=== PATIENT | male | born 1950 | race Caucasian/White ===

== ENCOUNTER 2020-04-24 16:18 | Inpatient (IN) ==
[~2020-04-24 16:18] MED LIST: PIPERACILLIN/TAZOBACTAM 3.375 GM in DEXTROSE 5% 100 ML IV ONE
--- OUTSIDE RECORDS SUMMARY | 2020-04-24 16:21 | External Medical Summary | Continuity of Care Document ---
:1950 Author Name Haroldo Lares, Provider Address Unavailable Unavailable , Care Team Providers Name Role Phone Unavailable Unavailable Unavailable Fei Cobian M.D. Unavailable [email or web address], NO Unavailable Unavailable Unavailable Unavailable Unavailable Problems Deep vein thrombosis of lower extremity (453.40) (I82.409) Coronary artery disease (414.00) (I25.10) Tobacco Use ST elevation (STEMI) myocardial infarction (410.90) (I21.3) Hyperlipidemia (272.4) (E78.5) Allergies and Adverse Reactions No Known Drug Allergies (Allergy) Medications Aspirin 81 MG TABS; TAKE 1 TABLET DAILY. Luda Refills: 0 Metoprolol Tartrate 25 MG Oral Tablet; TAKE 1 TABLET T WICE DAILY. Luda Cobian Quantity: 60 Refills: 0 Simvastatin 40 MG Oral Tablet; TAKE 1 TABLET DAILY AT BEDTIME. Luda Cobian Start: 10-Jun-2011 Quantity: 30 Refills: 11 Procedures History of Cath Stent Placement Status: Completed Immunizations Immunizations not documented Family History Father Family history of Father At Age ___ Status: Active Mother Family history of Mother At Age ___ Status: Active Brother Family history of Asthma (V17.5) Status: Active Family history of Nephrolithiasis Status: Active natural son Family history of Nephrolithiasis Status: Active Social History - Smoking Status Smoker Plan of Treatment Planned Observations Planned Goals not documented Results No Known Results Results not documented
[2020-04-24] MEDS ORDERED: CEFEPIME 2,000 MG/20 ML VIAL IV STA (16:28)
[2020-04-24] MEDS ORDERED: SODIUM CHLORIDE 0.9% 1000ML 1,000 ML IV SCH (16:30)
--- NOTE | 2020-04-24 16:34 | Emergency Department Note ---
History of Present Illness General Chief complaint: Illness Time Seen by Provider: 04/24/20 16:19 Source: patient Mode of arrival: ambulatory Limitations: no limitations History of Present Illness Provider complaint: Fever, weakness, shortness of breath Who presents to the ED with a chief complaint of fever, shortness of breath and some nausea. He was in the same place that his left him when she went for work as when she came back. He is weak. He does have some confusion. It is unclear if this is baseline for the patient. He does have history of CVA. He was brought here by EMS. is currently not here when I arrived to see the patient. He did acknowledge a little shortness of breath as well as the nausea and generally not feeling well and feeling weak. He was noted to have a temperature of 100.9 by nursing staff here. EMS provided 4 mg of IV Zofran. Home Medications Home Medications Medication Instructions Recorded Confirmed Type albuterol sulfate 2.5 mg INHALATION Q4 PRN 06/03/18 06/03/18 History albuterol sulfate [Ventolin HFA] 2 puff INHALATION Q4 PRN 06/03/18 06/03/18 History allopurinol 300 mg PO DAILY PRN 06/03/18 06/03/18 History aspirin [Aspir-81] 81 mg PO DAILY 06/03/18 06/03/18 History atorvastatin 20 mg PO DAILY 06/03/18 06/03/18 History carvedilol [Coreg] 6.25 mg PO BID 06/03/18 06/03/18 History furosemide [Lasix] 20 mg PO 3XWK 06/03/18 06/03/18 History gabapentin 300 mg PO TID 06/03/18 06/03/18 History lisinopril 2.5 mg PO DAILY 06/03/18 06/03/18 History multivitamin 1 tab PO DAILY 06/03/18 06/03/18 History tamsulosin 0.4 mg PO DAILY 06/03/18 06/03/18 History Allergies Allergy/AdvReac Type Severity Reaction Status Date / Time No Known Allergies Allergy Unverified 04/30/10 10:05 Past Med/Surg History Medical History Heart disease Kidney stones Surgical History History of neck surgery Social History Smoking Status: Former smoker Feels Safe at Home: Yes Review of Systems A total of 10 systems reviewed and were otherwise negative Physical Exam Vital Signs Vital Signs - 24 hr 04/24/20 15:49 04/24/20 16:50 04/24/20 17:05 Temperature 38.3 C H Temperature Source Oral Pulse Rate 81 84 79 Pulse Rate from SpO2 Sensor 85 Respiratory Rate 22 22 33 H Respiratory Effort / Characteristics Non-Labored Blood Pressure 143/86 H 143/86 H 103/75 Blood Pressure Mean 96 105 88 Pulse Oximetry 92 92 Oxygen Delivery Method Room Air Oxygen Flow Rate Sepsis Recent Fever Within 48 Hours Yes Sepsis New/Unexplained Change in Mental Status No Sepsis Action Taken by Nursing Physician Notified 04/24/20 17:42 04/24/20 17:46 04/24/20 17:47 Temperature Temperature Source Pulse Rate 81 Pulse Rate from SpO2 Sensor 84 Respiratory Rate 31 H Respiratory Effort / Characteristics Blood Pressure 105/58 L Blood Pressure Mean 83 Pulse Oximetry 90 89 L 95 Oxygen Delivery Method Room Air Nasal Cannula Room Air Oxygen Flow Rate 2 3 Sepsis Recent Fever Within 48 Hours Sepsis New/Unexplained Change in Mental Status Sepsis Action Taken by Nursing 04/24/20 18:24 Temperature Temperature Source Pulse Rate 82 Pulse Rate from SpO2 Sensor 84 Respiratory Rate 31 H Respiratory Effort / Characteristics Blood Pressure 113/79 Blood Pressure Mean 90 Pulse Oximetry 98 Oxygen Delivery Method Oxygen Flow Rate Sepsis Recent Fever Within 48 Hours Sepsis New/Unexplained Change in Mental Status Sepsis Action Taken by Nursing CONSTITUTIONAL/VITAL SIGNS: Reviewed / noted above. GENERAL: Non-toxic in appearance. INTEGUMENTARY: Warm, dry, and [place]. HEAD: Normocephalic. EYES: without scleral icterus or trauma. ENT/OROPHARYNX: clear and moist. LYMPHADENOPATHY/NECK: Is supple without lymphadenopathy or meningismus. RESPIRATORY: Lungs rhonchi left greater than righ. CARDIOVASCULAR: Regular rate and rhythm. GI/ABDOMEN: Soft and nontender. No organomegaly or pulsatile mass. No rebound or guarding. Normal bowel sounds. EXTREMITIES: Warm and well perfused. BACK: No CVA tenderness. NEUROLOGICAL: Intact without focal deficits. PSYCHIATRIC: normal affect. MUSCULOSKELETAL: Normally developed with good muscle tone. TRIAGE NURSING DOCUMENTATION REVIEWED. Course Administered Medications Discontinued Medications Sodium Chloride (Nss 1000ml) 1,000 mls @ 999 mls/hr IV .Q1H1M KAMINI Stop: 04/24/20 17:30 Last Infusion: 04/24/20 18:02 Dose: 0 mls/hr Documented by: [id number] Admin: 04/24/20 17:01 Dose: 999 mls/hr Documented by: [id number] Cefepime HCl (Maxipime) 2,000 mg in 20 mls @ 5 mls/min IV NOW STA; Protocol Stop: 04/24/20 16:31 Last Admin: 04/24/20 17:01 Dose: 5 mls/min Documented by: [id number] Medical Decision Making Differential Diagnosis Differential includes viral illness, influenza, streptococcal pharyngitis, meningitis, pneumonia, sinusitis, UTI, pyelonephritis, otitis media. Medical Records Attestation: I reviewed the patient's medical records. Home Medications Current Medication List: was personally reviewed by me Laboratory Data Attestation: I reviewed the patient's lab results. Result diagrams: 04/24/20 16:43 04/24/20 16:43 Lab Results 04/24/20 04/24/20 04/24/20 Range/Units 16:43 16:43 16:43 WBC 16.39 H (4.8-10.8) K/uL RBC 5.32 (4.7-6.1) M/uL Hgb 16.7 (14.0-18.0) g/dL Hct 47.4 (42-52) % MCV 89.1 (80-100) fL MCH 31.4 (25-34) pg MCHC 35.2 (32-36) g/dL RDW Std Deviation 43.6 (36.4-46.3) fL RDW Coeff of Lenora 13.4 (11.5-14.5) % Plt Count 184 (130-400) K/uL MPV 11.1 H (7.4-10.4) fL Immature Gran % (Auto) 0.3 % Neut % (Auto) 85.6 % Lymph % (Auto) 6.6 % [place] % (Auto) 7.1 % Eos % (Auto) 0.3 % Baso % (Auto) 0.1 % Neut # (Auto) 14.03 H (1.4-6.5) K/uL Lymph # (Auto) 1.08 L (1.2-3.4) K/uL [place] # (Auto) 1.16 H (0.11-0.59) K/uL Eos # (Auto) 0.05 (0-0.5) K/uL Baso # (Auto) 0.02 (0-0.2) K/uL Immature Gran # (Auto) 0.05 H (0.00-0.02) K/uL PT 12.3 H (9.0-12.0) Seconds INR 1.2 H (0.9-1.1) APTT 24.2 (21.0-31.0) Seconds PTT Ratio 0.9 Sodium 135 L (136-145) mmol/L Potassium 4.1 (3.5-5.1) mmol/L Chloride 103 (98-107) mmol/L Carbon Dioxide 24 (21-32) mmol/L Anion Gap 8.0 (3-11) BUN 14 (7-18) mg/dl Creatinine 1.51 H (0.6-1.4) mg/dl Est Cr Clr Drug Dosing 54.8 ml/min Est GFR ( Amer) 53.8 Est GFR (Non-Af Amer) 46.5 BUN/Creatinine Ratio 9.0 L (10-20) Glucose 123 H (70-99) mg/dl Lactate (0.4-2.0) mmol/L Calcium 9.9 (8.5-10.1) mg/dl Magnesium 1.5 L (1.8-2.4) mg/dl Total Bilirubin 2.1 H (0.2-1) mg/dl AST 18 (15-37) U/L ALT 39 (12-78) U/L Alkaline Phosphatase 204 H (45-117) U/L Troponin I < 0.015 (0-0.045) ng/ml Total Protein 7.4 (6.4-8.2) gm/dl Albumin 3.5 (3.4-5.0) gm/dl Globulin 3.9 (2.5-4.0) gm/dl Albumin/Globulin Ratio 0.9 (0.9-2) Adenovirus (PCR) (NotDetected) B. pertussis DNA (PCR) (NotDetected) B.parapertussis DNA PCR (NotDetected) C. pneumoniae DNA (PCR) (NotDetected) Coronavirus OC43 (PCR) (NotDetected) Coronavirus HKU1 (PCR) (NotDetected) Coronavirus 229E (PCR) (NotDetected) COVID-19 PCR (NotDetected) Coronavirus NL63 (PCR) (NotDetected) Human Metapneumovir PCR (NotDetected) Influenza Type A (PCR) (NotDetected) Influenza Type B (PCR) (NotDetected) M. pneumoniae (PCR) (NotDetected) Parainfluenza 1 (PCR) (NotDetected) Parainfluenza 2 (PCR) (NotDetected) Parainfluenza 3 (PCR) (NotDetected) Parainfluenza 4 (PCR) (NotDetected) RSV (PCR) (NotDetected) Entero/Rhino (PCR) (NotDetected) 04/24/20 04/24/20 Range/Units 16:43 16:45 WBC (4.8-10.8) K/uL RBC (4.7-6.1) M/uL Hgb (14.0-18.0) g/dL Hct (42-52) % MCV (80-100) fL MCH (25-34) pg MCHC (32-36) g/dL RDW Std Deviation (36.4-46.3) fL RDW Coeff of Lenora (11.5-14.5) % Plt Count (130-400) K/uL MPV (7.4-10.4) fL Immature Gran % (Auto) % Neut % (Auto) % Lymph % (Auto) % [place] % (Auto) % Eos % (Auto) % Baso % (Auto) % Neut # (Auto) (1.4-6.5) K/uL Lymph # (Auto) (1.2-3.4) K/uL [place] # (Auto) (0.11-0.59) K/uL Eos # (Auto) (0-0.5) K/uL Baso # (Auto) (0-0.2) K/uL Immature Gran # (Auto) (0.00-0.02) K/uL PT (9.0-12.0) Seconds INR (0.9-1.1) APTT (21.0-31.0) Seconds PTT Ratio Sodium (136-145) mmol/L Potassium (3.5-5.1) mmol/L Chloride (98-107) mmol/L Carbon Dioxide (21-32) mmol/L Anion Gap (3-11) BUN (7-18) mg/dl Creatinine (0.6-1.4) mg/dl Est Cr Clr Drug Dosing ml/min Est GFR ( Amer) Est GFR (Non-Af Amer) BUN/Creatinine Ratio (10-20) Glucose (70-99) mg/dl Lactate 1.8 (0.4-2.0) mmol/L Calcium (8.5-10.1) mg/dl Magnesium (1.8-2.4) mg/dl Total Bilirubin (0.2-1) mg/dl AST (15-37) U/L ALT (12-78) U/L Alkaline Phosphatase (45-117) U/L Troponin I (0-0.045) ng/ml Total Protein (6.4-8.2) gm/dl Albumin (3.4-5.0) gm/dl Globulin (2.5-4.0) gm/dl Albumin/Globulin Ratio (0.9-2) Adenovirus (PCR) Not Detected (NotDetected) B. pertussis DNA (PCR) Not Detected (NotDetected) B.parapertussis DNA PCR Not Detected (NotDetected) C. pneumoniae DNA (PCR) Not Detected (NotDetected) Coronavirus OC43 (PCR) Not Detected (NotDetected) Coronavirus HKU1 (PCR) Not Detected (NotDetected) Coronavirus 229E (PCR) Not Detected (NotDetected) COVID-19 PCR Not Detected (NotDetected) Coronavirus NL63 (PCR) Not Detected (NotDetected) Human Metapneumovir PCR Not Detected (NotDetected) Influenza Type A (PCR) Not Detected (NotDetected) Influenza Type B (PCR) Not Detected (NotDetected) M. pneumoniae (PCR) Not Detected (NotDetected) Parainfluenza 1 (PCR) Not Detected (NotDetected) Parainfluenza 2 (PCR) Not Detected (NotDetected) Parainfluenza 3 (PCR) Not Detected (NotDetected) Parainfluenza 4 (PCR) Not Detected (NotDetected) RSV (PCR) Not Detected (NotDetected) Entero/Rhino (PCR) Not Detected (NotDetected) Imaging Data Radiologist's Impression: XR chest 1V portable CLINICAL HISTORY: Sepsis. COMPARISON STUDY: Chest radiograph May 02, 2010. FINDINGS: Postoperative findings within the cervical spine are incidentally noted. There is no pneumothorax or pleural effusion. There is moderate left midlung airspace opacity. Mild cardiomegaly is noted. There is prominence of the left mediastinal contour. IMPRESSION: 1. Moderate left midlung consolidation. This favors pneumonia. Radiographic follow up to ensure resolution is recommended. 2. Left mediastinal prominence. This is probably artifactual however lymphadenopathy cannot be excluded. This should be assessed on subsequent chest radiographs. ECG Data Attestation: I personally reviewed and interpreted this ECG as follows: Indication: + weakness Rate (beats per minute): 83 Rhythm: + normal sinus ECG ST segments: no ST elevation ECG Findings: no PVCs MDM Narrative This is a 69-year-old male who presents to the ED with a chief complaint of weakness, shortness of breath and nausea as well as some dry heaves. EMS p rovided 4 mg of Zofran IV. The patient is noted to have a fever here of 100.9. Vital signs are otherwise stable. The patient's chest x-ray shows a left mid lung consolidation. Twelve-lead EKG shows a sinus rhythm at a rate of 83. White blood cell count of 16,000. Creatinine is 1.51. Troponin was negative. Bio fire test was negative. The patient was treated with IV cefepime and IV fluids. Vital signs remained stable. He did have hypoxia with a pulse ox of 87% without oxygen. He was somewhat tachypneic. Pulse ox was 98% on 3 L. The patient will be seen by the hospitalist for further inpatient evaluation and care. Impression & Plan Pneumonia Discharge Plan Visit Data Chief Complaint: Illness ED Provider: Bradly Samayoa Discharge Problem: Pneumonia Patient Disposition: Being Evaluated by Hospitalist Forms Stand Alone Forms: [facility] [employer] Prescriptions Prescriptions: No Action multivitamin Tablet 1 tab PO DAILY RF: 0 atorvastatin 40 mg Tablet 20 mg PO DAILY RF: 0 carvedilol [Coreg] 6.25 mg Tablet 6.25 mg PO BID RF: 0 albuterol sulfate 2.5 mg /3 mL (0.083 %) Solution For Nebulization 2.5 mg INHALATION Q4 PRN (Reason: Wheezing) RF: 0 aspirin [Aspir-81] 81 mg Tablet,Delayed Release (Dr/Ec) 81 mg PO DAILY RF: 0 tamsulosin 0.4 mg Capsule 0.4 mg PO DAILY RF: 0 gabapentin 300 mg Capsule 300 mg PO TID RF: 0 allopurinol 300 mg Tablet 300 mg PO DAILY PRN (Reason: GOUT FLARE [employer]) RF: 0 furosemide [Lasix] 20 mg Tablet 20 mg PO 3XWK RF: 0 albuterol sulfate [Ventolin HFA] 90 mcg/actuation Hfa Aerosol Inhaler 2 puff INHALATION Q4 PRN (Reason: Wheezing) RF: 0 lisinopril 2.5 mg Tablet 2.5 mg PO DAILY RF: 0 Referrals Referrals: Jorge Luis Santos MD [Primary Care Provider] -
[2020-04-24 16:59] LABS: Basophils # (auto) 0.02 K/uL (0-0.2); Basophils % (auto) 0.1 %; Eosinophils # (auto) 0.05 K/uL (0-0.5); Eosinophils % (auto) 0.3 %; Hematocrit (blood only) 47.4 % (42-52); Hemoglobin 16.7 g/dL (14.0-18.0); Immature Granulocytes # (auto) 0.05 K/uL (0.00-0.02); Immature Granulocytes % (auto) 0.3 %; Lymphocytes # (auto) 1.08 K/uL (1.2-3.4); Lymphocytes % (auto) 6.6 %; Mean Corpuscular Hemoglobin 31.4 pg (25-34); Mean Corpuscular Hgb Conc 35.2 g/dL (32-36); Mean Corpuscular Volume 89.1 fL (80-100); Mean Platelet Volume 11.1 fL (7.4-10.4); Monocytes # (auto) 1.16 K/uL (0.11-0.59); Monocytes % (auto) 7.1 %; Neutrophils # (auto) 14.03 K/uL (1.4-6.5); Neutrophils % (auto) 85.6 %; Platelet Count 184 K/uL (130-400); RDW Coefficient of Variation 13.4 % (11.5-14.5); RDW Standard Deviation 43.6 fL (36.4-46.3); Red Blood Count 5.32 M/uL (4.7-6.1); White Blood Count 16.39 K/uL (4.8-10.8)
[2020-04-24 17:12] LABS: INR 1.2 (0.9-1.1); Partial Thromboplastin Ratio 0.9; Partial Thromboplastin Time 24.2 Seconds (21.0-31.0); Prothrombin Time 12.3 Seconds (9.0-12.0)
[2020-04-24 17:20] LABS: Alanine Aminotransferase 39 U/L (12-78); Albumin Level 3.5 gm/dl (3.4-5.0); Aspartate Aminotransferase 18 U/L (15-37); Blood Urea Nitrogen 14 mg/dl (7-18); Calcium 9.9 mg/dl (8.5-10.1); Carbon Dioxide 24 mmol/L (21-32); Chloride 103 mmol/L (98-107); Creatinine Clr Calc Pharmacy 54.8 ml/min; Est GFR (African American) 53.8; Est GFR (Non-African American) 46.5; Glucose 123 mg/dl (70-99); Magnesium 1.5 mg/dl (1.8-2.4); Potassium 4.1 mmol/L (3.5-5.1); Sodium 135 mmol/L (136-145)
[2020-04-24 17:25] LABS: Albumin Globulin Ratio 0.9 (0.9-2); Alkaline Phosphatase 204 U/L (45-117); Bilirubin,Total 2.1 mg/dl (0.2-1); Globulin 3.9 gm/dl (2.5-4.0); Total Protein 7.4 gm/dl (6.4-8.2); Troponin I < 0.015 ng/ml (0-0.045)
--- NOTE | 2020-04-24 17:25 | XRay Report ---
XR chest 1V portable CLINICAL HISTORY: Sepsis. COMPARISON STUDY: Chest radiograph May 02, 2010. FINDINGS: Postoperative findings within the cervical spine are incidentally noted. There is no pneumo thorax or pleural effusion. There is moderate left midlung airspace opacity. Mild cardiomegaly is not ed. There is prominence of the left mediastinal contour. IMPRESSION: 1. Moderate left midlung consolidation. This favors pneumonia. Radiographic follow up to ensure resol ution is recommended. 2. Left mediastinal prominence. This is probably artifactual however lymphadenopathy cannot be exclud ed. This should be assessed on subsequent chest radiographs. ACT 112: Negative or not required by law. Electronically signed by: Avila Khoury M.D. 04/24/2020 5:24 PM
[2020-04-24 17:54] LABS: Adenovirus PCR Not Detected (NotDetected); Bordetella parapertussis PCR Not Detected (NotDetected); Bordetella pertussis PCR Not Detected (NotDetected); Chlamydia pneumoniae PCR Not Detected (NotDetected); Coronavirus 229E PCR Not Detected (NotDetected); Coronavirus CoV-2 (COVID19)PCR Not Detected (NotDetected); Coronavirus HKU1 PCR Not Detected (NotDetected); Coronavirus NL63 PCR Not Detected (NotDetected); Coronavirus OC43PCR Not Detected (NotDetected); Human Metapneumovirus PCR Not Detected (NotDetected); Influenza A PCR Not Detected (NotDetected); Influenza B PCR Not Detected (NotDetected); Mycoplasma pneumoniae PCR Not Detected (NotDetected); Parainfluenza Virus 1 PCR Not Detected (NotDetected); Parainfluenza Virus 2 PCR Not Detected (NotDetected); Parainfluenza Virus 3 PCR Not Detected (NotDetected); Parainfluenza Virus 4 PCR Not Detected (NotDetected); Respiratory Syncytial VirusPCR Not Detected (NotDetected); Rhinovirus/Enterovirus PCR Not Detected (NotDetected)
[2020-04-24] MEDS ORDERED: MAGNESIUM SULFATE / D5W 1 GM/100 ML BAG IV STA (19:26)
[2020-04-24] MEDS ORDERED: LORazepam 0.5 MG/1 ML VIAL IV STA (19:28)
[2020-04-24] MEDS ORDERED: LORazepam 0.25 MG/0.5 ML VIAL IV PRN (19:29)
[2020-04-24] MEDS ORDERED: ACETAMINOPHEN 325 MG TAB PO PRN (19:32)
[2020-04-24] MEDS ORDERED: ALBUT/IPRATROP 3MG/0.5MG NEB 3 ML VIAL NEB PRN (19:32)
[2020-04-24] MEDS ORDERED: MAGNESIUM SULFATE 1GM / D5W BAG IV ONE (19:37)
--- NOTE | 2020-04-24 19:37 | History & Physical Report ---
Date of Service April 24, 2020 Assessment & Plan (1) Pneumonia: -Patient presents to ED with a chief complaint of fever, shortness of breath and some nausea; admission Chest X ray with Moderate left midlung consolidation that favors pneumonia, and left mediastinal prominence (but lymphadenopathy cannot be excluded), WBC of 13 K, and fever of 38.3 celsius; also hypoxic on room air as 87%, patient does not use oxygen at home. was given supplementary oxygen and given cefepime in the ED. COVID 19 screening is negative -When hospitalist arrived to admit the patient, patient appears to have reluctance or anxiety about being admitted to the hospital. Patient's Yola [phone] denies that patient has any diagnosis of dementia and convincing patient to stay for hospital treatment. patient allowed for physical exam but not reporting current nausea - his affirms subjective fever at home. other review of systems appears to be negative. -hospitalist will admit patient and transition IV antibiotics to broaden the coverage with IV Zosyn and IV Doxycycline. send for MRSA swab of the nares. (2) Hypoxia: -supplementary oxygen as needed -wean off oxygen when able -nebuilzers prn (3) PAF (paroxysmal atrial fibrillation): Chronic systolic heart failure as per his outpatient notes -patient home dose medications does not include any diuretics -on metoprolol 50 mg daily and eliquis and atorvastatin, continue (4) alf (current) use of anticoagulants: -continue home dose Eliquis 5 mg BID (5) Depression: -continue home dose fluoxetine 20 mg daily -on gabapentin 300 mg TID -prn ativan for anxiety of being in hospital (6) CKD (chronic kidney disease), stage III: -monitor the renal function (7) BPH (benign prostatic hyperplasia): -monitor the urination and continue home dose finasteride and tamsulosin History of gout in the past -hold the allopurinol for now Yola [phone] son Sonido [phone] History of Present Illness -Patient presents to ED with a chief complaint of fever, shortness of breath and some nausea; admission Chest X ray with Moderate left midlung consolidation that favors pneumonia, and left mediastinal prominence (but lymphadenopathy cannot be excluded), WBC of 13 K, and fever of 38.3 celsius; also hypoxic on room air as 87%, patient does not use oxygen at home. was given supplementary oxygen and given cefepime in the ED. COVID 19 screening is negative -When hospitalist arrived to admit the patient, patient appears to have reluctance or anxiety about being admitted to the hospital. Patient's Yola [phone] denies that patient has any diagnosis of dementia and convincing patient to stay for hospital treatment. patient allowed for physical exam but not reporting current nausea - his affirms subjective fever at home. other review of systems appears to be negative. denies any drug allergies to medications or foods Family Health history: brother has asthma Primary Care Provider: Jorge Luis Santos MD Allergies Allergy/AdvReac Type Severity Reaction Status Date / Time No Known Allergies Allergy Unverified 04/24/20 19:29 Home Medications Home Medications Medication Instructions Recorded Confirmed Type albuterol sulfate 2.5 mg INHALATION Q4 PRN 06/03/18 04/24/20 History albuterol sulfate [Ventolin HFA] 2 puff INHALATION Q4 PRN 06/03/18 04/24/20 History allopurinol 300 mg PO DAILY PRN 06/03/18 04/24/20 History atorvastatin 20 mg PO DAILY 06/03/18 04/24/20 History gabapentin 300 mg PO TID 06/03/18 04/24/20 History multivitamin 1 tab PO DAILY 06/03/18 04/24/20 History tamsulosin 0.4 mg PO DAILY 06/03/18 04/24/20 History apixaban [Eliquis] 5 mg PO BID 04/24/20 04/24/20 History finasteride 5 mg PO DAILY 04/24/20 04/24/20 History fluoxetine 20 mg PO DAILY 04/24/20 04/24/20 History metoprolol succinate 50 mg PO DAILY 04/24/20 04/24/20 History Past Med/Surg History Medical History Heart disease Kidney stones Surgical History History of neck surgery Social History Smoking Status: Former smoker Feels Safe at Home: Yes Review of Systems Review of Systems: All systems reviewed & are unremarkable except as noted in Subjective Physical Exam Constitutional: comfortable Eyes: PERRL, conjunctivae normal, anicteric sclerae EOM intact bilaterally ENMT: external ear and nose normal, oropharynx normal Neck: normal visual inspection Respiratory: Auscultation: + crackles Cardiovascular: Rate/Rhythm: regular rate Gastrointestinal (Abdomen): normal bowel sounds, soft, nontender, no hepatosplenomegaly Musculoskeletal: Head/Neck/Chest: normocephalic and head atraumatic Neurologic: PERRL, EOMI, accommodation nl, no face palsy, no dysarthria moves all extremities Psychiatric: Orientation: alert patient has anxiety about staying in the hospital Results & Data Results & Data ([facility]) Vital Signs (Past 12 Hours) Vital Signs Temp Pulse Resp BP Pulse Ox 04/24/20 18:24 82 31 H 113/79 98 04/24/20 17:47 95 04/24/20 17:46 89 L 04/24/20 17:42 81 31 H 105/58 L 90 04/24/20 17:05 79 33 H 103/75 92 04/24/20 16:50 38.3 C H 84 22 143/86 H 92 04/24/20 15:49 81 22 143/86 H Code Status & VTE Plan VTE Prophylaxis Plan VTE Prophylaxis will be ordered: Yes (1) Pneumonia Laterality: left Lung location: lower lobe of lung Pneumonia type: due to unspecified organism Qualified Code(s): J18.9 - Pneumonia, unspecified organism
[2020-04-24] MEDS ORDERED: LORazepam 2 MG/4 ML VIAL ONE (19:45)
[2020-04-25] MEDS: DOXYCYCLINE HYCLATE 100 MG in DEXTROSE 5% 100 ML IV SCH ×3 (00:03→22:00)
[2020-04-25] MEDS: APIXABAN 5 MG TABLET PO SCH ×3 (00:04→20:43)
[2020-04-25] MEDS: MAGNESIUM OXIDE 400 MG TAB PO SCH ×2 (00:04→07:59)
[2020-04-25] MEDS: GABAPENTIN 300 MG CAP PO SCH ×4 (00:04→20:43)
[2020-04-25 00:55] LABS: Eosinophils # (auto) 0.01 K/uL (0-0.5); Eosinophils % (auto) 0.1 %; Hematocrit (blood only) 39.3 % (42-52); Hemoglobin 14.2 g/dL (14.0-18.0); Immature Granulocytes # (auto) 0.08 K/uL (0.00-0.02); Immature Granulocytes % (auto) 0.4 %; Lymphocytes # (auto) 0.92 K/uL (1.2-3.4); Mean Corpuscular Hemoglobin 32.1 pg (25-34); Mean Corpuscular Hgb Conc 36.1 g/dL (32-36); Mean Corpuscular Volume 88.7 fL (80-100); Monocytes # (auto) 1.62 K/uL (0.11-0.59); Monocytes % (auto) 8.9 %; Neutrophils # (auto) 15.64 K/uL (1.4-6.5); Neutrophils % (auto) 85.6 %; Platelet Count 148 K/uL (130-400); RDW Coefficient of Variation 13.3 % (11.5-14.5); RDW Standard Deviation 43.3 fL (36.4-46.3); Red Blood Count 4.43 M/uL (4.7-6.1); White Blood Count 18.27 K/uL (4.8-10.8)
[2020-04-25 01:12] LABS: Albumin Level 2.7 gm/dl (3.4-5.0); BUN Creatinine Ratio 13.2 (10-20); Calcium 8.5 mg/dl (8.5-10.1); Creatinine Clr Calc Pharmacy 58.3 ml/min; Magnesium 1.8 mg/dl (1.8-2.4); Potassium 4.2 mmol/L (3.5-5.1)
[2020-04-25 01:16] LABS: Albumin Globulin Ratio 0.8 (0.9-2); Bilirubin,Total 1.9 mg/dl (0.2-1); Globulin 3.3 gm/dl (2.5-4.0)
[2020-04-25] MEDS ORDERED: PIPERACILLIN/TAZOBACTAM 3.375 GM in DEXTROSE 5% 100 ML IV ONE (05:00)
[2020-04-25 05:13] LABS: Appearance Urine Cloudy (Clear); Bacteria Urine Automated Negative (Negative); Bilirubin Urine Negative (Negative); Blood Urine 1+ (Negative); Color Urine Orange; Epithelial Cell Urine Auto 0-5 /lpf (0-5); Glucose Urine UA Negative (Negative); Ketones Urine Trace (Negative); Leukocyte Esterase Urine 2+ (Negative); Nitrite Urine Negative (Negative); Protein Urine Trace (Negative); RBC Urine Automated 0-4 /hpf (0-4); Specific Gravity Urine 1.025 (1.000-1.030); Urobilinogen Urine Negative (Negative); WBC Urine Automated >30 /hpf (0-5)
[2020-04-25 05:35] LABS: Cast Urine Automated 0 /lpf (0-5); Mucus Urine Present (None Prsent); Sperm Urine Present (None Prsent)
[2020-04-25 06:26] LABS: Basophils # (auto) 0.02 K/uL (0-0.2); Basophils % (auto) 0.1 %; Eosinophils # (auto) 0.02 K/uL (0-0.5); Eosinophils % (auto) 0.1 %; Hematocrit (blood only) 41.7 % (42-52); Hemoglobin 14.2 g/dL (14.0-18.0); Immature Granulocytes # (auto) 0.05 K/uL (0.00-0.02); Immature Granulocytes % (auto) 0.3 %; Lymphocytes # (auto) 1.38 K/uL (1.2-3.4); Lymphocytes % (auto) 7.4 %; Mean Corpuscular Hemoglobin 30.5 pg (25-34); Mean Corpuscular Hgb Conc 34.1 g/dL (32-36); Mean Corpuscular Volume 89.5 fL (80-100); Mean Platelet Volume 10.3 fL (7.4-10.4); Monocytes # (auto) 1.34 K/uL (0.11-0.59); Monocytes % (auto) 7.2 %; Neutrophils # (auto) 15.89 K/uL (1.4-6.5); Neutrophils % (auto) 84.9 %; Platelet Count 157 K/uL (130-400); RDW Coefficient of Variation 13.5 % (11.5-14.5); RDW Standard Deviation 44.2 fL (36.4-46.3); Red Blood Count 4.66 M/uL (4.7-6.1)
[2020-04-25 06:53] LABS: Albumin Level 2.7 gm/dl (3.4-5.0); Calcium 8.8 mg/dl (8.5-10.1); Creatinine Clr Calc Pharmacy 51.4 ml/min; Est GFR (African American) 54.7; Est GFR (Non-African American) 47.2; Potassium 4.2 mmol/L (3.5-5.1)
[2020-04-25 06:56] LABS: Albumin Globulin Ratio 0.8 (0.9-2); Bilirubin,Total 2.1 mg/dl (0.2-1); Globulin 3.3 gm/dl (2.5-4.0)
[2020-04-25] MEDS: TAMSULOSIN HCL 0.4 MG CAP PO SCH (07:58)
[2020-04-25] MEDS: ATORVASTATIN 20 MG TAB PO SCH (07:58)
[2020-04-25] MEDS: MULTIVITAMIN TAB PO SCH (07:59)
[2020-04-25] MEDS: FLUOXETINE HCL 20 MG CAP PO SCH (07:59)
[2020-04-25] MEDS: FINASTERIDE 5 MG TAB PO SCH (08:00)
[2020-04-25] MEDS: METOPROLOL SUCC 50MG EXT REL TAB PO SCH (08:00)
[2020-04-25] MEDS ORDERED: PIPERACILL/TAZOBAC CONSULT ACTIVE PRN (10:00)
[2020-04-25] MEDS: PIPERACILLIN/TAZOBACTAM 3.375 GM in DEXTROSE 5% 100 ML IV SCH ×2 (10:26→17:04)
--- NOTE | 2020-04-25 14:36 | Hospitalist Progress Note ---
Date of Service April 25, 2020 Assessment & Plan (1) Pneumonia: Sepsis POA secondary to pneumonia Patient presents to ED with a chief complaint of fever, shortness of breath and some nausea; admission Chest X ray with Moderate left midlung consolidation that favors pneumonia, and left mediastinal prominence (but lymphadenopathy cannot be excluded), WBC of 13 K, and fever of 38.3 celsius; also hypoxic on room air as 87%, patient does not use oxygen at home. was given supplementary oxygen and given cefepime in the ED. 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: -continue home dose Eliquis 5 mg BID (5) Depression: -continue home dose fluoxetine 20 mg daily -on gabapentin 300 mg TID -prn ativan for anxiety of being in hospital (6) CKD (chronic kidney disease), stage III: Acute kidney failure on chronic kidney disease Contributed by dehydration We will give cautious amount of intravenous fluid Letter PRP (7) BPH (benign prostatic hyperplasia): -monitor the urination and continue home dose finasteride and tamsulosin History of gout in the past -hold the allopurinol for now Yola [phone] son Sonido [phone] Discussed the in detail Admission and Anticipated Discharge Date Admission Date: April 24, 2020 Subjective 04/25/2020 The patient was seen and examined in medical telemetry unit in presence of the Admitted yesterday with sudden onset of fever and shortness of breath with nausea noted to have left mid lung pneumonia Feeling a lot better this morning Still has cough and moderate shortness of breath at rest Review of Systems Review of Systems: All systems reviewed and are unremarkable except as noted below Respiratory: + cough and + dyspnea Physical Exam Physical Exam: Lying in bed with moderate shortness of breath and wheezing Constitutional: well developed, well nourished, + acute distress, + ill appearing and + obese Eyes: PERRL, conjunctivae normal, anicteric sclerae ENMT: external ear and nose normal, oropharynx normal Neck: trachea midline, no thyromegaly Respiratory: + respiratory distress (Moderate at rest) Auscultation: + diminished lung sounds, + crackles (Bilateral mostly on the left) and + wheezes Cardiovascular: Rate/Rhythm: regular rate and regular rhythm Heart Sounds: no murmur Gastrointestinal (Abdomen): Inspection/Auscultation: abdomen normal to inspection and normal bowel sounds; abdomen not distended Percussion/Palpation: abdomen soft Musculoskeletal: No acute arthritis in any joints Neurologic: moves all extremities; no focal motor deficits Psychiatric: A+Ox3, euthymic affect Lymphatic: no cervical or axillary lymphadenopathy Results & Data Results & Data ([facility]) Vital Signs (Past 12 Hours) Vital Signs Temp Pulse Pulse Resp BP BP Pulse Ox 04/25/20 12:10 36.4 C L 63 20 97/60 L 92 04/25/20 08:02 36.8 C 70 20 83/59 L 95/65 L 70 L 04/25/20 08:00 65 04/25/20 03:31 37.1 C 66 18 96/56 L 93 Laboratory Results Short CBC 04/24/20 04/25/20 04/25/20 Range/Units 16:43 00:41 05:57 WBC 16.39 H 18.27 H 18.70 H (4.8-10.8) K/uL Hgb 16.7 14.2 14.2 (14.0-18.0) g/dL Hct 47.4 39.3 L 41.7 L (42-52) % Plt Count 184 148 157 (130-400) K/uL BMP 04/24/20 04/25/20 04/25/20 16:43 00:41 05:57 Sodium 135 L 135 L 136 Potassium 4.1 4.2 4.2 Chloride 103 106 106 Carbon Dioxide 24 23 25 BUN 14 19 H 21 H Creatinine 1.51 H 1.42 H 1.49 H Glucose 123 H 107 H 110 H Calcium 9.9 8.5 8.8 Cardiac Enzymes 04/24/20 Range/Units 16:43 Troponin I < 0.015 (0-0.045) ng/ml Liver Function 04/24/20 04/25/20 04/25/20 Range/Units 16:43 00:41 05:57 Total Bilirubin 2.1 H 1.9 H 2.1 H (0.2-1) mg/dl AST 18 13 L 12 L (15-37) U/L ALT 39 27 26 (12-78) U/L Alkaline Phosphatase 204 H 155 H 151 H (45-117) U/L Albumin 3.5 2.7 L 2.7 L (3.4-5.0) gm/dl Urine 04/25/20 Range/Units 05:00 Urine Color [place] Urine Appearance Cloudy A (Clear) Urine pH 5.0 (4.5-7.5) Ur Specific [place] 1.025 (1.000-1.030) Urine Protein Trace H (Negative) Urine Glucose (UA) Negative (Negative) Medications Administered Current Inpatient Medications Acetaminophen (Acetaminophen 325 Mg Tab) 325 mg PO Q6H PRN PRN Reason: Pain or Fever Stop: 05/24/20 19:44 Albuterol (Albut/Ipratrop 3mg/0.5mg Neb 3 Ml Vial) 3 ml NEB Q6R PRN PRN Reason: Shortness Of Breath Or Wheezing Stop: 05/24/20 19:31 Apixaban (Apixaban 5 Mg Tablet) 5 mg PO BID [facility] Stop: 05/24/20 20:59 Last Admin: 04/25/20 09:50 Dose: 5 mg Documented by: Atorvastatin Calcium (Atorvastatin 20 Mg Tab) 20 mg PO DAILY [facility] Stop: 05/25/20 08:59 Last Admin: 04/25/20 07:58 Dose: 20 mg Documented by: Finasteride (Finasteride 5 Mg Tab) 5 mg PO DAILY [facility] Stop: 05/25/20 08:59 Last Admin: 04/25/20 08:00 Dose: 5 mg Documented by: Fluoxetine HCl (Fluoxetine Hcl 20 Mg Cap) 20 mg PO DAILY [facility] Stop: 05/25/20 08:59 Last Admin: 04/25/20 07:59 Dose: 20 mg Documented by: Gabapentin (Gabapentin 300 Mg Cap) 300 mg PO TID [facility] Stop: 05/24/20 20:59 Last Admin: 04/25/20 14:32 Dose: 300 mg Documented by: Lorazepam (Ativan) 0.25 mg in 0.5 mls @ 0.5 mls/min IV Q12H PRN PRN Reason: Anxiety Stop: 05/24/20 19:28 Doxycycline Hyclate 100 mg/ (Dextrose) 110 mls @ 50 mls/hr IV Q12 [facility] Stop: 05/01/20 22:29 Last Infusion: 04/25/20 10:26 Dose: Infused Documented by: Piperacillin Sod/Tazobactam (Sod 3.375 gm/ Dextrose) 115 mls @ 28 mls/hr IV Q8H [facility]; Protocol Stop: 05/02/20 09:59 Last Infusion: 04/25/20 14:30 Dose: Infused Documented by: Magnesium Oxide (Magnesium Oxide 400 Mg Tab) 400 mg PO QAM [facility] Stop: 05/24/20 19:29 Last Admin: 04/25/20 07:59 Dose: 400 mg Documented by: Metoprolol Succinate (Metoprolol Succ 50mg Ext Rel Tab) 50 mg PO DAILY [facility] Stop: 05/25/20 08:59 Last Admin: 04/25/20 08:00 Dose: Not Given Documented by: Miscellaneous Information (Piperacill/Tazobac Consult Active) 1 ea N/A UD PRN PRN Reason: Consult Stop: 05/25/20 09:59 Multivitamins (Multivitamin Tab) 1 tab PO DAILY [facility] Stop: 05/25/20 08:59 Last Admin: 04/25/20 07:59 Dose: 1 tab Documented by: Tamsulosin HCl (Tamsulosin Hcl 0.4 Mg Cap) 0.4 mg PO DAILY [facility] Stop: 05/25/20 08:59 Last Admin: 04/25/20 07:58 Dose: 0.4 mg Documented by: (1) Pneumonia Laterality: left Lung location: lower lobe of lung Pneumonia type: due to unspecified organism Qualified Code(s): J18.9 - Pneumonia, unspecified organism
[2020-04-25] MEDS ORDERED: SODIUM CHLORIDE 0.9% 1000ML 1,000 ML IV SCH (15:45)
--- NOTE | 2020-04-25 22:20 | Electrocardiogram Report ---
Test Reason : Blood Pressure : / mmHG Vent. Rate : 083 BPM Atrial Rate : 083 BPM P-R Int : 138 ms QRS Dur : 078 ms QT Int : 370 ms P-R-T Axes : 072 011 074 degrees QTc Int : 434 ms Sinus rhythm with Premature atrial complexes Otherwise normal ECG When compared with ECG of 03-JUN-2018 16:03, Sinus rhythm has replaced Atrial fibrillation Confirmed by Peng Levy ([id number]) on 04/25/2020 10:20:19 PM Referred By: REFERRED SELF Confirmed By:Peng Levy
[2020-04-26] MEDS: PIPERACILLIN/TAZOBACTAM 3.375 GM in DEXTROSE 5% 100 ML IV SCH (01:31)
[2020-04-26 05:46] LABS: Basophils # (auto) 0.02 K/uL (0-0.2); Basophils % (auto) 0.2 %; Eosinophils # (auto) 0.34 K/uL (0-0.5); Eosinophils % (auto) 2.7 %; Hematocrit (blood only) 41.8 % (42-52); Hemoglobin 14.2 g/dL (14.0-18.0); Immature Granulocytes # (auto) 0.02 K/uL (0.00-0.02); Immature Granulocytes % (auto) 0.2 %; Lymphocytes # (auto) 1.75 K/uL (1.2-3.4); Lymphocytes % (auto) 13.7 %; Mean Corpuscular Hemoglobin 30.3 pg (25-34); Mean Corpuscular Volume 89.1 fL (80-100); Mean Platelet Volume 10.6 fL (7.4-10.4); Monocytes # (auto) 1.03 K/uL (0.11-0.59); Monocytes % (auto) 8.1 %; Neutrophils # (auto) 9.57 K/uL (1.4-6.5); Neutrophils % (auto) 75.1 %; Platelet Count 163 K/uL (130-400); RDW Coefficient of Variation 13.3 % (11.5-14.5); RDW Standard Deviation 43.4 fL (36.4-46.3); Red Blood Count 4.69 M/uL (4.7-6.1); White Blood Count 12.73 K/uL (4.8-10.8)
[2020-04-26 06:23] LABS: Calcium 8.9 mg/dl (8.5-10.1); Creatinine Clr Calc Pharmacy 56.3 ml/min; Est GFR (African American) 61.1; Est GFR (Non-African American) 52.7; Magnesium 1.9 mg/dl (1.8-2.4); Phosphorus 1.9 mg/dl (2.5-4.9)
[2020-04-26] MEDS: DOXYCYCLINE HYCLATE 100 MG in DEXTROSE 5% 100 ML IV SCH (07:44)
[2020-04-26] MEDS: GABAPENTIN 300 MG CAP PO SCH (07:45)
[2020-04-26] MEDS: TAMSULOSIN HCL 0.4 MG CAP PO SCH (07:45)
[2020-04-26] MEDS: METOPROLOL SUCC 50MG EXT REL TAB PO SCH (07:45)
[2020-04-26] MEDS: ATORVASTATIN 20 MG TAB PO SCH (07:45)
[2020-04-26] MEDS: MULTIVITAMIN TAB PO SCH (07:45)
[2020-04-26] MEDS: FINASTERIDE 5 MG TAB PO SCH (07:46)
[2020-04-26] MEDS: MAGNESIUM OXIDE 400 MG TAB PO SCH (07:46)
[2020-04-26] MEDS: APIXABAN 5 MG TABLET PO SCH (07:46)
[2020-04-26] MEDS: FLUOXETINE HCL 20 MG CAP PO SCH (07:46)
--- NOTE | 2020-04-26 10:01 | Hospitalist Progress Note ---
Date of Service April 26, 2020 Assessment & Plan (1) Pneumonia: Sepsis POA secondary to pneumonia Patient presents to ED with a chief complaint of fever, shortness of breath and some nausea; admission Chest X ray with Moderate left midlung consolidation that favors pneumonia, and left mediastinal prominence (but lymphadenopathy cannot be excluded), WBC of 13 K, and fever of 38.3 celsius; also hypoxic on room air as 87%, patient does not use oxygen at home. was given supplementary oxygen and given cefepime in the ED. COVID 19 screening is negative Has been getting intravenous Zosyn and doxycycline Clinically a little bit better today We will continue current management Much better this morning and the blood cultures have been negative He does not require any oxygen at rest He will have up to a step O2 saturation test and an x-ray of the chest before discharging this morning We will change antibiotic to oral Augmentin and doxycycline for better coverage (2) Hypoxia: -supplementary oxygen as needed -wean off oxygen when able -nebuilzers prn - (3) PAF (paroxysmal atrial fibrillation): DischargeChronic systolic heart failure as per his outpatient notes -patient home dose medications does not include any diuretics -on metoprolol 50 mg daily and eliquis and atorvastatin, continue -Has had junctional rhythm this morning history of PAF before (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: -continue home dose Eliquis 5 mg BID (5) Depression: -continue home dose fluoxetine 20 mg daily -on gabapentin 300 mg TID -prn ativan for anxiety of being in hospital (6) CKD (chronic kidney disease), stage III: Acute kidney failure on chronic kidney disease Contributed by dehydration We will give cautious amount of intravenous fluid Letter PRP (7) BPH (benign prostatic hyperplasia): -monitor the urination and continue home dose finasteride and tamsulosin History of gout in the past -hold the allopurinol for now Yola [phone] son Sonido [phone] Discussed the in detail Wants to go home desperately and will be leaving this afternoon Admission and Anticipated Discharge Date Admission Date: April 24, 2020 Subjective 04/25/2020 The patient was seen and examined in medical telemetry unit in presence of the Admitted yesterday with sudden onset of fever and shortness of breath with nausea noted to have left mid lung pneumonia Feeling a lot better this morning Still has cough and moderate shortness of breath at rest 04/26/2020 The patient was seen and examined in medical telemetry unit He has been insisting since this morning that he wants to go home His shortness of breath is much improved and he does not require any oxygen to maintain saturation at room air He will have chest x-ray this morning and if it shows improvement most likely will be discharging home this afternoon Review of Systems Review of Systems: All systems reviewed and are unremarkable except as noted below Respiratory: + cough and + dyspnea Physical Exam Physical Exam: Lying in bed with minimal shortness of breath and wheezing Constitutional: well developed, well nourished and + obese; no acute distress and not ill appearing Eyes: PERRL, conjunctivae normal, anicteric sclerae ENMT: external ear and nose normal, oropharynx normal Neck: trachea midline, no thyromegaly Respiratory: + respiratory distress (Minimal shortness of breath at rest) Auscultation: + diminished lung sounds and + crackles (Very few left basilar crackles); no wheezes Cardiovascular: Rate/Rhythm: regular rate and regular rhythm Heart Sounds: no murmur Gastrointestinal (Abdomen): Inspection/Auscultation: abdomen normal to inspection and normal bowel sounds; abdomen not distended Percussion/Palpation: abdomen soft Neurologic: moves all extremities; no focal motor deficits Psychiatric: A+Ox3, euthymic affect Lymphatic: no cervical or axillary lymphadenopathy Results & Data Results & Data ([facility]) Vital Signs (Past 12 Hours) Vital Signs Temp Pulse Pulse Resp BP Pulse Ox 04/26/20 09:18 90 04/26/20 07:57 36.7 C 89 16 93/66 L 95 04/26/20 07:35 67 04/26/20 04:00 18 04/26/20 03:20 36.5 C 66 18 100/62 92 04/26/20 00:00 16 04/25/20 22:36 36.5 C 74 20 99/66 L 91 Laboratory Results Short CBC 04/26/20 Range/Units 05:07 WBC 12.73 H (4.8-10.8) K/uL Hgb 14.2 (14.0-18.0) g/dL Hct 41.8 L (42-52) % Plt Count 163 (130-400) K/uL [facility] 04/26/20 05:07 Sodium 136 Potassium 4.0 Chloride 105 Carbon Dioxide 25 BUN 23 H Creatinine 1.36 Glucose 103 H Calcium 8.9 Medications Administered Current Inpatient Medications Acetaminophen (Acetaminophen 325 Mg Tab) 325 mg PO Q6H PRN PRN Reason: Pain or Fever Stop: 05/24/20 19:44 Albuterol (Albut/Ipratrop 3mg/0.5mg Neb 3 Ml Vial) 3 ml NEB Q6R PRN PRN Reason: Shortness Of Breath Or Wheezing Stop: 05/24/20 19:31 Amoxicillin/Clavulanate Potassium (Amoxicillin/Clavulanate 875 Mg Tab) 1 tab PO BIDM [facility] Stop: 05/03/20 16:59 Apixaban (Apixaban 5 Mg Tablet) 5 mg PO BID [facility] Stop: 05/24/20 20:59 Last Admin: 04/26/20 07:46 Dose: 5 mg Documented by: Doxycycline Hyclate (Doxycycline Hyclate 100 Mg Cap) 100 mg PO BID [facility]; Protocol Stop: 05/01/20 23:59 Finasteride (Finasteride 5 Mg Tab) 5 mg PO DAILY [facility] Stop: 05/25/20 08:59 Last Admin: 04/26/20 07:46 Dose: 5 mg Documented by: Fluoxetine HCl (Fluoxetine Hcl 20 Mg Cap) 20 mg PO DAILY [facility] Stop: 05/25/20 08:59 Last Admin: 04/26/20 07:46 Dose: 20 mg Documented by: Gabapentin (Gabapentin 300 Mg Cap) 300 mg PO TID [facility] Stop: 05/24/20 20:59 Last Admin: 04/26/20 07:45 Dose: 300 mg Documented by: Lorazepam (Ativan) 0.25 mg in 0.5 mls @ 0.5 mls/min IV Q12H PRN PRN Reason: Anxiety Stop: 05/24/20 19:28 Magnesium Oxide (Magnesium Oxide 400 Mg Tab) 400 mg PO QAM [facility] Stop: 05/24/20 19:29 Last Admin: 04/26/20 07:46 Dose: 400 mg Documented by: Metoprolol Succinate (Metoprolol Succ 50mg Ext Rel Tab) 50 mg PO DAILY [facility] Stop: 05/25/20 08:59 Last Admin: 04/26/20 07:45 Dose: 50 mg Documented by: Multivitamins (Multivitamin Tab) 1 tab PO DAILY [facility] Stop: 05/25/20 08:59 Last Admin: 04/26/20 07:45 Dose: 1 tab Documented by: Tamsulosin HCl (Tamsulosin Hcl 0.4 Mg Cap) 0.4 mg PO DAILY [facility] Stop: 05/25/20 08:59 Last Admin: 04/26/20 07:45 Dose: 0.4 mg Documented by: (1) Pneumonia Laterality: left Lung location: lower lobe of lung Pneumonia type: due to unspecified organism Qualified Code(s): J18.9 - Pneumonia, unspecified organism
--- NOTE | 2020-04-26 10:18 | XRay Report ---
XR chest 2V PA/lateral CLINICAL HISTORY: pneumonia COMPARISON STUDY: Chest radiograph April 24, 2020. FINDINGS: A trace left pleural effusion is noted. There is no pneumothorax. Left midlung consolidatio n has increased since prior exam. Left suprahilar fullness is noted. There is no consolidation within the right lung. Mild cardiomegaly is noted. IMPRESSION: 1. Increase in moderate left lung consolidation which favors pneumonia. Post treatment radiographs to ensure resolution are recommended. 2. Fullness of the superior left hilum. This could be due to vessels or lymphadenopathy and should be assessed on subsequent chest radiographs. ACT 112: Negative or not required by law. Electronically signed by: Avila Khoury M.D. 04/26/2020 10:17 AM
[2020-04-26] MEDS ORDERED: AMOXICILLIN/CLAVULANATE 875 MG TAB PO SCH (17:00)
[2020-04-26] MEDS ORDERED: DOXYCYCLINE HYCLATE 100 MG CAP PO SCH (21:00)
--- NOTE | 2020-04-26 22:44 | Electrocardiogram Report ---
Test Reason : Blood Pressure : / mmHG Vent. Rate : 090 BPM Atrial Rate : 000 BPM P-R Int : 000 ms QRS Dur : 074 ms QT Int : 356 ms P-R-T Axes : 000 016 087 degrees QTc Int : 435 ms Atrial fibrillation Abnormal ECG When compared with ECG of 24-APR-2020 16:24, Atrial fibrillation has replaced Sinus rhythm Confirmed by Peng Levy ([id number]) on 04/26/2020 10:43:57 PM Referred By: REFERRED SELF Confirmed By:Peng Levy
--- NOTE | 2020-04-28 15:38 | Discharge Summary ---
Date of Service April 28, 2020 Admission HPI Per Admitting Provider -Patient presents to ED with a chief complaint of fever, shortness of breath and some nausea; admission Chest X ray with Moderate left midlung consolidation that favors pneumonia, and left mediastinal prominence (but lymphadenopathy cannot be excluded), WBC of 13 K, and fever of 38.3 celsius; also hypoxic on room air as 87%, patient does not use oxygen at home. was given supplementary oxygen and given cefepime in the ED. COVID 19 screening is negative -When hospitalist arrived to admit the patient, patient appears to have reluctance or anxiety about being admitted to the hospital. Patient's Yola [phone] denies that patient has any diagnosis of dementia and convincing patient to stay for hospital treatment. patient allowed for physical exam but not reporting current nausea - his affirms subjective fever at home. other review of systems appears to be negative. denies any drug allergies to medications or foods Family Health history: brother has asthma Primary Care Provider: Jorge Luis Santos MD Admission Exam Per Admitting Provider Constitutional: comfortable Eyes: PERRL, conjunctivae normal, anicteric sclerae EOM intact bilaterally ENMT: external ear and nose normal, oropharynx normal Neck: normal visual inspection Respiratory: Auscultation: + crackles Cardiovascular: Rate/Rhythm: regular rate Gastrointestinal (Abdomen): normal bowel sounds, soft, nontender, no hepatosplenomegaly Musculoskeletal: Head/Neck/Chest: normocephalic and head atraumatic Neurologic: PERRL, EOMI, accommodation nl, no face palsy, no dysarthria moves all extremities Psychiatric: Orientation: alert patient has anxiety about staying in the hospital Principal Diagnosis Left midlung pneumonia, PAF Discharge Exam Constitutional well developed, well nourished and + obese; no acute distress and not ill appearing Eyes PERRL, conjunctivae normal, anicteric sclerae ENMT external ear and nose normal, oropharynx normal Neck trachea midline, no thyromegaly Respiratory + respiratory distress (Minimal shortness of breath at rest) Auscultation: + diminished lung sounds and + crackles (Very few left basilar crackles); no wheezes Cardiovascular Rate/Rhythm: regular rate and regular rhythm Heart Sounds: no murmur Gastrointestinal (Abdomen) Inspection/Auscultation: abdomen normal to inspection and normal bowel sounds; abdomen not distended Percussion/Palpation: abdomen soft Neurologic moves all extremities; no focal motor deficits Psychiatric A+Ox3, euthymic affect Lymphatic no cervical or axillary lymphadenopathy Discharge Data Allergies Allergy/AdvReac Type Severity Reaction Status Date / Time No Known Allergies Allergy Unverified 04/24/20 19:29 Consultations 04/24/20 18:54 ED Decision to Admit Stat 04/24/20 19:27 Consult Case Management - Discharge Planning Routine Hospital Course (1) Pneumonia: Sepsis POA secondary to pneumonia Patient presents to ED with a chief complaint of fever, shortness of breath and some nausea; admission Chest X ray with Moderate left midlung consolidation that favors pneumonia, and left mediastinal prominence (but lymphadenopathy cannot be excluded), WBC of 13 K, and fever of 38.3 celsius; also hypoxic on room air as 87%, patient does not use oxygen at home. was given supplementary oxygen and given cefepime in the ED. COVID 19 screening is negative Has been getting intravenous Zosyn and doxycycline Clinically a little bit better today We will continue current management Much better this morning and the blood cultures have been negative He does not require any oxygen at rest He will have up to a step O2 saturation test and an x-ray of the chest before discharging this morning We will change antibiotic to oral Augmentin and doxycycline for better coverage (2) Hypoxia: -supplementary oxygen as needed -wean off oxygen when able -nebuilzers prn - (3) PAF (paroxysmal atrial fibrillation): DischargeChronic systolic heart failure as per his outpatient notes -patient home dose medications does not include any diuretics -on metoprolol 50 mg daily and eliquis and atorvastatin, continue -Has had junctional rhythm this morning history of PAF before (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: -continue home dose Eliquis 5 mg BID (5) Depression: -continue home dose fluoxetine 20 mg daily -on gabapentin 300 mg TID -prn ativan for anxiety of being in hospital (6) CKD (chronic kidney disease), stage III: Acute kidney failure on chronic kidney disease Contributed by dehydration We will give cautious amount of intravenous fluid Letter PRP (7) BPH (benign prostatic hyperplasia): -monitor the urination and continue home dose finasteride and tamsulosin History of gout in the past -hold the allopurinol for now Yola [phone] son Sonido [phone] Discussed the in detail Wants to go home desperately and will be leaving this afternoon Total Time Total Time Spent Total Time Spent (In Minutes): 35 minutes Total Time Includes: Examination of the Patient, Discharge Planning, Medication Reconciliation and Communication With Other Providers Discharge Plan Discharge Items Patient Disposition: Home - Self-Care Reason For Visit: PNEUMONIA Discharge Diagnosis: Left midlung pneumonia, PAF Condition on Discharge: Good Activity: Resume your previous activity Non-emergency contact: Primary Care Provider Call non-emergency contact if: you have any medication questions and your symptoms worsen Follow-up/Referrals: Jorge Luis Santos MD [Primary Care Provider] - 04/30/20 12:00 pm (Date & Time 04/30/2020 12:00 PM Provider Jorge Luis Santos MD Department Internal Medicine [facility] ) Diet: Heart Healthy and Low Sodium (2gm) Addtl Attending Provider Instructions: Please take precaution to avoid fall Finish the course of antibiotic Pending Studies at Discharge: No Stand-Alone Forms: My [facility] [email or web address], Smoking Cessation Medications and DC Order Prescriptions: New doxycycline hyclate 100 mg Capsule 100 mg PO BID 7 Days Qty: 14 RF: 0 amoxicillin-pot clavulanate [Augmentin] 875-125 mg Tablet 1 tab PO BIDM 7 Days Qty: 14 RF: 0 Lactinex 1 million cell tablet,chewable 1 tab PO TID Qty: 30 RF: 0 Continued multivitamin Tablet 1 tab PO DAILY RF: 0 atorvastatin 40 mg Tablet 20 mg PO DAILY RF: 0 albuterol sulfate 2.5 mg /3 mL (0.083 %) Solution For Nebulization 2.5 mg INHALATION Q4 PRN (Reason: Wheezing) RF: 0 tamsulosin 0.4 mg Capsule 0.4 mg PO DAILY RF: 0 gabapentin 300 mg Capsule 300 mg PO TID RF: 0 allopurinol 300 mg Tablet 300 mg PO DAILY PRN (Reason: GOUT FLARE UPS) RF: 0 albuterol sulfate [Ventolin HFA] 90 mcg/actuation Hfa Aerosol Inhaler 2 puff INHALATION Q4 PRN (Reason: Wheezing) RF: 0 metoprolol succinate 50 mg tablet extended release 24 hr 50 mg PO DAILY RF: 0 Eliquis 5 mg tablet 5 mg PO BID RF: 0 fluoxetine 20 mg capsule 20 mg PO DAILY RF: 0 finasteride 5 mg tablet 5 mg PO DAILY RF: 0 Discharge Orders: Discharge Order (Routine); Ordered 04/26/20 Ordered By: Len Duran Admission Data Admit Date/Time: 04/24/20 19:33 Attending Provider: Len Duran Admit Provider: Ten Zhou Primary Care Provider: Jorge Luis Santos Other Providers: Ten Zhou Other Interventions: Discharge Summary Assessment (RN) Last Done: 04/26/20 10:42
== END 2020-04-26 11:19 | disposition home or self-care (01) | DRG 871 ==
LOC: ED 16:18 → 2N 19:33 → SUATTDRO 19:33 → 2N 21:32

== ENCOUNTER 2022-07-30 12:00 | Inpatient (IN) ==
--- NOTE | 2022-07-30 13:09 | XRay Report ---
TWO VIEW CHEST CLINICAL HISTORY: Dyspnea. FINDINGS: PA and lateral chest radiographs are compared to study dated 04/26/2020. The heart is enlarg ed noting atherosclerotic calcification of the thoracic aorta. The pulmonary vasculature is not conge sted. Emphysematous change is suspected. Chronic reticular thickening similar to previous. Mild airs pace consolidation is seen at the left lung base. There is scarring/atelectasis at the right lung bas e. No pleural effusion or pneumothorax is seen. The skeletal structures are osteopenic. The bony thor ax appears intact. Fusion hardware is seen in the lower cervical spine. IMPRESSION: 1. Cardiomegaly and emphysema without radiographic evidence of congestive failure. 2. Mild airspace consolidation is noted at the left lung base. Correlate clinically for evidence of a mild infectious/inflammatory pneumonitis.. ACT 112: Negative or not required by law. Electronically signed by: Cayetano Buchanan M.D. 07/30/2022 1:08 PM
[2022-07-30] MEDS ORDERED: ALBUT/IPRATROP 3MG/0.5MG NEB 3 ML VIAL INH STA (14:04)
[2022-07-30] MEDS ORDERED: ALBUT/IPRATROP 3MG/0.5MG NEB 3 ML VIAL ONE (14:04)
[2022-07-30] MEDS ORDERED: guaiFENesin 600 MG TABCR PO STA (14:27)
[2022-07-30] MEDS ORDERED: methylPREDNISolone 125 MG/2 ML VIAL IV STA (14:27)
[2022-07-30] MEDS ORDERED: ALBUT/IPRATROP 3MG/0.5MG NEB 3 ML VIAL NEB ONE (14:27)
[2022-07-30] MEDS ORDERED: SODIUM CHLORIDE 0.9% 500 ML IV ONE (14:29)
[2022-07-30 14:33] LABS: Basophils # (auto) 0.06 K/uL (0-0.2); Basophils % (auto) 0.3 %; Eosinophils # (auto) 0.14 K/uL (0-0.50); Eosinophils % (auto) 0.7 %; Hemoglobin 15.6 g/dl (14.0-18.0); Immature Granulocytes # (auto) 0.28 K/uL (0.00-0.02); Immature Granulocytes % (auto) 1.5 %; Lymphocytes # (auto) 2.52 K/uL (1.2-3.4); Lymphocytes % (auto) 13.4 %; Mean Corpuscular Hemoglobin 30.8 pg (25.0-34.0); Mean Corpuscular Hgb Conc 34.7 g/dL (32.0-36.0); Mean Corpuscular Volume 88.9 fL (80.0-100.0); Mean Platelet Volume 9.1 fL (9.4-12.4); Monocytes # (auto) 1.21 K/uL (0.24-0.82); Monocytes % (auto) 6.4 %; Neutrophils # (auto) 14.58 K/uL (1.4-6.5); Neutrophils % (auto) 77.7 %; Platelet Count 381 K/uL (130-400); RDW Coefficient of Variation 13.3 % (11.5-14.5); RDW Standard Deviation 43.1 fL (36.4-46.3); Red Blood Count 5.06 M/uL (4.63-6.08); White Blood Count 18.79 K/ul (4.8-10.8)
[2022-07-30 14:34] LABS: Influenza A virus by PCR Negative (Neg); Influenza B virus by PCR Negative (Neg); RSV by PCR Negative (Neg)
[2022-07-30 14:41] LABS: SARS CoV2 RNA(COVID-19) Ceph POSITIVE (Negative)
--- NOTE | 2022-07-30 14:52 | Emergency Department Note ---
Impression & Plan Pneumonia due to COVID-19 virus, PAF (paroxysmal atrial fibrillation), Acute respiratory failure with hypoxia, Leukocytosis ED Provider Note NAME: DEMETRIS FLOR AGE: 72 SEX: M ARRIVES VIA: Walk-In INFORMANT: Patient ED PROVIDER(S): Ambrosio Mathews MD CHIEF COMPLAINT: SOB PLAN: Disposition: Admit MEDICAL DECISION MAKING: The patient is a pleasant 72-year-old gentleman with a past medical history of remote smoking history, CKD, paroxysmal atrial fibrillation's, history of pneumonia who presents to the emergency department accompanied by his for evaluation of worsening shortness of breath, cough congestion wheezing over the past week with thick productive green sputum in the setting of having symptoms of diarrhea for the past couple of weeks. He denies any chest pain or abdominal pain. The patient has been on a prednisone 10 mg nightly since May due to chronic wheezing per the patient's . On arrival patient is mildly dyspneic but no acute distress, afebrile with stable vital signs. O2 saturation is 93% on room air though dyspneic. He appears clinically dry. He has diffuse wheezes bilateral lung plaza with mild increased work of breathing but no distress. EKG without overt acute ischemia. Chest x-ray demonstrates chronic reticular thickening and mild airspace consolidation of the left lung base. WBC 18.7 with neutrophil predominance and left shift. H/H and platelets within normal limits. Chemistry without metabolic acidosis. Electrolytes without significant abnormality. Total bilirubin 1.5, nonspecific with normal alk phos and normal LFTs otherwise. High-sensitivity troponin 10.9, within normal limits. BNP 117, nonspecific in the setting of the patient's atrial fibrillation. COVID-19 PCR was positive. Influenza and RSV PCR's were negative. Gentle IV fluid hydration given history of CKD and above normal BNP. Patient treated with Solu-Medrol and hour-long DuoNeb for bronchospasm on exam. Reevaluation patient did report feeling improvement in his breathing though still short of breath and so given the patient's COVID-19 pneumonia we agreed to proceed with admission for further management. Given the patient's leukocytosis with left shift blood cultures, procalcitonin and lactic acid were ordered and are pending. Case was discussed with Dr. Crabtree, [facility] hospitalist, who will evaluate t he patient for admission. Procalcitonin was subsequently not elevated. Lactic acid was elevated at 2.6. Further management per admitting team. Triage Nursing notes reviewed and agree them. Prior medical records reviewed Vital Signs: reviewed Differential diagnosis: Reactive airway disease, pneumonia, pneumothorax, COPD, CHF, infections, cardiac ischemia, pulmonary embolism, musculoskeletal, gastrointestinal, as well as other pathologies. ER treatment provided: See below. Diagnostics interpreted by me: ECG: Atrial fibrillation, 90 bpm, no ectopy, nonspecific ST and T wave normality, no overt ST elevation, QTC 455, QRS 68 Cardiac Monitoring: An order for continuous cardiac monitoring was placed and demonstrated Atrial fibrillation, 90 bpm, no ectopy. Laboratory studies: See below Imaging studies: See below Consultation(s): Dr. Crabtree, [facility] hospitalist HPI: The patient is a pleasant 72-year-old gentleman with a past medical history of remote smoking history, CKD, paroxysmal atrial fibrillation's, history of pneumonia who presents to the emergency department accompanied by his for evaluation of worsening shortness of breath, cough congestion wheezing over the past week with thick productive green sputum in the setting of having symptoms of diarrhea for the past couple of weeks. He denies any chest pain or abdominal pain. The patient has been on a prednisone 10 mg nightly since May due to chronic wheezing per the patient's . ROS: See above HPI for pertinent positives & negatives. A total of 10 systems reviewed and were otherwise negative. VITALS:See Below PHYSICAL EXAMINATION: GENERAL: Awake, alert, fatigued-appearing, in no distress HENT: Normocephalic, atraumatic. Oropharynx with dry mucous membranes and otherwise unremarkable. EYES: Normal conjunctiva. Sclera non-icteric. NECK: Supple. No nuchal rigidity. FROM. No JVD. RESPIRATORY: Diffuse wheezes of bilateral lung plaza. Mildly dyspneic but in NAD. CARDIAC: Regular rate, normal rhythm. Extremities warm and well perfused. Pulses equal. ABDOMEN: Soft, non-distended. No tenderness to palpation. No rebound or guarding. No masses. RECTAL: Deferred. MUSCULOSKELETAL: Chest examination reveals no tenderness. The back is symmetrica l on inspection without obvious abnormality. There is no CVA tenderness to palpation. No joint edema. LOWER EXTREMITIES: Calves are equal size bilaterally and non-tender. No edema. No discoloration. NEURO: Normal sensorium. No sensory or motor deficits noted. SKIN: No rash or jaundice noted. 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 PAF (paroxysmal atrial fibrillation) Surgical History History of neck surgery Family History Brother Kidney disease Father Heart disease Social History Smoking Status: Former smoker Hx Alcohol Use: Yes Hx Substance Use: No Preferred Language: Nepalese Communication Ability: Effective Beliefs That Will Affect Care: None Current Living Situation: Spouse Feels Safe at Home: Yes Allergies Allergies Allergy/AdvReac Type Severity Reaction Status Date / Time No Known Allergies Allergy Verified 07/30/22 16:32 Home Meds Home Medications Medication Instructions Recorded Confirmed albuterol sulfate 2.5 mg/3 mL 2.5 mg inhalation Q4 PRN Wheezing 06/03/18 07/30/22 (0.083 %) solution for nebulization albuterol sulfate 90 mcg/actuation 2 puff inhalation Q4 PRN Wheezing 06/03/18 07/30/22 aerosol inhaler (Ventolin HFA) allopurinol 300 mg tablet 300 mg PO DAILY 06/03/18 07/30/22 atorvastatin 40 mg tablet 40 mg PO DAILY 06/03/18 07/30/22 gabapentin 300 mg capsule 300 mg PO TID 06/03/18 07/30/22 multivitamin 1 tab PO DAILY 06/03/18 07/30/22 tamsulosin 0.4 mg capsule 0.4 mg PO DAILY 06/03/18 07/30/22 apixaban 5 mg tablet (Eliquis) 5 mg PO BID 04/24/20 07/30/22 finasteride 5 mg tablet 5 mg PO DAILY 04/24/20 07/30/22 fluoxetine 20 mg capsule 40 mg PO DAILY 04/24/20 07/30/22 metoprolol succinate 50 mg 50 mg PO DAILY 04/24/20 07/30/22 tablet,extended release 24 hr fexofenadine 180 mg tablet 180 mg PO DAILY PRN Allergic 07/30/22 07/30/22 Symptoms fluticasone propionate 50 2 spray intranasal DAILY 07/30/22 07/30/22 mcg/actuation nasal spray,suspension prednisone 20 mg tablet 10 mg PO DAILY 07/30/22 07/30/22 Results & Data (ED) Vital Signs Vital Signs - 24 hr 07/30/22 12:02 07/30/22 12:02 07/30/22 14:14 Temperature 35.9 C L Temperature Source Temporal Artery Scan Pulse Rate 100 H Pulse Rate [Right Finger] 84 Pulse Rate from SpO2 Sensor Respiratory Rate 20 24 Respiratory Effort / Characteristics Non-Labored Spontaneous Non-Labored Spontaneous Short of Breath SOB on Exertion Respiratory Depth Normal Respiratory Pattern Regular Blood Pressure 110/81 Blood Pressure [Left Arm] 127/96 Blood Pressure Mean 90 Blood Pressure Mean [Left Arm] 106 Blood Pressure Position Sitting Pulse Oximetry 93 90 Oxygen Delivery Method Room Air Room Air Oxygen Flow Rate Sepsis Recent Fever Within 48 Hours No Sepsis New/Unexplained Change in Mental Status No Sepsis Action Taken by Nursing No Action Required 07/30/22 14:16 07/30/22 14:20 07/30/22 15:12 Temperature Temperature Source Pulse Rate Pulse Rate [Right Finger] 87 Pulse Rate from SpO2 Sensor Respiratory Rate 20 Respiratory Effort / Characteristics Non-Labored Spontaneous Respiratory Depth Respiratory Pattern Blood Pressure Blood Pressure [Left Arm] Blood Pressure Mean Blood Pressure Mean [Left Arm] Blood Pressure Position Pulse Oximetry 90 95 Oxygen Delivery Method Room Air Nebulizer Nasal Cannula Oxygen Flow Rate 95 2 Sepsis Recent Fever Within 48 Hours Sepsis New/Unexplained Change in Mental Status Sepsis Action Taken by Nursing 07/30/22 15:01 07/30/22 15:01 07/30/22 15:10 Temperature Temperature Source Pulse Rate 92 H 86 Pulse Rate [Right Finger] Pulse Rate from SpO2 Sensor 91 H 86 Respiratory Rate Respiratory Effort / Characteristics Respiratory Depth Respiratory Pattern Blood Pressure 123/88 Blood Pressure [Left Arm] Blood Pressure Mean 99 Blood Pressure Mean [Left Arm] Blood Pressure Position Pulse Oximetry 96 98 Oxygen Delivery Method Oxygen Flow Rate Sepsis Recent Fever Within 48 Hours Sepsis New/Unexplained Change in Mental Status Sepsis Action Taken by Nursing 07/30/22 15:20 07/30/22 15:30 07/30/22 15:30 Temperature Temperature Source Pulse Rate 88 91 H Pulse Rate [Right Finger] Pulse Rate from SpO2 Sensor 84 93 H Respiratory Rate Respiratory Effort / Characteristics Respiratory Depth Respiratory Pattern Blood Pressure 115/75 Blood Pressure [Left Arm] Blood Pressure Mean 88 Blood Pressure Mean [Left Arm] Blood Pressure Position Pulse Oximetry 98 98 Oxygen Delivery Method Oxygen Flow Rate Sepsis Recent Fever Within 48 Hours Sepsis New/Unexplained Change in Mental Status Sepsis Action Taken by Nursing 07/30/22 15:40 07/30/22 15:50 07/30/22 16:00 Temperature Temperature Source Pulse Rate 96 H 98 H 97 H Pulse Rate [Right Finger] Pulse Rate from SpO2 Sensor 94 H 102 H 101 H Respiratory Rate Respiratory Effort / Characteristics Respiratory Depth Respiratory Pattern Blood Pressure Blood Pressure [Left Arm] Blood Pressure Mean Blood Pressure Mean [Left Arm] Blood Pressure Position Pulse Oximetry 97 97 95 Oxygen Delivery Method Oxygen Flow Rate Sepsis Recent Fever Within 48 Hours Sepsis New/Unexplained Change in Mental Status Sepsis Action Taken by Nursing 07/30/22 16:01 07/30/22 16:01 07/30/22 16:10 Temperature Temperature Source Pulse Rate 90 114 H Pulse Rate [Right Finger] Pulse Rate from SpO2 Sensor 102 H Respiratory Rate Respiratory Effort / Characteristics Respiratory Depth Respiratory Pattern Blood Pressure 112/84 Blood Pressure [Left Arm] Blood Pressure Mean 93 Blood Pressure Mean [Left Arm] Blood Pressure Position Pulse Oximetry 94 Oxygen Delivery Method Oxygen Flow Rate Sepsis Recent Fever Within 48 Hours Sepsis New/Unexplained Change in Mental Status Sepsis Action Taken by Nursing 07/30/22 16:20 07/30/22 16:30 07/30/22 16:32 Temperature Temperature Source Pulse Rate 103 H 117 H Pulse Rate [Right Finger] Pulse Rate from SpO2 Sensor 109 H 115 H Respiratory Rate Respiratory Effort / Characteristics Respiratory Depth Respiratory Pattern Blood Pressure 90/63 L Blood Pressure [Left Arm] Blood Pressure Mean 72 Blood Pressure Mean [Left Arm] Blood Pressure Position Pulse Oximetry 95 91 Oxygen Delivery Method Oxygen Flow Rate Sepsis Recent Fever Within 48 Hours Sepsis New/Unexplained Change in Mental Status Sepsis Action Taken by Nursing 07/30/22 16:32 07/30/22 16:40 07/30/22 16:50 Temperature Temperature Source Pulse Rate 118 H 110 H 125 H Pulse Rate [Right Finger] Pulse Rate from SpO2 Sensor 112 H 112 H 126 H Respiratory Rate Respiratory Effort / Characteristics Respiratory Depth Respiratory Pattern Blood Pressure Blood Pressure [Left Arm] Blood Pressure Mean Blood Pressure Mean [Left Arm] Blood Pressure Position Pulse Oximetry 91 92 88 L Oxygen Delivery Method Oxygen Flow Rate Sepsis Recent Fever Within 48 Hours Sepsis New/Unexplained Change in Mental Status Sepsis Action Taken by Nursing Laboratory Data Attestation: I reviewed the patient's lab results. 07/30/22 14:15 07/30/22 14:15 Lab Results 07/30/22 07/30/22 07/30/22 Range/Units 13:38 14:15 14:15 WBC 18.79 H (4.8-10.8) K/ul RBC 5.06 (4.63-6.08) M/uL Hgb 15.6 (14.0-18.0) g/dl Hct 45.0 (40.1-51.0) % MCV 88.9 (80.0-100.0) fL MCH 30.8 (25.0-34.0) pg MCHC 34.7 (32.0-36.0) g/dL RDW Std Deviation 43.1 (36.4-46.3) fL RDW Coeff of Lenora 13.3 (11.5-14.5) % Plt Count 381 (130-400) K/uL MPV 9.1 L (9.4-12.4) fL Immature Gran % (Auto) 1.5 % Neut % (Auto) 77.7 % Lymph % (Auto) 13.4 % Glenn % (Auto) 6.4 % Eos % (Auto) 0.7 % Baso % (Auto) 0.3 % Neut # (Auto) 14.58 H (1.4-6.5) K/uL Lymph # (Auto) 2.52 (1.2-3.4) K/uL Glenn # (Auto) 1.21 H (0.24-0.82) K/uL Eos # (Auto) 0.14 (0-0.50) K/uL Baso # (Auto) 0.06 (0-0.2) K/uL Immature Gran # (Auto) 0.28 H (0.00-0.02) K/uL PT INR APTT PTT Ratio Sodium 137 (136-145) mmol/L Potassium 4.0 (3.5-5.1) mmol/L Chloride 103 (98-107) mmol/L Carbon Dioxide 24 (21-32) mmol/L Anion Gap 10 (3-11) BUN 11 (6-23) mg/dl Creatinine 1.14 (0.6-1.4) mg/dl Est Cr Clr Drug Dosing 58.6 ml/min Est GFR ( Amer) 74.1 ml/min Est GFR (Non-Af Amer) 63.9 ml/min BUN/Creatinine Ratio 9.6 L (10-20) Glucose 93 (70-99(Fasting)) mg/dl Lactate (0.4-2.0) mmol/L Calcium 10.1 (8.5-10.1) mg/dl Magnesium 1.8 (1.7-2.4) mg/dl Total Bilirubin 1.5 H (0.2-1.0) mg/dl AST 20 (13-39) U/L ALT 22 (7-52) U/L Alkaline Phosphatase 95 (34-104) U/L Troponin I High Sens 10.9 (0-20) pg/ml B-Natriuretic Peptide (0-100) pg/ml Total Protein 7.5 (6.0-8.3) gm/dl Albumin 3.5 (3.4-5.0) gm/dl Globulin 4.0 (2.5-4.0) gm/dl Albumin/Globulin Ratio 0.9 (0.9-2) Procalcitonin (0-0.5) ng/ml SARS-CoV-2 (PCR) POSITIVE A* (Negative) Influenza Type A (PCR) Negative (Neg) Influenza Type B (PCR) Negative (Neg) RSV (RT-PCR) Negative (Neg) 07/30/22 07/30/22 07/30/22 Range/Units 14:15 14:15 14:15 WBC (4.8-10.8) K/ul RBC (4.63-6.08) M/uL Hgb (14.0-18.0) g/dl Hct (40.1-51.0) % MCV (80.0-100.0) fL MCH (25.0-34.0) pg MCHC (32.0-36.0) g/dL RDW Std Deviation (36.4-46.3) fL RDW Coeff of Lenora (11.5-14.5) % Plt Count (130-400) K/uL MPV (9.4-12.4) fL Immature Gran % (Auto) % Neut % (Auto) % Lymph % (Auto) % Glenn % (Auto) % Eos % (Auto) % Baso % (Auto) % Neut # (Auto) (1.4-6.5) K/uL Lymph # (Auto) (1.2-3.4) K/uL Glenn # (Auto) (0.24-0.82) K/uL Eos # (Auto) (0-0.50) K/uL Baso # (Auto) (0-0.2) K/uL Immature Gran # (Auto) (0.00-0.02) K/uL PT Cancelled INR Cancelled APTT Cancelled PTT Ratio Cancelled Sodium (136-145) mmol/L Potassium (3.5-5.1) mmol/L Chloride (98-107) mmol/L Carbon Dioxide (21-32) mmol/L Anion Gap (3-11) BUN (6-23) mg/dl Creatinine (0.6-1.4) mg/dl Est Cr Clr Drug Dosing ml/min Est GFR ( Amer) ml/min Est GFR (Non-Af Amer) ml/min BUN/Creatinine Ratio (10-20) Glucose (70-99(Fasting)) mg/dl Lactate (0.4-2.0) mmol/L Calcium (8.5-10.1) mg/dl Magnesium (1.7-2.4) mg/dl Total Bilirubin (0.2-1.0) mg/dl AST (13-39) U/L ALT (7-52) U/L Alkaline Phosphatase (34-104) U/L Troponin I High Sens (0-20) pg/ml B-Natriuretic Peptide 117 H (0-100) pg/ml Total Protein (6.0-8.3) gm/dl Albumin (3.4-5.0) gm/dl Globulin (2.5-4.0) gm/dl Albumin/Globulin Ratio (0.9-2) Procalcitonin 0.05 (0-0.5) ng/ml SARS-CoV-2 (PCR) (Negative) Influenza Type A (PCR) (Neg) Influenza Type B (PCR) (Neg) RSV (RT-PCR) (Neg) 07/30/22 07/30/22 Range/Units 16:14 16:50 WBC (4.8-10.8) K/ul RBC (4.63-6.08) M/uL Hgb (14.0-18.0) g/dl Hct (40.1-51.0) % MCV (80.0-100.0) fL MCH (25.0-34.0) pg MCHC (32.0-36.0) g/dL RDW Std Deviation (36.4-46.3) fL RDW Coeff of Lenora (11.5-14.5) % Plt Count (130-400) K/uL MPV (9.4-12.4) fL Immature Gran % (Auto) % Neut % (Auto) % Lymph % (Auto) % Glenn % (Auto) % Eos % (Auto) % Baso % (Auto) % Neut # (Auto) (1.4-6.5) K/uL Lymph # (Auto) (1.2-3.4) K/uL Glenn # (Auto) (0.24-0.82) K/uL Eos # (Auto) (0-0.50) K/uL Baso # (Auto) (0-0.2) K/uL Immature Gran # (Auto) (0.00-0.02) K/uL PT 12.6 H INR 1.2 H APTT 29.6 PTT Ratio 1.1 Sodium (136-145) mmol/L Potassium (3.5-5.1) mmol/L Chloride (98-107) mmol/L Carbon Dioxide (21-32) mmol/L Anion Gap (3-11) BUN (6-23) mg/dl Creatinine (0.6-1.4) mg/dl Est Cr Clr Drug Dosing ml/min Est GFR ( Amer) ml/min Est GFR (Non-Af Amer) ml/min BUN/Creatinine Ratio (10-20) Glucose (70-99(Fasting)) mg/dl Lactate 2.6 H* (0.4-2.0) mmol/L Calcium (8.5-10.1) mg/dl Magnesium (1.7-2.4) mg/dl Total Bilirubin (0.2-1.0) mg/dl AST (13-39) U/L ALT (7-52) U/L Alkaline Phosphatase (34-104) U/L Troponin I High Sens (0-20) pg/ml B-Natriuretic Peptide (0-100) pg/ml Total Protein (6.0-8.3) gm/dl Albumin (3.4-5.0) gm/dl Globulin (2.5-4.0) gm/dl Albumin/Globulin Ratio (0.9-2) Procalcitonin (0-0.5) ng/ml SARS-CoV-2 (PCR) (Negative) Influenza Type A (PCR) (Neg) Influenza Type B (PCR) (Neg) RSV (RT-PCR) (Neg) Administered Medications Sodium Chloride (Nss 1000ml) 1,000 mls @ 200 mls/hr IV .Q5H ONE Stop: 07/30/22 22:58 Last Infusion: 07/30/22 21:31 Dose: 0 mls/hr Documented By: Admin: 07/30/22 18:33 Dose: 200 mls/hr Documented By: CHARLA Sodium Chloride (Nss) 500 mls @ 500 mls/hr IV .Q1H KAMINI Stop: 07/30/22 21:44 Last Infusion: 07/30/22 21:31 Dose: 0 mls/hr Documented By: Admin: 07/30/22 20:57 Dose: 500 mls/hr Documented By: CHARLA Metoprolol Succinate (Metoprolol Succ 50mg Ext Rel Tab) 50 mg PO DAILY [facility] Stop: 08/29/22 19:40 Last Admin: 07/30/22 20:42 Dose: Not Given Documented By: CHARLA Discontinued Medications Albuterol (Albut/Ipratrop 3mg/0.5mg Neb 3 Ml Vial) Confirm Administered Dose 3 ml .ROUTE .STK-MED ONE Stop: 07/30/22 14:05 Last Admin: 07/30/22 14:11 Dose: 3 ml Documented By: CHARLA Albuterol (Albut/Ipratrop 3mg/0.5mg Neb 3 Ml Vial) 3 ml INH NOW STA Stop: 07/30/22 14:05 Last Admin: 07/30/22 14:11 Dose: Not Given Documented By: CHARLA Albuterol (Albut/Ipratrop 3mg/0.5mg Neb 3 Ml Vial) 12 ml NEB ONE ONE; Protocol Stop: 07/30/22 14:28 Last Admin: 07/30/22 15:00 Dose: 12 ml Documented By: CHARLA Guaifenesin (Guaifenesin 600 Mg Tabcr) 600 mg PO NOW STA Stop: 07/30/22 14:28 Last Admin: 07/30/22 14:59 Dose: 600 mg Documented By: CHARLA Sodium Chloride (Nss) 500 mls @ 999 mls/hr IV .Q31M ONE Stop: 07/30/22 14:59 Last Infusion: 07/30/22 15:50 Dose: 0 mls/hr Documented By: Admin: 07/30/22 14:58 Dose: 999 mls/hr Documented By: CHARLA Sodium Chloride (Nss 1000ml) 500 mls @ 999 mls/hr IV .Q31M ONE Stop: 07/30/22 19:23 Last Infusion: 07/30/22 21:35 Dose: 0 mls/hr Documented By: Admin: 07/30/22 20:07 Dose: 999 mls/hr Documented By: CHARLA Piperacillin Sod/Tazobactam (Sod 3.375 gm/ Dextrose) 115 mls @ 230 mls/hr IV TODAY@2014 ONE; Protocol Stop: 07/30/22 20:44 Last Infusion: 07/30/22 21:34 Dose: 0 mls/hr Documented By: Admin: 07/30/22 20:33 Dose: 230 mls/hr Documented By: CHARLA Hydrocortisone Sodium (Succinate 100 mg/ Syringe) 2 mls @ 4 mls/min IV NOW STA Stop: 07/30/22 20:40 Last Admin: 07/30/22 20:54 Dose: 4 mls/min Documented By: CHARLA Methylprednisolone (Methylprednisolone 125 Mg/2 Ml Vial) 125 mg IV NOW STA Stop: 07/30/22 14:28 Last Admin: 07/30/22 14:59 Dose: 125 mg Documented By: CHARLA Imaging Data Radiologist's Impression: Chest X-Ray 07/30/22 12:04 TWO VIEW CHEST CLINICAL HISTORY: Dyspnea. FINDINGS: PA and lateral chest radiographs are compared to study dated 04/26/2020. The heart is enlarged noting atherosclerotic calcification of the thoracic aorta. The pulmonary vasculature is not congested. Emphysematous change is suspected. Chronic reticular thickening similar to previous. Mild airspace consolidation is seen at the left lung base. There is scarring/atelectasis at the right lung base. No pleural effusion or pneumothorax is seen. The skeletal structures are osteopenic. The bony thorax appears intact. Fusion hardware is seen in the lower cervical spine. IMPRESSION: 1. Cardiomegaly and emphysema without radiographic evidence of congestive failure. 2. Mild airspace consolidation is noted at the left lung base. Correlate clinically for evidence of a mild infectious/inflammatory pneumonitis.. ACT 112: Negative or not required by law. Electronically signed by: Cayetano Buchanan M.D. 07/30/2022 1:08 PM Discharge Plan Visit Data Chief Complaint: Shortness of Breath/Dyspnea Stated Complaint: SOB, DIARRHEA ED Provider: Ambrosio Mathews Discharge Problem: Pneumonia due to COVID-19 virus, PAF (paroxysmal atrial fibrillation), Acute respiratory failure with hypoxia, Leukocytosis
[2022-07-30 15:04] LABS: Albumin Globulin Ratio 0.9 (0.9-2); Albumin Level 3.5 gm/dl (3.4-5.0); BUN Creatinine Ratio 9.6 (10-20); Bilirubin,Total 1.5 mg/dl (0.2-1.0); Calcium 10.1 mg/dl (8.5-10.1); Creatinine Clr Calc Pharmacy 58.6 ml/min; Est GFR (African American) 74.1 ml/min; Est GFR (Non-African American) 63.9 ml/min; Magnesium 1.8 mg/dl (1.7-2.4); Total Protein 7.5 gm/dl (6.0-8.3)
[2022-07-30 15:07] LABS: Troponin I High Sensitivity 10.9 pg/ml (0-20)
[2022-07-30 16:46] LABS: INR 1.2 (0.9-1.1); Partial Thromboplastin Ratio 1.1; Partial Thromboplastin Time 29.6 Seconds (21.0-31.0); Prothrombin Time 12.6 Seconds (9.0-12.0)
--- NOTE | 2022-07-30 17:10 | History & Physical Report ---
Date of Service July 30, 2022 Assessment & Plan (1) Pneumonia due to COVID-19 virus: Plan: COVID 19 pneumonia Sepsis Hypoxia COVID Screen: Positive Negative influenza, RSV screen CXR:Cardiomegaly and emphysema without radiographic evidence of congestive failure. Mild airspace consolidation is noted at the left lung base. Correlate clinically for evidence of a mild infectious/inflammatory pneumonitis.. Procalcitonin: 0.05 Troponin negative Elevated Lactic Acid CRP:Pending Blood Cultures obtained Continuous IV fluids given history of CHF Trend lactate levels May not benefit from remdesivir use given prolonged course of symptoms Started on dexamethasone Nebs as needed Isolation precautions--Airborne/Contact Encourage frequent Proning Nebs PRN Continue Supplemental Oxygen as needed DVT prophylaxis on Eliquis Started on empiric broad spectrum antibiotics Given patient on prolonged prednisone course, if blood pressure does not improve with IV fluids consider evaluation for adrenal insufficiency Atrial Fibrillation RVR: H/O Afib Likely precipitated by infection, hypoxia, diarrhea Update ECHO Monitor and replace electrolytes as needed Continue metoprolol IV lopressor PRN Continue Eliquis for anticoagulation Consider cardiology eval if needed Diarrhea Likely due to COVID Infection Check stool Studies Chronic Systolic Failure Last ECHO in December 2021: EF 45 to 49%, left and right atrial enlargement, mode rate sized posterior and lateral wall motion abnormality with hypokinesis to akinesis Monitor volume status Not on diuretics at baseline H/O CVA On Lipitor, Eliquis CKD stage III Renal function at baseline Monitor renal function CAD S/P stent Continue home medication Chronic steroid use Former Smoker ? undiagnosed COPD On prednisone 10 mg daily DVT Px: Apixaban Code Status DNI/DNR as per my discussion with patient/patient's -POA History of Present Illness Chief Complaint: Shortness of breath Primary Care Provider: Jorge Luis Santos MD Patient is a 72 yr male with H/O CVA with chronic residual right-sided weakness, slurred speech and memory issues, CKD stage III, paroxysmal atrial fibrillation on chronic anticoagulation with Eliquis, coronary artery disease S/P stent, mild systolic CHF, gout, dyslipidemia, chronic steroid use, Former Smoker and other medical problems presents with history of shortness of breath, cough, wheezing. Patient is a very poor historian. Most of the history is obtained from p atient's spouse at bedside. Patient has been having worsening shortness of breath, cough with greenish expectoration, wheezing which has been gradually worsening over the past 3 weeks duration. Patient was evaluated in urgent care center in [place] 3 weeks ago and was prescribed doxycycline which she completed a 10-day course. His symptoms improved after antibiotic course and patient began to deteriorate again over the past 10 days. Patient has been sleeping most of the time as per patient's . He was noted to be hypoxic on exertion at [facility]Ps clinic today and was so sent to ED for further evaluation. Patient also has been having diarrhea since 2 days duration. Patient uses walker to ambulate at baseline. Denies any history of chest pain, palpitations, dizziness, pedal edema, hemoptysis, fever, chills, fall, head trauma, headache, change in vision, nausea, vomiting, blood in stools, dysuria, hematuria, recent travel, sick contact. Allergies Allergy/AdvReac Type Severity Reaction Status Date / Time No Known Allergies Allergy Verified 07/30/22 16:32 Home Medications Medication Instructions Recorded Confirmed Type albuterol sulfate 2.5 mg/3 mL 2.5 mg inhalation Q4 PRN Wheezing 06/03/18 07/30/22 History (0.083 %) solution for nebulization albuterol sulfate 90 mcg/actuation 2 puff inhalation Q4 PRN Wheezing 06/03/18 07/30/22 History aerosol inhaler (Ventolin HFA) allopurinol 300 mg tablet 300 mg PO DAILY 06/03/18 07/30/22 History atorvastatin 40 mg tablet 40 mg PO DAILY 06/03/18 07/30/22 History gabapentin 300 mg capsule 300 mg PO TID 06/03/18 07/30/22 History multivitamin 1 tab PO DAILY 06/03/18 07/30/22 History tamsulosin 0.4 mg capsule 0.4 mg PO DAILY 06/03/18 07/30/22 History apixaban 5 mg tablet (Eliquis) 5 mg PO BID 04/24/20 07/30/22 History finasteride 5 mg tablet 5 mg PO DAILY 04/24/20 07/30/22 History fluoxetine 20 mg capsule 40 mg PO DAILY 04/24/20 07/30/22 History metoprolol succinate 50 mg 50 mg PO DAILY 04/24/20 07/30/22 History tablet,extended release 24 hr fexofenadine 180 mg tablet 180 mg PO DAILY PRN Allergic 07/30/22 07/30/22 History Symptoms fluticasone propionate 50 2 spray intranasal DAILY 07/30/22 07/30/22 History mcg/actuation nasal spray,suspension prednisone 20 mg tablet 10 mg PO DAILY 07/30/22 07/30/22 History Past Med/Surg History Medical History (Updated 07/30/22 @ 19:38 by Tres Crabtree MD) Heart disease Kidney stones Surgical History History of neck surgery Family History Brother Kidney disease Father Heart disease Social History Smoking Status: Former smoker Hx Alcohol Use: Yes Hx Substance Use: No Preferred Language: Ukrainian Communication Ability: Effective Beliefs That Will Affect Care: None Current Living Situation: Spouse Feels Safe at Home: Yes Review of Systems Review of Systems: All systems reviewed & are unremarkable except as noted in Subjective Physical Exam Physical Exam: Physical Exam: Vitals signs as noted above General Appearance:Moderately built and nourished, no apparent distress Head: normocephalic, Atraumatic Eyes: normal inspection, EOMI Neck: supple, Trachea midline Respiratory/Chest: Decreased breath sounds, scattered wheezing, No accessory muscle use Cardiovascular: Irregularly irregular, tachycardic, No murmur Abdomen/GI:Soft, Non tender, Bowel sounds present Extremities/Musculoskeletal:normal inspection, no edema Neurologic/Psych:AAOX2, Mild RUE weakness, chronic slurred speech, chronic memory issues Skin: normal color, warm Results & Data Results & Data ([facility]) Vital Signs (Past 12 Hours) Vital Signs Temp Pulse Pulse Resp BP BP Pulse Ox 07/30/22 16:50 125 H 88 L 07/30/22 16:40 110 H 92 07/30/22 16:32 118 H 91 07/30/22 16:32 90/63 L 07/30/22 16:30 117 H 91 07/30/22 16:20 103 H 95 07/30/22 16:10 114 H 94 07/30/22 16:01 112/84 07/30/22 16:01 90 07/30/22 16:00 97 H 95 07/30/22 15:50 98 H 97 07/30/22 15:40 96 H 97 07/30/22 15:30 91 H 98 07/30/22 15:30 115/75 07/30/22 15:20 88 98 07/30/22 15:10 86 98 07/30/22 15:01 92 H 96 07/30/22 15:01 123/88 07/30/22 15:12 87 20 95 07/30/22 14:20 07/30/22 14:16 90 07/30/22 14:14 84 24 127/96 90 07/30/22 12:02 35.9 C L 100 H 20 110/81 93 O2 Del Method O2 Flow Rate 07/30/22 16:50 07/30/22 16:40 07/30/22 16:32 07/30/22 16:32 07/30/22 16:30 07/30/22 16:20 07/30/22 16:10 07/30/22 16:01 07/30/22 16:01 07/30/22 16:00 07/30/22 15:50 07/30/22 15:40 07/30/22 15:30 07/30/22 15:30 07/30/22 15:20 07/30/22 15:10 07/30/22 15:01 07/30/22 15:01 07/30/22 15:12 Nasal Cannula 2 07/30/22 14:20 Nebulizer 95 07/30/22 14:16 Room Air 07/30/22 14:14 Room Air 07/30/22 12:02 Room Air Laboratory Results Short CBC 07/30/22 Range/Units 14:15 WBC 18.79 H (4.8-10.8) K/ul Hgb 15.6 (14.0-18.0) g/dl Hct 45.0 (40.1-51.0) % Plt Count 381 (130-400) K/uL BMP 07/30/22 14:15 Sodium 137 Potassium 4.0 Chloride 103 Carbon Dioxide 24 BUN 11 Creatinine 1.14 Glucose 93 Calcium 10.1 Liver Function 07/30/22 Range/Units 14:15 Total Bilirubin 1.5 H (0.2-1.0) mg/dl AST 20 (13-39) U/L ALT 22 (7-52) U/L Alkaline Phosphatase 95 (34-104) U/L Albumin 3.5 (3.4-5.0) gm/dl Diagnostic Findings CXR:Cardiomegaly and emphysema without radiographic evidence of congestive failure. Mild airspace consolidation is noted at the left lung base. Correlate clinically for evidence of a mild infectious/inflammatory pneumonitis.. ECG Additional Comments: EKG: Atrial fibrillation, nonspecific ST-T wave abnormality, QTC 455.
[2022-07-30] MEDS ORDERED: SODIUM CHLORIDE 0.9% 1000ML 1,000 ML IV ONE (17:59)
[2022-07-30] MEDS ORDERED: SODIUM CHLORIDE 0.9% 1000ML 500 ML IV ONE (18:53)
[2022-07-30] MEDS ORDERED: ALBUTEROL HFA 8 GM INHALER INH PRN (19:41)
[2022-07-30] MEDS ORDERED: POLYETHYLENE (MIRALAX) 17 GM PACK PO PRN (19:41)
[2022-07-30] MEDS ORDERED: SODIUM CHLORIDE 0.9% 1000ML 1,000 ML IV SCH (19:41)
[2022-07-30] MEDS ORDERED: ONDANSETRON INJ 2 MG/ML 2 ML VIAL IV PRN (19:41)
[2022-07-30] MEDS ORDERED: ACETAMINOPHEN 325 MG TAB PO PRN (19:41)
[2022-07-30] MEDS ORDERED: LEVALBUTEROL HCL 0.63 MG/3 ML NEB NEB PRN (19:41)
[2022-07-30] MEDS ORDERED: METOPROLOL TARTRATE 1 MG/ML VIAL IV PRN (19:41)
[2022-07-30] MEDS ORDERED: FEXOFENADINE HCL 180 MG TAB PO PRN (19:41)
[2022-07-30] MEDS ORDERED: PIPERACILLIN/TAZOBACTAM 3.375 GM in DEXTROSE 5% 100 ML IV ONE (20:15)
[2022-07-30] MEDS ORDERED: HYDROCORTISONE SOD 100 MG in SYRINGE 0 ML IV STA (20:39)
[2022-07-30] MEDS ORDERED: DIGOXIN 250 MCG in SYRINGE 9 ML IV STA (20:39)
[2022-07-30] MEDS: METOPROLOL SUCC 50MG EXT REL TAB PO SCH (20:42)
[2022-07-30] MEDS ORDERED: SODIUM CHLORIDE 0.9% 500 ML IV SCH (20:45)
[2022-07-31] MEDS: GABAPENTIN 300 MG CAP PO SCH ×4 (00:01→21:05)
[2022-07-31] MEDS: PIPERACILLIN/TAZOBACTAM 3.375 GM in DEXTROSE 5% 100 ML IV SCH ×3 (01:11→16:02)
--- NOTE | 2022-07-31 05:44 | Electrocardiogram Report ---
Test Reason : Blood Pressure : / mmHG Vent. Rate : 090 BPM Atrial Rate : 416 BPM P-R Int : 000 ms QRS Dur : 068 ms QT Int : 372 ms P-R-T Axes : 000 010 115 degrees QTc Int : 455 ms Atrial fibrillation Nonspecific ST and T wave abnormality Abnormal ECG When compared with ECG of 26-APR-2020 09:11, Non-specific change in ST segment in Inferior leads Nonspecific T wave abnormality now evident in Anterior leads Confirmed by Peng Levy ([id number]) on 07/31/2022 5:44:06 AM Referred By: Confirmed By:Peng Levy
[2022-07-31 06:26] LABS: Basophils # (auto) 0.01 K/uL (0-0.2); Basophils % (auto) 0.1 %; Hematocrit (blood only) 37.2 % (40.1-51.0); Hemoglobin 12.9 g/dl (14.0-18.0); Immature Granulocytes # (auto) 0.11 K/uL (0.00-0.02); Immature Granulocytes % (auto) 0.9 %; Lymphocytes # (auto) 0.95 K/uL (1.2-3.4); Lymphocytes % (auto) 7.4 %; Mean Corpuscular Hemoglobin 30.9 pg (25.0-34.0); Mean Corpuscular Hgb Conc 34.7 g/dL (32.0-36.0); Mean Corpuscular Volume 89.2 fL (80.0-100.0); Mean Platelet Volume 9.3 fL (9.4-12.4); Monocytes # (auto) 0.26 K/uL (0.24-0.82); Neutrophils # (auto) 11.54 K/uL (1.4-6.5); Neutrophils % (auto) 89.6 %; Platelet Count 314 K/uL (130-400); RDW Coefficient of Variation 13.2 % (11.5-14.5); Red Blood Count 4.17 M/uL (4.63-6.08); White Blood Count 12.87 K/ul (4.8-10.8)
[2022-07-31 06:50] LABS: BUN Creatinine Ratio 12.4 (10-20); C Reactive Protein 8.48 mg/dl (0-0.5); Calcium 8.6 mg/dl (8.5-10.1); Creatinine Clr Calc Pharmacy 76.1 ml/min; Est GFR (Non-African American) 77.7 ml/min; Magnesium 1.6 mg/dl (1.7-2.4); Potassium 3.8 mmol/L (3.5-5.1)
--- NOTE | 2022-07-31 08:45 | Hospitalist Progress Note ---
Date of Service July 31, 2022 Assessment & Plan (1) Pneumonia due to COVID-19 virus: Plan: COVID 19 pneumonia Sepsis Hypoxia COVID Screen: Positive Negative influenza, RSV screen CXR:Cardiomegaly and emphysema without radiographic evidence of congestive failure. Mild airspace consolidation is noted at the left lung base. Correlate clinically for evidence of a mild infectious/inflammatory pneumonitis.. Procalcitonin: 0.05 Troponin negative Elevated Lactic Acid CRP: elevated at 8.48 Blood Cultures obtained - pending Trend lactate levels -> now down to 2.1 May not benefit from remdesivir use given prolonged course of symptoms Started on dexamethasone Nebs as needed Isolation precautions--Airborne/Contact Encourage frequent Proning Nebs PRN Continue Supplemental Oxygen as needed DVT prophylaxis on Eliquis Started on empiric broad spectrum antibiotics - zosyn, doxy, will cont. Given patient on prolonged prednisone course, if blood pressure does not improve with IV fluids consider evaluation for adrenal insufficiency Atrial Fibrillation RVR: H/O Afib Likely precipitated by infection, hypoxia, diarrhea HR improved Update ECHO Monitor and replace electrolytes as needed Continue metoprolol IV lopressor PRN Continue Eliquis for anticoagulation Consider cardiology eval if needed Diarrhea Likely due to COVID Infection Check stool Studies Chronic Systolic Failure Last ECHO in December 2021: EF 45 to 49%, left and right atrial enlargement, moderate sized posterior and lateral wall motion abnormality with hypokinesis to akinesis Monitor volume status Not on diuretics at baseline H/O CVA On Lipitor, Eliquis CKD stage III Renal function at baseline Monitor renal function CAD S/P stent Continue home medication Chronic steroid use Former Smoker ? undiagnosed COPD On prednisone 10 mg daily DVT Px: Apixaban Code Status - DNI/DNR as per admitting provider's discussion with patient/patient's -POA Admission and Anticipated Discharge Date Admission Date: July 30, 2022 Subjective Pt seen in follow up of covid 19 pna Currently laying in bed, in no acute distress, on supplemental oxygen 4 L Denies any complaints, denies any chest pain palpitations shortness of breath, he does have some cough No abdominal pain nausea vomiting Review of Systems Review of Systems: All systems reviewed & are unremarkable except as noted in Subjective Physical Exam Physical Exam: General Appearance:Moderately built and nourished, no apparent distress Head: normocephalic, Atraumatic Eyes: normal inspection, EOMI Neck: supple Respiratory/Chest: Decreased breath sounds, scattered wheezing, No accessory muscle use Cardiovascular: Irregularly irregular, HR 80-90s, No murmur Abdomen/GI:Soft, Non tender, Bowel sounds present Extremities/Musculoskeletal:normal inspection, no edema Neurologic/Psych:AAOX2, Mild RUE weakness, chronic slurred speech, chronic m du issues Skin: normal color, warm Results & Data Results & Data ([facility]) Vital Signs (Past 12 Hours) Vital Signs Temp Pulse Pulse Resp BP BP Pulse Ox 07/31/22 07:00 80 07/31/22 05:21 36.5 C 100 H 18 106/85 94 07/31/22 02:32 88 07/31/22 02:36 07/31/22 02:36 36.5 C 87 20 100/76 95 07/31/22 01:00 91 H 30 H 97/62 L 95 07/31/22 00:42 92 H 22 92 07/31/22 00:09 07/30/22 23:58 100 H 20 104/61 93 07/30/22 21:40 98 H 22 97/59 L 92 07/30/22 21:40 Pulse Ox O2 Del Method O2 Del Method O2 Flow Rate O2 Flow Rate 07/31/22 07:00 07/31/22 05:21 Nasal Cannula 4.0 07/31/22 02:32 07/31/22 02:36 Nasal Cannula 4 07/31/22 02:36 Nasal Cannula 4 07/31/22 01:00 Nasal Cannula 4 07/31/22 00:42 Nasal Cannula 4 07/31/22 00:09 Nasal Cannula 4 07/30/22 23:58 Nasal Cannula 4 07/30/22 21:40 Nasal Cannula 4 07/30/22 21:40 92 Nasal Cannula 4 Laboratory Results 07/31/22 07/31/22 07/31/22 Range/Units 05:41 05:41 05:41 WBC 12.87 H (4.8-10.8) K/ul RBC 4.17 L (4.63-6.08) M/uL Hgb 12.9 L (14.0-18.0) g/dl Hct 37.2 L (40.1-51.0) % MCV 89.2 (80.0-100.0) fL MCH 30.9 (25.0-34.0) pg MCHC 34.7 (32.0-36.0) g/dL RDW Std Deviation 43.0 (36.4-46.3) fL RDW Coeff of Lenora 13.2 (11.5-14.5) % Plt Count 314 (130-400) K/uL MPV 9.3 L (9.4-12.4) fL Immature Gran % (Auto) 0.9 % Neut % (Auto) 89.6 % Lymph % (Auto) 7.4 % [place] % (Auto) 2.0 % Eos % (Auto) 0.0 % Baso % (Auto) 0.1 % Neut # (Auto) 11.54 H (1.4-6.5) K/uL Lymph # (Auto) 0.95 L (1.2-3.4) K/uL [place] # (Auto) 0.26 (0.24-0.82) K/uL Eos # (Auto) 0.00 (0-0.50) K/uL Baso # (Auto) 0.01 (0-0.2) K/uL Immature Gran # (Auto) 0.11 H (0.00-0.02) K/uL PT INR APTT PTT Ratio Sodium 136 (136-145) mmol/L Potassium 3.8 (3.5-5.1) mmol/L Chloride 106 (98-107) mmol/L Carbon Dioxide 22 (21-32) mmol/L Anion Gap 8 (3-11) BUN 12 (6-23) mg/dl Creatinine 0.97 (0.6-1.4) mg/dl Est Cr Clr Drug Dosing 76.1 ml/min Est GFR ( Amer) 90.0 ml/min Est GFR (Non-Af Amer) 77.7 ml/min BUN/Creatinine Ratio 12.4 (10-20) Glucose 148 H (70-99(Fasting)) mg/dl Lactate 2.1 H* (0.4-2.0) mmol/L Calcium 8.6 (8.5-10.1) mg/dl Magnesium 1.6 L (1.7-2.4) mg/dl Total Bilirubin (0.2-1.0) mg/dl AST (13-39) U/L ALT (7-52) U/L Alkaline Phosphatase (34-104) U/L Troponin I High Sens (0-20) pg/ml C-Reactive Protein 8.48 H (0-0.5) mg/dl B-Natriuretic Peptide (0-100) pg/ml Total Protein (6.0-8.3) gm/dl Albumin (3.4-5.0) gm/dl Globulin (2.5-4.0) gm/dl Albumin/Globulin Ratio (0.9-2) Procalcitonin (0-0.5) ng/ml SARS-CoV-2 (PCR) (Negative) Influenza Type A (PCR) (Neg) Influenza Type B (PCR) (Neg) RSV (RT-PCR) (Neg) 07/31/22 07/30/22 07/30/22 Range/Units 00:01 19:26 16:50 WBC (4.8-10.8) K/ul RBC (4.63-6.08) M/uL Hgb (14.0-18.0) g/dl Hct (40.1-51.0) % MCV (80.0-100.0) fL MCH (25.0-34.0) pg MCHC (32.0-36.0) g/dL RDW Std Deviation (36.4-46.3) fL RDW Coeff of Lenora (11.5-14.5) % Plt Count (130-400) K/uL MPV (9.4-12.4) fL Immature Gran % (Auto) % Neut % (Auto) % Lymph % (Auto) % [place] % (Auto) % Eos % (Auto) % Baso % (Auto) % Neut # (Auto) (1.4-6.5) K/uL Lymph # (Auto) (1.2-3.4) K/uL [place] # (Auto) (0.24-0.82) K/uL Eos # (Auto) (0-0.50) K/uL Baso # (Auto) (0-0.2) K/uL Immature Gran # (Auto) (0.00-0.02) K/uL PT INR APTT PTT Ratio Sodium (136-145) mmol/L Potassium (3.5-5.1) mmol/L Chloride (98-107) mmol/L Carbon Dioxide (21-32) mmol/L Anion Gap (3-11) BUN (6-23) mg/dl Creatinine (0.6-1.4) mg/dl Est Cr Clr Drug Dosing ml/min Est GFR ( Amer) ml/min Est GFR (Non-Af Amer) ml/min BUN/Creatinine Ratio (10-20) Glucose (70-99(Fasting)) mg/dl Lactate 3.2 H* 2.7 H* 2.6 H* (0.4-2.0) mmol/L Calcium (8.5-10.1) mg/dl Magnesium (1.7-2.4) mg/dl Total Bilirubin (0.2-1.0) mg/dl AST (13-39) U/L ALT (7-52) U/L Alkaline Phosphatase (34-104) U/L Troponin I High Sens (0-20) pg/ml C-Reactive Protein (0-0.5) mg/dl B-Natriuretic Peptide (0-100) pg/ml Total Protein (6.0-8.3) gm/dl Albumin (3.4-5.0) gm/dl Globulin (2.5-4.0) gm/dl Albumin/Globulin Ratio (0.9-2) Procalcitonin (0-0.5) ng/ml SARS-CoV-2 (PCR) (Negative) Influenza Type A (PCR) (Neg) Influenza Type B (PCR) (Neg) RSV (RT-PCR) (Neg) 07/30/22 07/30/22 07/30/22 Range/Units 16:14 14:15 14:15 WBC (4.8-10.8) K/ul RBC (4.63-6.08) M/uL Hgb (14.0-18.0) g/dl Hct (40.1-51.0) % MCV (80.0-100.0) fL MCH (25.0-34.0) pg MCHC (32.0-36.0) g/dL RDW Std Deviation (36.4-46.3) fL RDW Coeff of Lenora (11.5-14.5) % Plt Count (130-400) K/uL MPV (9.4-12.4) fL Immature Gran % (Auto) % Neut % (Auto) % Lymph % (Auto) % [place] % (Auto) % Eos % (Auto) % Baso % (Auto) % Neut # (Auto) (1.4-6.5) K/uL Lymph # (Auto) (1.2-3.4) K/uL [place] # (Auto) (0.24-0.82) K/uL Eos # (Auto) (0-0.50) K/uL Baso # (Auto) (0-0.2) K/uL Immature Gran # (Auto) (0.00-0.02) K/uL PT 12.6 H Cancelled INR 1.2 H Cancelled APTT 29.6 Cancelled PTT Ratio 1.1 Cancelled Sodium (136-145) mmol/L Potassium (3.5-5.1) mmol/L Chloride (98-107) mmol/L Carbon Dioxide (21-32) mmol/L Anion Gap (3-11) BUN (6-23) mg/dl Creatinine (0.6-1.4) mg/dl Est Cr Clr Drug Dosing ml/min Est GFR ( Amer) ml/min Est GFR (Non-Af Amer) ml/min BUN/Creatinine Ratio (10-20) Glucose (70-99(Fasting)) mg/dl Lactate (0.4-2.0) mmol/L Calcium (8.5-10.1) mg/dl Magnesium (1.7-2.4) mg/dl Total Bilirubin (0.2-1.0) mg/dl AST (13-39) U/L ALT (7-52) U/L Alkaline Phosphatase (34-104) U/L Troponin I High Sens (0-20) pg/ml C-Reactive Protein (0-0.5) mg/dl B-Natriuretic Peptide (0-100) pg/ml Total Protein (6.0-8.3) gm/dl Albumin (3.4-5.0) gm/dl Globulin (2.5-4.0) gm/dl Albumin/Globulin Ratio (0.9-2) Procalcitonin 0.05 (0-0.5) ng/ml SARS-CoV-2 (PCR) (Negative) Influenza Type A (PCR) (Neg) Influenza Type B (PCR) (Neg) RSV (RT-PCR) (Neg) 07/30/22 07/30/22 07/30/22 Range/Units 14:15 14:15 14:15 WBC 18.79 H (4.8-10.8) K/ul RBC 5.06 (4.63-6.08) M/uL Hgb 15.6 (14.0-18.0) g/dl Hct 45.0 (40.1-51.0) % MCV 88.9 (80.0-100.0) fL MCH 30.8 (25.0-34.0) pg MCHC 34.7 (32.0-36.0) g/dL RDW Std Deviation 43.1 (36.4-46.3) fL RDW Coeff of Lenora 13.3 (11.5-14.5) % Plt Count 381 (130-400) K/uL MPV 9.1 L (9.4-12.4) fL Immature Gran % (Auto) 1.5 % Neut % (Auto) 77.7 % Lymph % (Auto) 13.4 % [place] % (Auto) 6.4 % Eos % (Auto) 0.7 % Baso % (Auto) 0.3 % Neut # (Auto) 14.58 H (1.4-6.5) K/uL Lymph # (Auto) 2.52 (1.2-3.4) K/uL [place] # (Auto) 1.21 H (0.24-0.82) K/uL Eos # (Auto) 0.14 (0-0.50) K/uL Baso # (Auto) 0.06 (0-0.2) K/uL Immature Gran # (Auto) 0.28 H (0.00-0.02) K/uL PT INR APTT PTT Ratio Sodium 137 (136-145) mmol/L Potassium 4.0 (3.5-5.1) mmol/L Chloride 103 (98-107) mmol/L Carbon Dioxide 24 (21-32) mmol/L Anion Gap 10 (3-11) BUN 11 (6-23) mg/dl Creatinine 1.14 (0.6-1.4) mg/dl Est Cr Clr Drug Dosing 58.6 ml/min Est GFR ( Amer) 74.1 ml/min Est GFR (Non-Af Amer) 63.9 ml/min BUN/Creatinine Ratio 9.6 L (10-20) Glucose 93 (70-99(Fasting)) mg/dl Lactate (0.4-2.0) mmol/L Calcium 10.1 (8.5-10.1) mg/dl Magnesium 1.8 (1.7-2.4) mg/dl Total Bilirubin 1.5 H (0.2-1.0) mg/dl AST 20 (13-39) U/L ALT 22 (7-52) U/L Alkaline Phosphatase 95 (34-104) U/L Troponin I High Sens 10.9 (0-20) pg/ml C-Reactive Protein (0-0.5) mg/dl B-Natriuretic Peptide 117 H (0-100) pg/ml Total Protein 7.5 (6.0-8.3) gm/dl Albumin 3.5 (3.4-5.0) gm/dl Globulin 4.0 (2.5-4.0) gm/dl Albumin/Globulin Ratio 0.9 (0.9-2) Procalcitonin (0-0.5) ng/ml SARS-CoV-2 (PCR) (Negative) Influenza Type A (PCR) (Neg) Influenza Type B (PCR) (Neg) RSV (RT-PCR) (Neg) 07/30/22 Range/Units 13:38 WBC (4.8-10.8) K/ul RBC (4.63-6.08) M/uL Hgb (14.0-18.0) g/dl Hct (40.1-51.0) % MCV (80.0-100.0) fL MCH (25.0-34.0) pg MCHC (32.0-36.0) g/dL RDW Std Deviation (36.4-46.3) fL RDW Coeff of Lenora (11.5-14.5) % Plt Count (130-400) K/uL MPV (9.4-12.4) fL Immature Gran % (Auto) % Neut % (Auto) % Lymph % (Auto) % [place] % (Auto) % Eos % (Auto) % Baso % (Auto) % Neut # (Auto) (1.4-6.5) K/uL Lymph # (Auto) (1.2-3.4) K/uL [place] # (Auto) (0.24-0.82) K/uL Eos # (Auto) (0-0.50) K/uL Baso # (Auto) (0-0.2) K/uL Immature Gran # (Auto) (0.00-0.02) K/uL PT INR APTT PTT Ratio Sodium (136-145) mmol/L Potassium (3.5-5.1) mmol/L Chloride (98-107) mmol/L Carbon Dioxide (21-32) mmol/L Anion Gap (3-11) BUN (6-23) mg/dl Creatinine (0.6-1.4) mg/dl Est Cr Clr Drug Dosing ml/min Est GFR ( Amer) ml/min Est GFR (Non-Af Amer) ml/min BUN/Creatinine Ratio (10-20) Glucose (70-99(Fasting)) mg/dl Lactate (0.4-2.0) mmol/L Calcium (8.5-10.1) mg/dl Magnesium (1.7-2.4) mg/dl Total Bilirubin (0.2-1.0) mg/dl AST (13-39) U/L ALT (7-52) U/L Alkaline Phosphatase (34-104) U/L Troponin I High Sens (0-20) pg/ml C-Reactive Protein (0-0.5) mg/dl B-Natriuretic Peptide (0-100) pg/ml Total Protein (6.0-8.3) gm/dl Albumin (3.4-5.0) gm/dl Globulin (2.5-4.0) gm/dl Albumin/Globulin Ratio (0.9-2) Procalcitonin (0-0.5) ng/ml SARS-CoV-2 (PCR) POSITIVE A* (Negative) Influenza Type A (PCR) Negative (Neg) Influenza Type B (PCR) Negative (Neg) RSV (RT-PCR) Negative (Neg) Medications Administered Current Inpatient Medications Acetaminophen (Acetaminophen 325 Mg Tab) 650 mg PO Q4H PRN PRN Reason: Pain or Fever Stop: 08/29/22 19:40 Albuterol (Albuterol Hfa 8 Gm Inhaler) 2 puffs INH Q4 PRN PRN Reason: Wheezing Stop: 08/29/22 19:40 Allopurinol (Allopurinol 300 Mg Tab) 300 mg PO DAILY [facility] Stop: 08/30/22 08:59 Apixaban (Apixaban 5 Mg Tablet) 5 mg PO BID [facility] Stop: 08/29/22 20:59 Last Admin: 07/31/22 00:00 Dose: 5 mg Atorvastatin Calcium (Atorvastatin 40 Mg Tab) 40 mg PO DAILY [facility] Stop: 08/30/22 08:59 Doxycycline Hyclate (Doxycycline Hyclate 100 Mg Cap) 100 mg PO BID [facility] Stop: 08/06/22 20:59 Last Admin: 07/31/22 00:00 Dose: 100 mg Fexofenadine HCl (Fexofenadine Hcl 180 Mg Tab) 180 mg PO DAILY PRN PRN Reason: Allergic Symptoms Stop: 08/29/22 19:40 Finasteride (Finasteride 5 Mg Tab) 5 mg PO DAILY [facility] Stop: 08/30/22 08:59 Fluoxetine HCl (Fluoxetine Hcl 20 Mg Cap) 40 mg PO DAILY [facility] Stop: 08/30/22 08:59 Fluticasone Propionate (Fluticasone Propionate Na Spr 16 Gm Btl) 2 sprays NA DAILY [facility] Stop: 08/30/22 08:59 Gabapentin (Gabapentin 300 Mg Cap) 300 mg PO TID [facility] Stop: 08/29/22 20:59 Last Admin: 07/31/22 00:01 Dose: 300 mg Dexamethasone 6 mg/ Syringe 1.5 mls @ 1 mls/min IV DAILY [facility] Stop: 08/10/22 08:59 Piperacillin Sod/Tazobactam (Sod 3.375 gm/ Dextrose) 115 mls @ 28.75 mls/hr IV Q8H [facility]; Protocol Stop: 08/07/22 00:59 Last Infusion: 07/31/22 05:13 Dose: Infused Lactobacillus Acidophilus (Advanced Probiotic 1250 Mg Capsule) 2 cap PO DAILY [facility] Stop: 08/30/22 08:59 Levalbuterol HCl (Levalbuterol Hcl 0.63 Mg/3 Ml Neb) 0.63 mg NEB Q6R PRN; Protocol PRN Reason: Shortness Of Breath Or Wheezing Stop: 08/29/22 19:40 Last Admin: 07/31/22 00:40 Dose: 0.63 mg Metoprolol Succinate (Metoprolol Succ 50mg Ext Rel Tab) 50 mg PO DAILY [facility] Stop: 08/29/22 19:40 Last Admin: 07/30/22 20:42 Dose: Not Given Metoprolol Tartrate (Metoprolol Tartrate 1 Mg/Ml Vial) 2.5 mg IV Q6 PRN PRN Reason: TachycardiaHR>110 Stop: 08/29/22 19:40 Ondansetron HCl (Ondansetron Inj 2 Mg/Ml 2 Ml Vial) 4 mg IV Q6H PRN PRN Reason: Nausea Stop: 08/29/22 19:40 Polyethylene Glycol (Polyethylene (Miralax) 17 Gm Pack) 17 gm PO DAILY PRN PRN Reason: Constipation Stop: 08/29/22 19:40 Tamsulosin HCl (Tamsulosin Hcl 0.4 Mg Cap) 0.4 mg PO DAILY [facility] Stop: 08/30/22 08:59
[2022-07-31] MEDS: dexAMETHasone 6 MG in SYRINGE 0 ML IV SCH (09:30)
[2022-07-31] MEDS: MAGNESIUM OXIDE 400 MG TAB PO SCH ×2 (09:30→21:05)
[2022-07-31] MEDS: TAMSULOSIN HCL 0.4 MG CAP PO SCH (09:30)
[2022-07-31] MEDS: METOPROLOL SUCC 50MG EXT REL TAB PO SCH (09:30)
[2022-07-31] MEDS: ATORVASTATIN 40 MG TAB PO SCH (09:30)
[2022-07-31] MEDS: FINASTERIDE 5 MG TAB PO SCH (09:30)
[2022-07-31] MEDS: FLUTICASONE PROPIONATE NA SPR 16 GM BTL SCH (09:30)
[2022-07-31] MEDS: DOXYCYCLINE HYCLATE 100 MG CAP PO SCH ×3 (09:30→21:05)
[2022-07-31] MEDS: FLUoxetine HCL 20 MG CAP PO SCH (09:30)
[2022-07-31] MEDS: ADVANCED PROBIOTIC 1250 MG CAPSULE PO SCH (09:30)
[2022-07-31] MEDS: allopurinoL 300 MG TAB PO SCH (10:24)
[2022-07-31] MEDS: APIXABAN 5 MG TABLET PO SCH ×3 (10:25→21:04)
[2022-07-31 13:50] LABS: Appearance Urine Turbid (Clear); Bilirubin Urine Negative (Negative); Blood Urine Negative (Negative); Color Urine Dark Yellow; Epithelial Cell Urine Auto >30 /lpf (0-5); Glucose Urine UA Negative (Negative); Ketones Urine Trace (Negative); Leukocyte Esterase Urine Negative (Negative); Nitrite Urine Negative (Negative); Protein Urine Trace (Negative); Specific Gravity Urine 1.036 (1.000-1.030); Urobilinogen Urine Negative (Negative); pH Urine 5.5 (4.5-7.5)
[2022-07-31 14:13] LABS: Bacteria Urine Automated 2+ (Negative)
[2022-07-31 14:14] LABS: Amorphous Sediment Urine Present (None Prsent); Cast Urine Automated 0 /lpf (0-5)
--- NOTE | 2022-07-31 16:05 | Electrocardiogram Report ---
Test Reason : Blood Pressure : / mmHG Vent. Rate : 093 BPM Atrial Rate : 087 BPM P-R Int : 098 ms QRS Dur : 070 ms QT Int : 436 ms P-R-T Axes : -41 042 086 degrees QTc Int : 542 ms Poor data quality, interpretation may be adversely affected Atrial fibrillation Nonspecific T wave abnormality Abnormal ECG When compared with ECG of 30-JUL-2022 13:21, Non-specific change in ST segment in Inferior leads ST no longer depressed in Lateral leads Nonspecific T wave abnormality, worse in Anterolateral leads QT has lengthened Confirmed by Vaibhav Bach ([id number]) on 07/31/2022 4:05:20 PM Referred By: Jorge Luis Santos Confirmed By:Vaibhav Bach
[2022-08-01] MEDS: PIPERACILLIN/TAZOBACTAM 3.375 GM in DEXTROSE 5% 100 ML IV SCH ×3 (00:20→17:00)
[2022-08-01 06:47] LABS: Hematocrit (blood only) 38.6 % (40.1-51.0); Hemoglobin 13.2 g/dl (14.0-18.0); Mean Corpuscular Hemoglobin 30.6 pg (25.0-34.0); Mean Corpuscular Hgb Conc 34.2 g/dL (32.0-36.0); Mean Corpuscular Volume 89.6 fL (80.0-100.0); Mean Platelet Volume 9.2 fL (9.4-12.4); Platelet Count 344 K/uL (130-400); RDW Coefficient of Variation 13.3 % (11.5-14.5); Red Blood Count 4.31 M/uL (4.63-6.08); White Blood Count 13.61 K/ul (4.8-10.8)
[2022-08-01 07:09] LABS: BUN Creatinine Ratio 15.9 (10-20); Calcium 8.7 mg/dl (8.5-10.1); Creatinine Clr Calc Pharmacy 68.7 ml/min; Magnesium 1.8 mg/dl (1.7-2.4); Phosphorus 2.8 mg/dl (2.5-4.9); Potassium 3.6 mmol/L (3.5-5.1)
[2022-08-01] MEDS: GABAPENTIN 300 MG CAP PO SCH ×3 (08:52→21:20)
[2022-08-01] MEDS: DOXYCYCLINE HYCLATE 100 MG CAP PO SCH ×2 (08:52→21:20)
[2022-08-01] MEDS: METOPROLOL SUCC 50MG EXT REL TAB PO SCH (08:52)
[2022-08-01] MEDS: APIXABAN 5 MG TABLET PO SCH ×2 (08:52→21:20)
[2022-08-01] MEDS: MAGNESIUM OXIDE 400 MG TAB PO SCH ×2 (08:52→21:20)
[2022-08-01] MEDS: ATORVASTATIN 40 MG TAB PO SCH (08:53)
[2022-08-01] MEDS: TAMSULOSIN HCL 0.4 MG CAP PO SCH (08:53)
[2022-08-01] MEDS: allopurinoL 300 MG TAB PO SCH (08:53)
[2022-08-01] MEDS: FINASTERIDE 5 MG TAB PO SCH (08:53)
[2022-08-01] MEDS: FLUTICASONE PROPIONATE NA SPR 16 GM BTL SCH (08:53)
[2022-08-01] MEDS: FLUoxetine HCL 20 MG CAP PO SCH (08:53)
[2022-08-01] MEDS: dexAMETHasone 6 MG in SYRINGE 0 ML IV SCH (08:53)
[2022-08-01] MEDS: ADVANCED PROBIOTIC 1250 MG CAPSULE PO SCH (08:53)
--- NOTE | 2022-08-01 09:53 | Hospitalist Progress Note ---
Date of Service August 01, 2022 Assessment & Plan (1) Pneumonia due to COVID-19 virus: Plan: COVID 19 pneumonia Sepsis Hypoxia COVID Screen: Positive Negative influenza, RSV screen CXR:Cardiomegaly and emphysema without radiographic evidence of congestive failure. Mild airspace consolidation is noted at the left lung base. Correlate clinically for evidence of a mild infectious/inflammatory pneumonitis.. Procalcitonin: 0.05 Troponin negative Elevated Lactic Acid CRP: elevated at 8.48 Blood Cultures obtained - pending Trend lactate levels -> now down to 2.1 May not benefit from remdesivir use given prolonged course of symptoms Started on dexamethasone Nebs as needed Isolation precautions--Airborne/Contact Encourage frequent Proning Nebs PRN Continue Supplemental Oxygen as needed DVT prophylaxis on Eliquis Started on empiric broad spectrum antibiotics - zosyn, doxy, will cont. Given patient on prolonged prednisone course, if blood pressure does not improve with IV fluids consider evaluation for adrenal insufficiency Atrial Fibrillation RVR: H/O Afib Likely precipitated by infection, hypoxia, diarrhea HR improved Update ECHO EF 60 to 65%. There is moderate concentric LVH. LA is mildly dilated. Aortic valve sclerosis mild, without significant aortic valvular stenosis. Mild mitral regurg. Mild tricuspid regurg. Doppler findings also just pulmonary hypertens ion. There is a small circumferential pericardial effusion with moderate organization. There is a moderate volume of fluid loculated posteriorly. There are no echocardiographic indications of cardiac tamponade. Pericardial effusion - will need follow up echo Monitor and replace electrolytes as needed Continue metoprolol IV lopressor PRN Continue Eliquis for anticoagulation Consider cardiology eval if needed Diarrhea Likely due to COVID Infection Check stool Studies Chronic Systolic Failure Last ECHO in December 2021: EF 45 to 49%, left and right atrial enlargement, moderate sized posterior and lateral wall motion abnormality with hypokinesis to akinesis Monitor volume status Not on diuretics at baseline H/O CVA On Lipitor, Eliquis CKD stage III Renal function at baseline Monitor renal function CAD S/P stent Continue home medication Chronic steroid use Former Smoker ? undiagnosed COPD On prednisone 10 mg daily DVT Px: Apixaban Code Status - DNI/DNR as per admitting provider's discussion with patient/patient's -POA Admission and Anticipated Discharge Date Admission Date: July 30, 2022 Subjective Pt seen in follow up of covid 19 pna Currently laying in bed, in no acute distress, on supplemental oxygen 2 L Oxygen requirement decreased. However patient says he does not feel well. Denies any chest pain palpitations shortness of breath, he does have some cough No abdominal pain nausea vomiting Review of Systems Review of Systems: All systems reviewed & are unremarkable except as noted in Subjective Physical Exam Physical Exam: General Appearance:Moderately built and nourished, no apparent distress, on 2L NC Head: normocephalic, Atraumatic Eyes: normal inspection, EOMI Neck: supple Respiratory/Chest: Decreased breath sounds, scattered wheezing, No accessory muscle use Cardiovascular: Irregularly irregular, HR 80-90s, No murmur Abdomen/GI:Soft, Non tender, Bowel sounds present Extremities/Musculoskeletal:normal inspection, no edema Neurologic/Psych:AAOX2, Mild RUE weakness, chronic slurred speech, chronic memory issues Skin: normal color, warm Results & Data Results & Data ([facility]) Vital Signs (Past 12 Hours) Vital Signs Temp Pulse Pulse Resp BP Pulse Ox O2 Del Method 08/01/22 08:00 36.8 C 84 16 133/93 97 Room Air 08/01/22 07:23 76 08/01/22 03:31 36.4 C L 90 22 122/88 97 Nasal Cannula 07/31/22 22:59 87 07/31/22 22:46 36.4 C L 104 H 20 97/68 L 94 Nasal Cannula O2 Flow Rate 08/01/22 08:00 08/01/22 07:23 08/01/22 03:31 4 07/31/22 22:59 07/31/22 22:46 4 Laboratory Results 08/01/22 08/01/22 07/31/22 Range/Units 06:09 06:09 13:00 WBC 13.61 H (4.8-10.8) K/ul RBC 4.31 L (4.63-6.08) M/uL Hgb 13.2 L (14.0-18.0) g/dl Hct 38.6 L (40.1-51.0) % MCV 89.6 (80.0-100.0) fL MCH 30.6 (25.0-34.0) pg MCHC 34.2 (32.0-36.0) g/dL RDW Std Deviation 44.0 (36.4-46.3) fL RDW Coeff of Lenora 13.3 (11.5-14.5) % Plt Count 344 (130-400) K/uL MPV 9.2 L (9.4-12.4) fL Sodium 139 (136-145) mmol/L Potassium 3.6 (3.5-5.1) mmol/L Chloride 108 H (98-107) mmol/L Carbon Dioxide 25 (21-32) mmol/L Anion Gap 6 (3-11) BUN 17 (6-23) mg/dl Creatinine 1.07 (0.6-1.4) mg/dl Est Cr Clr Drug Dosing 68.7 ml/min Est GFR ( Amer) 80.0 ml/min Est GFR (Non-Af Amer) 69.0 ml/min BUN/Creatinine Ratio 15.9 (10-20) Glucose 72 (70-99(Fasting)) mg/dl Calcium 8.7 (8.5-10.1) mg/dl Phosphorus 2.8 (2.5-4.9) mg/dl Magnesium 1.8 (1.7-2.4) mg/dl AST 18 (13-39) U/L Urine Color Dark Yellow Urine Appearance Turbid A (Clear) Urine pH 5.5 (4.5-7.5) Ur Specific [place] 1.036 H (1.000-1.030) Urine Protein Trace H (Negative) Urine Glucose (UA) Negative (Negative) Urine Ketones Trace H (Negative) Urine Blood Negative (Negative) Urine Nitrite Negative (Negative) Urine Bilirubin Negative (Negative) Urine Urobilinogen Negative (Negative) Ur Leukocyte Esterase Negative (Negative) Urine WBC (Auto) 1-5 (0-5) /hpf Urine RBC (Auto) 5-10 H (0-4) /hpf U Hyaline Cast (Auto) 0 (0-5) /lpf U Epithel Cells (Auto) >30 H (0-5) /lpf Urine Bacteria (Auto) 2+ H (Negative) Urine Crystals Not Reportable Amorphous Sediment Present A (None Prsent) Medications Administered Current Inpatient Medications Acetaminophen (Acetaminophen 325 Mg Tab) 650 mg PO Q4H PRN PRN Reason: Pain or Fever Stop: 08/29/22 19:40 Albuterol (Albuterol Hfa 8 Gm Inhaler) 2 puffs INH Q4 PRN PRN Reason: Wheezing Stop: 08/29/22 19:40 Allopurinol (Allopurinol 300 Mg Tab) 300 mg PO DAILY [facility] Stop: 08/30/22 08:59 Last Admin: 08/01/22 08:53 Dose: 300 mg Apixaban (Apixaban 5 Mg Tablet) 5 mg PO BID [facility] Stop: 08/29/22 20:59 Last Admin: 08/01/22 08:52 Dose: 5 mg Atorvastatin Calcium (Atorvastatin 40 Mg Tab) 40 mg PO DAILY [facility] Stop: 08/30/22 08:59 Last Admin: 08/01/22 08:53 Dose: 40 mg Doxycycline Hyclate (Doxycycline Hyclate 100 Mg Cap) 100 mg PO BID [facility] Stop: 08/06/22 20:59 Last Admin: 08/01/22 08:52 Dose: 100 mg Fexofenadine HCl (Fexofenadine Hcl 180 Mg Tab) 180 mg PO DAILY PRN PRN Reason: Allergic Symptoms Stop: 08/29/22 19:40 Finasteride (Finasteride 5 Mg Tab) 5 mg PO DAILY [facility] Stop: 08/30/22 08:59 Last Admin: 08/01/22 08:53 Dose: 5 mg Fluoxetine HCl (Fluoxetine Hcl 20 Mg Cap) 40 mg PO DAILY [facility] Stop: 08/30/22 08:59 Last Admin: 08/01/22 08:53 Dose: 40 mg Fluticasone Propionate (Fluticasone Propionate Na Spr 16 Gm Btl) 2 sprays NA DAILY [facility] Stop: 08/30/22 08:59 Last Admin: 08/01/22 08:53 Dose: 2 sprays Gabapentin (Gabapentin 300 Mg Cap) 300 mg PO TID [facility] Stop: 08/29/22 20:59 Last Admin: 08/01/22 08:52 Dose: 300 mg Dexamethasone 6 mg/ Syringe 1.5 mls @ 1 mls/min IV DAILY [facility] Stop: 08/10/22 08:59 Last Admin: 08/01/22 08:53 Dose: 1 mls/min Piperacillin Sod/Tazobactam (Sod 3.375 gm/ Dextrose) 115 mls @ 28.75 mls/hr IV Q8H [facility]; Protocol Stop: 08/07/22 00:59 Last Infusion: 08/01/22 04:22 Dose: Infused Lactobacillus Acidophilus (Advanced Probiotic 1250 Mg Capsule) 2 cap PO DAILY [facility] Stop: 08/30/22 08:59 Last Admin: 08/01/22 08:53 Dose: 2 cap Levalbuterol HCl (Levalbuterol Hcl 0.63 Mg/3 Ml Neb) 0.63 mg NEB Q6R PRN; Protocol PRN Reason: Shortness Of Breath Or Wheezing Stop: 08/29/22 19:40 Last Admin: 07/31/22 00:40 Dose: 0.63 mg Magnesium Oxide (Magnesium Oxide 400 Mg Tab) 400 mg PO BID [facility] Stop: 08/30/22 08:59 Last Admin: 08/01/22 08:52 Dose: 400 mg Metoprolol Succinate (Metoprolol Succ 50mg Ext Rel Tab) 50 mg PO DAILY [facility] Stop: 08/29/22 19:40 Last Admin: 08/01/22 08:52 Dose: 50 mg Metoprolol Tartrate (Metoprolol Tartrate 1 Mg/Ml Vial) 2.5 mg IV Q6 PRN PRN Reason: TachycardiaHR>110 Stop: 08/29/22 19:40 Ondansetron HCl (Ondansetron Inj 2 Mg/Ml 2 Ml Vial) 4 mg IV Q6H PRN PRN Reason: Nausea Stop: 08/29/22 19:40 Polyethylene Glycol (Polyethylene (Miralax) 17 Gm Pack) 17 gm PO DAILY PRN PRN Reason: Constipation Stop: 08/29/22 19:40 Tamsulosin HCl (Tamsulosin Hcl 0.4 Mg Cap) 0.4 mg PO DAILY [facility] Stop: 08/30/22 08:59 Last Admin: 08/01/22 08:53 Dose: 0.4 mg
[2022-08-02] MEDS: PIPERACILLIN/TAZOBACTAM 3.375 GM in DEXTROSE 5% 100 ML IV SCH ×3 (00:56→16:59)
[2022-08-02 07:47] LABS: Hematocrit (blood only) 42.2 % (40.1-51.0); Hemoglobin 14.3 g/dl (14.0-18.0); Mean Corpuscular Hemoglobin 30.3 pg (25.0-34.0); Mean Corpuscular Hgb Conc 33.9 g/dL (32.0-36.0); Mean Corpuscular Volume 89.4 fL (80.0-100.0); Platelet Count 360 K/uL (130-400); RDW Coefficient of Variation 13.2 % (11.5-14.5); RDW Standard Deviation 43.5 fL (36.4-46.3); Red Blood Count 4.72 M/uL (4.63-6.08)
--- NOTE | 2022-08-02 08:06 | Hospitalist Progress Note ---
Date of Service August 02, 2022 Assessment & Plan (1) Pneumonia due to COVID-19 virus: Plan: COVID 19 pneumonia Sepsis Hypoxia COVID Screen: Positive Negative influenza, RSV screen CXR:Cardiomegaly and emphysema without radiographic evidence of congestive failure. Mild airspace consolidation is noted at the left lung base. Correlate clinically for evidence of a mild infectious/inflammatory pneumonitis.. Procalcitonin: 0.05 Troponin negative Elevated Lactic Acid CRP: elevated at 8.48 Blood Cultures obtained - negat. in 48 hrs Trend lactate levels -> now down to 2.1 May not benefit from remdesivir use given prolonged course of symptoms Started on dexamethasone Nebs as needed Isolation precautions--Airborne/Contact Encourage frequent Proning , incentive spirometer Nebs PRN Continue Supplemental Oxygen as needed - now pt on RA DVT prophylaxis on Eliquis Started on empiric broad spectrum antibiotics - zosyn, doxy, will cont. Given patient on prolonged prednisone course, if blood pressure does not improve with IV fluids consider evaluation for adrenal insufficiency Atrial Fibrillation RVR: H/O Afib Likely precipitated by infection, hypoxia, diarrhea HR improved Update ECHO EF 60 to 65%. There is moderate concentric LVH. LA is mildly dilated. Aortic valve sclerosis mild, without significant aortic valvular stenosis. Mild mitral regurg. Mild tricuspid regurg. Doppler findings also just pulmonary hypertension. There is a small circumferential pericardial effusion with moderate organization. There is a moderate volume of fluid loculated posteriorly. There are no echocardiographic indications of cardiac tamponade. Pericardial effusion - will need follow up echo Monitor and replace electrolytes as needed Continue metoprolol IV lopressor PRN Continue Eliquis for anticoagulation Consider cardiology eval if needed Diarrhea Likely due to COVID Infection Check stool Studies Chronic Systolic Failure Last ECHO in December 2021: EF 45 to 49%, left and right atrial enlargement, moderate sized posterior and lateral wall motion abnormality with hypokinesis to akinesis Monitor volume status Not on diuretics at baseline H/O CVA On Lipitor, Eliquis CKD stage III Renal function at baseline Monitor renal function CAD S/P stent Continue home medication Chronic steroid use Former Smoker ? undiagnosed COPD On prednisone 10 mg daily DVT Px: Apixaban Code Status - DNI/DNR as per admitting provider's discussion with patient/patient's -POA Admission and Anticipated Discharge Date Admission Date: July 30, 2022 Subjective Pt seen in follow up of covid 19 pna Currently laying in bed, in no acute distress, on RA He reports feeling much better, also he is reporting diarrhea Stool studies ordered on admission, but not obtained Denies any chest pain, palpitations, shortness of breath, he does have some c ough No abdominal pain nausea vomiting PT eval pending Review of Systems Review of Systems: All systems reviewed & are unremarkable except as noted in Subjective Physical Exam Physical Exam: General Appearance:Moderately built and nourished, no apparent distress, on RA Head: normocephalic, Atraumatic Eyes: normal inspection, EOMI Neck: supple Respiratory/Chest: Decreased breath sounds, No accessory muscle use, +cough w/ deep inspiration Cardiovascular: Irregularly irregular, HR 80-90s, No murmur Abdomen/GI:Soft, Non tender, Bowel sounds present Extremities/Musculoskeletal:normal inspection, no edema Neurologic/Psych:AAOX2, Mild RUE weakness, chronic slurred speech, chronic memory issues Skin: normal color, warm Results & Data Results & Data ([facility]) Vital Signs (Past 12 Hours) Vital Signs Temp Pulse Pulse Resp BP Pulse Ox O2 Del Method 08/02/22 07:36 78 08/02/22 07:00 36.8 C 91 H 18 131/68 95 Room Air 08/02/22 03:29 36.7 C 77 18 108/81 96 Nasal Cannula 08/02/22 00:08 36.6 C 69 19 111/65 92 Nasal Cannula 08/01/22 23:07 72 08/01/22 21:34 Nasal Cannula 08/01/22 21:00 08/01/22 20:17 36.6 C 78 18 102/79 95 Nasal Cannula O2 Del Method O2 Flow Rate O2 Flow Rate 08/02/22 07:36 08/02/22 07:00 08/02/22 03:29 2 08/02/22 00:08 2 08/01/22 23:07 08/01/22 21:34 2 08/01/22 21:00 Nasal Cannula 2 08/01/22 20:17 2 Laboratory Results 08/02/22 08/02/22 Range/Units 07:14 07:14 WBC 12.50 H (4.8-10.8) K/ul RBC 4.72 (4.63-6.08) M/uL Hgb 14.3 (14.0-18.0) g/dl Hct 42.2 (40.1-51.0) % MCV 89.4 (80.0-100.0) fL MCH 30.3 (25.0-34.0) pg MCHC 33.9 (32.0-36.0) g/dL RDW Std Deviation 43.5 (36.4-46.3) fL RDW Coeff of Lenora 13.2 (11.5-14.5) % Plt Count 360 (130-400) K/uL MPV 9.0 L (9.4-12.4) fL Sodium 139 (136-145) mmol/L Potassium 3.6 (3.5-5.1) mmol/L Chloride 106 (98-107) mmol/L Carbon Dioxide 25 (21-32) mmol/L Anion Gap 8 (3-11) BUN 17 (6-23) mg/dl Creatinine 1.09 (0.6-1.4) mg/dl Est Cr Clr Drug Dosing 66.7 ml/min Est GFR ( Amer) 78.2 ml/min Est GFR (Non-Af Amer) 67.5 ml/min BUN/Creatinine Ratio 15.6 (10-20) Glucose 70 (70-99(Fasting)) mg/dl Calcium 8.8 (8.5-10.1) mg/dl Phosphorus 2.7 (2.5-4.9) mg/dl Magnesium 1.8 (1.7-2.4) mg/dl AST 18 (13-39) U/L Medications Administered Current Inpatient Medications Acetaminophen (Acetaminophen 325 Mg Tab) 650 mg PO Q4H PRN PRN Reason: Pain or Fever Stop: 08/29/22 19:40 Albuterol (Albuterol Hfa 8 Gm Inhaler) 2 puffs INH Q4 PRN PRN Reason: Wheezing Stop: 08/29/22 19:40 Allopurinol (Allopurinol 300 Mg Tab) 300 mg PO DAILY [facility] Stop: 08/30/22 08:59 Last Admin: 08/01/22 08:53 Dose: 300 mg Apixaban (Apixaban 5 Mg Tablet) 5 mg PO BID [facility] Stop: 08/29/22 20:59 Last Admin: 08/01/22 21:20 Dose: 5 mg Atorvastatin Calcium (Atorvastatin 40 Mg Tab) 40 mg PO DAILY [facility] Stop: 08/30/22 08:59 Last Admin: 08/01/22 08:53 Dose: 40 mg Doxycycline Hyclate (Doxycycline Hyclate 100 Mg Cap) 100 mg PO BID [facility] Stop: 08/06/22 20:59 Last Admin: 08/01/22 21:20 Dose: 100 mg Fexofenadine HCl (Fexofenadine Hcl 180 Mg Tab) 180 mg PO DAILY PRN PRN Reason: Allergic Symptoms Stop: 08/29/22 19:40 Finasteride (Finasteride 5 Mg Tab) 5 mg PO DAILY [facility] Stop: 08/30/22 08:59 Last Admin: 08/01/22 08:53 Dose: 5 mg Fluoxetine HCl (Fluoxetine Hcl 20 Mg Cap) 40 mg PO DAILY [facility] Stop: 08/30/22 08:59 Last Admin: 08/01/22 08:53 Dose: 40 mg Fluticasone Propionate (Fluticasone Propionate Na Spr 16 Gm Btl) 2 sprays NA DAILY [facility] Stop: 08/30/22 08:59 Last Admin: 08/01/22 08:53 Dose: 2 sprays Gabapentin (Gabapentin 300 Mg Cap) 300 mg PO TID [facility] Stop: 08/29/22 20:59 Last Admin: 08/01/22 21:20 Dose: 300 mg Dexamethasone 6 mg/ Syringe 1.5 mls @ 1 mls/min IV DAILY [facility] Stop: 08/10/22 08:59 Last Admin: 08/01/22 08:53 Dose: 1 mls/min Piperacillin Sod/Tazobactam (Sod 3.375 gm/ Dextrose) 115 mls @ 28.75 mls/hr IV Q8H [facility]; Protocol Stop: 08/07/22 00:59 Last Infusion: 08/02/22 05:01 Dose: Infused Lactobacillus Acidophilus (Advanced Probiotic 1250 Mg Capsule) 2 cap PO DAILY [facility] Stop: 08/30/22 08:59 Last Admin: 08/01/22 08:53 Dose: 2 cap Levalbuterol HCl (Levalbuterol Hcl 0.63 Mg/3 Ml Neb) 0.63 mg NEB Q6R PRN; Protocol PRN Reason: Shortness Of Breath Or Wheezing Stop: 08/29/22 19:40 Last Admin: 07/31/22 00:40 Dose: 0.63 mg Magnesium Oxide (Magnesium Oxide 400 Mg Tab) 400 mg PO BID [facility] Stop: 08/30/22 08:59 Last Admin: 08/01/22 21:20 Dose: 400 mg Metoprolol Succinate (Metoprolol Succ 50mg Ext Rel Tab) 50 mg PO DAILY [facility] Stop: 08/29/22 19:40 Last Admin: 08/01/22 08:52 Dose: 50 mg Metoprolol Tartrate (Metoprolol Tartrate 1 Mg/Ml Vial) 2.5 mg IV Q6 PRN PRN Reason: TachycardiaHR>110 Stop: 08/29/22 19:40 Ondansetron HCl (Ondansetron Inj 2 Mg/Ml 2 Ml Vial) 4 mg IV Q6H PRN PRN Reason: Nausea Stop: 08/29/22 19:40 Polyethylene Glycol (Polyethylene (Miralax) 17 Gm Pack) 17 gm PO DAILY PRN PRN Reason: Constipation Stop: 08/29/22 19:40 Tamsulosin HCl (Tamsulosin Hcl 0.4 Mg Cap) 0.4 mg PO DAILY [facility] Stop: 08/30/22 08:59 Last Admin: 08/01/22 08:53 Dose: 0.4 mg
[2022-08-02 08:13] LABS: BUN Creatinine Ratio 15.6 (10-20); Calcium 8.8 mg/dl (8.5-10.1); Creatinine Clr Calc Pharmacy 66.7 ml/min; Est GFR (African American) 78.2 ml/min; Est GFR (Non-African American) 67.5 ml/min; Magnesium 1.8 mg/dl (1.7-2.4); Phosphorus 2.7 mg/dl (2.5-4.9); Potassium 3.6 mmol/L (3.5-5.1)
[2022-08-02] MEDS: MAGNESIUM OXIDE 400 MG TAB PO SCH ×2 (08:50→19:26)
[2022-08-02] MEDS: allopurinoL 300 MG TAB PO SCH (08:50)
[2022-08-02] MEDS: DOXYCYCLINE HYCLATE 100 MG CAP PO SCH ×2 (08:50→19:26)
[2022-08-02] MEDS: ADVANCED PROBIOTIC 1250 MG CAPSULE PO SCH (08:50)
[2022-08-02] MEDS: APIXABAN 5 MG TABLET PO SCH ×2 (08:50→19:26)
[2022-08-02] MEDS: TAMSULOSIN HCL 0.4 MG CAP PO SCH (08:50)
[2022-08-02] MEDS: GABAPENTIN 300 MG CAP PO SCH ×3 (08:50→19:26)
[2022-08-02] MEDS: ATORVASTATIN 40 MG TAB PO SCH (08:51)
[2022-08-02] MEDS: FINASTERIDE 5 MG TAB PO SCH (08:51)
[2022-08-02] MEDS: FLUTICASONE PROPIONATE NA SPR 16 GM BTL SCH (08:51)
[2022-08-02] MEDS: dexAMETHasone 6 MG in SYRINGE 0 ML IV SCH (08:51)
[2022-08-02] MEDS: FLUoxetine HCL 20 MG CAP PO SCH (08:51)
[2022-08-02] MEDS: METOPROLOL SUCC 50MG EXT REL TAB PO SCH (08:51)
[2022-08-02] MEDS ORDERED: POTASSIUM CHLORIDE PWD 20 MEQ PACK PO ONE (16:13)
[2022-08-02] MEDS ORDERED: guaiFENesin 600 MG TABCR PO SCH (16:20)
--- NOTE | 2022-08-02 19:39 | Discharge Summary ---
Date of Service August 02, 2022 Admission HPI Per Admitting Provider Patient is a 72 yr male with H/O CVA with chronic residual right-sided weakness, slurred speech and memory issues, CKD stage III, paroxysmal atrial fibrillation on chronic anticoagulation with Eliquis, coronary artery disease S/P stent, mild systolic CHF, gout, dyslipidemia, chronic steroid use, Former Smoker and other medical problems presents with history of shortness of breath, cough, wheezing. Patient is a very poor historian. Most of the history is obtained from patient's spouse at bedside. Patient has been having worsening shortness of breath, cough with greenish expectoration, wheezing which has been gradually worsening over the past 3 weeks duration. Patient was evaluated in urgent care center in [place] 3 weeks ago and was prescribed doxycycline which she completed a 10-day course. His symptoms improved after antibiotic course and patient began to deteriorate again over the past 10 days. Patient has been sleeping most of the time as per patient's . He was noted to be hypoxic on exertion at PCPs clinic today and was so sent to ED for further evaluation. Patient also has been having diarrhea since 2 days duration. Patient uses walker to ambulate at baseline. Denies any history of chest pain, palpitations, dizziness, pedal edema, hemoptysis, fever, chills, fall, head trauma, headache, change in vision, nausea, vomiting, blood in stools, dysuria, hematuria, recent travel, sick contact. Admission Exam Per Admitting Provider General Appearance:Moderately built and nourished, no apparent distress Head: normocephalic, Atraumatic Eyes: normal inspection, EOMI Neck: supple, Trachea midline Respiratory/Chest: Decreased breath sounds, scattered wheezing, No accessory muscle use Cardiovascular: Irregularly irregular, tachycardic, No murmur Abdomen/GI:Soft, Non tender, Bowel sounds present Extremities/Musculoskeletal:normal inspection, no edema Neurologic/Psych:AAOX2, Mild RUE weakness, chronic slurred speech, chronic memory issues Skin: normal color, warm Principal Diagnosis + covid 19 pneumonia Acute resp. failure with hypoxia Discharge Exam General Appearance:Moderately built and nourished, no apparent distress, on RA Head: normocephalic, Atraumatic Eyes: normal inspection, EOMI Neck: supple Respiratory/Chest: Decreased breath sounds, No accessory muscle use, +cough w/ deep inspiration Cardiovascular: Irregularly irregular, HR 80-90s, No murmur Abdomen/GI:Soft, Non tender, Bowel sounds present Extremities/Musculoskeletal:normal inspection, no edema Neurologic/Psych:AAOX2, Mild RUE weakness, chronic slurred speech, chronic memory issues Skin: normal color, warm Discharge Data Allergies Allergy/AdvReac Type Severity Reaction Status Date / Time No Known Allergies Allergy Verified 07/30/22 16:32 Consultations 07/30/22 16:42 ED Decision to Admit Stat Hospital Course (1) Pneumonia due to COVID-19 virus: COVID 19 pneumonia Sepsis Hypoxia COVID Screen: Positive Negative influenza, RSV screen CXR:Cardiomegaly and emphysema without radiographic evidence of congestive failure. Mild airspace consolidation is noted at the left lung base. Correlate clinically for evidence of a mild infectious/inflammatory pneumonitis.. Procalcitonin: 0.05 Troponin negative Elevated Lactic Acid CRP: elevated at 8.48 Blood Cultures obtained - negat. in 48 hrs Trend lactate levels -> now down to 2.1 May not benefit from remdesivir use given prolonged course of symptoms Started on dexamethasone Nebs as needed Isolation precautions--Airborne/Contact Encourage frequent Proning , incentive spirometer Nebs PRN Continue Supplemental Oxygen as needed - now pt on RA DVT prophylaxis on Eliquis Started on empiric broad spectrum antibiotics - zosyn, doxy, will cont. Will Dc on Po augmentin Atrial Fibrillation RVR: H/O Afib Likely precipitated by infection, hypoxia, diarrhea HR improved Update ECHO EF 60 to 65%. There is moderate concentric LVH. LA is mildly dilated. Aortic valve sclerosis mild, without significant aortic valvular stenosis. Mild mitral regurg. Mild tricuspid regurg. Doppler findings also just pulmonary hypertension. There is a small circumferential pericardial effusion with moderate organization. There is a moderate volume of fluid loculated posteriorly. There are no echocardiographic indications of cardiac tamponade. Pericardial effusion - will need follow up echo Continue metoprolol Diarrhea Likely due to COVID Infection Check stool Studies stool studies were not obtained/not collected Chronic Systolic Failure Last ECHO in December 2021: EF 45 to 49%, left and right atrial enlargement, moderate sized posterior and lateral wall motion abnormality with hypokinesis to akinesis Monitor volume status Not on diuretics at baseline H/O CVA On Lipitor, Eliquis CKD stage III Renal function at baseline Monitor renal function CAD S/P stent Continue home medication Chronic steroid use Former Smoker ? undiagnosed COPD On prednisone 10 mg daily * Total Time Total Time Spent Total Time Spent (In Minutes): 40 Discharge Plan Discharge Items Patient Disposition: Home - Self-Care Reason For Visit: COVID Discharge Diagnosis: + covid 19 pneumonia Acute resp. failure with hypoxia Activity: Per Instructions section Non-emergency contact: Primary Care Provider Call non-emergency contact if: you have any medication questions and your symptoms worsen Follow-up/Referrals: Jorge Luis Santos MD [Primary Care Provider] - Diet: Heart Healthy Addtl Attending Provider Instructions: Follow up with primary care physician within 1 to 2 weeks. Finish antibiotic treatment as prescribed. Continue taking guaifenesin. Also recommend taking probiotics. Continue using spirometer. Pending Studies at Discharge: No Stand-Alone Forms: My [employer], Smoking Cessation Medications and DC Order Prescriptions: New guaifenesin [Mucinex] 600 mg Tablet Extended Release 12hr 600 mg PO Q12 5 Days Qty: 10 0RF amoxicillin-pot clavulanate 875-125 mg tablet 1 tab PO BID 3 Days Qty: 6 0RF Continued multivitamin Tablet 1 tab PO DAILY atorvastatin 40 mg Tablet 40 mg PO DAILY albuterol sulfate 2.5 mg /3 mL (0.083 %) Solution For Nebulization 2.5 mg INHALATION Q4 PRN (Reason: Wheezing) tamsulosin 0.4 mg Capsule 0.4 mg PO DAILY gabapentin 300 mg Capsule 300 mg PO TID allopurinol 300 mg Tablet 300 mg PO DAILY albuterol sulfate [Ventolin HFA] 90 mcg/actuation Hfa Aerosol Inhaler 2 puff INHALATION Q4 PRN (Reason: Wheezing) metoprolol succinate 50 mg tablet extended release 24 hr 50 mg PO DAILY Eliquis 5 mg tablet 5 mg PO BID fluoxetine 20 mg capsule 40 mg PO DAILY finasteride 5 mg tablet 5 mg PO DAILY fexofenadine 180 mg Tablet 180 mg PO DAILY PRN (Reason: Allergic Symptoms) prednisone 20 mg tablet 10 mg PO DAILY fluticasone propionate 50 mcg/actuation [place],Suspension 2 spray INTRANASAL DAILY Discharge Orders: Discharge Order (Routine); Ordered 08/02/22 Ordered By: Elan Zapata Admission Data Admit Date/Time: 07/30/22 18:00 Attending Provider: Elan Zapata Admit Provider: Tres Crabtree Primary Care Provider: Jorge Luis Santos Other Providers: Tres Crabtree Other Interventions: Discharge Summary Assessment (RN) Last Done: 08/02/22 20:00
--- NOTE | 2022-08-02 22:49 | Electrocardiogram Report ---
Test Reason : Blood Pressure : / mmHG Vent. Rate : 085 BPM Atrial Rate : 085 BPM P-R Int : 000 ms QRS Dur : 072 ms QT Int : 366 ms P-R-T Axes : 000 023 100 degrees QTc Int : 435 ms Poor data quality, interpretation may be adversely affected Atrial fibrillation Low voltage QRS Nonspecific T wave abnormality Abnormal ECG When compared with ECG of 31-JUL-2022 09:56, No significant change Confirmed by Peng Levy ([id number]) on 08/02/2022 10:48:41 PM Referred By: Jorge Luis Santos Confirmed By:Peng Levy
== END 2022-08-02 20:00 | disposition home or self-care (01) | DRG 871 ==
LOC: ED 12:00 → EDINP 18:00 → SUATTDRO 18:00 → 2E 19:39

== ENCOUNTER 2022-09-14 09:50 | Inpatient (IN) ==
[2022-09-14] MEDS ORDERED: ONDANSETRON INJ 2 MG/ML 2 ML VIAL IV STA (10:31)
[2022-09-14] MEDS ORDERED: ACETAMINOPHEN 1,000 MG/100 ML VIAL IV STA (10:33)
--- NOTE | 2022-09-14 10:42 | Emergency Department Note ---
Impression & Plan Hypotension, Leukocytosis, Coagulopathy, Fall, Left rib fracture, Compression fracture ED Provider Note NAME: DEMETRIS FLOR AGE: 72 SEX: M : 1950 ARRIVES VIA: Ambulance INFORMANT: [Patient][nursing, EMS] ED PROVIDER(S): [Cayetano Sanders MD] CHIEF COMPLAINT: Fall, left rib pain HISTORY OF PRESENT ILLNESS: The patient is a 72-year-old male with lung disease. He was discharged from our hospital 12 days ago with a diagnosis of COVID-pneumonia. He is not currently on any antibiotic or steroid. The patient states that yesterday, he had too much alcohol to drink. He fell. He injured his left ribs. He denies loss of consciousness, he denies hitting his head, he denies neck pain. He does have a scrape to the right posterior elbow but no real elbow pain with movement. The patient states that the pain was worse today so he presents for evaluation. Of note, the patient does take Eliquis on a daily basis. PMHx/PSHx: See Below SOCIAL HISTORY: See Below. PHYSICAL EXAM: GENERAL: Patient is in no acute distress. HEENT: No acute trauma, normocephalic atraumatic, mucous membranes moist, no nasal congestion. NECK: No stridor, no adenopathy, no meningismus, trachea is midline. Nontender cervical spine. LUNGS: Rhonchi heard bilaterally, breath sounds are equal, no wheezing or o bvious respiratory distress. Chest: Tender to the left lower anterior and mid ribs, no contusion seen. HEART: Heart cannot really be assessed secondary to the overriding lung sounds. ABDOMEN: Soft, mildly tender in the left upper quadrant, there is no contusion seen. EXTREMITIES: No cyanosis. The patient does have an abrasion to the right posterior lateral elbow. No right elbow joint effusion or pain to move the right elbow joint. There is no deformity to the lower extremities. Some mild bilateral pedal edema was seen. He does have contusions of different ages to his extremities NEUROLOGIC: Awake and alert, right facial droop which is reportedly old. Patient does appear to have some difficulty finding words at times. Does move all upper and lower extremities equally. SKIN: No rash, no jaundice, no diaphoresis. DIFFERENTIAL DIAGNOSIS: Intracranial bleeding, cervical spine injury, rib fracture, pneumothorax, pneumonia, intra-abdominal trauma, electrolyte imbalance, anemia, dysrhythmia, alcohol abuse, among others. EMERGENCY DEPARTMENT COURSE/PROCEDURES: Prior/Outside records reviewed: EMS notes, recent discharge summary. ECG per my interpretation: Indication was fall. The ECG shows what appears to be atrial fibrillation with a very poor baseline. There is no obvious ST elevation. The rate is 80. QTc is 424. No PVCs. Continuous Cardiac Monitoring per my interpretation: An order was placed for continuous cardiac monitoring. The monitor shows a rate of 88 with atrial fibrillation. Critical Care Note: I have personally spent 47 minutes of critical care time in the direct management of this patient. This includes bedside care, interpretation of diagnostic studies, and testing, discussion with consultants, patient, and family members, and other required patient management activities. This 47 minutes is in excess of all separately billable procedures. MEDICAL DECISION MAKING: There is a mild leukocytosis, this is consistent with potential infection versus the stress of his fall. There was a normal hemoglobin and platelet count. INR slightly elevated at 1.2, likely from his Eliquis use. Sodium slightly low at 133. No renal failure. Bilirubin was elevated, the remaining liver enzymes were unremarkable. ECG showed atrial fibrillation, no obvious ST elevation. Cardiac enzyme testing x1 was not consistent with acute cardiac injury. Patient appeared to be in a euthyroid state. Alcohol level was undetectable. COVID, influenza and RSV test were negative. Chest film per my review did not show any obvious rib fracture, no pneumothorax. There was some potential atelectasis at the left base. Brain CT showed no acute bleed or mass effect. C-spine CT did not show any fracture. Chest and abdominal CTs were performed, there were around 5 rib fractures on the left. No pneumothorax. No acute intra-abdominal pathology/injury by CT imaging. A T12 compression fracture was noted. On exam, the patient was mildly hypotensive, he was tender across the left anterior/mid chest wall. He was not hypoxic. The patient did not want anything stronger for pain. He was given IV saline for hydration, IV Zofran for nausea, he was given IV Tylenol for discomfort. As long as he is still, he is relatively comfortable. Given the recent fall, given the hypotension, given the multiple rib fractures, I do think a hospital stay is warranted. I spoke with the patient and case management, the on-call hospitalist was consulted. DISPOSITION: Patient's presentation and findings warrant a hospital stay. 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 PAF (paroxysmal atrial fibrillation) Surgical History History of neck surgery Family History Brother Kidney disease Father Heart disease Social History Smoking Status: Never smoker Tobacco Type: Cigarettes Hx Alcohol Use: Yes Hx Substance Use: No Preferred Language: Chadian Communication Ability: Effective Sparker And Patcher Required: No Beliefs That Will Affect Care: None Current Living Situation: Spouse Current Living Situation Comment: lives with spouse at home, spouse not present for nursing admission Feels Safe at Home: Yes Assistive Devices: Cane and Walker Allergies Allergies Allergy/AdvReac Type Severity Reaction Status Date / Time No Known Allergies Allergy Verified 07/30/22 16:32 Home Meds Home Medications Medication Instructions Recorded Confirmed albuterol sulfate 2.5 mg/3 mL 2.5 mg inhalation Q4 PRN Wheezing 06/03/1812/15 (0.083 %) solution for nebulization albuterol sulfate 90 mcg/actuation 2 puff inhalation Q4 PRN Wheezing 06/03/18 07/30/22 aerosol inhaler (Ventolin HFA) allopurinol 300 mg tablet 300 mg PO DAILY 06/03/18 07/30/22 atorvastatin 40 mg tablet 40 mg PO DAILY 06/03/18 07/30/22 gabapentin 300 mg capsule 300 mg PO TID 06/03/18 07/30/22 multivitamin 1 tab PO DAILY 06/03/18 07/30/22 tamsulosin 0.4 mg capsule 0.4 mg PO DAILY 06/03/18 07/30/22 apixaban 5 mg tablet (Eliquis) 5 mg PO BID 04/24/20 07/30/22 finasteride 5 mg tablet 5 mg PO DAILY 04/24/20 07/30/22 fluoxetine 20 mg capsule 40 mg PO DAILY 04/24/20 07/30/22 metoprolol succinate 50 mg 50 mg PO DAILY 04/24/20 07/30/22 tablet,extended release 24 hr fexofenadine 180 mg tablet 180 mg PO DAILY PRN Allergic 07/30/22 07/30/22 Symptoms fluticasone propionate 50 2 spray intranasal DAILY 07/30/22 07/30/22 mcg/actuation nasal spray,suspension prednisone 20 mg tablet 10 mg PO DAILY 07/30/22 07/30/22 Results & Data (ED) Vital Signs Vital Signs - 24 hr 09/14/22 09:58 09/14/22 09:41 09/14/22 09:41 Temperature 36.7 C Temperature Source Oral Pulse Rate 88 96 H Pulse Rate [Apical] Pulse Rate from SpO2 Sensor Pulse Rhythm Regular Pulse Rhythm [Apical] Pulse Strength Normal Pulse Strength [Apical] Respiratory Rate 26 H 26 H Respiratory Effort / Characteristics Non-Labored Non-Labored Respiratory Depth Normal Normal Respiratory Pattern Regular Regular Blood Pressure 101/77 Blood Pressure [Right Arm] Blood Pressure Mean 85 Blood Pressure Mean [Right Arm] Blood Pressure Position [Right Arm] Pulse Oximetry 96 96 Oxygen Delivery Method Room Air Room Air Sepsis Recent Fever Within 48 Hours No Sepsis New/Unexplained Change in Mental Status N/A Sepsis Action Taken by Nursing No Action Required 09/14/22 10:32 09/14/22 10:00 09/14/22 10:00 Temperature Temperature Source Pulse Rate 88 80 Pulse Rate [Apical] Pulse Rate from SpO2 Sensor Pulse Rhythm Regular Pulse Rhythm [Apical] Pulse Strength Pulse Strength [Apical] Respiratory Rate 20 21 Respiratory Effort / Characteristics Respiratory Depth Respiratory Pattern Blood Pressure 111/84 Blood Pressure [Right Arm] Blood Pressure Mean 93 Blood Pressure Mean [Right Arm] Blood Pressure Position [Right Arm] Pulse Oximetry 94 Oxygen Delivery Method Room Air Sepsis Recent Fever Within 48 Hours Sepsis New/Unexplained Change in Mental Status Sepsis Action Taken by Nursing 09/14/22 11:00 09/14/22 11:00 09/14/22 11:44 Temperature Temperature Source Pulse Rate 77 Pulse Rate [Apical] 84 Pulse Rate from SpO2 Sensor 81 Pulse Rhythm Pulse Rhythm [Apical] Regular Pulse Strength Pulse Strength [Apical] Normal Respiratory Rate 19 20 Respiratory Effort / Characteristics Respiratory Depth Respiratory Pattern Blood Pressure 95/73 L Blood Pressure [Right Arm] 99/70 L Blood Pressure Mean 80 Blood Pressure Mean [Right Arm] 79 Blood Pressure Position [Right Arm] Pulse Oximetry 93 93 Oxygen Delivery Method Room Air Sepsis Recent Fever Within 48 Hours Sepsis New/Unexplained Change in Mental Status Sepsis Action Taken by Nursing 09/14/22 13:30 09/14/22 14:17 09/14/22 14:34 Temperature Temperature Source Pulse Rate 78 Pulse Rate [Apical] 80 79 Pulse Rate from SpO2 Sensor Pulse Rhythm Pulse Rhythm [Apical] Regular Irregular Pulse Strength Pulse Strength [Apical] Normal Respiratory Rate 20 20 Respiratory Effort / Characteristics Non-Labored Spontaneous Non-Labored Spontaneous Respiratory Depth Normal Normal Respiratory Pattern Regular Regular Blood Pressure Blood Pressure [Right Arm] 105/76 95/71 L Blood Pressure Mean Blood Pressure Mean [Right Arm] 85 79 Blood Pressure Position [Right Arm] Sitting Semi-fowlers Pulse Oximetry 94 94 Oxygen Delivery Method Room Air Room Air Sepsis Recent Fever Within 48 Hours Sepsis New/Unexplained Change in Mental Status Sepsis Action Taken by Nursing 09/14/22 15:00 Temperature Temperature Source Pulse Rate Pulse Rate [Apical] 83 Pulse Rate from SpO2 Sensor Pulse Rhythm Pulse Rhythm [Apical] Regular Pulse Strength Pulse Strength [Apical] Normal Respiratory Rate 20 Respiratory Effort / Characteristics Non-Labored Spontaneous Respiratory Depth Normal Respiratory Pattern Regular Blood Pressure Blood Pressure [Right Arm] 106/72 Blood Pressure Mean Blood Pressure Mean [Right Arm] 83 Blood Pressure Position [Right Arm] Sitting Pulse Oximetry 93 Oxygen Delivery Method Room Air Sepsis Recent Fever Within 48 Hours Sepsis New/Unexplained Change in Mental Status Sepsis Action Taken by [facility] Medications Current Medication List: was personally reviewed by me Laboratory Data Attestation: I reviewed the patient's lab results. 09/14/22 10:00 09/14/22 12:09 Lab Results 09/14/22 09/14/22 09/14/22 Range/Units 10:00 10:00 10:00 WBC 14.01 H (4.8-10.8) K/ul RBC 4.75 (4.70-6.10) M/uL Hgb 14.7 (14.0-18.0) g/dl Hct 42.4 (42.0-52.0) % MCV 89.3 (80.0-100.0) fL MCH 30.9 (25.0-34.0) pg MCHC 34.7 (32.0-36.0) g/dL RDW Std Deviation 45.5 (36.4-46.3) fL RDW Coeff of Lenora 14.1 (11.5-14.5) % Plt Count 272 (130-400) K/uL MPV 10.5 (9.4-12.4) fL Immature Gran % (Auto) 0.9 % Neut % (Auto) 82.6 % Lymph % (Auto) 8.5 % [place] % (Auto) 7.4 % Eos % (Auto) 0.4 % Baso % (Auto) 0.2 % Neut # (Auto) 11.57 H (1.40-6.50) K/uL Lymph # (Auto) 1.19 L (1.2-3.4) K/uL [place] # (Auto) 1.04 H (0.11-0.59) K/uL Eos # (Auto) 0.05 (0-0.50) K/uL Baso # (Auto) 0.03 (0-0.2) K/uL Immature Gran # (Auto) 0.13 (0.01-0.20) K/uL PT Cancelled INR Cancelled APTT Cancelled PTT Ratio Cancelled Sodium Cancelled Potassium Cancelled Chloride Cancelled Carbon Dioxide Cancelled Anion Gap Cancelled BUN Cancelled Creatinine Cancelled Est Cr Clr Drug Dosing Cancelled Est GFR ( Amer) Cancelled Est GFR (Non-Af Amer) Cancelled BUN/Creatinine Ratio Cancelled Glucose Cancelled Calcium Cancelled Magnesium Cancelled Total Bilirubin Cancelled AST Cancelled ALT Cancelled Alkaline Phosphatase Cancelled Total Creatine Kinase Cancelled Troponin I High Sens Cancelled Total Protein Cancelled Albumin Cancelled Globulin Cancelled Albumin/Globulin Ratio Cancelled TSH Ethyl Alcohol mg/dL (<10.0) mg/dl SARS-CoV-2 (PCR) (Negative) Influenza Type A (PCR) (Neg) Influenza Type B (PCR) (Neg) RSV (RT-PCR) (Neg) 09/14/22 09/14/22 09/14/22 Range/Units 10:00 11:08 12:09 WBC (4.8-10.8) K/ul RBC (4.70-6.10) M/uL Hgb (14.0-18.0) g/dl Hct (42.0-52.0) % MCV (80.0-100.0) fL MCH (25.0-34.0) pg MCHC (32.0-36.0) g/dL RDW Std Deviation (36.4-46.3) fL RDW Coeff of Lenora (11.5-14.5) % Plt Count (130-400) K/uL MPV (9.4-12.4) fL Immature Gran % (Auto) % Neut % (Auto) % Lymph % (Auto) % [place] % (Auto) % Eos % (Auto) % Baso % (Auto) % Neut # (Auto) (1.40-6.50) K/uL Lymph # (Auto) (1.2-3.4) K/uL [place] # (Auto) (0.11-0.59) K/uL Eos # (Auto) (0-0.50) K/uL Baso # (Auto) (0-0.2) K/uL Immature Gran # (Auto) (0.01-0.20) K/uL PT INR APTT PTT Ratio Sodium 133 L Potassium 4.7 Chloride 101 Carbon Dioxide 25 Anion Gap 7 BUN 21 Creatinine 0.97 Est Cr Clr Drug Dosing Not Reportable Est GFR ( Amer) 90.0 Est GFR (Non-Af Amer) 77.7 BUN/Creatinine Ratio 21.6 H Glucose 101 H Calcium 9.4 Magnesium 1.7 Total Bilirubin 2.2 H AST 17 ALT 18 Alkaline Phosphatase 71 Total Creatine Kinase 72 Troponin I High Sens 7.2 Total Protein 6.1 Albumin 3.5 Globulin 2.6 Albumin/Globulin Ratio 1.3 TSH Cancelled Ethyl Alcohol mg/dL < 10.0 (<10.0) mg/dl SARS-CoV-2 (PCR) (Negative) Influenza Type A (PCR) (Neg) Influenza Type B (PCR) (Neg) RSV (RT-PCR) (Neg) 09/14/22 09/14/22 09/14/22 Range/Units 12:09 12:09 Unknown WBC (4.8-10.8) K/ul RBC (4.70-6.10) M/uL Hgb (14.0-18.0) g/dl Hct (42.0-52.0) % MCV (80.0-100.0) fL MCH (25.0-34.0) pg MCHC (32.0-36.0) g/dL RDW Std Deviation (36.4-46.3) fL RDW Coeff of Lenora (11.5-14.5) % Plt Count (130-400) K/uL MPV (9.4-12.4) fL Immature Gran % (Auto) % Neut % (Auto) % Lymph % (Auto) % [place] % (Auto) % Eos % (Auto) % Baso % (Auto) % Neut # (Auto) (1.40-6.50) K/uL Lymph # (Auto) (1.2-3.4) K/uL [place] # (Auto) (0.11-0.59) K/uL Eos # (Auto) (0-0.50) K/uL Baso # (Auto) (0-0.2) K/uL Immature Gran # (Auto) (0.01-0.20) K/uL PT 13.0 H INR 1.2 H APTT 30.3 PTT Ratio 1.1 Sodium Potassium Chloride Carbon Dioxide Anion Gap BUN Creatinine Est Cr Clr Drug Dosing Est GFR ( Amer) Est GFR (Non-Af Amer) BUN/Creatinine Ratio Glucose Calcium Magnesium Total Bilirubin AST ALT Alkaline Phosphatase Total Creatine Kinase Troponin I High Sens Total Protein Albumin Globulin Albumin/Globulin Ratio TSH 1.301 Ethyl Alcohol mg/dL (<10.0) mg/dl SARS-CoV-2 (PCR) NEGATIVE (Negative) Influenza Type A (PCR) Negative (Neg) Influenza Type B (PCR) Negative (Neg) RSV (RT-PCR) Negative (Neg) Administered Medications Discontinued Medications Acetaminophen (Ofirmev) 1,000 mg in 100 mls @ 400 mls/hr IV NOW STA Stop: 09/14/22 10:47 Last Infusion: 09/14/22 11:00 Dose: 0 mls/hr Documented By: Admin: 09/14/22 10:46 Dose: 400 mls/hr Documented By: ZACK Sodium Chloride (Nss 1000ml) 500 mls @ 999 mls/hr IV .Q31M ONE Stop: 09/14/22 14:57 Last Admin: 09/14/22 14:36 Dose: 999 mls/hr Documented By: ZACK Ioversol (Optiray 350 100ml) 94 ml IV ONCE ONE Stop: 09/14/22 14:02 Last Admin: 09/14/22 14:02 Dose: 94 ml Documented By: IRMA Ondansetron HCl (Ondansetron Inj 2 Mg/Ml 2 Ml Vial) 4 mg IV NOW STA Stop: 09/14/22 10:32 Last Admin: 09/14/22 10:41 Dose: 4 mg Documented By: ZACK Imaging Data Radiologist's Impression: Abdomen/Pelvis CT 09/14/22 10:31 CT OF THE ABDOMEN AND PELVIS WITH CONTRAST CLINICAL HISTORY: fall, eliquis COMPARISON STUDY: None. TECHNIQUE: Following IV administration of 94 mL of Optiray, axial images of the abdomen and pelvis were obtained from the lung bases to the proximal femurs. Images were reviewed in the axial, sagittal, and coronal planes. IV contrast was administered without complication. Automated exposure control was utilized for the study. A dose lowering technique was utilized adhering to the principles of ALARA. FINDINGS: A trace pericardial effusion is present. There is also a trace left pleural effusion. There is no pneumothorax. Note is made of acute fractures of the anterolateral left sixth through 10th ribs. The ninth rib fracture is mildly displaced. There is no evidence for traumatic injury to the liver, adrenal glands, kidneys or pancreas. Multifocal scarring within the kidneys is noted. Water attenuation renal lesions reflect cysts. Several subcentimeter renal lesions are too small to characterize. There is no hydronephrosis. There is no biliary or pancreatic ductal dilatation. The spleen is suboptimally assessed due to respiratory motion. A linear hypodensity within the spleen probably reflects a cleft. A splenic laceration could appear similar although is considered less likely. There is no perisplenic fluid. Lumbar spine fusion is noted. No acute pelvic fracture is noted. There is a moderate T12 compression fracture, likely acute. There is no retropulsion. 40% loss vertebral body height is noted. No extension into the posterior elements is noted. There is no evidence for a bowel obstruction. No free fluid. Extensive aortoiliac atherosclerotic plaque is present. IMPRESSION: 1. Acute anterolateral left sixth through 10th rib fractures. Ninth rib fracture mildly displaced. Trace left pleural effusion. No pneumothorax. 2. Suboptimal evaluation of the spleen given motion artifact. 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 A splenic laceration could appear similar although is considered less likely. No perisplenic fluid-hematoma. If persistent left upper quadrant pain, a repeat contrast-enhanced CT is recommended. 3. Moderate T12 compression fracture, likely acute. 40% loss of vertebral body height without retropulsion. ACT 112: Negative or not required by law. Electronically signed by: Avila Khoury M.D. 09/14/2022 2:[address] 09/14/22 10:[address] DOSE: HISTORY: fall TECHNIQUE: Multiaxial CT images of the cervical spine were performed and reformatted in the sagittal and coronal plane without the use of contrast. A dose lowering technique was utilized adhering to the principles of ALARA. COMPARISON: None. FINDINGS: No fractures. No subluxation. Prevertebral soft tissues and the C1-C2 interval are intact. No pneumothorax. Emphysema. Posterior decompression and fusion from C4 through C7 with pedicle screws and rods. The hardware appears intact. The C2-C3 vertebral bodies and facets are also fused. Partially visualized paranasal sinus disease. IMPRESSION: No fractures within the cervical spine. ACT 112: Negative or not required by law. Electronically signed by: Wilver Blanton M.D. 09/14/2022 2:[address] 09/14/22 10:31 CT chest diagnostic w con CLINICAL HISTORY: fall, eliquis TECHNIQUE: Multidetector row helical CT of the chest was performed with intravenous contrast. Coronal and sagittal reformations were obtained. Automated dose lowering techniques and/or adjustment according to patient size were utilized for this exam. CT DOSE: 2583.91 mGy.cm Comparison: Comparison is made to chest radiograph performed same day FINDINGS: Lungs and pleura: Exam is limited by patient motion. Extensive emphysematous changes are seen with atelectasis in the lung bases. No suspicious pulmonary nodules are noted. Heart and pericardium: Cardiomegaly is seen with biatrial enlargement. Vessels: Severe atherosclerotic changes in the aorta and coronary arteries. Mediastinum and alejandro: Right hilar lymph nodes measure up to 13 mm in diameter. Chest wall and lower neck: Unremarkable. Abdomen: Unremarkable. Bones: Degenerative changes in the thoracic spine. IMPRESSION: No evidence of acute fracture or other acute abnormality. The lungs are emphysematous but there is no evidence of pneumonia. Previously noted blunting the left costophrenic angle atelectasis. ACT 112: Negative or not required by law. Electronically signed by: Jonathon Neff M.D. 09/14/2022 2:28 PM Chest X-Ray 09/14/22 10:31 XR chest 1V portable CLINICAL HISTORY: left rib pain TECHNIQUE: Single frontal radiograph of the chest was obtained. Comparison: Comparison is made to chest radiograph 07/30/2022 FINDINGS: Cervical fixation hardware is seen. Cardiomegaly is noted. A left retrocardiac opacity is noted. Blunting of the left costophrenic angle is seen. IMPRESSION: There is a questionable trace left pleural effusion. Cardiomegaly is seen. Left retrocardiac opacity may represent atelectasis, pneumonia and/or aspiration. ACT 112: Negative or not required by law. Electronically signed by: Jonathon Neff M.D. 09/14/2022 10:[address] 09/14/22 10:31 CT SCAN OF THE BRAIN WITHOUT IV CONTRAST CLINICAL HISTORY: Fall. COMPARISON STUDY: CT of the brain dated 06/13/2018. TECHNIQUE: Unenhanced axial CT scan of the brain is performed from the vertex to the skull base. A dose lowering technique was utilized adhering to the principles of ALARA. FINDINGS: Brain parenchyma: Left MCA territory encephalomalacia is consistent with a remote infarct. There is age-related involutional change noting mild subcortical and periventricular microangiopathic disease. There is no hemorrhage, mass effect, or evidence of acute territorial ischemia by CT criteria. Kam-white matter differentiation is preserved. No extra-axial fluid collection is seen. Ventricles, sulci, cisterns: Prominent secondary to involutional change. Intracranial vasculature: There is atherosclerotic calcification of the cavernous carotid and vertebral arteries. Calvarium: The skeletal structures are osteopenic. No depressed calvarial fracture is seen. Sinuses and mastoids: There is advanced mucosal thickening/subtotal opacification of the maxillary, sphenoid, left frontal, and left anterior ethmoid sinuses. The mastoid air cells are well pneumatized. Orbits: The bony orbits are grossly intact. There are bilateral ocular lens implants. IMPRESSION: 1. Chronic changes as above with no hemorrhage, mass effect, or evidence of acute territorial ischemia by CT criteria. 2. Pansinus disease as above. ACT 112: Negative or not required by law. Electronically signed by: Cayetano Buchanan M.D. 09/14/2022 2:20 PM Discharge Plan Visit Data Chief Complaint: Fall Stated Complaint: fall ED Provider: Cayetano Sanders Discharge Problem: Hypotension, Leukocytosis, Coagulopathy, Fall, Left rib fracture, Compression fracture Patient Disposition: Admitted As Inpatient Condition: Fair Forms Stand Alone Forms: My [facility] Prescriptions Prescriptions: No Action multivitamin Tablet 1 tab PO DAILY atorvastatin 40 mg Tablet 40 mg PO DAILY albuterol sulfate 2.5 mg /3 mL (0.083 %) Solution For Nebulization 2.5 mg INHALATION Q4 PRN (Reason: Wheezing) tamsulosin 0.4 mg Capsule 0.4 mg PO DAILY gabapentin 300 mg Capsule 300 mg PO TID allopurinol 300 mg Tablet 300 mg PO DAILY albuterol sulfate [Ventolin HFA] 90 mcg/actuation Hfa Aerosol Inhaler 2 puff INHALATION Q4 PRN (Reason: Wheezing) metoprolol succinate 50 mg tablet extended release 24 hr 50 mg PO DAILY Eliquis 5 mg tablet 5 mg PO BID fluoxetine 20 mg capsule 40 mg PO DAILY finasteride 5 mg tablet 5 mg PO DAILY fexofenadine 180 mg Tablet 180 mg PO DAILY PRN (Reason: Allergic Symptoms) prednisone 20 mg tablet 10 mg PO DAILY fluticasone propionate 50 mcg/actuation [place],Suspension 2 spray INTRANASAL DAILY Referrals Referrals: Jorge Luis Santos MD [Primary Care Provider] -
--- NOTE | 2022-09-14 10:56 | XRay Report ---
XR chest 1V portable CLINICAL HISTORY: left rib pain TECHNIQUE: Single frontal radiograph of the chest was obtained. Comparison: Comparison is made to chest radiograph 07/30/2022 FINDINGS: Cervical fixation hardware is seen. Cardiomegaly is noted. A left retrocardiac opacity is noted. Blun ting of the left costophrenic angle is seen. IMPRESSION: There is a questionable trace left pleural effusion. Cardiomegaly is seen. Left retrocardiac opacity may represent atelectasis, pneumonia and/or aspiration. ACT 112: Negative or not required by law. Electronically signed by: Jonathon Neff M.D. 09/14/2022 10:55 AM
[2022-09-14 11:23] LABS: Basophils # (auto) 0.03 K/uL (0-0.2); Basophils % (auto) 0.2 %; Eosinophils # (auto) 0.05 K/uL (0-0.50); Eosinophils % (auto) 0.4 %; Hematocrit (blood only) 42.4 % (42.0-52.0); Hemoglobin 14.7 g/dl (14.0-18.0); Immature Granulocytes # (auto) 0.13 K/uL (0.01-0.20); Immature Granulocytes % (auto) 0.9 %; Lymphocytes # (auto) 1.19 K/uL (1.2-3.4); Lymphocytes % (auto) 8.5 %; Mean Corpuscular Hemoglobin 30.9 pg (25.0-34.0); Mean Corpuscular Hgb Conc 34.7 g/dL (32.0-36.0); Mean Corpuscular Volume 89.3 fL (80.0-100.0); Mean Platelet Volume 10.5 fL (9.4-12.4); Monocytes # (auto) 1.04 K/uL (0.11-0.59); Monocytes % (auto) 7.4 %; Neutrophils # (auto) 11.57 K/uL (1.40-6.50); Neutrophils % (auto) 82.6 %; Platelet Count 272 K/uL (130-400); RDW Coefficient of Variation 14.1 % (11.5-14.5); RDW Standard Deviation 45.5 fL (36.4-46.3); Red Blood Count 4.75 M/uL (4.70-6.10); White Blood Count 14.01 K/ul (4.8-10.8)
--- NOTE | 2022-09-14 11:27 | Electrocardiogram Report ---
Test Reason : Blood Pressure : / mmHG Vent. Rate : 080 BPM Atrial Rate : 090 BPM P-R Int : 000 ms QRS Dur : 064 ms QT Int : 368 ms P-R-T Axes : 000 013 096 degrees QTc Int : 424 ms Atrial fibrillation Low voltage QRS Abnormal QRS-T angle, consider primary T wave abnormality Abnormal ECG When compared with ECG of 01-AUG-2022 09:03, Nonspecific T wave abnormality, improved in Anterolateral leads Confirmed by Ayaan Suarez ([id number]) on 09/14/2022 11:27:29 AM Referred By: REFERRED SELF Confirmed By:Hayden Suarez
[2022-09-14 11:42] LABS: Influenza A virus by PCR Negative (Neg); Influenza B virus by PCR Negative (Neg); RSV by PCR Negative (Neg); SARS CoV2 RNA(COVID-19) Ceph NEGATIVE (Negative)
[2022-09-14 12:54] LABS: INR 1.2 (0.9-1.1); Partial Thromboplastin Ratio 1.1; Partial Thromboplastin Time 30.3 Seconds (21.0-31.0)
[2022-09-14 13:15] LABS: Troponin I High Sensitivity 7.2 pg/ml (0-20)
[2022-09-14 13:23] LABS: Alanine Aminotransferase 18 U/L (7-52); Alkaline Phosphatase 71 U/L (34-104); Aspartate Aminotransferase 17 U/L (13-39); BUN Creatinine Ratio 21.6 (10-20); Blood Urea Nitrogen 21 mg/dl (6-23); Creatine Kinase 72 U/L (30-223); Est GFR (Non-African American) 77.7 ml/min; Glucose 101 mg/dl (70-99(Fasting)); Total Protein 6.1 gm/dl (6.0-8.3)
[2022-09-14 13:40] LABS: Albumin Globulin Ratio 1.3 (0.9-2); Albumin Level 3.5 gm/dl (3.4-5.0); Anion Gap 7 (3-11); Bilirubin,Total 2.2 mg/dl (0.2-1.0); Calcium 9.4 mg/dl (8.5-10.1); Carbon Dioxide 25 mmol/L (21-32); Chloride 101 mmol/L (98-107); Globulin 2.6 gm/dl (2.5-4.0); Magnesium 1.7 mg/dl (1.7-2.4); Potassium 4.7 mmol/L (3.5-5.1); Sodium 133 mmol/L (136-145)
[2022-09-14] MEDS ORDERED: OPTIRAY 350 100ml IV ONE (14:01)
--- NOTE | 2022-09-14 14:21 | CT Scan Report ---
CT SCAN OF THE BRAIN WITHOUT IV CONTRAST CLINICAL HISTORY: Fall. COMPARISON STUDY: CT of the brain dated 06/13/2018. TECHNIQUE: Unenhanced axial CT scan of the brain is performed from the vertex to the skull base. A do se lowering technique was utilized adhering to the principles of ALARA. FINDINGS: Brain parenchyma: Left MCA territory encephalomalacia is consistent with a remote infarct. There is a ge-related involutional change noting mild subcortical and periventricular microangiopathic disease. There is no hemorrhage, mass effect, or evidence of acute territorial ischemia by CT criteria. Kam-w waldemar matter differentiation is preserved. No extra-axial fluid collection is seen. Ventricles, sulci, cisterns: Prominent secondary to involutional change. Intracranial vasculature: There is atherosclerotic calcification of the cavernous carotid and vertebr al arteries. Calvarium: The skeletal structures are osteopenic. No depressed calvarial fracture is seen. Sinuses and mastoids: There is advanced mucosal thickening/subtotal opacification of the maxillary, s phenoid, left frontal, and left anterior ethmoid sinuses. The mastoid air cells are well pneumatized. Orbits: The bony orbits are grossly intact. There are bilateral ocular lens implants. IMPRESSION: 1. Chronic changes as above with no hemorrhage, mass effect, or evidence of acute territorial ischemi a by CT criteria. 2. Pansinus disease as above. ACT 112: Negative or not required by law. Electronically signed by: Cayetano Buchanan M.D. 09/14/2022 2:20 PM
--- NOTE | 2022-09-14 14:25 | CT Scan Report ---
CERVICAL SPINE CT CT DOSE: HISTORY: fall TECHNIQUE: Multiaxial CT images of the cervical spine were performed and reformatted in the sagittal and coronal plane without the use of contrast. A dose lowering technique was utilized adhering to th e principles of ALARA. COMPARISON: None. FINDINGS: No fractures. No subluxation. Prevertebral soft tissues and the C1-C2 interval are intact. No pneumothorax. Emphysema. Posterior decompression and fusion from C4 through C7 with pedicle screws and rods. The hardware appears intact. The C2-C3 vertebral bodies and facets are also fused. Partial ly visualized paranasal sinus disease. IMPRESSION: No fractures within the cervical spine. ACT 112: Negative or not required by law. Electronically signed by: Wilver Blanton M.D. 09/14/2022 2:23 PM
[2022-09-14] MEDS ORDERED: SODIUM CHLORIDE 0.9% 1000ML 500 ML IV ONE (14:27)
--- NOTE | 2022-09-14 14:31 | CT Scan Report ---
CT chest diagnostic w con CLINICAL HISTORY: fall, eliquis TECHNIQUE: Multidetector row helical CT of the chest was performed with intravenous contrast. Coronal and sagittal reformations were obtained. Automated dose lowering techniques and/or adjustment accord ing to patient size were utilized for this exam. CT DOSE: 2583.91 mGy.cm Comparison: Comparison is made to chest radiograph performed same day FINDINGS: Lungs and pleura: Exam is limited by patient motion. Extensive emphysematous changes are seen with at electasis in the lung bases. No suspicious pulmonary nodules are noted. Heart and pericardium: Cardiomegaly is seen with biatrial enlargement. Vessels: Severe atherosclerotic changes in the aorta and coronary arteries. Mediastinum and alejandro: Right hilar lymph nodes measure up to 13 mm in diameter. Chest wall and lower neck: Unremarkable. Abdomen: Unremarkable. Bones: Degenerative changes in the thoracic spine. IMPRESSION: No evidence of acute fracture or other acute abnormality. The lungs are emphysematous but there is no evidence of pneumonia. Previously noted blunting the left costophrenic angle atelectasis. ACT 112: Negative or not required by law. Electronically signed by: Jonathon Neff M.D. 09/14/2022 2:28 PM
--- NOTE | 2022-09-14 14:53 | CT Scan Report ---
CT OF THE ABDOMEN AND PELVIS WITH CONTRAST CLINICAL HISTORY: fall, eliquis COMPARISON STUDY: None. TECHNIQUE: Following IV administration of 94 mL of Optiray, axial images of the abdomen and pelvis we re obtained from the lung bases to the proximal femurs. Images were reviewed in the axial, sagittal, and coronal planes. IV contrast was administered without complication. Automated exposure control wa s utilized for the study. A dose lowering technique was utilized adhering to the principles of ALARA . FINDINGS: A trace pericardial effusion is present. There is also a trace left pleural effusion. There is no pneumothorax. Note is made of acute fractures of the anterolateral left sixth through 10th rib s. The ninth rib fracture is mildly displaced. There is no evidence for traumatic injury to the liver , adrenal glands, kidneys or pancreas. Multifocal scarring within the kidneys is noted. Water attenua tion renal lesions reflect cysts. Several subcentimeter renal lesions are too small to characterize. There is no hydronephrosis. There is no biliary or pancreatic ductal dilatation. The spleen is subopt imally assessed due to respiratory motion. A linear hypodensity within the spleen probably reflects a cleft. A splenic laceration could appear similar although is considered less likely. There is no per isplenic fluid. Lumbar spine fusion is noted. No acute pelvic fracture is noted. There is a moderate T12 compression fracture, likely acute. There is no retropulsion. 40% loss vertebral body height is n oted. No extension into the posterior elements is noted. There is no evidence for a bowel obstruction . No free fluid. Extensive aortoiliac atherosclerotic plaque is present. IMPRESSION: 1. Acute anterolateral left sixth through 10th rib fractures. Ninth rib fracture mildly displaced. Tr alphonso left pleural effusion. No pneumothorax. 2. Suboptimal evaluation of the spleen given motion artifact. Suspected cleft through the inferior sp carlos. A splenic laceration could appear similar although is considered less likely. No perisplenic fl uid-hematoma. If persistent left upper quadrant pain, a repeat contrast-enhanced CT is recommended. 3. Moderate T12 compression fracture, likely acute. 40% loss of vertebral body height without retropu lsion. ACT 112: Negative or not required by law. Electronically signed by: Avila Khoury M.D. 09/14/2022 2:52 PM
[2022-09-14] MEDS ORDERED: oxyCODONE HCL IR 5 MG TAB (IMMEDIATE RELEASE) PO PRN (16:20)
--- NOTE | 2022-09-14 16:42 | History & Physical Report ---
Date of Service September 14, 2022 Assessment & Plan (1) Fall: Plan: Has had a few drink yesterday and ended up with a fall on the left side Pain involving the left lower chest wall and adjoining area of the abdomen Imaging studies showed left anterolateral sixth through 10th rib fracture with the ninth rib fracture mildly displaced and trace pleural effusion and no pneumothorax Doubt any bleeding He has been on Eliquis which will be on hold today Will get CBC tomorrow and restart Eliquis when appropriate Doubt any withdrawal symptoms Will monitor for any withdrawal symptoms PT OT evaluation (2) Left rib fracture: Plan: Has a left anterolateral sixth through 10th rib fracture Ninth rib fracture is displaced with mild pleural effusion but no pneumothorax Will start Tylenol regularly and oxycodone as needed Incentive spirometer Possible splenic laceration If left upper abdominal pain persist will repeat the scan to evaluate it further We will monitor CBC COPD History of smoking CT scan of the chest showed emphysema Likely has COPD and has been on nebulized bronchodilator Continue current medications Without any exacerbation (3) Compression fracture: Plan: Moderate T12 compression fracture likely acute with 40% loss of vertebral body without retropulsion Will get PT and OT evaluation If the pain is persistent will need to involve orthopedic surgeon (4) CKD (chronic kidney disease), stage III: Plan: Will monitor PRP (5) PAF (paroxysmal atrial fibrillation): Plan: Rate is controlled Continue with current medications We will hold Eliquis for tonight If the hemoglobin remains stable will start Eliquis tomorrow (6) BPH (benign prostatic hyperplasia): Plan: Continue current medication (7) Depression: Plan: Continue current medicine (8) Pneumonia due to COVID-19 virus: Plan: Recent COVID-19 virus infection in July Treated appropriately COVID has been negative during this admission Plan DVT prophylaxis SCDs for now CODE STATUS DNR/DNI History of Present Illness Chief Complaint: Status post fall with injury to left lower chest wall and adjoining abdomen Primary Care Provider: Jorge Luis Santos MD He is a 72-year-old obese male with significant past medical history of recent COVID-19 virus infection in July, paroxysmal atrial fibrillation on Eliquis, CAD with status post stent, COPD not on any home oxygen, CKD stage III, hypertension and history of gout apparently has had a few drinks yesterday and ended up with a fall injuring on the left side of the lower chest and upper abdomen. He has been complaining of increasing pain associated with shortness of breath and the pain is worse with breathing. He was brought into the emergency room for further evaluation. He denies any chest pain, palpitation. No nausea and or vomiting but does have left upper quadrant pain. Denies any problem with urine and the bowel habit. He does not use any home oxygen. He was noted to have multiple rib fractures on the left side without any evidence of withdrawal symptoms. No pneumothorax but has minimal pleural effusion. he will be admitted to a medical telemetry unit for continuation of care. Allergies Allergy/AdvReac Type Severity Reaction Status Date / Time No Known Allergies Allergy Verified 07/30/22 16:32 Home Medications Medication Instructions Recorded Confirmed Type albuterol sulfate 2.5 mg/3 mL 2.5 mg inhalation Q4 PRN Wheezing 06/03/18 07/30/22 History (0.083 %) solution for nebulization albuterol sulfate 90 mcg/actuation 2 puff inhalation Q4 PRN Wheezing 06/03/18 07/30/22 History aerosol inhaler (Ventolin HFA) allopurinol 300 mg tablet 300 mg PO DAILY 06/03/18 07/30/22 History atorvastatin 40 mg tablet 40 mg PO DAILY 06/03/18 07/30/22 History gabapentin 300 mg capsule 300 mg PO TID 06/03/18 07/30/22 History multivitamin 1 tab PO DAILY 06/03/18 07/30/22 History tamsulosin 0.4 mg capsule 0.4 mg PO DAILY 06/03/18 07/30/22 History apixaban 5 mg tablet (Eliquis) 5 mg PO BID 04/24/20 07/30/22 History finasteride 5 mg tablet 5 mg PO DAILY 04/24/20 07/30/22 History fluoxetine 20 mg capsule 40 mg PO DAILY 04/24/20 07/30/22 History metoprolol succinate 50 mg 50 mg PO DAILY 04/24/20 07/30/22 History tablet,extended release 24 hr fexofenadine 180 mg tablet 180 mg PO DAILY PRN Allergic 07/30/22 07/30/22 History Symptoms fluticasone propionate 50 2 spray intranasal DAILY 07/30/22 07/30/22 History mcg/actuation nasal spray,suspension prednisone 20 mg tablet 10 mg PO DAILY 07/30/22 07/30/22 History Past Med/Surg History Medical History BPH (benign prostatic hyperplasia) CKD (chronic kidney disease), stage III Heart disease History of smoking Kidney stones prison (current) use of anticoagulants PAF (paroxysmal atrial fibrillation) Surgical History History of neck surgery Family History Brother Kidney disease Father Heart disease Social History Smoking Status: Never smoker Tobacco Type: Cigarettes Hx Alcohol Use: Yes Hx Substance Use: No Preferred Language: Mosotho Communication Ability: Effective Product Picker Required: No Beliefs That Will Affect Care: None Current Living Situation: Spouse Current Living Situation Comment: lives with spouse at home, spouse not present for nursing admission Feels Safe at Home: Yes Assistive Devices: Cane and Walker Review of Systems Review of Systems: All systems reviewed and are unremarkable except as noted below Respiratory: Has wheezing with minimal shortness of breath at rest Cardiovascular: Additional Comments: Denies any chest pain and/or palpitation Gastrointestinal: Left upper quadrant pain Physical Exam Physical Exam: Lying in bed with minimal distress due to shortness of breath and pain Constitutional: well developed, well nourished, + ill appearing and + obese Eyes: PERRL, conjunctivae normal, anicteric sclerae ENMT: external ear and nose normal, oropharynx normal Neck: trachea midline, no thyromegaly Respiratory: + respiratory distress (Minimal shortness of breath and wheezing) Auscultation: + diminished lung sounds, + crackles (Bibasilar crackles) and + wheezes Cardiovascular: Rate/Rhythm: + irregularly irregular; not tachycardic Heart Sounds: normal S1 and normal S2; no murmur Extremities: + edema (Trace to 1+ edema bilaterally) Gastrointestinal (Abdomen): Inspection/Auscultation: + abdomen distended and normal bowel sounds Percussion/Palpation: + abdomen tender (Tender left upper quadrant) and abdomen soft Musculoskeletal: No acute arthritis involving any of the joint Neurologic: Alert, awake and oriented x3. Generally weak but no focal neurodeficit. No tremors on outstretched hands Results & Data Results & Data ([facility]) Vital Signs (Past 12 Hours) Vital Signs Temp Pulse Pulse Resp BP BP Pulse Ox 09/14/22 16:14 80 20 100/84 98 09/14/22 15:00 83 20 106/72 93 09/14/22 14:34 78 09/14/22 14:17 79 20 95/71 L 94 09/14/22 13:30 80 20 105/76 94 09/14/22 11:44 84 20 99/70 L 93 09/14/22 11:00 77 19 93 09/14/22 11:00 95/73 L 09/14/22 10:00 80 21 09/14/22 10:00 111/84 09/14/22 10:32 88 20 94 09/14/22 09:41 26 H 96 09/14/22 09:41 36.7 C 96 H 26 H 101/77 96 09/14/22 09:58 88 O2 Del Method 09/14/22 16:14 Room Air 09/14/22 15:00 Room Air 09/14/22 14:34 09/14/22 14:17 Room Air 09/14/22 13:30 Room Air 09/14/22 11:44 Room Air 09/14/22 11:00 09/14/22 11:00 09/14/22 10:00 09/14/22 10:00 09/14/22 10:32 Room Air 09/14/22 09:41 Room Air 09/14/22 09:41 Room Air 09/14/22 09:58 Laboratory Results Short CBC 09/14/22 Range/Units 10:00 WBC 14.01 H (4.8-10.8) K/ul Hgb 14.7 (14.0-18.0) g/dl Hct 42.4 (42.0-52.0) % Plt Count 272 (130-400) K/uL BMP 09/14/22 09/14/22 10:00 12:09 Sodium Cancelled 133 L Potassium Cancelled 4.7 Chloride Cancelled 101 Carbon Dioxide Cancelled 25 BUN Cancelled 21 Creatinine Cancelled 0.97 Glucose Cancelled 101 H Calcium Cancelled 9.4 Cardiac Enzymes 09/14/22 09/14/22 Range/Units 10:00 12:09 Total Creatine Kinase Cancelled 72 Liver Function 09/14/22 09/14/22 Range/Units 10:00 12:09 Total Bilirubin Cancelled 2.2 H AST Cancelled 17 ALT Cancelled 18 Alkaline Phosphatase Cancelled 71 Albumin Cancelled 3.5 Medications Administered Current Inpatient Medications Acetaminophen (Acetaminophen 500 Mg Tab) 1,000 mg PO Q8H KAMINI Stop: 10/14/22 16:29 Oxycodone HCl (Oxycodone Hcl Ir 5 Mg Tab (Immediate Release)) 5 mg PO Q6H PRN PRN Reason: Pain Stop: 09/28/22 16:19 Code Status & VTE Plan VTE Prophylaxis Plan VTE Prophylaxis will be ordered: Yes (1) Fall Encounter type: initial encounter Qualified Code(s): W19.XXXA - Unspecified fall, initial encounter (2) Left rib fracture Encounter type: initial encounter Fracture type: closed Rib fracture type: multiple ribs Qualified Code(s): S22.42XA - Multiple fractures of ribs, left side, initial encounter for closed fracture
[2022-09-14] MEDS ORDERED: ALBUTEROL 0.083% NEBU SOLN 3 ML VIAL NEB STA (16:46)
[2022-09-14] MEDS ORDERED: ALBUTEROL HFA 8 GM INHALER INH PRN (18:31)
[2022-09-14] MEDS ORDERED: ALBUTEROL 0.083% NEBU SOLN 3 ML VIAL INH PRN (18:31)
[2022-09-14] MEDS ORDERED: FEXOFENADINE HCL 180 MG TAB PO PRN (18:31)
[2022-09-14] MEDS: ACETAMINOPHEN 500 MG TAB PO SCH (18:47)
[2022-09-14] MEDS: GABAPENTIN 300 MG CAP PO SCH (23:26)
[2022-09-15] MEDS: ACETAMINOPHEN 500 MG TAB PO SCH ×3 (06:13→21:16)
[2022-09-15 07:27] LABS: Appearance Urine Clear (Clear); Bacteria Urine Automated Negative (Negative); Bilirubin Urine Negative (Negative); Blood Urine 1+ (Negative); Color Urine Dark Yellow; Glucose Urine UA Negative (Negative); Ketones Urine 1+ (Negative); Leukocyte Esterase Urine Negative (Negative); Nitrite Urine Negative (Negative); Protein Urine Negative (Negative); Specific Gravity Urine > 1.045 (1.000-1.030); Urobilinogen Urine Negative (Negative); pH Urine 5.5 (4.5-7.5)
[2022-09-15 07:48] LABS: Basophils # (auto) 0.03 K/uL (0-0.2); Basophils % (auto) 0.3 %; Eosinophils # (auto) 0.09 K/uL (0-0.50); Eosinophils % (auto) 0.8 %; Hematocrit (blood only) 39.5 % (42.0-52.0); Hemoglobin 13.5 g/dl (14.0-18.0); Immature Granulocytes # (auto) 0.08 K/uL (0.01-0.20); Immature Granulocytes % (auto) 0.7 %; Lymphocytes # (auto) 1.36 K/uL (1.2-3.4); Lymphocytes % (auto) 12.4 %; Mean Corpuscular Hemoglobin 30.7 pg (25.0-34.0); Mean Corpuscular Hgb Conc 34.2 g/dL (32.0-36.0); Mean Corpuscular Volume 89.8 fL (80.0-100.0); Mean Platelet Volume 9.7 fL (9.4-12.4); Monocytes # (auto) 1.09 K/uL (0.11-0.59); Monocytes % (auto) 9.9 %; Neutrophils # (auto) 8.34 K/uL (1.40-6.50); Neutrophils % (auto) 75.9 %; Platelet Count 226 K/uL (130-400); RDW Coefficient of Variation 13.9 % (11.5-14.5); RDW Standard Deviation 45.5 fL (36.4-46.3); White Blood Count 10.99 K/ul (4.8-10.8)
[2022-09-15 08:07] LABS: Albumin Globulin Ratio 1.3 (0.9-2); Albumin Level 3.2 gm/dl (3.4-5.0); Bilirubin,Total 1.7 mg/dl (0.2-1.0); Calcium 9.2 mg/dl (8.5-10.1); Creatinine Clr Calc Pharmacy 86.5 ml/min; Est GFR (Non-African American) 85.4 ml/min; Globulin 2.5 gm/dl (2.5-4.0); Magnesium 1.7 mg/dl (1.7-2.4); Potassium 4.2 mmol/L (3.5-5.1); Total Protein 5.7 gm/dl (6.0-8.3)
[2022-09-15] MEDS: MULTIVITAMIN TAB PO SCH (08:23)
[2022-09-15] MEDS: allopurinoL 300 MG TAB PO SCH (08:24)
[2022-09-15] MEDS: FLUoxetine HCL 20 MG CAP PO SCH (08:25)
[2022-09-15] MEDS: METOPROLOL SUCC 50MG EXT REL TAB PO SCH (08:25)
[2022-09-15] MEDS: GABAPENTIN 300 MG CAP PO SCH ×3 (08:27→21:16)
[2022-09-15] MEDS: predniSONE 10 MG TABLET PO SCH (08:27)
[2022-09-15] MEDS: TAMSULOSIN HCL 0.4 MG CAP PO SCH (08:27)
[2022-09-15] MEDS: ATORVASTATIN 40 MG TAB PO SCH (08:27)
[2022-09-15] MEDS: FINASTERIDE 5 MG TAB PO SCH (08:27)
[2022-09-15] MEDS: FLUTICASONE PROPIONATE NA SPR 16 GM BTL SCH (08:28)
--- NOTE | 2022-09-15 09:39 | Hospitalist Progress Note ---
Date of Service September 15, 2022 Assessment & Plan (1) Fall: (2) Compression fracture: (3) Left rib fracture: Plan: Per Admitting Provider, patient had a few drinks yesterday and ended up with a fall on the left side Pain involving the left lower chest wall and adjoining area of the abdomen CT of head did not show acute abnormality Abd /Chest CT noted left anterolateral sixth through 10th rib fracture, Ninth rib fracture is displaced with mild pleural effusion but no pneumothorax CT abd also reported suspected cleft through inf spleen but noted a splenic laceration could appear similar though less likely. Moderate T12 compression fracture likely acute was also noted Considering patient had 5 rib fracture, possible acute T12 compression fracture and unclear if splenic findings are from laceration or cleft as well as patient comorbidities and being on blood thinner, I think patient needs to be evaluated by Trauma physician. I reviewed images with [facility] Master Dr Swartz I had Radiology to upload scans to [employer]. I called [facility] to consult with Trauma Dr. Discussed patient and she recommended transfer to [facility] for trauma eval. Patient accepted for transfer to [facility] under Dr Kacie Doe pending bed availability. Call to was unanswered. I called son Sonido Romero Jr and updated him. He stated he wants to discuss with patient's and get back to us if they want to transfer or keep management at [facility]. Spoke with patient. He stated he does not want to be transferred. I explained the need for Trauma eval by Trauma specialist in view of all findings. He stated he is ok with no transfer. He stated he will not want surgery/any procedure even if indicated He wants to be treated here and discharged home once stable He restated his code status is DNR. This conversation was witnessed by furniture lumber production worker Guillermina Velasquez. furniture lumber production worker will contact transfer center to cancel transfer I called son and updated him In the meantime, will continue pain control. Hb is 13.5 today (was 14.7 yesterday). Hb has ranged from 12.9 to 15.6 in the past month Will monitor Hb Keep holding eliquis for now Reviewed CXR today Wean oxygen as tolerated. (4) CKD (chronic kidney disease), stage III: Plan: Cr is 0.89 Monitor (5) PAF (paroxysmal atrial fibrillation): Plan: Rate is controlled Continue to hold eliquis as above (6) BPH (benign prostatic hyperplasia): Plan: Continue current medication (7) Depression: Plan: Continue current medicine Plan DVT prophylaxis SCDs for now CODE STATUS DNR/DNI Admission and Anticipated Discharge Date Admission Date: September 14, 2022 Subjective Patient seen and examined Patient is awake, alert and oriented to person and place. 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 This also limits detailed ROM He acknowledged left sided chest wall pain. Denied any headache, dizziness, neck pain, nausea, vomiting, abd pain. Denied any shortness of breath Acknowledge some cough Physical Exam Constitutional: + well hydrated; no acute distress Elderly patient Eyes: PERRL, conjunctivae normal, anicteric sclerae ENMT: external ear and nose normal, oropharynx normal Neck: No cervical tenderness Respiratory: normal respiratory effort; no respiratory distress On nasal cannula. Diminished breath sounds lung base (L>R) Cardiovascular: Rate/Rhythm: + irregularly irregular S1 S2 Chest (Breasts): Additional Comments: Left lateral chest wall tenderness Gastrointestinal (Abdomen): normal bowel sounds, soft, nontender, no hepatosplenomegaly Musculoskeletal: No pedal edema Neurologic: Alert oriented to person and place, dysarthria. Follows instructions. Power 4/5 in extremities Results & Data Results & Data ([facility]) Vital Signs (Past 12 Hours) Vital Signs Temp Pulse Pulse Resp BP BP Pulse Ox 09/15/22 07:38 36.4 C L 88 20 102/67 97 09/15/22 08:25 78 110/69 09/15/22 07:34 09/15/22 03:01 36.5 C 95 H 16 105/72 96 09/15/22 01:51 83 09/14/22 22:53 36.7 C 78 18 106/74 96 O2 Del Method O2 Flow Rate 09/15/22 07:38 Nasal Cannula 2 09/15/22 08:25 09/15/22 07:34 Nasal Cannula 2 09/15/22 03:01 Nasal Cannula 2 09/15/22 01:51 09/14/22 22:53 Nasal Cannula 2 Laboratory Results Abnormal lab results 09/15/22 09/15/22 09/15/22 Range/Units 07:10 07:10 Unknown WBC 10.99 H (4.8-10.8) K/ul RBC 4.40 L (4.70-6.10) M/uL Hgb 13.5 L (14.0-18.0) g/dl Hct 39.5 L (42.0-52.0) % Neut # (Auto) 8.34 H (1.40-6.50) K/uL Clarke # (Auto) 1.09 H (0.11-0.59) K/uL BUN 24 H (6-23) mg/dl Total Bilirubin 1.7 H (0.2-1.0) mg/dl Total Protein 5.7 L (6.0-8.3) gm/dl Albumin 3.2 L (3.4-5.0) gm/dl Ur Specific G[place] > 1.045 H (1.000-1.030) Urine Ketones 1+ H (Negative) Urine Blood 1+ H (Negative) Urine RBC (Auto) 5-10 H (0-4) /hpf U Epithel Cells (Auto) 5-10 H (0-5) /lpf (1) Fall Encounter type: initial encounter Qualified Code(s): W19.XXXA - Unspecified fall, initial encounter (3) Left rib fracture Encounter type: initial encounter Fracture type: closed Rib fracture type: multiple ribs Qualified Code(s): S22.42XA - Multiple fractures of ribs, left side, initial encounter for closed fracture
--- NOTE | 2022-09-15 10:09 | XRay Report ---
XR chest 1V portable CLINICAL HISTORY: Reassess lungs COMPARISON STUDY: Chest CT and chest radiograph September 14, 2022. FINDINGS: Postoperative findings within the cervical spine are incidentally noted. Cardiomediastinal silhouette is stable. No evidence for overt pulmonary edema. A trace left pleural effusion with minim al left basilar opacity. Acute left-sided rib fractures are better depicted on prior CT. No consolida tion is identified to suggest pneumonia. No pneumothorax. IMPRESSION: 1. No pneumothorax. Trace left pleural effusion with mild left basilar opacity. 2. No significant change in appearance of the chest. ACT 112: Negative or not required by law. Electronically signed by: Avila Khoury M.D. 09/15/2022 10:08 AM
[2022-09-15] MEDS ORDERED: guaiFENesin SUGAR FREE 100 MG/5 ML UDC PO PRN (21:56)
[2022-09-15] MEDS: guaiFENesin 600 MG TABCR PO SCH (23:07)
[2022-09-16] MEDS: ACETAMINOPHEN 500 MG TAB PO SCH ×3 (06:13→20:08)
[2022-09-16 07:09] LABS: Hematocrit (blood only) 38.6 % (42.0-52.0); Hemoglobin 13.3 g/dl (14.0-18.0); Mean Corpuscular Hemoglobin 30.8 pg (25.0-34.0); Mean Corpuscular Hgb Conc 34.5 g/dL (32.0-36.0); Mean Corpuscular Volume 89.4 fL (80.0-100.0); Mean Platelet Volume 9.8 fL (9.4-12.4); Platelet Count 246 K/uL (130-400); RDW Coefficient of Variation 13.8 % (11.5-14.5); RDW Standard Deviation 45.1 fL (36.4-46.3); Red Blood Count 4.32 M/uL (4.70-6.10); White Blood Count 12.23 K/ul (4.8-10.8)
[2022-09-16 07:33] LABS: Calcium 9.4 mg/dl (8.5-10.1); Creatinine Clr Calc Pharmacy 88.2 ml/min; Est GFR (African American) 99.9 ml/min; Est GFR (Non-African American) 86.2 ml/min; Potassium 3.8 mmol/L (3.5-5.1)
[2022-09-16] MEDS: FLUTICASONE PROPIONATE NA SPR 16 GM BTL SCH (08:59)
[2022-09-16] MEDS: allopurinoL 300 MG TAB PO SCH (09:01)
[2022-09-16] MEDS: FINASTERIDE 5 MG TAB PO SCH (09:01)
[2022-09-16] MEDS: guaiFENesin 600 MG TABCR PO SCH ×2 (09:01→20:07)
[2022-09-16] MEDS: predniSONE 10 MG TABLET PO SCH (09:02)
[2022-09-16] MEDS: ATORVASTATIN 40 MG TAB PO SCH (09:02)
[2022-09-16] MEDS: MULTIVITAMIN TAB PO SCH (09:02)
[2022-09-16] MEDS: TAMSULOSIN HCL 0.4 MG CAP PO SCH (09:02)
[2022-09-16] MEDS: FLUoxetine HCL 20 MG CAP PO SCH (09:03)
[2022-09-16] MEDS: GABAPENTIN 300 MG CAP PO SCH ×3 (09:03→20:06)
[2022-09-16] MEDS: METOPROLOL SUCC 50MG EXT REL TAB PO SCH (09:05)
--- NOTE | 2022-09-16 13:58 | Hospitalist Progress Note ---
Date of Service September 16, 2022 Assessment & Plan (1) Fall: (2) Compression fracture: (3) Left rib fracture: Plan: per Dr. Pandey's notes with addendum: Per Admitting Provider, patient had a few drinks yesterday and ended up with a fall on the left side Pain involving the left lower chest wall and adjoining area of the abdomen CT of head did not show acute abnormality Abd /Chest CT noted left anterolateral sixth through 10th rib fracture, Ninth rib fracture is displaced with mild pleural effusion but no pneumothorax CT abd also reported suspected cleft through inf spleen but noted a splenic laceration could appear similar though less likely. Moderate T12 compression fracture likely acute was also noted Considering patient had 5 rib fracture, possible acute T12 compression fracture and unclear if splenic findings are from laceration or cleft as well as patient comorbidities and being on blood thinner, I think patient needs to be evaluated by Trauma physician. I reviewed images with [employer] Head Dr Swartz I had Radiology to upload scans to [employer]. I called [facility] to consult with Trauma Dr. Discussed patient and she recommended transfer to [facility] for trauma eval. Patient accepted for transfer to [facility] under Dr Kacie Doe pending bed availability. Call to was unanswered. I called son Sonido Romero Jr and updated him. He stated he wants to discuss with patient's and get back to us if they want to transfer or keep management at [facility]. Spoke with patient. He stated he does not want to be transferred. I explained the need for Trauma eval by Trauma specialist in view of all findings. He stated he is ok with no transfer. He stated he will not want surgery/any procedure even if indicated He wants to be treated here and discharged home once stable He restated his code status is DNR. This conversation was witnessed by wrapper leaf inspector Guillermina Velasquez. wrapper leaf inspector will contact transfer center to cancel transfer I called son and updated him In the meantime, will continue pain control. Hb is 13.5 today (was 14.7 yesterday). Hb has ranged from 12.9 to 15.6 in the past month Will monitor Hb Keep holding eliquis for now Reviewed CXR today Wean oxygen as tolerated. 09/16 Patient remained stable overall Reports only minimal pain in the left rib area Hemoglobin stable Continue to monitor Hold Eliquis for now We will discuss with trauma surgery when Eliquis can be restarted Wean off oxygen PT and OT evaluation Patient is not having recurrent falls as per confirmation with Always walks with a walker at home after stroke (4) CKD (chronic kidney disease), stage III: Plan: Cr is 0.89 Monitor (5) PAF (paroxysmal atrial fibrillation): Plan: Rate is controlled Continue to hold eliquis as above (6) BPH (benign prostatic hyperplasia): Plan: Continue current medication (7) Depression: Plan: Continue current medicine Plan DVT prophylaxis SCDs for now CODE STATUS DNR/DNI Admission and Anticipated Discharge Date Admission Date: September 15, 2022 Subjective Follow-up status post fall, multiple left right rib fractures, T12 compression fracture, etc. Seen with patient's [place] at the bedside visiting Seen sitting up in bed, comfortable, not in distress, awake and alert States he feels fine overall Minimal pain over the left rib area Denies any back pain No headache, dizziness abdominal pain nausea vomiting or any other pain in his body No other symptoms Eager to be discharged Review of Systems Review of Systems: all noted and negative except for above Physical Exam Physical Exam: General- oriented x 3, not in distress, speaks in sentences with no effort or accessory muscle use Eyes- anicteric Neck- no JVD Lungs-faint rales at the bases, no wheezing Good air entry bilaterally Positive faint hematoma on the left lateral lower rib area with mild tenderness Heart- normal rate, regular rhythm; no murmurs Abdomen- normal bowel sounds, nondistended, soft, nontender Extremities- no pretibial edema, no calf tenderness Neuro- alert, oriented x 3; very mild left-sided weakness, no other gross focal neurologic deficits Skin- warm & dry Results & Data Results & Data ([facility]) Vital Signs (Past 12 Hours) Vital Signs Temp Pulse Pulse Resp BP BP Pulse Ox 09/16/22 10:57 36.4 C L 103 H 20 114/79 98 09/16/22 09:04 95 H 98/70 L 09/16/22 08:34 35.8 C L 91 H 20 99/73 L 98 09/16/22 07:08 09/16/22 05:59 86 09/16/22 03:12 36.9 C 95 H 18 104/72 95 O2 Del Method O2 Flow Rate 09/16/22 10:57 Nasal Cannula 2 09/16/22 09:04 09/16/22 08:34 Nasal Cannula 2 09/16/22 07:08 Nasal Cannula 2 09/16/22 05:59 09/16/22 03:12 Nasal Cannula 2 all noted and reviewed including below (1) Fall Encounter type: initial encounter Qualified Code(s): W19.XXXA - Unspecified fall, initial encounter (3) Left rib fracture Encounter type: initial encounter Fracture type: closed Rib fracture type: multiple ribs Qualified Code(s): S22.42XA - Multiple fractures of ribs, left side, initial encounter for closed fracture
[2022-09-17] MEDS: ACETAMINOPHEN 500 MG TAB PO SCH (05:34)
[2022-09-17] MEDS: predniSONE 10 MG TABLET PO SCH (07:33)
[2022-09-17] MEDS: GABAPENTIN 300 MG CAP PO SCH (07:33)
[2022-09-17] MEDS: guaiFENesin 600 MG TABCR PO SCH (07:33)
[2022-09-17] MEDS: METOPROLOL SUCC 50MG EXT REL TAB PO SCH (07:33)
[2022-09-17] MEDS: MULTIVITAMIN TAB PO SCH (07:34)
[2022-09-17] MEDS: FLUTICASONE PROPIONATE NA SPR 16 GM BTL SCH (07:34)
[2022-09-17] MEDS: allopurinoL 300 MG TAB PO SCH (07:34)
[2022-09-17] MEDS: FLUoxetine HCL 20 MG CAP PO SCH (07:34)
[2022-09-17] MEDS: FINASTERIDE 5 MG TAB PO SCH (07:34)
[2022-09-17] MEDS: ATORVASTATIN 40 MG TAB PO SCH (07:34)
[2022-09-17] MEDS: TAMSULOSIN HCL 0.4 MG CAP PO SCH (07:34)
[2022-09-17 08:23] LABS: Basophils # (auto) 0.05 K/uL (0-0.2); Basophils % (auto) 0.4 %; Eosinophils # (auto) 0.15 K/uL (0-0.50); Eosinophils % (auto) 1.1 %; Hematocrit (blood only) 42.8 % (42.0-52.0); Hemoglobin 14.5 g/dl (14.0-18.0); Immature Granulocytes % (auto) 0.7 %; Lymphocytes % (auto) 14.6 %; Mean Corpuscular Hemoglobin 30.5 pg (25.0-34.0); Mean Corpuscular Hgb Conc 33.9 g/dL (32.0-36.0); Mean Corpuscular Volume 89.9 fL (80.0-100.0); Mean Platelet Volume 9.5 fL (9.4-12.4); Monocytes # (auto) 0.91 K/uL (0.11-0.59); Monocytes % (auto) 6.6 %; Neutrophils # (auto) 10.49 K/uL (1.40-6.50); Neutrophils % (auto) 76.6 %; Platelet Count 297 K/uL (130-400); RDW Coefficient of Variation 13.7 % (11.5-14.5); RDW Standard Deviation 45.1 fL (36.4-46.3); Red Blood Count 4.76 M/uL (4.70-6.10)
[2022-09-17 08:57] LABS: BUN Creatinine Ratio 29.1 (10-20); Calcium 9.7 mg/dl (8.5-10.1); Creatinine Clr Calc Pharmacy 89.3 ml/min; Est GFR (African American) 100.4 ml/min; Est GFR (Non-African American) 86.6 ml/min; Potassium 3.7 mmol/L (3.5-5.1)
[2022-09-17] MEDS ORDERED: IPRATROPIUM BROMIDE NEB SOLN 0.02% 2.5 ML VIAL INH SCH (10:30)
[2022-09-17] MEDS ORDERED: FLUTICASONE/VILANTEROL 100/25MCG 14 PUFFS/INHALER INH SCH (10:30)
[2022-09-17] MEDS ORDERED: XOPENEX/ATROVENT 1.25mg/0.5MG NEB COMBO NEB SCH (10:30)
[2022-09-17] MEDS ORDERED: DOXYCYCLINE HYCLATE 100 MG CAP PO SCH (10:30)
[2022-09-17] MEDS ORDERED: LEVALBUTEROL 1.25MG/0.5ML NEB INH SCH (10:30)
[2022-09-17] MEDS ORDERED: predniSONE 20 MG TAB PO STA (10:33)
--- NOTE | 2022-09-17 14:55 | XRay Report ---
XR chest 1V portable CLINICAL HISTORY: ff up rib fractures TECHNIQUE: Single frontal radiograph of the chest was obtained. Comparison: Comparison is made to chest radiograph 09/15/2022 FINDINGS: Cervical fixation hardware is partially seen. Calcified aortic knob is seen. The lungs are clear. No evidence of pleural effusion or pneumothorax. IMPRESSION: Previously noted left anterior rib fractures are not well seen radiographically. If further follow-up is required, dedicated rib series is recommended. ACT 112: Negative or not required by law. Electronically signed by: Jonathon Neff M.D. 09/17/2022 2:54 PM
--- NOTE | 2022-09-30 15:25 | Discharge Summary ---
Discharge Summary Date of Service September 30, 2022 delayed entry date of service 09/16/22 Notes For Next Care Provider Medication Changes From Visit Prednisone taper: 40 mg daily x3 days, then 30 mg daily x3 days, then 20 mg daily x3 days, then continue with your usual 10 mg daily Doxycycline-antibiotic for COPD exacerbation [id number] control for COPD Xopenex/Atrovent-nebulizer treatment to be used 3 times a day x1 week; may also be as needed for shortness of breath or wheezing Tylenol 650 mg 3 times a day. Hold Eliquis for now until reevaluation and further advice by Dr. Antonio on Wednesday. Admission HPI Per Admitting Provider He is a 72-year-old obese male with significant past medical history of recent COVID-19 virus infection in July, paroxysmal atrial fibrillation on Eliquis, CAD with status post stent, COPD not on any home oxygen, CKD stage III, hypertension and history of gout apparently has had a few drinks yesterday and ended up with a fall injuring on the left side of the lower chest and upper abdomen. He has been complaining of increasing pain associated with shortness of breath and the pain is worse with breathing. He was brought into the em ergency room for further evaluation. He denies any chest pain, palpitation. No nausea and or vomiting but does have left upper quadrant pain. Denies any problem with urine and the bowel habit. He does not use any home oxygen. He was noted to have multiple rib fractures on the left side without any evidence of withdrawal symptoms. No pneumothorax but has minimal pleural effusion. he will be admitted to a medical telemetry unit for continuation of care. Admission Exam Per Admitting Provider Physical Exam: Lying in bed with minimal distress due to shortness of breath and pain Constitutional: well developed, well nourished, + ill appearing and + obese Eyes: PERRL, conjunctivae normal, anicteric sclerae ENMT: external ear and nose normal, oropharynx normal Neck: trachea midline, no thyromegaly Respiratory: + respiratory distress (Minimal shortness of breath and wheezing) Auscultation: + diminished lung sounds, + crackles (Bibasilar crackles) and + wheezes Cardiovascular: Rate/Rhythm: + irregularly irregular; not tachycardic Heart Sounds: normal S1 and normal S2; no murmur Extremities: + edema (Trace to 1+ edema bilaterally) Gastrointestinal (Abdomen): Inspection/Auscultation: + abdomen distended and normal bowel sounds Percussion/Palpation: + abdomen tender (Tender left upper quadrant) and abdomen soft Musculoskeletal: No acute arthritis involving any of the joint Neurologic: Alert, awake and oriented x3. Generally weak but no focal neurodeficit. No tremors on outstretched hands Principal Dx & Hospital Course #1 = Principal Diagnosis (1) Fall: (2) Compression fracture: (3) Left rib fracture: per Dr. Pandey's notes with addendum: Per Admitting Provider, patient had a few drinks yesterday and ended up with a fall on the left side Pain involving the left lower chest wall and adjoining area of the abdomen CT of head did not show acute abnormality Abd /Chest CT noted left anterolateral sixth through 10th rib fracture, Ninth rib fracture is displaced with mild pleural effusion but no pneumothorax CT abd also reported suspected cleft through inf spleen but noted a splenic lace ration could appear similar though less likely. Moderate T12 compression fracture likely acute was also noted Considering patient had 5 rib fracture, possible acute T12 compression fracture and unclear if splenic findings are from laceration or cleft as well as patient comorbidities and being on blood thinner, I think patient needs to be evaluated by Trauma physician. I reviewed images with [employer] Architect Dr Swartz I had Radiology to upload scans to [employer] network. I called [facility] to consult with Trauma Dr. Discussed patient and she recommended transfer to [facility] for trauma eval. Patient accepted for transfer to [facility] under Dr Kacie Doe pending bed availability. Call to was unanswered. I called son Sonido Romero Jr and updated him. He stated he wants to discuss with patient's and get back to us if they want to transfer or keep management at [facility]. Spoke with patient. He stated he does not want to be transferred. I explained the need for Trauma eval by Trauma specialist in view of all findings. He stated he is ok with no transfer. He stated he will not want surgery/any procedure even if indicated He wants to be treated here and discharged home once stable He restated his code status is DNR. This conversation was witnessed by envelope sealer Guillermina Velasquez. envelope sealer will contact transfer center to cancel transfer I called son and updated him In the meantime, will continue pain control. Hb is 13.5 today (was 14.7 yesterday). Hb has ranged from 12.9 to 15.6 in the past month Will monitor Hb Keep holding eliquis for now Reviewed CXR today Wean oxygen as tolerated. 09/16 Patient remained stable overall Reports only minimal pain in the left rib area Hemoglobin stable Continue to monitor Hold Eliquis for now We will discuss with trauma surgery when Eliquis can be restarted--> recommend to hold for another week Will need oxygen with ambulation and at rest PT and OT evaluation--> patient declining acute rehab Patient is not having recurrent falls as per confirmation with Always walks with a walker at home after stroke (4) CKD (chronic kidney disease), stage III: Cr is 0.89 Monitor (5) PAF (paroxysmal atrial fibrillation): Rate is controlled Continue to hold eliquis as above (6) BPH (benign prostatic hyperplasia): Continue current medication (7) Depression: Continue current medicine Plan DVT prophylaxis SCDs for now CODE STATUS DNR/DNI Discharge Exam General- oriented x 3, not in distress, speaks in sentences with no effort or accessory muscle use Eyes- anicteric Neck- no JVD Lungs-faint rales at the bases, no wheezing Good air entry bilaterally Positive faint hematoma on the left lateral lower rib area with mild tenderness Heart- normal rate, regular rhythm; no murmurs Abdomen- normal bowel sounds, nondistended, soft, nontender Extremities- no pretibial edema, no calf tenderness Neuro- alert, oriented x 3; very mild left-sided weakness, no other gross focal neurologic deficits Skin- warm & dry Updated Medication List Medication Instructions Recorded Confirmed Type allopurinol 300 mg tablet 300 mg PO DAILY 06/03/18 09/14/22 History atorvastatin 40 mg tablet 40 mg PO DAILY 06/03/18 09/14/22 History gabapentin 300 mg capsule 300 mg PO TID 06/03/18 09/14/22 History multivitamin 1 tab PO DAILY 06/03/18 09/14/22 History tamsulosin 0.4 mg capsule 0.4 mg PO DAILY 06/03/18 09/14/22 History finasteride 5 mg tablet 5 mg PO DAILY 04/24/20 09/14/22 History fluoxetine 20 mg capsule 40 mg PO DAILY 04/24/20 09/14/22 History metoprolol succinate 50 mg 50 mg PO DAILY 04/24/20 09/14/22 History tablet,extended release 24 hr fexofenadine 180 mg tablet 180 mg PO DAILY PRN Allergic 07/30/22 09/14/22 History Symptoms fluticasone propionate 50 2 spray intranasal DAILY PRN 07/30/22 09/14/22 History mcg/actuation nasal Congestion spray,suspension acetaminophen 325 mg tablet 650 mg PO TID #30 tabs 09/17/22 Rx (Athenol) fluticasone furoate 100 1 ea inhalation DAILY 30 days #60 09/17/22 Rx mcg-vilanterol 25 mcg/dose ea inhalation powder (Breo Ellipta) ipratropium bromide 0.02 % 0.5 mg (2.5 mL) inhalation TID 7 09/17/22 Rx solution for inhalation days #52.5 mL levalbuterol HCl 1.25 mg/0.5 mL 1.25 mg (0.5 mL) inhalation TID 09/17/22 Rx solution for nebulization #30 ea prednisone 10 mg tablet 10 mg PO DAILY #30 tabs 09/17/22 09/14/22 Rx prednisone 10 mg tablet 10 mg PO UD #27 tabs 09/17/22 Rx Hospital Stay Data Consultations 09/14/22 15:43 ED Decision to Admit Stat 09/16/22 09:02 Consult Orthopedic Surgery Routine Diagnostic Imagining Performed 09/14/22 10:31 CT Abd and Pelvis [CT abd pelvis IV con only] Stat COMPARISON STUDY: None. TECHNIQUE: Following IV administration of 94 mL of Optiray, axial images of the abdomen and pelvis were obtained from the lung bases to the proximal femurs. Images were reviewed in the axial, sagittal, and coronal planes. IV contrast was administered without complication. Automated exposure control was utilized for the study. A dose lowering technique was utilized adhering to the principles of ALARA. FINDINGS: A trace pericardial effusion is present. There is also a trace left pleural effusion. There is no pneumothorax. Note is made of acute fractures of the anterolateral left sixth through 10th ribs. The ninth rib fracture is mildly displaced. There is no evidence for traumatic injury to the liver, adrenal glands, kidneys or pancreas. Multifocal scarring within the kidneys is noted. Water attenuation renal lesions reflect cysts. Several subcentimeter renal lesions are too small to characterize. There is no hydronephrosis. There is no biliary or pancreatic ductal dilatation. The spleen is suboptimally assessed due to respiratory motion. A linear hypodensity within the spleen probably reflects a cleft. A splenic laceration could appear similar although is considered less likely. There is no perisplenic fluid. Lumbar spine fusion is noted. No acute pelvic fracture is noted. There is a moderate T12 compression fracture, likely acute. There is no retropulsion. 40% loss vertebral body height is noted. No extension into the posterior elements is noted. There is no evidence for a bowel obstruction. No free fluid. Extensive aortoiliac atherosclerotic plaque is present. IMPRESSION: 1. Acute anterolateral left sixth through 10th rib fractures. Ninth rib fracture mildly displaced. Trace left pleural effusion. No pneumothorax. 2. Suboptimal evaluation of the spleen given motion artifact. 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 A splenic laceration could appear similar although is considered less likely. No perisplenic fluid-hematoma. If persistent left upper quadrant pain, a repeat contrast-enhanced CT is recommended. 3. Moderate T12 compression fracture, likely acute. 40% loss of vertebral body height without retropulsion. ACT 112: Negative or not required by law. CT cervical spine wo con Stat COMPARISON: None. FINDINGS: No fractures. No subluxation. Prevertebral soft tissues and the C1-C2 interval are intact. No pneumothorax. Emphysema. Posterior decompression and fusion from C4 through C7 with pedicle screws and rods. The hardware appears intact. The C2-C3 vertebral bodies and facets are also fused. Partially visualized paranasal sinus disease. IMPRESSION: No fractures within the cervical spine. ACT 112: Negative or not required by law. CT chest diagnostic w con Stat CT DOSE: 2583.91 mGy.cm Comparison: Comparison is made to chest radiograph performed same day FINDINGS: Lungs and pleura: Exam is limited by patient motion. Extensive emphysematous changes are seen with atelectasis in the lung bases. No suspicious pulmonary nodules are noted. Heart and pericardium: Cardiomegaly is seen with biatrial enlargement. Vessels: Severe atherosclerotic changes in the aorta and coronary arteries. Mediastinum and alejandro: Right hilar lymph nodes measure up to 13 mm in diameter. Chest wall and lower neck: Unremarkable. Abdomen: Unremarkable. Bones: Degenerative changes in the thoracic spine. IMPRESSION: No evidence of acute fracture or other acute abnormality. The lungs are emphysematous but there is no evidence of pneumonia. Previously noted blunting the left costophrenic angle atelectasis. ACT 112: Negative or not required by law. CT head/brain wo con Stat COMPARISON STUDY: CT of the brain dated 06/13/2018. TECHNIQUE: Unenhanced axial CT scan of the brain is performed from the vertex to the skull base. A dose lowering technique was utilized adhering to the principles of ALARA. FINDINGS: Brain parenchyma: Left MCA territory encephalomalacia is consistent with a remote infarct. There is age-related involutional change noting mild subcortical and periventricular microangiopathic disease. There is no hemorrhage, mass effect, or evidence of acute territorial ischemia by CT criteria. Kam-white matter differentiation is preserved. No extra-axial fluid collection is seen. Ventricles, sulci, cisterns: Prominent secondary to involutional change. Intracranial vasculature: There is atherosclerotic calcification of the cavernous carotid and vertebral arteries. Calvarium: The skeletal structures are osteopenic. No depressed calvarial fracture is seen. Sinuses and mastoids: There is advanced mucosal thickening/subtotal opacification of the maxillary, sphenoid, left frontal, and left anterior ethmoid sinuses. The mastoid air cells are well pneumatized. Orbits: The bony orbits are grossly intact. There are bilateral ocular lens implants. IMPRESSION: 1. Chronic changes as above with no hemorrhage, mass effect, or evidence of acute territorial ischemia by CT criteria. 2. Pansinus disease as above. ACT 112: Negative or not required by law. Pending Results Patient Have Any Pending Studies at Discharge: No Discharge Instructions Given to Patient (Per Discharging Provider) PLEASE REFER TO YOUR NEW MEDICATION LIST AND FOLLOW INSTRUCTIONS CAREFULLY. YOUR NEW MEDICATIONS INCLUDE: Prednisone taper: 40 mg daily x3 days, then 30 mg daily x3 days, then 20 mg daily x3 days, then continue with your usual 10 mg daily Doxycycline-antibiotic for COPD exacerbation [id number] control for COPD Xopenex/Atrovent-nebulizer treatment to be used 3 times a day x1 week; may also be as needed for shortness of breath or wheezing Tylenol 650 mg 3 times a day. Hold Eliquis for now until reevaluation and further advice by Dr. Antonio on Wednesday. Continue using incentive spirometry every hour. PLEASE CALL YOUR PRIMARY CARE PHYSICIAN OR RETURN TO THE ER IF WITH WORSENING OF SYMPTOMS, INCLUDING Uncontrolled rib pain, back pain, abdominal pain, Shortness of breath, cough, fevers or chills, etc. FOLLOW UP WITH PRIMARY CARE PHYSICIAN OUTLINED ABOVE. Total Time Total Time Spent Total Time Spent (In Minutes): >30 minutes
== END 2022-09-17 13:05 | disposition home or self-care (01) | DRG 184 ==
LOC: ED 09:50 → EDINP 09:50 → SUATTDRO 16:20 → 2N 18:32 → SUATTDRO 09-15 17:02

== ENCOUNTER 2024-10-24 17:14 | Inpatient (IN) ==
[2024-10-24 17:50] LABS: Basophils # (auto) 0.07 K/uL (0.00-0.20); Basophils % (auto) 0.5 %; Eosinophils # (auto) 0.65 K/uL (0.00-0.50); Eosinophils % (auto) 4.9 %; Hematocrit (blood only) 34.7 % (42.0-52.0); Hemoglobin 10.9 g/dl (14.0-18.0); Immature Granulocytes # (auto) 0.14 K/uL (0.01-0.20); Immature Granulocytes % (auto) 1.1 %; Lymphocytes % (auto) 13.5 %; Mean Corpuscular Hemoglobin 23.3 pg (25.0-34.0); Mean Corpuscular Hgb Conc 31.4 g/dL (32.0-36.0); Mean Corpuscular Volume 74.1 fL (80.0-100.0); Mean Platelet Volume 10.6 fL (9.4-12.4); Monocytes # (auto) 1.05 K/uL (0.11-0.59); Monocytes % (auto) 7.9 %; Neutrophils # (auto) 9.61 K/uL (1.40-6.50); Neutrophils % (auto) 72.1 %; Platelet Count 244 K/uL (130-400); RDW Coefficient of Variation 17.8 % (11.5-14.5); Red Blood Count 4.68 M/uL (4.70-6.10); White Blood Count 13.32 K/ul (4.8-10.8)
--- NOTE | 2024-10-24 17:56 | Emergency Department Note ---
Impression & Plan Compression fracture of lumbar vertebra, Constipation, Fall, Compression fracture of thoracic vertebra, Back pain ED Provider Note CHIEF COMPLAINT: Fall HISTORY OF PRESENTING ILLNESS: The patient is a 74-year-old male with a PMH COPD, temporal lobe stroke with verbal aphasia, is on Eliquis who presents via EMS from his home due to a ground-level fall on Wednesday. This was a witnessed fall and the family states that he did not hit his head, did not lose consciousness, main complaint was back pain. Patient has increased difficulty with movement and pain recently as well as difficulty with bowel movements and urination over the past couple of days. confirms that she had to straight cath him to assist him with going to the restroom because he could not get up to ambulate there. Daughter also confirms that it has been hard to help assist him around the house because she is not able to lift him up out of bed. Due to the patient's verbal aphasia I am not able to get a good history from him when he arrives to the emergency department via EMS alone. The patient is on Eliquis. REVIEW OF SYSTEMS: See HPI for pertinent positives and pertinent negatives. ALLERGIES: NKDA MEDICATIONS: See below PAST MEDICAL HISTORY: See below PHYSICAL EXAM: VITALS: Vitals are noted on the nurse's note and reviewed by myself. Vital signs stable. GENERAL: 74-year-old male, lying flat in bed, in no acute distress, nondiaphoretic, well-developed well-nourished. SKIN: Capillary refill less than 2 seconds. Bruises noted on bilateral upper extremities. HEENT: Normocephalic. PERRLA. EOMI. Nares patent. Mucous membranes moist. Neck is supple without nuchal rigidity. No Franz sign or raccoon eyes. HEART: Regular rate and rhythm without murmurs gallops or rubs. LUNGS: Expiratory wheeze appreciated on auscultation. No rales or rhonchi. No retraction or accessory muscle use. ABDOMEN: Positive bowel sounds x 4. Tenderness upon palpation to the left upper and lower quadrant. Patient winces. The abdomen is soft without masses. No ascites. Lackey sign negative. No guarding or rebound tenderness. No bruises or rashes on abdomen. MUSCULOSKELETAL: Patient complains of back pain and is lying flat in bed. Patient is not able to move from that position is secondary to discomfort. Family members confirmed that his back pain is right in the middle of his back in the lower thoracic area. I was able to fiber picker and flex and extend the patient's upper and lower extremities without the patient experiencing any discomfort. NEURO: Due to patient's verbal aphasia history was obtained from and daughter. No focal neurological deficits. Family confirms that this is his baseline. DIFFERENTIAL DIAGNOSIS: Intracranial hemorrhage, subdural hematoma, soft tissue or musculoskeletal injury, fracture, dislocation, cardiac arrhythmia, syncope, dehydration, electrolyte imbalance, mechanical fall, infection, medication side effect, among others. ED COURSE AND MEDICAL DECISION MAKING: HISTORY FROM INDEPENDENT HISTORIAN: The patient unable to give history, EMS, MEDICATIONS GIVEN: Denies the need for pain and symptom management. MONITOR: Continuous court recording monitor: Order was placed for continuous court recording monitor. Patient was placed on the court recording monitor and continuous pulse ox. Patient was noted to be in normal sinus rhythm at an initial rate of 81 bpm per my interpretation. EKG: EKG was interpreted by myself as atrial fibrillation. Patient has a history of A-fib and this is seen when comparing his EKG to previous. When EKG was officially read by cardiology it is interpreted as atrial fibrillation versus flutter. Nonspecific ST or T wave abnormalities seen when compared to previous from August 2022. No ST elevations. INTERPRETATION OF LABS: I interpreted the labs with full lab results as below in the lab section of this note. Pertinent lab results discussed in the MDM section below. INTERPRETATION OF IMAGING: Imaging studies were interpreted by myself and read by radiology as per the imaging section of this note. CONSULTATION: I discussed this case with the [facility] on-call hospitalist Dr. Viveros -I informed him that the patient had a fall on [facility] on Wednesday which has now been resulting in increased back pain and difficulty for his family members to care for him at home. All CT imaging resulted showing a thoracic and lumbar spine compression fracture. CT head -no acute intracranial pathology. CT cervical spine - No acute fracture or traumatic subluxation. CT chest, CT abdomen and pelvis, CT thoracic spine, CT lumbar spine - Superior endplate compression fracture at T12 and L1. It is favored to be acute considering limitations to evaluation due to significant osteopenia. Chronic multilevel healing posterior left sided rib fractures. Confluent opacity throughout the lingula may be infectious. MDM SUMMARY: The patient is a 74-year-old male who presents the emergency department via EMS due to back pain from a ground-level fall that occurred 5 days ago. The patient has a history of a left-sided stroke and verbal aphasia so when he was initially brought in alone I was not able to obtain a history from him. He is on Eliquis. Physical exam was performed which showed significant bruising on his upper extremities and a tender abdomen upon palpation. Due to not being able to obtain a clear history, fall on Eliquis, and the physical exam blood work and many CT scans were ordered. Later the and daughter met him in the emergency department and were able to give me a better history. Confirms that this is him at his baseline and that it was a mechanical fall, he did not lose consciousness, or hit his head. Confirmed that he fell and landed directly on his back and ever since then has been complaining of back pain and they are having difficulty moving him around and caring for him at home. They also confirmed that he has been extremely constipated. Patient is lying comfortably in bed and his vitals are stable. Leukocytosis WBC 13.32. RBC 4.68. Hemoglobin lowered 10.9. Hematocrit lowered 34.7. Comparing these levels to previous it is slightly lower to previous from 09/17/2022 where his hemoglobin was 14.5 and his hematocrit was 42.8. Patient and his family members confirmed they have not noticed any blood in his urine or stool. Coagulation panel within normal limits. No electrolyte abnormalities. BUN elevated 32. Creatinine elevated 1.45. Patient does have a history of elevated values but this is increased when comparing to previous. Troponin mildly elevated 22. All CT images resulted showing a superior endplate compression fracture at T12 and L1. All imaging results including incidental findings were reviewed with the patient's family. I did inform the patient as well as all findings and that he did have a fracture in his back. He confirmed that he understood what I was saying. When I had a discussion with the patient regarding the rest of his workup and that he could manage this in the outpatient setting with proper pain management and close monitoring they confirmed that they do not feel comfortable taking him home. The family confirmed that they do not feel as if it is safe because they are not able to lift him up and out of bed to do activities of daily living and to keep a close eye on him. He is a larger male and his family members confirm that they are not able to sit him up in bed. A consultation was placed with [facility] on-call hospitalist which can be seen in detail above. The patient was admitted to medicine for pain management and monitoring for potential placement in a rehab facility for further care management as he is healing. Patient's family agrees to the outlined treatment plan and were able to ask questions. The patient was admitted in stable condition. DIAGNOSIS: Compression fracture of the lumbar vertebra, constipation, fall, compression fracture of thoracic vertebra, back pain The chart was completed utilizing [employer] Speech voice recognition software. Grammatical errors, random word insertions, pronoun errors, and incomplete sentences are an occasional consequence of this system due to software limitations, ambient noise, and hardware issues. Any formal questions or concerns about the content, text, or information contained within the body of this dictation should be directly addressed to the provider for clarification. Past Med/Surg History Problem List (Updated 10/25/24 @ 14:00 by Vicki Masters PA-C) Back pain (Acute) Compression fracture of thoracic vertebra (Acute) Fall (Acute) Constipation (Acute) Compression fracture of lumbar vertebra (Acute) Fall Acute respiratory failure with hypoxia (Acute) Leukocytosis (Acute) Hypotension (Acute) Leukocytosis (Acute) Coagulopathy (Acute) Fall (Acute) Left rib fracture (Acute) Compression fracture (Acute) BPH (benign prostatic hyperplasia) CKD (chronic kidney disease), stage III senior living (current) use of anticoagulants PAF (paroxysmal atrial fibrillation) (Acute) Pneumonia due to COVID-19 virus (Acute) Depression Pneumonia (Acute) Abdominal pain (Acute) Constipation (Acute) Heart disease (Chronic) Medical History BPH (benign prostatic hyperplasia) CKD (chronic kidney disease), stage III Heart disease History of smoking Kidney stones senior living (current) use of anticoagulants PAF (paroxysmal atrial fibrillation) Surgical History History of neck surgery Family History Brother Kidney disease Father Heart disease Social History Smoking Status: Former smoker Tobacco Type: Cigarettes Second Hand Exposure: No; Do You Dip or Chew Tobacco: No; Hx Alcohol Use: No Hx Substance Use: No Preferred Language: Slovak Communication Ability: Impaired Communication Ability Comment: Previous stroke deficits 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 Beliefs That Will Affect Care: None Current Living Situation: Spouse Current Living Situation Comment: with spouse at home Feels Safe at Home: Yes Assistive Devices: Oxygen - Continuous, Walker and Wheelchair Allergies Allergies Allergy/AdvReac Type Severity Reaction Status Date / Time No Known Allergies Allergy Verified 10/24/24 20:49 Home Meds Home Medications Medication Instructions Recorded Confirmed allopurinol 300 mg tablet 300 mg PO DAILY 06/03/18 10/24/24 atorvastatin 40 mg tablet 40 mg PO DAILY 06/03/18 10/24/24 gabapentin 300 mg capsule 300 mg PO TID 06/03/18 10/24/24 multivitamin 1 tab PO DAILY 06/03/18 10/24/24 tamsulosin 0.4 mg capsule 0.4 mg PO DAILY 06/03/18 10/24/24 finasteride 5 mg tablet 5 mg PO DAILY 04/24/20 10/24/24 fluoxetine 20 mg capsule 40 mg PO DAILY 04/24/20 10/24/24 fexofenadine 180 mg tablet 180 mg PO DAILY PRN Allergic 07/30/22 10/24/24 Symptoms fluticasone propionate 50 2 spray intranasal DAILY PRN 07/30/22 10/24/24 mcg/actuation nasal Congestion spray,suspension albuterol sulfate 90 mcg/actuation 2 puff inhalation Q4H PRN sob 10/25/24 10/25/24 aerosol inhaler apixaban 5 mg tablet (Eliquis) 5 mg PO BID 10/25/24 10/25/24 azithromycin 500 mg tablet 500 mg PO UD 10/25/24 10/25/24 furosemide 20 mg tablet 20 mg PO UD 10/25/24 10/25/24 metoprolol succinate 25 mg 25 mg PO DAILY 10/25/24 10/25/24 tablet,extended release 24 hr multivitamin 1 tab PO DAILY 10/25/24 10/25/24 spironolactone 25 mg tablet 25 mg PO DAILY 10/25/24 10/25/24 tiotropium bromide 2.5 2 puff inhalation DAILY 10/25/24 10/25/24 mcg/actuation mist for inhalation (Spiriva Respimat) Previous Rx's Medication Instructions Recorded acetaminophen 325 mg tablet 650 mg (2 x 325 mg) PO TID #30 tabs 09/17/22 (Athenol) fluticasone furoate 100 1 ea inhalation DAILY 30 days #60 09/17/22 mcg-vilanterol 25 mcg/dose ea inhalation powder (Breo Ellipta) ipratropium bromide 0.02 % 0.5 mg (2.5 mL) inhalation TID 7 09/17/22 solution for inhalation days #52.5 mL levalbuterol HCl 1.25 mg/0.5 mL 1.25 mg (0.5 mL) inhalation TID 09/17/22 solution for nebulization #30 ea prednisone 10 mg tablet 10 mg PO DAILY #30 tabs 09/17/22 prednisone 10 mg tablet 10 mg PO UD #27 tabs 09/17/22 Results & Data (ED) Vital Signs Vital Signs - 24 hr 10/24/24 17:04 10/24/24 17:04 10/24/24 17:38 Temperature 36.5 C 36.5 C Temperature Source Oral Oral Pulse Rate 78 70 Pulse Rate [Right] 75 Pulse Rate from SpO2 Sensor Respiratory Rate 17 17 18 Respiratory Effort / Characteristics Non-Labored Spontaneous Non-Labored Respiratory Depth Normal Normal Respiratory Pattern Regular Blood Pressure 110/70 110/70 Blood Pressure [Right Arm] 110/70 Blood Pressure Mean 83 76 Blood Pressure Mean [Right Arm] 83 Pulse Oximetry 86 L 86 L 93 Oxygen Delivery Method Room Air Room Air Nasal Cannula Oxygen Flow Rate 4 Sepsis Recent Fever Within 48 Hours No Sepsis New/Unexplained Change in Mental Status N/A Sepsis Action Taken by Nursing No Action Required Oxygen Flow Rate - Titration Pulse Oximetry Post Tiitration 10/24/24 17:40 10/24/24 17:41 10/24/24 18:00 Temperature Temperature Source Pulse Rate 78 70 Pulse Rate [Right] Pulse Rate from SpO2 Sensor 76 Respiratory Rate 18 Respiratory Effort / Characteristics Respiratory Depth Respiratory Pattern Blood Pressure 114/83 Blood Pressure [Right Arm] Blood Pressure Mean 93 Blood Pressure Mean [Right Arm] Pulse Oximetry 86 L 97 Oxygen Delivery Method Room Air Nasal Cannula Oxygen Flow Rate 0 4 Sepsis Recent Fever Within 48 Hours Sepsis New/Unexplained Change in Mental Status Sepsis Action Taken by Nursing Oxygen Flow Rate - Titration 4 Pulse Oximetry Post Tiitration 97 10/24/24 18:00 10/24/24 18:33 10/24/24 18:34 Temperature Temperature Source Pulse Rate 87 Pulse Rate [Right] Pulse Rate from SpO2 Sensor Respiratory Rate 24 Respiratory Effort / Characteristics Respiratory Depth Respiratory Pattern Blood Pressure 114/83 91/68 L Blood Pressure [Right Arm] Blood Pressure Mean 88 85 Blood Pressure Mean [Right Arm] Pulse Oximetry Oxygen Delivery Method Oxygen Flow Rate Sepsis Recent Fever Within 48 Hours Sepsis New/Unexplained Change in Mental Status Sepsis Action Taken by Nursing Oxygen Flow Rate - Titration Pulse Oximetry Post Tiitration 10/24/24 18:41 10/24/24 18:41 10/24/24 20:00 Temperature Temperature Source Pulse Rate Pulse Rate [Right] 67 Pulse Rate from SpO2 Sensor Respiratory Rate 16 Respiratory Effort / Characteristics Non-Labored Spontaneous Respiratory Depth Respiratory Pattern Blood Pressure 122/85 122/85 Blood Pressure [Right Arm] 102/68 Blood Pressure Mean 97 97 Blood Pressure Mean [Right Arm] 79 Pulse Oximetry 99 Oxygen Delivery Method Nasal Cannula Oxygen Flow Rate 4 Sepsis Recent Fever Within 48 Hours Sepsis New/Unexplained Change in Mental Status Sepsis Action Taken by Nursing Oxygen Flow Rate - Titration Pulse Oximetry Post Tiitration 10/24/24 21:00 10/24/24 21:26 10/24/24 22:00 Temperature Temperature Source Pulse Rate 69 Pulse Rate [Right] 68 67 Pulse Rate from SpO2 Sensor Respiratory Rate 16 16 Respiratory Effort / Characteristics Non-Labored Spontaneous Respiratory Depth Respiratory Pattern Blood Pressure Blood Pressure [Right Arm] 105/67 107/78 Blood Pressure Mean Blood Pressure Mean [Right Arm] 79 87 Pulse Oximetry 99 100 Oxygen Delivery Method Nasal Cannula Nasal Cannula Oxygen Flow Rate 4 4 Sepsis Recent Fever Within 48 Hours Sepsis New/Unexplained Change in Mental Status Sepsis Action Taken by Nursing Oxygen Flow Rate - Titration Pulse Oximetry Post Tiitration 10/24/24 23:00 10/24/24 23:00 Temperature Temperature Source Pulse Rate Pulse Rate [Right] 75 Pulse Rate from SpO2 Sensor Respiratory Rate 18 Respiratory Effort / Characteristics Non-Labored Spontaneous Non-Labored Respiratory Depth Normal Normal Respiratory Pattern Regular Blood Pressure Blood Pressure [Right Arm] 111/73 Blood Pressure Mean Blood Pressure Mean [Right Arm] 85 Pulse Oximetry 100 Oxygen Delivery Method Nasal Cannula Oxygen Flow Rate 4 Sepsis Recent Fever Within 48 Hours Sepsis New/Unexplained Change in Mental Status Sepsis Action Taken by Nursing Oxygen Flow Rate - Titration Pulse Oximetry Post Tiitration Laboratory Data 10/25/24 05:22 10/25/24 05:22 Lab Results 10/24/24 10/24/24 10/24/24 Range/Units 17:30 17:58 19:18 WBC 13.32 H (4.8-10.8) K/ul RBC 4.68 L (4.70-6.10) M/uL Hgb 10.9 L (14.0-18.0) g/dl POC Hgb 11.6 L (14.0-18.0) g/dl Hct 34.7 L (42.0-52.0) % POC Hct 34 L (42-52) % MCV 74.1 L (80.0-100.0) fL MCH 23.3 L (25.0-34.0) pg MCHC 31.4 L (32.0-36.0) g/dL RDW Std Deviation 46.0 (36.4-46.3) fL RDW Coeff of Lenora 17.8 H (11.5-14.5) % Plt Count 244 (130-400) K/uL MPV 10.6 (9.4-12.4) fL Immature Gran % (Auto) 1.1 % Neut % (Auto) 72.1 % Lymph % (Auto) 13.5 % Benson % (Auto) 7.9 % Eos % (Auto) 4.9 % Baso % (Auto) 0.5 % Neut # (Auto) 9.61 H (1.40-6.50) K/uL Lymph # (Auto) 1.80 (1.20-3.40) K/uL Benson # (Auto) 1.05 H (0.11-0.59) K/uL Eos # (Auto) 0.65 H (0.00-0.50) K/uL Baso # (Auto) 0.07 (0.00-0.20) K/uL Immature Gran # (Auto) 0.14 (0.01-0.20) K/uL PT 12.3 H (9.0-12.0) Seconds INR 1.1 (0.9-1.1) APTT 26 (21-31) Seconds PTT Ratio 1.0 POC Sodium 137 (135-144) mmol/L Sodium 136 (136-145) mmol/L POC Potassium 3.8 (3.3-5.0) mmol/L Potassium 4.1 (3.5-5.1) mmol/L POC Chloride 101 (101-112) mmol/L Chloride 104 (98-107) mmol/L Carbon Dioxide 27 (21-32) mmol/L POC Total CO2 23 L (24-31) mmol/L Anion Gap 5 (3-11) POC Anion Gap 18.0 (16-25) mmol/L POC BUN 30 H (7-18) mg/dl BUN 32 H (6-23) mg/dl Creatinine 1.45 H (0.6-1.4) mg/dl POC Creatinine 1.7 H (0.6-1.3) mg/dl Est Cr Clr Drug Dosing 49.1 ml/min eGFR 50.57 BUN/Creatinine Ratio 22.1 H (10-20) Glucose 89 (70-99(Fasting)) mg/dl POC Glucose (other) 84 (70-99) mg/dl Calcium 8.8 (8.6-10.3) mg/dl POC Ioniz Calcium [place]ulee 1.20 (1.12-1.32) mmol/l Total Bilirubin 0.9 (0.2-1.0) mg/dl AST 13 (13-39) U/L ALT 11 (7-52) U/L Alkaline Phosphatase 57 (34-104) U/L Troponin I High Sens 23.8 H 22.1 H (0-20) pg/ml Total Protein 5.7 L (6.0-8.3) gm/dl Albumin 3.2 L (3.4-5.0) gm/dl Globulin 2.5 (2.5-4.0) gm/dl Albumin/Globulin Ratio 1.3 (0.9-2) Administered Medications Acetaminophen (Acetaminophen 325 Mg Tab) 650 mg PO TID [facility] Stop: 11/24/24 08:59 Last Admin: 10/25/24 08:14 Dose: 650 mg Documented By: [facility] Allopurinol (Allopurinol 300 Mg Tab) 300 mg PO DAILY KAMINI Stop: 11/24/24 08:59 Last Admin: 10/25/24 08:17 Dose: 300 mg Documented By: [facility] Apixaban (Apixaban 5 Mg Tablet) 5 mg PO BID KAMINI Stop: 11/24/24 08:59 Last Admin: 10/25/24 08:17 Dose: 5 mg Documented By: [facility] Atorvastatin Calcium (Atorvastatin 40 Mg Tab) 40 mg PO DAILY KAMINI Stop: 11/24/24 08:59 Last Admin: 10/25/24 08:16 Dose: 40 mg Documented By: [facility] Docusate Sodium (Docusate Sodium 100 Mg Cap) 100 mg PO BID KAMINI Stop: 11/24/24 08:59 Last Admin: 10/25/24 09:16 Dose: 100 mg Documented By: [facility] Finasteride (Finasteride 5 Mg Tab) 5 mg PO DAILY KAMINI Stop: 11/24/24 08:59 Last Admin: 10/25/24 08:16 Dose: 5 mg Documented By: [facility] Fluoxetine HCl (Fluoxetine Hcl 20 Mg Cap) 40 mg PO DAILY KAMINI Stop: 11/24/24 08:59 Last Admin: 10/25/24 08:17 Dose: 40 mg Documented By: [facility] Fluticasone/Vilanterol (Fluticasone/Vilanterol 100/25mcg 14 Puffs/Inhaler) 1 puffs INH DAILY KAMINI Stop: 11/24/24 08:59 Last Admin: 10/25/24 08:16 Dose: 1 puffs Documented By: [facility] Gabapentin (Gabapentin 300 Mg Cap) 300 mg PO TID K[facility]INI Stop: 11/24/24 08:59 Last Admin: 10/25/24 08:17 Dose: 300 mg Documented By: SARAH Sodium Chloride (Nss) 1,000 mls @ 80 mls/hr IV .[id number] STA Stop: 10/25/24 15:35 Last Admin: 10/25/24 03:36 Dose: 80 mls/hr Documented By: [id number] Ceftriaxone Sodium (Rocephin) 2,000 mg in 50 mls @ 100 mls/hr IV Q24H KAMINI Stop: 10/30/24 03:14 Last Infusion: 10/25/24 05:55 Dose: Infused Documented By: [id number] Admin: 10/25/24 03:36 Dose: 100 mls/hr Documented By: [id number] Doxycycline Hyclate 100 mg/ (Dextrose) 100 mls @ 50 mls/hr IV Q12H KAMINI Stop: 10/30/24 03:59 Last Infusion: 10/25/24 06:28 Dose: Infused Documented By: [id number] Admin: 10/25/24 04:11 Dose: 50 mls/hr Documented By: [id number] Ipratropium [place] (Ipratropium [place] Neb Soln 0.02% 0.5mg/2.5ml Vial) 0.5 mg INH TIDR KAMINI Stop: 11/24/24 06:59 Last Admin: 10/25/24 12:13 Dose: 0.5 mg Documented By: Admin: 10/25/24 07:25 Dose: 0.5 mg Documented By: KIERAN Levalbuterol HCl (Levalbuterol 1.25 Mg/3 Ml Neb) 1.25 mg INH TIDR KAMINI Stop: 11/24/24 06:59 Last Admin: 10/25/24 12:13 Dose: 1.25 mg Documented By: Admin: 10/25/24 07:25 Dose: 1.25 mg Documented By: KIERAN Metoprolol Succinate (Metoprolol Succ 50mg Ext Rel Tab) 50 mg PO DAILY KAMINI Stop: 11/24/24 08:59 Last Admin: 10/25/24 08:18 Dose: 50 mg Documented By: SHINE Metoprolol Succinate (Metoprolol Succ 25mg Ext Rel Tab) 25 mg PO DAILY KAMINI Stop: 11/24/24 08:59 Last Admin: 10/25/24 08:17 Dose: 25 mg Documented By: SHINE Multivitamins (Multivitamin Tab) 1 tab PO DAILY KAMINI Stop: 11/24/24 08:59 Last Admin: 10/25/24 08:17 Dose: 1 tab Documented By: SHINE Polyethylene Glycol (Polyethylene (Miralax) 17 Gm Pack) 17 gm PO DAILY PRN PRN Reason: Constipation Stop: 11/24/24 02:52 Last Admin: 10/25/24 08:13 Dose: 17 gm Documented By: SHINE Prednisone (Prednisone 10 Mg Tablet) 10 mg PO DAILY K[facility]INI Stop: 11/24/24 08:59 Last Admin: 10/25/24 08:17 Dose: 10 mg Documented By: SHINE Spironolactone (Spironolactone 25 Mg Tab) 25 mg PO DAILY KAMINI Stop: 11/24/24 08:59 Last Admin: 10/25/24 08:16 Dose: 25 mg Documented By: SHINE Tamsulosin HCl (Tamsulosin Hcl 0.4 Mg Cap) 0.4 mg PO DAILY KAMINI Stop: 11/24/24 08:59 Last Admin: 10/25/24 08:16 Dose: 0.4 mg Documented By: SHINE Umeclidinium [place] (Umeclidinium [place] 62.5mcg/Blister 7 Puffs/Inhaler) 1 puffs INH DAILY KAMINI Stop: 11/24/24 08:59 Last Admin: 10/25/24 08:15 Dose: 1 puffs Documented By: SHINE Discontinued Medications Ioversol (Optiray 320 100ml) 90 ml IV ONCE ONE Stop: 10/24/24 18:15 Last Admin: 10/24/24 18:15 Dose: 90 ml Documented By: FAVIO Discharge Plan Visit Data Chief Complaint: Fall ED Provider: Noemi Gunter ED Midlevel Provider: iVcki Masters Discharge Problem: Compression fracture of lumbar vertebra, Constipation, Fall, Compression fracture of thoracic vertebra, Back pain Patient Disposition: Admitted As Inpatient Condition: Good Discharge Instructions Interventions: ED Discharge Assessment Last Done: 10/25/24 02:16 Discharge Problem: Compression fracture of lumbar vertebra Qualifiers: Encounter type: initial encounter Lumbar vertebra fracture level: L1 Qualified Code(s): S32.010A - Wedge compression fracture of first lumbar vertebra, initial encounter for closed fracture Constipation Qualifiers: Constipation type: unspecified constipation type Qualified Code(s): K59.00 - Constipation, unspecified Fall Qualifiers: Encounter type: initial encounter Qualified Code(s): W19.XXXA - Unspecified fall, initial encounter Compression fracture of thoracic vertebra Qualifiers: Encounter type: initial encounter Thoracic vertebra fracture level: T12 Q ualified Code(s): S22.080A - Wedge compression fracture of T11-T12 vertebra, initial encounter for closed fracture Back pain Qualifiers: Back pain location: thoracic back pain Chronicity: acute Back pain laterality: midline Qualified Code(s): M54.6 - Pain in thoracic spine
[2024-10-24 18:11] LABS: iSTAT Creatinine 1.7 mg/dl (0.6-1.3); iSTAT Hemoglobin 11.6 g/dl (14.0-18.0); iSTAT Ionized Calcium 1.2 mmol/l (1.12-1.32); iSTAT Potassium 3.8 mmol/L (3.3-5.0)
[2024-10-24 18:11] LABS: Albumin Globulin Ratio 1.3 (0.9-2); Albumin Level 3.2 gm/dl (3.4-5.0); BUN Creatinine Ratio 22.1 (10-20); Bilirubin,Total 0.9 mg/dl (0.2-1.0); Calcium 8.8 mg/dl (8.6-10.3); Creatinine Clr Calc Pharmacy 49.1 ml/min; Globulin 2.5 gm/dl (2.5-4.0); Potassium 4.1 mmol/L (3.5-5.1); Total Protein 5.7 gm/dl (6.0-8.3)
[2024-10-24] MEDS: OPTIRAY 320 100ml IV ONE (18:15)
[2024-10-24 18:17] LABS: Troponin I High Sensitivity 23.8 pg/ml (0-20)
[2024-10-24 18:23] LABS: INR 1.1 (0.9-1.1); Partial Thromboplastin Time 26 Seconds (21-31); Prothrombin Time 12.3 Seconds (9.0-12.0)
--- NOTE | 2024-10-24 19:25 | CT Scan Report ---
CT head without contrast History: Trauma Comparison: 09/14/2022 Technique: Using multidetector thin collimation helical acquisition technique, axial, coronal and sagittal CT images from the skull base to the vertex were obtained without intravenous contrast. Dose reduction techniques were achieved by using automatic exposure control and/or adjustment of mA and/or kV according to patient size and/or use of iterative reconstruction technique. Findings: No intracranial hemorrhage, mass-effect, or midline shift. The ventricles are proportionate to the cerebral sulci. There is a moderate size chronic infarct of the left frontal operculum, similar to prior, otherwise the driscoll to white matter differentiation of the cerebral hemispheres is preserved. The basal cisterns are patent. There is frothy debris in the left maxillary sinus. Mastoid air cells are clear. Impression: No acute intracranial pathology. Electronically signed by Ayaan Masters 10-24-2024 7:24 PM
--- NOTE | 2024-10-24 19:25 | CT Scan Report ---
EXAMINATION: CT of the chest, abdomen and pelvis, as well as the thoracic and lumbar spine, performed after the administration of IV contrast TECHNIQUE: Helical CT images from the lung apices through the symphysis pubis were obtained with contrast. Coronal and sagittal reformatted images were generated at a workstation for further assessment. Dose reduction techniques were achieved by using automatic exposure control and/or adjustment of mA and/or kV according to patient size and/or use of iterative reconstruction technique. COMPARISON: None HISTORY: Pain FINDINGS: Lines and tubes: None Mediastinum/Neck Base: No thyroid nodules. Central tracheobronchial tree is patent. Heart size is normal. No pericardial effusion. Normal thoracic vasculature. No thoracic lymphadenopathy. Heavy coronary calcification. Lungs: There is an area of confluent opacity throughout the lingula. There is moderate emphysema. Bibasilar subsegmental atelectasis. No pleural effusion or pneumothorax. Liver: No suspicious liver lesions. Portal veins appear patent. Gallbladder: No gallstones. No evidence of acute cholecystitis. Spleen: Normal size. Pancreas: No suspicious pancreatic lesions. The pancreatic duct is not dilated. Adrenal glands: No adrenal nodules. Kidneys: No hydronephrosis or obstructing renal stones. Bladder / Pelvic organs: Unremarkable. Bowel: No bowel obstruction. No abnormal bowel wall thickening. The appendix is unremarkable. Lymph nodes: No retroperitoneal, mesenteric, or pelvic lymphadenopathy. Peritoneum / Retroperitoneum: No free fluid or air within the abdomen. Vessels: No infrarenal aortic aneurysm. Heavy aortoiliac calcification. Bones and soft tissues: Degenerative changes of the spine. The bones are osteopenic. Posterior maude and screw fixation through L4 and L5, where there is mature bony fusion across the facet joints. Superior endplate compression fracture at T12 resulting in approximately 45-50 % stenosis. Superior and plate compression fracture at L1 resulting in approximately 25% stenosis. Multilevel chronic, posterior healing rib fractures associated with callus formation. IMPRESSION: 1. Superior endplate compression fractures at T12 and L1, are favored acute, considering limitations to evaluation due to significant osteopenia. 2. Chronic, multilevel healing posterior left rib fractures. 3. Confluent opacity throughout the lingula, which may be infectious. Electronically signed by Ayaan Masters 10-24-2024 7:24 PM
--- NOTE | 2024-10-24 19:25 | CT Scan Report ---
CT cervical spine without IV contrast History: Trauma Comparison: None Technique: Using multidetector thin collimation helical acquisition technique, axial, coronal and sagittal CT images through the cervical spine were obtained without intravenous contrast. Dose reduction techniques were achieved by using automatic exposure control and/or adjustment of mA and/or kV according to patient size and/or use of iterative reconstruction technique. Findings: The cervical vertebrae are normally aligned. Straightened cervical lordosis. No acute fracture or subluxation. No prevertebral edema. Laminectomy changes at C5 and C6. Displacer devices at C4-5, C5-6 and C6-7. Posterior maude and screw fixation bilaterally extending from C4-C7. No abnormality of the paraspinous soft tissues. Impression: No acute fracture or traumatic subluxation. Electronically signed by Ayaan Masters 10-24-2024 7:24 PM
--- NOTE | 2024-10-24 23:36 | Emergency Department Note ---
ED Visit Note I was consulted by the Advanced Practice Provider. I approved the management plan and take responsibility for the patient management. This includes the aspects of: -History/Physical -MDM -I independently interpreted the following studies:Studies and results .
--- NOTE | 2024-10-25 00:03 | History & Physical Report ---
Date of Service October 24, 2024 Assessment & Plan (1) Fall: Plan: 74-year-old male with past med history significant for left foot gout, dyslipidemia, paroxysmal atrial fibrillation, history of CAD, history of systolic CHF due to idiopathic cardiomyopathy, history of A-fib, history of aphasia poststroke, CKD stage III, BPH, osteoarthritis, history of laceration of spleen, who lives at home with his and ambulates with a walker and can eat regular diet, who fell few days back was brought today for complaints of back pain. Not able to reach currently. Able to talk to son. Patient seems to fell from the kitchen table seems on last Wednesday. Fell on his back. Did not hit his bed. No loss of consciousness. Patient was complaining of back pain and was brought here today. He has chronic cough from his COPD. No fevers. No nausea or vomiting. No diarrhea. Currently patient resting comfortably.. He answers with yes or no. He denies headache, denies chest pain, denies shortness of breath, denies abdominal pain, seems to be having pain in the back and groin region. Hemodynamics are okay.As per the ER patient was having increased difficulty with movement and also difficulty with bowel movements and urination for last couple of days and seems straight catheter him. Fall T12 and L1 compression fracture Pain control [facility]osp[facility] consult PT OT when stable Possible pneumonia Empiric Rocephin and Doxy Will monitor Constipation and urinary retention trinh for now Will monitor History of CVA Aphasia On Eliquis and statin Ambulates with a walker Regular diet PT OT History of chronic systolic CHF EF 45 to 49% on echo in December 2021 EF 60 to 65% on echo done in 07/31/2022 Continue home diuretics Monitor for volume overload History of COPD On prednisone 10 mg daily Continue home inhalers Nebs as needed History of CAD Status post stent On statin ,Eliquis and beta-bartolo CKD stage III cr 1.4 will follow labs A-fib On metoprolol and Eliquis Will monitor Mild elevation troponin Mostly demand ischemia Will follow serial enzymes and echo History of pericardial fusion On echo in December 2022 Since not had a repeat echo Will follow echo DVT prophylaxis Eliquis Disposition Med/telemetry Full code History of Present Illness Chief Complaint: Fall and possible pneumonia Primary Care Provider: Chelo Trotter MD 74-year-old male with past med history significant for left foot gout, dyslipidemia, paroxysmal atrial fibrillation, history of CAD, history of systolic CHF due to idiopathic cardiomyopathy, history of A-fib, history of aphasia poststroke, CKD stage III, BPH, osteoarthritis, history of laceration of spleen, who lives at home with his and ambulates with a walker and can eat regular diet, who fell few days back was brought today for complaints of back pain. Not able to reach currently. Able to talk to son. Patient seems to fell from the kitchen table seems on last Wednesday. Fell on his back. Did not hit his bed. No loss of consciousness. Patient was complaining of back pain and was brought here today. He has chronic cough from his COPD. No fevers. No nausea or vomiting. No diarrhea. Currently patient resting comfortably.. He answers with yes or no. He denies headache, denies chest pain, denies shortness of breath, denies abdominal pain, seems to be having pain in the back and groin region. Hemodynamics are okay.As per the ER patient was having increased difficulty with movement and also difficulty with bowel movements and urination for last couple of days and seems straight catheter him Past medical history. As mentioned above Past surgical history. Cardiac stent placement. Lumbar spine fusion surgery. Neck spine fusion. Social history. . Quit smoking 2016. Smoked 0.5 pack a day for 51 years. No alcohol use currently. No drug use. Family history. Father had heart disease. Stroke. Brother had heart disease. Mother had heart disease. Sister has heart disease. Sister had stroke. Allergies Allergy/AdvReac Type Severity Reaction Status Date / Time No Known Allergies Allergy Verified 10/24/24 20:49 Home Medications Medication Instructions Recorded Confirmed Type allopurinol 300 mg tablet 300 mg PO DAILY 06/03/18 10/24/24 History atorvastatin 40 mg tablet 40 mg PO DAILY 06/03/18 10/24/24 History gabapentin 300 mg capsule 300 mg PO TID 06/03/18 10/24/24 History multivitamin 1 tab PO DAILY 06/03/18 10/24/24 History tamsulosin 0.4 mg capsule 0.4 mg PO DAILY 06/03/18 10/24/24 History finasteride 5 mg tablet 5 mg PO DAILY 04/24/20 10/24/24 History fluoxetine 20 mg capsule 40 mg PO DAILY 04/24/20 10/24/24 History fexofenadine 180 mg tablet 180 mg PO DAILY PRN Allergic 07/30/22 10/24/24 History Symptoms fluticasone propionate 50 2 spray intranasal DAILY PRN 07/30/22 10/24/24 History mcg/actuation nasal Congestion spray,suspension acetaminophen 325 mg tablet 650 mg (2 x 325 mg) PO TID #30 tabs 09/17/22 10/24/24 Rx (Athenol) fluticasone furoate 100 1 ea inhalation DAILY 30 days #60 09/17/22 10/24/24 Rx mcg-vilanterol 25 mcg/dose ea inhalation powder (Breo Ellipta) ipratropium bromide 0.02 % 0.5 mg (2.5 mL) inhalation TID 7 09/17/22 10/24/24 Rx solution for inhalation days #52.5 mL levalbuterol HCl 1.25 mg/0.5 mL 1.25 mg (0.5 mL) inhalation TID 09/17/2208/19 Rx solution for nebulization #30 ea prednisone 10 mg tablet 10 mg PO DAILY #30 tabs 09/17/22 10/24/24 Rx prednisone 10 mg tablet 10 mg PO UD #27 tabs 09/17/22 10/24/24 Rx albuterol sulfate 90 mcg/actuation 2 puff inhalation Q4H PRN sob 10/25/24 10/25/24 History aerosol inhaler apixaban 5 mg tablet (Eliquis) 5 mg PO BID 10/25/24 10/25/24 History azithromycin 500 mg tablet 500 mg PO UD 10/25/24 10/25/24 History furosemide 20 mg tablet 20 mg PO UD 10/25/24 10/25/24 History metoprolol succinate 25 mg 25 mg PO DAILY 10/25/24 10/25/24 History tablet,extended release 24 hr multivitamin 1 tab PO DAILY 10/25/24 10/25/24 History spironolactone 25 mg tablet 25 mg PO DAILY 10/25/24 10/25/24 History tiotropium bromide 2.5 2 puff inhalation DAILY 10/25/24 10/25/24 History mcg/actuation mist for inhalation (Spiriva Respimat) Past Med/Surg History Problem List (Updated 04/02/25 @ 00:29 by Cr Viveros MD) Fall Acute respiratory failure with hypoxia (Acute) Leukocytosis (Acute) Hypotension (Acute) Leukocytosis (Acute) Coagulopathy (Acute) Fall (Acute) Left rib fracture (Acute) Compression fracture (Acute) BPH (benign prostatic hyperplasia) CKD (chronic kidney disease), stage III halfway (current) use of anticoagulants PAF (paroxysmal atrial fibrillation) (Acute) Pneumonia due to COVID-19 virus (Acute) Depression Pneumonia (Acute) Abdominal pain (Acute) Constipation (Acute) Heart disease (Chronic) Medical History BPH (benign prostatic hyperplasia) CKD (chronic kidney disease), stage III Heart disease History of smoking Kidney stones halfway (current) use of anticoagulants PAF (paroxysmal atrial fibrillation) Surgical History History of neck surgery Family History Brother Kidney disease Father Heart disease Social History Smoking Status: Former smoker Tobacco Type: Cigarettes Second Hand Exposure: No; Do You Dip or Chew Tobacco: No; Hx Alcohol Use: No Hx Substance Use: No Preferred Language: Bangladeshi Communication Ability: Impaired Communication Ability Comment: Previous stroke deficits Appliances Sample Maker Required: No Beliefs That Will Affect Care: None Current Living Situation: Spouse Current Living Situation Comment: with spouse at home Feels Safe at Home: Yes Assistive Devices: Denture - Upper and Walker Review of Systems Review of Systems: All systems reviewed & are unremarkable except as noted in HPI & below Physical Exam Physical Exam: General- Not in distress Head- atraumatic Eyes- PERRL. ENT- oropharynx clear Neck- supple, no JVD. Lungs- clear to auscultation no wheezing or crackles Heart- regular rhythm; no murmur, no gallop. Abdomen- normal bowel sounds, soft, nontender, no distension Extremities- no pretibial edema, no erythema seen Neuro- alert, and awake. aphasia, obeys simple commands, moves extremities. Results & Data Results & Data Vital Signs (Past 12 Hours) Vital Signs Temp Pulse Pulse Resp BP BP Pulse Ox 10/24/24 23:00 75 18 111/73 100 10/24/24 22:00 67 16 107/78 100 10/24/24 21:26 69 10/24/24 21:00 68 16 105/67 99 10/24/24 20:00 67 16 102/68 99 10/24/24 18:41 122/85 10/24/24 18:41 122/85 10/24/24 18:34 91/68 L 10/24/24 18:33 87 24 10/24/24 18:00 114/83 10/24/24 18:00 70 18 114/83 97 10/24/24 17:41 86 L 10/24/24 17:40 78 10/24/24 17:38 70 18 110/70 93 10/24/24 17:04 36.5 C 75 17 110/70 86 L 10/24/24 17:04 36.5 C 78 17 110/70 86 L O2 Del Method O2 Flow Rate 10/24/24 23:00 Nasal Cannula 4 10/24/24 22:00 Nasal Cannula 4 10/24/24 21:26 10/24/24 21:00 Nasal Cannula 4 10/24/24 20:00 Nasal Cannula 4 10/24/24 18:41 10/24/24 18:41 10/24/24 18:34 10/24/24 18:33 10/24/24 18:00 10/24/24 18:00 Nasal Cannula 4 10/24/24 17:41 Room Air 0 10/24/24 17:40 10/24/24 17:38 Nasal Cannula 4 10/24/24 17:04 Room Air 10/24/24 17:04 Room Air Diagnostic Findings Laboratory Results WBC 13.32 K/ul (4.8-10.8) H 10/24/24 17:30 RBC 4.68 M/uL (4.70-6.10) L 10/24/24 17:30 Hgb 10.9 g/dl (14.0-18.0) L 10/24/24 17:30 POC Hgb 11.6 g/dl (14.0-18.0) L 10/24/24 17:58 Hct 34.7 % (42.0-52.0) L 10/24/24 17:30 POC Hct 34 % (42-52) L 10/24/24 17:58 MCV 74.1 fL (80.0-100.0) L 10/24/24 17:30 MCH 23.3 pg (25.0-34.0) L 10/24/24 17:30 MCHC 31.4 g/dL (32.0-36.0) L 10/24/24 17:30 RDW Std Deviation 46.0 fL (36.4-46.3) 10/24/24 17: RDW Coeff of Lenora 17.8 % (11.5-14.5) H 10/24/24 17:30 Plt Count 244 K/uL (130-400) 10/24/24 17:30 MPV 10.6 fL (9.4-12.4) 10/24/24 17:30 Immature Gran % (Auto) 1.1 % 10/24/24 17:30 Neut % (Auto) 72.1 % 10/24/24 17:30 Lymph % (Auto) 13.5 % 10/24/24 17:30 Placer % (Auto) 7.9 % 10/24/24 17:30 Eos % (Auto) 4.9 % 10/24/24 17:30 Baso % (Auto) 0.5 % 10/24/24 17:30 Neut # (Auto) 9.61 K/uL (1.40-6.50) H 10/24/24 17:30 Lymph # (Auto) 1.80 K/uL (1.20-3.40) 10/24/24 17:30 Placer # (Auto) 1.05 K/uL (0.11-0.59) H 10/24/24 17:30 Eos # (Auto) 0.65 K/uL (0.00-0.50) H 10/24/24 17:30 Baso # (Auto) 0.07 K/uL (0.00-0.20) 10/24/24 17:30 Immature Gran # (Auto) 0.14 K/uL (0.01-0.20) 10/24/24 17:30 PT 12.3 Seconds (9.0-12.0) H 10/24/24 17:30 INR 1.1 (0.9-1.1) 10/24/24 17:30 APTT 26 Seconds (21-31) 10/24/24 17:30 PTT Ratio 1.0 10/24/24 17:30 POC Sodium 137 mmol/L (135-144) 10/24/24 17:58 Sodium 136 mmol/L (136-145) 10/24/24 17:30 POC Potassium 3.8 mmol/L (3.3-5.0) 10/24/24 17:58 Potassium 4.1 mmol/L (3.5-5.1) 10/24/24 17:30 POC Chloride 101 mmol/L (101-112) 10/24/24 17:58 Chloride 104 mmol/L (98-107) 10/24/24 17:30 Carbon Dioxide 27 mmol/L (21-32) 10/24/24 17:30 POC Total CO2 23 mmol/L (24-31) L 10/24/24 17:58 Anion Gap 5 (3-11) 10/24/24 17:30 POC Anion Gap 18.0 mmol/L (16-25) 10/24/24 17:58 POC BUN 30 mg/dl (7-18) H 10/24/24 17:58 BUN 32 mg/dl (6-23) H 10/24/24 17:30 Creatinine 1.45 mg/dl (0.6-1.4) H 10/24/24 17:30 POC Creatinine 1.7 mg/dl (0.6-1.3) H 10/24/24 17:58 Est Cr Clr Drug Dosing 49.1 ml/min 10/24/24 17:30 eGFR 50.57 10/24/24 17:30 BUN/Creatinine Ratio 22.1 (10-20) H 10/24/24 17:30 Glucose 89 mg/dl (70-99(Fasting)) 10/24/24 17:30 POC Glucose (other) 84 mg/dl (70-99) 10/24/24 17:58 Calcium 8.8 mg/dl (8.6-10.3) 10/24/24 17:30 POC Ioniz Calcium Julee 1.20 mmol/l (1.12-1.32) 10/24/24 17:58 Total Bilirubin 0.9 mg/dl (0.2-1.0) 10/24/24 17:30 AST 13 U/L (13-39) 10/24/24 17:30 ALT 11 U/L (7-52) 10/24/24 17:30 Alkaline Phosphatase 57 U/L (34-104) 10/24/24 17:30 Troponin I High Sens 22.1 pg/ml (0-20) H 10/24/24 19:18 Total Protein 5.7 gm/dl (6.0-8.3) L 10/24/24 17:30 Albumin 3.2 gm/dl (3.4-5.0) L 10/24/24 17:30 Globulin 2.5 gm/dl (2.5-4.0) 10/24/24 17:30 Albumin/Globulin Ratio 1.3 (0.9-2) 10/24/24 17:30 Impressions Abdomen/Pelvis CT 10/24/24 17:32 EXAMINATION: CT of the chest, abdomen and pelvis, as well as the thoracic and lumbar spine, performed after the administration of IV contrast TECHNIQUE: Helical CT images from the lung apices through the symphysis pubis were obtained with contrast. Coronal and sagittal reformatted images were generated at a workstation for further assessment. Dose reduction techniques were achieved by using automatic exposure control and/or adjustment of mA and/or kV according to patient size and/or use of iterative reconstruction technique. COMPARISON: None HISTORY: Pain FINDINGS: Lines and tubes: None Mediastinum/Neck Base: No thyroid nodules. Central tracheobronchial tree is patent. Heart size is normal. No pericardial effusion. Normal thoracic vasculature. No thoracic lymphadenopathy. Heavy coronary calcification. Lungs: There is an area of confluent opacity throughout the lingula. There is moderate emphysema. Bibasilar subsegmental atelectasis. No pleural effusion or pneumothorax. Liver: No suspicious liver lesions. Portal veins appear patent. Gallbladder: No gallstones. No evidence of acute cholecystitis. Spleen: Normal size. Pancreas: No suspicious pancreatic lesions. The pancreatic duct is not dilated. Adrenal glands: No adrenal nodules. Kidneys: No hydronephrosis or obstructing renal stones. Bladder / Pelvic organs: Unremarkable. Bowel: No bowel obstruction. No abnormal bowel wall thickening. The appendix is unremarkable. Lymph nodes: No retroperitoneal, mesenteric, or pelvic lymphadenopathy. Peritoneum / Retroperitoneum: No free fluid or air within the abdomen. Vessels: No infrarenal aortic aneurysm. Heavy aortoiliac calcification. Bones and soft tissues: Degenerative changes of the spine. The bones are osteopenic. Posterior maude and screw fixation through L4 and L5, where there is mature bony fusion across the facet joints. Superior endplate compression fracture at T12 resulting in approximately 45-50 % stenosis. Superior and plate compression fracture at L1 resulting in approximately 25% stenosis. Multilevel chronic, posterior healing rib fractures associated with callus formation. IMPRESSION: 1. Superior endplate compression fractures at T12 and L1, are favored acute, considering limitations to evaluation due to significant osteopenia. 2. Chronic, multilevel healing posterior left rib fractures. 3. Confluent opacity throughout the lingula, which may be infectious. Electronically signed by Ayaan Masters 10-24-2024 7:[address] 10/24/24 17:32 CT cervical spine without IV contrast History: Trauma Comparison: None Technique: Using multidetector thin collimation helical acquisition technique, axial, coronal and sagittal CT images through the cervical spine were obtained without intravenous contrast. Dose reduction techniques were achieved by using automatic exposure control and/or adjustment of mA and/or kV according to patient size and/or use of iterative reconstruction technique. Findings: The cervical vertebrae are normally aligned. Straightened cervical lordosis. No acute fracture or subluxation. No prevertebral edema. Laminectomy changes at C5 and C6. Displacer devices at C4-5, C5-6 and C6-7. Posterior maude and screw fixation bilaterally extending from C4-C7. No abnormality of the paraspinous soft tissues. Impression: No acute fracture or traumatic subluxation. Electronically signed by Ayaan Masters 10-24-2024 7:[address] 10/24/24 17:32 EXAMINATION: CT of the chest, abdomen and pelvis, as well as the thoracic and lumbar spine, performed after the administration of IV contrast TECHNIQUE: Helical CT images from the lung apices through the symphysis pubis were obtained with contrast. Coronal and sagittal reformatted images were generated at a workstation for further assessment. Dose reduction techniques were achieved by using automatic exposure control and/or adjustment of mA and/or kV according to patient size and/or use of iterative reconstruction technique. COMPARISON: None HISTORY: Pain FINDINGS: Lines and tubes: None Mediastinum/Neck Base: No thyroid nodules. Central tracheobronchial tree is patent. Heart size is normal. No pericardial effusion. Normal thoracic vasculature. No thoracic lymphadenopathy. Heavy coronary calcification. Lungs: There is an area of confluent opacity throughout the lingula. There is moderate emphysema. Bibasilar subsegmental atelectasis. No pleural effusion or pneumothorax. Liver: No suspicious liver lesions. Portal veins appear patent. Gallbladder: No gallstones. No evidence of acute cholecystitis. Spleen: Normal size. Pancreas: No suspicious pancreatic lesions. The pancreatic duct is not dilated. Adrenal glands: No adrenal nodules. Kidneys: No hydronephrosis or obstructing renal stones. Bladder / Pelvic organs: Unremarkable. Bowel: No bowel obstruction. No abnormal bowel wall thickening. The appendix is unremarkable. Lymph nodes: No retroperitoneal, mesenteric, or pelvic lymphadenopathy. Peritoneum / Retroperitoneum: No free fluid or air within the abdomen. Vessels: No infrarenal aortic aneurysm. Heavy aortoiliac calcification. Bones and soft tissues: Degenerative changes of the spine. The bones are osteopenic. Posterior maude and screw fixation through L4 and L5, where there is mature bony fusion across the facet joints. Superior endplate compression fracture at T12 resulting in approximately 45-50 % stenosis. Superior and plate compression fracture at L1 resulting in approximately 25% stenosis. Multilevel chronic, posterior healing rib fractures associated with callus formation. IMPRESSION: 1. Superior endplate compression fractures at T12 and L1, are favored acute, considering limitations to evaluation due to significant osteopenia. 2. Chronic, multilevel healing posterior left rib fractures. 3. Confluent opacity throughout the lingula, which may be infectious. Electronically signed by Ayaan Masters 10-24-2024 7:[address] 10/24/24 17:32 CT head without contrast History: Trauma Comparison: 09/14/2022 Technique: Using multidetector thin collimation helical acquisition technique, axial, coronal and sagittal CT images from the skull base to the vertex were obtained without intravenous contrast. Dose reduction techniques were achieved by using automatic exposure control and/or adjustment of mA and/or kV according to patient size and/or use of iterative reconstruction technique. Findings: No intracranial hemorrhage, mass-effect, or midline shift. The ventricles are proportionate to the cerebral sulci. There is a moderate size chronic infarct of the left frontal operculum, similar to prior, otherwise the driscoll to white matter differentiation of the cerebral hemispheres is preserved. The basal cisterns are patent. There is frothy debris in the left maxillary sinus. Mastoid air cells are clear. Impression: No acute intracranial pathology. Electronically signed by Ayaan Masters 10-24-2024 7:[address] 10/24/24 17:42 EXAMINATION: CT of the chest, abdomen and pelvis, as well as the thoracic and lumbar spine, performed after the administration of IV contrast TECHNIQUE: Helical CT images from the lung apices through the symphysis pubis were obtained with contrast. Coronal and sagittal reformatted images were generated at a workstation for further assessment. Dose reduction techniques were achieved by using automatic exposure control and/or adjustment of mA and/or kV according to patient size and/or use of iterative reconstruction technique. COMPARISON: None HISTORY: Pain FINDINGS: Lines and tubes: None Mediastinum/Neck Base: No thyroid nodules. Central tracheobronchial tree is patent. Heart size is normal. No pericardial effusion. Normal thoracic vasculature. No thoracic lymphadenopathy. Heavy coronary calcification. Lungs: There is an area of confluent opacity throughout the lingula. There is moderate emphysema. Bibasilar subsegmental atelectasis. No pleural effusion or pneumothorax. Liver: No suspicious liver lesions. Portal veins appear patent. Gallbladder: No gallstones. No evidence of acute cholecystitis. Spleen: Normal size. Pancreas: No suspicious pancreatic lesions. The pancreatic duct is not dilated. Adrenal glands: No adrenal nodules. Kidneys: No hydronephrosis or obstructing renal stones. Bladder / Pelvic organs: Unremarkable. Bowel: No bowel obstruction. No abnormal bowel wall thickening. The appendix is unremarkable. Lymph nodes: No retroperitoneal, mesenteric, or pelvic lymphadenopathy. Peritoneum / Retroperitoneum: No free fluid or air within the abdomen. Vessels: No infrarenal aortic aneurysm. Heavy aortoiliac calcification. Bones and soft tissues: Degenerative changes of the spine. The bones are osteopenic. Posterior maude and screw fixation through L4 and L5, where there is mature bony fusion across the facet joints. Superior endplate compression fracture at T12 resulting in approximately 45-50 % stenosis. Superior and plate compression fracture at L1 resulting in approximately 25% stenosis. Multilevel chronic, posterior healing rib fractures associated with callus formation. IMPRESSION: 1. Superior endplate compression fractures at T12 and L1, are favored acute, considering limitations to evaluation due to significant osteopenia. 2. Chronic, multilevel healing posterior left rib fractures. 3. Confluent opacity throughout the lingula, which may be infectious. Electronically signed by Ayaan Masters 10-24-2024 7:[address] 10/24/24 17:42 EXAMINATION: CT of the chest, abdomen and pelvis, as well as the thoracic and lumbar spine, performed after the administration of IV contrast TECHNIQUE: Helical CT images from the lung apices through the symphysis pubis were obtained with contrast. Coronal and sagittal reformatted images were generated at a workstation for further assessment. Dose reduction techniques were achieved by using automatic exposure control and/or adjustment of mA and/or kV according to patient size and/or use of iterative reconstruction technique. COMPARISON: None HISTORY: Pain FINDINGS: Lines and tubes: None Mediastinum/Neck Base: No thyroid nodules. Central tracheobronchial tree is patent. Heart size is normal. No pericardial effusion. Normal thoracic vasculature. No thoracic lymphadenopathy. Heavy coronary calcification. Lungs: There is an area of confluent opacity throughout the lingula. There is moderate emphysema. Bibasilar subsegmental atelectasis. No pleural effusion or pneumothorax. Liver: No suspicious liver lesions. Portal veins appear patent. Gallbladder: No gallstones. No evidence of acute cholecystitis. Spleen: Normal size. Pancreas: No suspicious pancreatic lesions. The pancreatic duct is not dilated. Adrenal glands: No adrenal nodules. Kidneys: No hydronephrosis or obstructing renal stones. Bladder / Pelvic organs: Unremarkable. Bowel: No bowel obstruction. No abnormal bowel wall thickening. The appendix is unremarkable. Lymph nodes: No retroperitoneal, mesenteric, or pelvic lymphadenopathy. Peritoneum / Retroperitoneum: No free fluid or air within the abdomen. Vessels: No infrarenal aortic aneurysm. Heavy aortoiliac calcification. Bones and soft tissues: Degenerative changes of the spine. The bones are osteopenic. Posterior maude and screw fixation through L4 and L5, where there is mature bony fusion across the facet joints. Superior endplate compression fracture at T12 resulting in approximately 45-50 % stenosis. Superior and plate compression fracture at L1 resulting in approximately 25% stenosis. Multilevel chronic, posterior healing rib fractures associated with callus formation. IMPRESSION: 1. Superior endplate compression fractures at T12 and L1, are favored acute, considering limitations to evaluation due to significant osteopenia. 2. Chronic, multilevel healing posterior left rib fractures. 3. Confluent opacity throughout the lingula, which may be infectious. Electronically signed by Ayaan Masters 10-24-2024 7:24 PM ECG Additional Comments: ECG. Atrial fibrillation rate of 81. Nonspecific ST and T abnormality. Code Status & VTE Plan VTE Prophylaxis Plan VTE Prophylaxis will be ordered: Yes
[2024-10-25 01:50] LABS: Adenovirus PCR Not Detected (NotDetected); Bordetella parapertussis PCR Not Detected (NotDetected); Bordetella pertussis PCR Not Detected (NotDetected); Chlamydia pneumoniae PCR Not Detected (NotDetected); Coronavirus 229E PCR Not Detected (NotDetected); Coronavirus CoV-2 (COVID19)PCR Not Detected (NotDetected); Coronavirus HKU1 PCR Not Detected (NotDetected); Coronavirus NL63 PCR Not Detected (NotDetected); Coronavirus OC43PCR Not Detected (NotDetected); Human Metapneumovirus PCR Not Detected (NotDetected); Influenza A PCR Not Detected (NotDetected); Influenza B PCR Not Detected (NotDetected); Mycoplasma pneumoniae PCR Not Detected (NotDetected); Parainfluenza Virus 1 PCR Not Detected (NotDetected); Parainfluenza Virus 2 PCR Not Detected (NotDetected); Parainfluenza Virus 3 PCR Not Detected (NotDetected); Parainfluenza Virus 4 PCR Not Detected (NotDetected); Respiratory Syncytial VirusPCR Not Detected (NotDetected); Rhinovirus/Enterovirus PCR Not Detected (NotDetected)
[2024-10-25] MEDS ORDERED: ACETAMINOPHEN 325 MG TAB PO PRN (02:53)
[2024-10-25] MEDS ORDERED: FEXOFENADINE HCL 180 MG TAB PO PRN (02:53)
[2024-10-25] MEDS ORDERED: FLUTICASONE PROPIONATE NA SPR 16 GM BTL PRN (02:53)
[2024-10-25] MEDS ORDERED: FUROSEMIDE 20 MG TAB PO SCH (02:53)
[2024-10-25] MEDS ORDERED: ALBUTEROL HFA 8 GM INHALER INH PRN (02:53)
[2024-10-25] MEDS ORDERED: LEVALBUTEROL 1.25 MG/3 ML NEB NEB PRN (02:53)
[2024-10-25] MEDS: SODIUM CHLORIDE 0.9% 1,000 ML IV STA (03:36)
[2024-10-25] MEDS: cefTRIAXone SODIUM 2,000 MG/50 ML BAG IV SCH (03:36)
[2024-10-25] MEDS: DOXYCYCLINE HYCLATE 100 MG in DEXTROSE 5% MINI-B 100 ML IV SCH (04:11)
[2024-10-25 05:57] LABS: Basophils # (auto) 0.07 K/uL (0.00-0.20); Basophils % (auto) 0.6 %; Eosinophils # (auto) 0.79 K/uL (0.00-0.50); Eosinophils % (auto) 7.2 %; Hematocrit (blood only) 35.7 % (42.0-52.0); Hemoglobin 11.1 g/dl (14.0-18.0); Immature Granulocytes % (auto) 0.9 %; Mean Corpuscular Hemoglobin 23.6 pg (25.0-34.0); Mean Corpuscular Hgb Conc 31.1 g/dL (32.0-36.0); Mean Corpuscular Volume 75.8 fL (80.0-100.0); Monocytes # (auto) 0.98 K/uL (0.11-0.59); Neutrophils % (auto) 71.3 %; Platelet Count 234 K/uL (130-400); RDW Coefficient of Variation 17.8 % (11.5-14.5); RDW Standard Deviation 46.6 fL (36.4-46.3); Red Blood Count 4.71 M/uL (4.70-6.10); White Blood Count 10.94 K/ul (4.8-10.8)
[2024-10-25 06:10] LABS: BUN Creatinine Ratio 22.7 (10-20); Calcium 8.9 mg/dl (8.6-10.3); Creatinine Clr Calc Pharmacy 55.6 ml/min; Potassium 3.9 mmol/L (3.5-5.1)
[2024-10-25 06:18] LABS: Troponin I High Sensitivity 19.3 pg/ml (0-20)
[2024-10-25] MEDS: IPRATROPIUM BROMIDE NEB SOLN 0.02% 0.5MG/2.5ML VIAL INH SCH (07:25)
[2024-10-25] MEDS: LEVALBUTEROL 1.25 MG/3 ML NEB INH SCH (07:25)
[2024-10-25] MEDS: POLYETHYLENE (MIRALAX) 17 GM PACK PO PRN (08:13)
[2024-10-25] MEDS: ACETAMINOPHEN 325 MG TAB PO SCH (08:14)
[2024-10-25] MEDS: UMECLIDINIUM BROMIDE 62.5MCG/BLISTER 7 PUFFS/INHALER INH SCH (08:15)
[2024-10-25] MEDS: FLUTICASONE/VILANTEROL 100/25MCG 14 PUFFS/INHALER INH SCH (08:16)
[2024-10-25] MEDS: ATORVASTATIN 40 MG TAB PO SCH (08:16)
[2024-10-25] MEDS: SPIRONOLACTONE 25 MG TAB PO SCH (08:16)
[2024-10-25] MEDS: FINASTERIDE 5 MG TAB PO SCH (08:16)
[2024-10-25] MEDS: TAMSULOSIN HCL 0.4 MG CAP PO SCH (08:16)
[2024-10-25] MEDS: allopurinoL 300 MG TAB PO SCH (08:17)
[2024-10-25] MEDS: METOPROLOL SUCC 25MG EXT REL TAB PO SCH (08:17)
[2024-10-25] MEDS: FLUoxetine HCL 20 MG CAP PO SCH (08:17)
[2024-10-25] MEDS: APIXABAN 5 MG TABLET PO SCH (08:17)
[2024-10-25] MEDS: GABAPENTIN 300 MG CAP PO SCH (08:17)
[2024-10-25] MEDS: predniSONE 10 MG TABLET PO SCH (08:17)
[2024-10-25] MEDS: MULTIVITAMIN TAB PO SCH (08:17)
[2024-10-25] MEDS: METOPROLOL SUCC 50MG EXT REL TAB PO SCH (08:18)
--- NOTE | 2024-10-25 08:33 | Electrocardiogram Report ---
Test Reason : Blood Pressure : */* mmHG Vent. Rate : 81 BPM Atrial Rate : * BPM P-R Int : * ms QRS Dur : 76 ms QT Int : 384 ms P-R-T Axes : * 16 125 degrees QTcB Int : 446 ms Atrial fibrillation vs, flutter Nonspecific ST and T wave abnormality Abnormal ECG When compared with ECG of 14-Sep-2022 09:57, No significant change Confirmed by Dmitri Vincent ([id number]) on 10/25/2024 8:33:39 AM Referred By: REFERRED SELF Confirmed By: Dmitri Vincent
[2024-10-25] MEDS ORDERED: NON-FORMULARY MEDICATION (Multivitamin Tablet) PO SCH (09:00)
--- OUTSIDE RECORDS SUMMARY | 2024-10-25 09:08 | External Medical Summary | Summary of Care ---
Author Name Unknown Organization [facility] Address [address] [address] Phone [phone] Care Team Providers Care Dexigraph Operator Name Role Phone Chelo Trotter MD Primary Care Provide r Reason for Visit * Reason Onset Date Comments Test Results 05/03/2024 Encounter Details Date Type Department Care Team (Late st Contact Info) Description 05/03/2024 Telephone Cardiology, [facility] [address] [place] [address] Zaid Rasmey PA-C [address] [place] [address] Test Results Allergies No known active allergiesdocumented as of this encounter (statuses as of 08/02/2024) Medications Multivitamin Adult Oral Tablet Take 1 Tablet by mouth daily. Active guaiFENesin ER 600 MG Oral Tablet Extended Release 12 Hour Take 1 Tablet by mouth in the morning. Active Fluticasone Furoate-Vilantero l 100-25 MCG/ACT Inhalation Aerosol Powder Breath Activated (BREO ellipta) Inhale 1 Puff by mouth in the morning. Active Atorvastatin Calcium 40 MG Oral Tablet (Lipitor)Indicati ons:Dyslipidemia, goal LDL below 100 Take 1 Tablet by mouth at bedtime. 90 Tablet 3 11/09/ 024 Active Metoprolol Succinate ER 25 MG Oral Tablet Extended Release 24 Hour (toPROL XL) Take 1 Tablet by mouth in the morning. 90 Tablet 3 024 Active Furosemide 20 MG Oral Tablet (Lasix)Indication s:Heart failure, systolic, with acute decompensation (HCC) 40 mg on Wednesday's, Wednesday's, and Wednesday's, 20 mg all other days 135 Tablet 3 024 Active Spiriva Respimat 2.5 MCG/ACT Inhalation Aerosol Solution (Tiotropium [place] Monohydrate) Inhale 2 Puffs by mouth in the morning. 1 Each 3 024 Active FLUoxetine HCl 20 MG Oral Capsule (PROzac) Take 1 Capsule by mouth in the morning. 90 Capsule 3 Active Additional Information Patient taking differently: 40 mgOral Daily(AM), Reported on 07/14/2024 predniSONE 10 MG Oral Tablet (Deltasone) Take 1 Tablet by mouth in the morning. 90 Tablet 3 024 Active Azithromycin 500 MG Oral Tablet (Zithromax) Take 1 Tablet by mouth once a day on Wednesday, Wednesday, and Wednesday only. 36 Tablet 3 024 Active Allopurinol 300 MG Oral Tablet (Zyloprim)Indicat ions:Acute idiopathic gout involving toe of right foot TAKE ONE TABLET BY MOUTH EVERY DAY 90 Tablet 3 024 Active Levalbuterol HCl 1.25 MG/0.5ML Inhalation Nebulization SolutionIndicatio ns:COPD, group D, by GOLD 2017 classification ([facility]) Inhale 1 Ampule by mouth every 4 hours as needed for Wheezing or Shortness of Breath. Active Albuterol Sulfate HFA 108 (90 Base) MCG/ACT Inhalation Aerosol SolutionIndicatio ns:COPD, group D, by GOLD 2017 classification ([facility]) Inhale 2 Puffs by mouth every 4 hours as needed for Wheezing. 18 g 5 024 Active Spironolactone 25 MG Oral Tablet (Aldactone)Indica tions:Heart failure, systolic, with acute decompensation (HCC) Take 1 Tablet by mouth in the morning. 90 Tablet 3 024 Active Ipratropium [place] 0.02 % Inhalation Solution (Atrovent) use 1 vial via nebulizer every 4 hours if needed for shortness of breath or wheezing 75 mL 5 024 2023 Discontinued(R efill) Megavite Fruits & Veggies Oral Tablet Take 1 Tablet by mouth every morning. 2023 Discontinued(M edication List Clean Up) Apixaban 5 MG Oral Tablet (Eliquis) Take 1 Tablet by mouth in the morning and 1 Tablet before bedtime. 180 Tablet 1 024 2023 Discontinued(R efill) Spironolactone 25 MG Oral Tablet (Aldactone)Indica tions:Heart failure, systolic, with acute decompensation (HCC) 25 mg on Wednesday's, Wednesday's, and Wednesday's, 12.5 mg all other days 65 Tablet 3 024 2023 Discontinued(R efill) Finasteride 5 MG Oral Tablet (Proscar)Indicati ons:Benign prostatic hyperplasia with weak urinary stream TAKE ONE TABLET BY MOUTH EVERY DAY 90 Tablet 024 2023 Discontinued documented as of this encounter (statuses as of 08/02/2024) Active Problems Patient Care Coordination No te Formatting of this note migh t be different from the original. Pt stated goal: " I want to get out and walk in the yard." Red Flags: Increased wheezing, cough not relieved by nebulizer treatment Getting short of breath walking around inside-usually able to walk in home on flat surface and not get out of breath Weight gain of more than 2 lbs in 24 hours or more than 5 lbs in one week Having daily episodes of dizziness, light headedness Blood pressure readings less than 90 on top or less than 100 with dizziness. Problem Noted Date Diagnosed Date DNR (do not resuscitate) 06/11/2023 BPH without obstruction/lower urinary tract symp toms 01/01/2023 Assessment & Plan (01/01/2023 10:52 AM EDT): Symptoms stable -continue finasteride -tamsulosin recently reduced to every other day due to hypotension Aphasia, post-stroke 11/09/2022 Assessment & Plan (11/09/2022 12:17 PM EDT): Residual aphasia and left-sided weakness from stroke 2-3 years ago -continue Eliquis, statin, metoprolol, aspirin Protein-calorie malnutrition 10/28/2022 Cellulitis of right upper extremity 10/28/2022 Assessment & Plan (11/09/2022 12:12 PM EDT): Redness and edema much improved. Ultrasound negative for DVT. Finish antibiotics. Assessment & Plan (10/28/2022 6:33 PM EDT): ? Cellulitic component. Will start Keflex 500 mg three times daily times 10 days Ultrasound right upper extremity and right lower extremity to rule out DVT as the patient has had recent trauma and Eliquis was held. Laceration of spleen 09/15/2022 Overview (09/22/2022): fell on 09/12 Dyslipidemia, goal LDL below 100 08/01/2020 Assessment & Plan (11/09/2022 12:13 PM EDT): Continue atorvastatin Assessment & Plan (10/23/2022 3:44 PM EDT): -Statin therapy continued -Encouraged cardiac prudent diet Gout of left foot 06/10/2018 Assessment & Plan (11/09/2022 12:12 PM EDT): No current flare. -continue allopurinol Paroxysmal atrial fibrillation 06/03/2018 Assessment & Plan (01/01/2023 10:49 AM EDT): Rate controlled -continue Eliquis -continue metoprolol succinate 25 mg daily Assessment & Plan (11/09/2022 12:06 PM EDT): Rate stable -continue Toprol XL 25 mg daily and Eliquis Assessment & Plan (10/28/2022 6:29 PM EDT): Metoprolol XL recently decreased to 25 mg daily. Heart rate still controlled. BP improved. Continue Eliquis. Assessment & Plan (10/23/2022 3:44 PM EDT): -Apixaban 5mg twice daily continued -Metoprolol succinate for rate control. Decreased dose today 2/2 soft blood pressure, patient feeling dizzy at times and introduction of diuretic therapy. Dose changed from 50mg daily to 25 mg daily. -HR regular on exam today. Heart failure, systolic, due to idiopathic cardi omyopathy 03/18/2018 Assessment & Plan (06/11/2023 11:47 AM EST): "RED FLAG" HF Symptoms: Leg Swelling (Examples: "I can't wear certain socks or shoes", "My pants feel tight") Increased dyspnea on exertion (Example: "I can't walk to the kitchen or up the stairs") Medication Regimen: Beta Xiomy Therapy: Metoprolol Succinate (ER) MARKOS Inhibitor/ARB Therapy: No MARKOS/ARB/ARNI secondary to: hypotension Diuretic therapy: Lasix Self - Management Plan Other/Additional Comments: using lasix prn Exacerbation Plan Chest X-Ray Assessment & Plan (01/01/2023 10:49 AM EDT): Current Status: "Stable" for patient / At or near baseline Degree of Condition Awareness: Demonstrates very good awareness of condition, disease course, and prognosis "RED FLAG" HF Symptoms: o Leg Swelling (Examples: "I can't wear certain socks or shoes", "My pants feel tight") o Increased dyspnea on exertion (Example: "I can't walk to the kitchen or up the stairs") o Increased shortness of breath at rest (Example: "I struggle to breathe even when watching TV") Current Heart Failure Classifications: o With less than ordinary activity ([employer] CLASS III) Diagnostic Review: Recent Labs Units 11/25/22 0807 09/15/22 0000 01/13/22 1035 LEFT VENTRICULAR EJECTION FRACTION % -- -- 45 ESTIMATED GLOMERULAR FILTRATION RATE - [facility] mL/min 64 < > -- EGFR-OUTSIDE LAB -- < > -- HGB - [facility] g/dL 14.2 < > -- HEMOGLOBIN-OUTSIDE LAB -- < > -- < > = values in this interval not displayed. Medication Regimen: o Beta Xiomy Therapy: Metoprolol Succinate (ER) o MARKOS Inhibitor/ARB Therapy: No MARKOS/ARB/ARNI secondary to: hypotension o Diuretic therapy: Lasix Self - Management Plan o Other/Additional Comments: lasix 20 mg daily x 3 days. Notify [facility] when initiating Exacerbation Plan o BMP o Pro-BNP Assessment & Plan (10/23/2022 3:46 PM EDT): Current Status: Slow or gradual progression Degree of Condition Awareness: Demonstrates very good awareness of condition but not disease course and/or prognosis "RED FLAG" HF Symptoms: o Leg Swelling (Examples: "I can't wear certain socks or shoes", "My pants feel tight") o Abdominal Bloating (Examples: "I can't wear certain pants", "My belly feels hard", "I look ") o Increased dyspnea on exertion (Example: "I can't walk to the kitchen or up the stairs") o Increased shortness of breath at rest (Example: "I struggle to breathe even when watching TV") o Orthopnea (Examples: "I have to sleep with more pillows than usual", "I sleep worse than normal") Current Heart Failure Classifications: o With ordinary activity such as doing housework, yard work or shopping ([employer] CLASS II) Diagnostic Review: Recent Labs Units 10/22/22 1437 09/15/22 0000 01/13/22 1035 LEFT VENTRICULAR EJECTION FRACTION % -- -- 45 ESTIMATED GLOMERULAR FILTRATION RATE - [facility] mL/min 68 -- -- EGFR-OUTSIDE LAB -- < > -- HGB - [facility] g/dL 14.0 -- -- HEMOGLOBIN-OUTSIDE LAB -- < > -- < > = values in this interval not displayed. Medication Regimen: o Beta Xiomy Therapy: Metoprolol Succinate (ER) o MARKOS Inhibitor/ARB Therapy: No MARKOS/ARB/ARNI secondary to: hypotension o Diuretic therapy: Lasix Self - Management Plan o Avoid excessive fluid intake and avoid salty, processed food o Weigh daily o Reach out to case fitter if starting any sort of diuretic titration protocol o Self-Management Plan still in process of being defined and education to patient is ongoing Exacerbation Plan o Exacerbation plan still being defined and education ongoing Started Furosemide 20mg daily today. Potassium 10 meq BID initiated as well. BMP ordered with mobile phleb for one month. CXR ordered. AMC scale also ordered. Reviewed with patient and son who was present for visit and they verbalized understanding. Stage 3a chronic kidney disease 04/08/2017 Overview (04/09/2017): GFR 54.3 Assessment & Plan (11/09/2022 12:15 PM EDT): Last GFR 63 on 09/2022 Anterolisthesis 02/08/2014 Overview (02/09/2014): 1 mm C5-6 Atherosclerosis of [place] co ronary artery of [place] heart without angina pectoris 04/25/2010 Overview (05/05/2013): OK Assessment & Plan (01/01/2023 10:45 AM EDT): Continue Eliquis, atorvastatin, metoprolol at new reduced dose of 25 mg daily. No a secondary to hypotension. Assessment & Plan (11/09/2022 12:05 PM EDT): Stable -continue Toprol, aspirin, statin, Eliquis. No Markos, likely due to hypotension. Assessment & Plan (10/28/2022 6:29 PM EDT): Stable -continue Toprol, aspirin, statin, Eliquis. No Markos, likely due to hypotension. Old OK (myocardial infarction) 07/26/2009 Cervical spine degeneration Overview (02/09/2014): multilevel Osteoarthritis of spine with myelopathy, lumbar region documented as of this encounter (statuses as of 08/02/2024) Resolved Problems Problem Noted Date Diagnosed Date Resolved Date COPD, group D, by GOLD 2017 classification 10/04/2023 05/02/2024 Overview: Per COPD GOLD Classification COPD, group B, by GOLD 2017 classification 03/08/2023 10/07/2023 Overview: Per COPD GOLD Classification Assessment & Plan (06/11/2023 11:46 AM EST): "RED FLAG" COPD symptoms: Increased dyspnea on exertion ("I can't walk to the kitchen or up the stairs without coughing and wheezing", "My chest feels tight any time I move") Increased shortness of breath at rest ("I struggle to breathe even when watching TV", "I have to wear or turn up my oxygen just when I'm sitting on the couch") Change in mucous ("My normal mucous is clear but this is yellow and tastes terrible") Medication Regimen Class B, C, D - LAMA Class D, Asthma/COPD Overlap - Inhaled Glucocorticoid-LABA Combination Inhaler Chronic Systemic Steroids (Prednisone) Chronic Antibiotics (Azithromycin) Self-Management plan High frequency nebulizer treatments every 4-6 hours around the clock Begin wearing supplemental oxygen continuously until symptoms return to baseline Exacerbation plan Ceftriaxone 1g IM/IV Chest Xray Assessment & Plan (06/07/2023 3:49 PM EST): Current Status : Actively exacerbating Degree of Condition Awareness: Demonstrates very good awareness of condition, disease course, and prognosis "RED FLAG" COPD symptoms: Increased dyspnea on exertion ("I can't walk to the kitchen or up the stairs without coughing and wheezing", "My chest feels tight any time I move") Increased shortness of breath at rest ("I struggle to breathe even when watching TV", "I have to wear or turn up my oxygen just when I'm sitting on the couch") Cough ("I get a different kind of cough than what I' have every day") Change in mucous ("My normal mucous is clear but this is yellow and tastes terrible") Confusion ("I get confused about where I'm at", "People have to keep repeating things") Wheezing ("You can hear the whistling across the room") Medication Regimen All Classes - MARLO Class B, C, D - LAMA Class D, Asthma/COPD Overlap - Inhaled Glucocorticoid-LABA Combination Inhaler Self-Management plan Oral Antibiotic Rx (see medication list) High frequency nebulizer treatments every 4-6 hours around the clock Begin wearing supplemental oxygen continuously until symptoms return to baseline Utilize Flutter Device hourly while awake Other/Additional Comments: Medrol Dosepak Exacerbation plan Solumedrol 40mg IM/IV Ceftriaxone 1g IM/IV Chest Xray Localized edema 11/09/2022 06/10/2023 Assessment & Plan (11/09/2022 12:20 PM EDT): Improved since starting Lasix. Weight 200 lb today. Baseline. COPD, severity to be determined 10/23/2022 03/11/2023 Overview: Per COPD GOLD Classification Assessment & Plan (01/01/2023 10:51 AM EDT): Current Status : "Stable" for patient / At or near baseline Degree of Condition Awareness: Demonstrates very good awareness of condition, disease course, and prognosis "RED FLAG" COPD symptoms: o Increased dyspnea on exertion ("I can't walk to the kitchen or up the stairs without coughing and wheezing", "My chest feels tight any time I move") o Increased shortness of breath at rest ("I struggle to breathe even when watching TV", "I have to wear or turn up my oxygen just when I'm sitting on the couch") o Cough ("I get a different kind of cough than what I' have every day") Medication Regimen o All Classes - MARLO o Class D, Asthma/COPD Overlap - Inhaled Glucocorticoid-LABA Combination Inhaler o Chronic Systemic Steroids (Prednisone) Self-Management plan o Prednisone tapering dose Rx o Oral Antibiotic Rx (see medication list) o High frequency nebulizer treatments every 4-6 hours around the clock Exacerbation plan o Solumedrol 60mg IM/IV Assessment & Plan (11/09/2022 12:15 PM EDT): COPD "RED FLAG" COPD symptoms: o Increased dyspnea on exertion ("I can't walk to the kitchen or up the stairs without coughing and wheezing", "My chest feels tight any time I move") Medication Regimen o Class A - [place]-MARLO Combination Inhaler Exacerbation Mgt: o Exacerbation during last admission o Rescue Kit in place in Medication List: No. o Used rescue kit in the past month: No o Required IM or IV steroids (Solumedrol) since last visit: No Stable Assessment & Plan (10/28/2022 6:32 PM EDT): Current Status : Actively exacerbating Degree of Condition Awareness: Demonstrates very good awareness of condition but not disease course and/or prognosis "RED FLAG" COPD symptoms: o Increased dyspnea on exertion ("I can't walk to the kitchen or up the stairs without coughing and wheezing", "My chest feels tight any time I move") Medication Regimen o Other: breo, duonebs prn Self-Management plan o Other: contact [facility]/PCP still deveoping plan Exacerbation plan o Has not required in home advanced interventions Assessment & Plan (10/23/2022 3:52 PM EDT): -Using Breo daily. Also using DuoNebs twice per day, does at times use three times daily -Reports chronic cough, denies changes in same -Unable to determine if patient ever had formal PFT studies. Will defer to primary [facility] provider/PCP to determine need -CXR ordered to evaluate SOB. Likely 2/2 HF however will obtain to evaluate. 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 11/12/2020 documented as of this encounter (statuses as of 08/02/2024) Immunizations Name Administration Dates Next Due Pneumococcal Conjugate Vacc, 13 Valent (Prevnar) 06/10/2018 Pneumococcal Conjugate Vaccine, 20-valent (Prevn ar20) 05/02/2024 Pneumococcal Polysaccharide PPV23 (Pneumovax) Seasonal Influenza, High Dos e, Trivalent, PF, IM (Fluzone HD) 05/02/2024 Seasonal Influenza, PF, 6 M & above, IM , (FluLaval or Fluzone) 04/30/2020,04/12/2018 Seasonal Influenza, Quadrivalent Hd (Fluzone Hd) 04/23/2022,05/20/2021 Seasonal Influenza, Trivalen t, Adjuvanted, 65+ YRS, PF, (Fluad) 06/21/2019 documented as of this encounter Social History Tobacco Use Types Packs/Day Years Used Date Smoking Tobacco: Former Cigarettes 0.5 51 1 - 05/13/2016 Smokeless Tobacco: Never Comments:age 12 Alcohol Use Standard Drinks/Week Comments Not Currently 0 (1 standard drink = 0.6 oz pur e alcohol) PHQ-2 Answer Date Recorded PHQ-2 Score -1 04/30/2020 Hunger Vital Sign Answer Date Recorded Within the past 12 months, y ou worried that your food would run out before you got the money to buy more. Never true 05/26/20 24 Within the past 12 months, t he food you bought just didn't last and you didn't have money to get more. Never true 05/26/2024 Childcare Answer Date Recorded Do you feel overwhelmed with taking care of a child, family member or friend? No 05/26/2024 Does your family need help f inding childcare? (Household - for ages 0-17 years) Not on file 05/26/2024 Clothing Answer Date Recorded Have you been unable to get clothing when it was really needed? No 05/26/2024 Is your family able to get c lothes or diapers when needed? (Household - for ages 0-17 years) Not on file 05/26/2024 Personal Safety Answer Date Recorded Do you feel unsafe or have concerns for your saf ety? No 05/26/2024 Do you have concerns for you r family's safety? (Household - for ages 0-17 years) Not on file 05/26/2024 Utilities Answer Date Recorded Do you have trouble paying y our heating, water, or electric bill? No 05/26/2024 Is your family able to pay t he heat, water, or electric bill? (Household - for ages 0-17 years) Not on file 05/26/2024 Does your family have access to good internet? (Household - for ages 0-17 years) Not on file 05/26/2024 Employment Status Answer Date Recorded Are you unemployed or without regular income? No 05/26/2024 Does the household have a re gular source of income? (Household - for ages 0-17 years) Not on file 05/26/2024 Social Connections Answer Date Recorded How often do you feel lonely or isolated from th ose around you? Never 05/26/2024 Financial Resource Strain Answer Date R ecorded Do you have any trouble payi ng for your medications, or do you think you might in the future? No 05/26/2024 Does your family have troubl e paying for medicine? (Household - for ages 0-17 years) Not on file 05/26/2024 Transportation Needs Answer Date Record ed Do you have trouble getting a ride to medical visits or work? (Adult - for ages 18 years and over) Not on file 05/26/2024 Does your family have a hard time getting a ride to doctors visits? (Household - for ages 0-17 years) Not on file 05/26/2024 Has lack of transportation k ept you from medical appointments, meetings, work, or from getting things needed for daily living? Check all that apply. No 05/26/2024 Do you (or your family) have trouble finding or paying for a ride (transportation)? (Household - for ages 0-17 years) Not on file 05/26/2024 Housing Stability Answer Date Recorded Do you currently live in a s helter or have no steady place to sleep at night? No 05/26/2024 Do you think you are at risk of becoming homeless? (Adult - for ages 18 years and over) Not on file 05/26/2024 Does your family worry about paying for your home or becoming homeless? (Household - for ages 0-17 years) Not on file 1 07/26/2023 Are you homeless or worried that you might be in the future? No 05/26/2024 Are you (or your family) mt eless or worried that you might be in the future? (Household - for ages 0-17 years) Not on file Food Insecurity Answer Date Recorded Do you need food for this week? No 05/26/2024 Are you able to get enough f ood for your family? (Household - for ages 0-17 years) Not on file 05/26/2024 Does your family need food t his week? (Household - for ages 0-17 years) Not on file 05/26/2024 Do you always have enough fo od for your family? (Household - for ages 0-17 years) Not on file 05/26/2024 Sex and Gender Information Value Date Recorded Sex Assigned at Not on file Legal Sex Male 5:27 AM EST Gender Identity Not on file Sexual Orientation Not on file Occupation Industry Job Start Date Job End Date Retired Not on file Not on file Not on file documented as of this encounter Functional Status * Are you deaf or do you have serious difficulty hearing? Answer Date of Assessment Author No 06/03/2018 7:15 PM Monika Poole RN * Are you blind or do you have serious difficulty seeing, even when wearing glasses? Answer Date of Assessment Author No 06/03/2018 7:15 PM Monika Poole RN * Do you have serious difficulty walking or climbing stairs? (5 years old or older) Answer Date of Assessment Author No 06/03/2018 7:15 PM Monika Poole RN * Do you have difficulty dressing or bathing? (5 years old or older) Answer Date of Assessment Author No 06/03/2018 7:15 PM Monika Poole RN * Because of a physical, mental, or emotional condition, do you have difficulty doing errands alone such as visiting a doctor’s office or shopping? (15 years old or older) Answer Date of Assessment Author No 06/03/2018 7:15 PM Monika Poole RN documented as of this encounter Mental Status * Because of a physical, mental, or emotional condition, do you have serious difficulty concentrating, remembering, or making decisions? (5 years old or older) Answer Entry Date Author No 06/03/2018 7:15 PM Monika Poole RN documented in this encounter Miscellaneous Notes * Telephone Encounter - Bradly Gipson LPN - 05/03/2024 2:55 PM EDT Called patient and left a detailed message on patients spouses identified voicemail to make aware. Prescription pended. Lab ordered. ----- Message from Zaid Ramsey sent at 05/03/2024 2:33 PM EDT ----- Stable kidney function. Potassium is low normal. Increase spironolactone to 25 mg daily Continue furosemide and all other medications as presently prescribed Recheck a basic metabolic panel in 2 to 3 weeks documented in this encounter Plan of Treatment Upcoming Encounters Date Type Department Care Team (Late st Contact Info) Description 01/09/2025 3:00 PM EDT Office Visit Cardiology [address] [place] [address] Zaid Ramsey PA-C [address] [place] [address] 01/12/2025 8:00 AM EDT Office Visit Family Medicine [address] [place] [phone] Chelo Trotter MD [address] [place] [address] [place] [id number] Scheduled Orders Name Type Priority Associated Diagnoses Orde r Schedule BASIC METABOLIC PANEL Lab Routine Encounter for monitoring diuretic therapy Expected: 05/17/2024 (Approximate), Expires: 05/03/2025 Health Maintenance Due Date Last Done Comments DTap/Tdap Vaccines (1 - Tdap) 1969 Cologuard 1995 Colonoscopy 1995 Colorectal Cancer Screening 1995 Fecal Occult Blood Test 1995 Sigmoidoscopy 1995 Lung Cancer Screening 2000 Zoster Vaccines (1 of 2) 2000 Adult Wellness Visit 2016 Depression Screening 04/30/2021 04/30/2020 COVID-19 Vaccine ( season) 2024 CKD HGB USE SMARTSET 10277 11/15/202411/15, 11/16/2023, 11/25/2022, Additional history exists GFR 11/21/2024 05/23/2024, 02/2024, 02/25/2024, Additional history exists CKD PHOS USE SMARTSET 75710 05/02/202502/2024, 11/25/2022, 11/12/2020, Additional history exists Albumin/Creatinine Ratio 05/04/2025 024, 09/26/2021, 03/22/2018 AAA Screening Completed 12/09/2015 Influenza Vaccine (FLU shot) Completed 02/2024, 04/23/2022, 05/20/2021, Additional history exists Pneumococcal Vaccine: 50+ Years Completed 05/02/2024, 06/21/2019, 06/10/2018 HPV (Gardasil) Vaccine Aged Out No lo nger eligible based on patient's age to complete this topic Hepatitis B Vaccine Aged Out No longe r eligible based on patient's age to complete this topic MENINGOCOCCAL (MENACTRA/MENVEO) Aged Out No longer eligible based on patient's age to complete this topic documented as of this encounter Medical Devices Implanted Type Area Certification Engineer Device Identifier Shelf Expiration Date Model / Serial / Lot Graft Cervical 5x7 [id number] - [id number] Implanted:Qt y: 3 on 07/16/2014 [place]ward [place] [facility] N/A: Neck Lifenet Co [id number] / / Dbx 2.5cc [id number] - [id number] Implanted:Qt y: 1 on 07/16/2014 [place] Malcolm Woodward [place] [facility] [place]: Spine Cervical MUSCULOSKELETAL TRANSPLANT FND 10/05/2015 [id number] / [id number] / Duragen Plus 2x2 Dp 1022 Min5 - [id number] Implanted:Qt y: 1 on 07/16/2014 by Malcolm Woodward [place] [facility] [place]: Spine Cervical [employer] GAVIN 08/25/2016 DP-1022 / / [id number] Screw 3.5x10mm 04.615.010 - [id number] Implanted:Qt y: 1 on 07/16/2014 by Malcolm Woodward [place] [facility] [place]: Spine Cervical SYNTHES 04.615.010 / / Screw 3.5x12mm - [id number] Implanted:Qt y: 1 on 07/16/2014 by Malcolm Woodward [place] [facility] [place]: Spine Cervical SYNTHES 04.615.012 / / Screw 3.5x14mm 04.615.014 - [id number] Implanted:Qt y: 4 on 07/16/2014 by Malcolm Woodward [place] [facility] [place]: Spine Cervical SYNTHES 04.615.014 / / Screw 3.5x16mm - [id number] Implanted:Qt y: 2 on 07/16/2014 by Malcolm Woodward [place] [facility] [place]: Spine Cervical SYNTHES 04.615.016 / / Cap Lkg 04.614.508 - [id number] Implanted:Qt y: 8 on 07/16/2014 by Malcolm Woodward MD [place] [facility] [place]: Spine Cervical SYNTHES 04.614.508 / / 80mm Jose J Implanted:Qt y: 2 on 07/16/2014 by Malcolm Woodward MD [place] [facility] [place]: Spine Cervical SYNTHES SPINE 04.615.530 / / Screw Set Sng Inner [id number] - [id number] Implanted:Qt y: 4 on 05/13/2016 by Malcolm Woodward MD [place] [facility] [place] : ETHICON CARDIOVATIONS 05/14/2016 [id number] / / Description:in set Screw 7x50 Poly Si [id number] - [id number] Implanted:Qt y: 4 on 05/13/2016 by Malcolm Woodward MD [place] [facility] [place] : ETHICON CARDIOVATIONS 05/14/2016 [id number] / / Description:in set Pre Lordosed Jose J W Line 45mm - [id number] Implanted:Qt y: 2 on 05/13/2016 by Malcolm Woodward MD [place] [facility] [place] : DEPUY SPINE 05/14/2016 [id number] / / Description:in set Expedium Ti Sfx 5.5 Lat A6 - [id number] Implanted:Qt y: 1 on 05/13/2016 by Malcolm Woodward MD [place] [facility] [place] : [email or web address] CARDIOVATIONS 05/14/2016 [id number] / / Description:in set documented as of this encounter Visit Diagnoses Diagnosis Paroxysmal atrial fibrillation (HCC)- Primary Atrial fibrillation Dyslipidemia, goal LDL below 100 Other and unspecified hyperlipidemia Heart failure, systolic, due to idiopathic cardiomyopathy (HCC) Unspecified systolic heart failure Advanced care planning/counseling discussion Other specified counseling COPD, severity to be determined (HCC) Chronic airway obstruction, not elsewhere classified Cellulitis of right upper extremity- Primary Cellulitis and abscess of upper arm and forearm Protein-calorie malnutrition, unspecified severity (HCC) Atherosclerosis of [place] coronary artery of [place] heart without angina pectoris Paroxysmal atrial fibrillation (HCC) Atrial fibrillation COPD, severity to be determined (HCC) Chronic airway obstruction, not elsewhere classified Laceration of spleen, subsequent encounter Atherosclerosis of [place] coronary artery of [place] heart without angina pectoris- Primary Paroxysmal atrial fibrillation (HCC) Atrial fibrillation COPD, severity to be determined (HCC) Chronic airway obstruction, not elsewhere classified Cellulitis of right upper extremity Cellulitis and abscess of upper arm and forearm 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 Dyslipidemia, goal LDL below 100 Other and unspecified hyperlipidemia Stage 3a chronic kidney disease Aphasia, post-stroke Unspecified cerebral artery occlusion with cerebral infarction Localized edema Edema Advanced care planning/counseling discussion Other specified counseling Aphasia, post-stroke- Primary Unspecified cerebral artery occlusion with cerebral infarction Atherosclerosis of [place] coronary artery of [place] heart without angina pectoris Heart failure, systolic, due to idiopathic cardiomyopathy (HCC) Unspecified systolic heart failure Paroxysmal atrial fibrillation (HCC) Atrial fibrillation COPD, severity to be determined (HCC) Chronic airway obstruction, not elsewhere classified BPH without obstruction/lower urinary tract symptoms Hypertrophy of prostate without urinary obstruction and other lower urinary tract symptoms (LUTS) COPD, group B, by GOLD 2017 classification (HCC)- Primary Heart failure, systolic, due to idiopathic cardiomyopathy (HCC) Unspecified systolic heart failure Paroxysmal atrial fibrillation (HCC) Atrial fibrillation DNR (do not resuscitate) Do not resuscitate status Encounter for monitoring diuretic therapy- Primary Encounter for therapeutic drug monitoring Heart failure, systolic, with acute decompensation (HCC) Acute on chronic systolic heart failure documented in this encounter Advance Directives * No Code (Latest Code Status on File) Date Activated Date Inactivated Comments 06/03/2018 8:35 PM 06/10/2018 11:13 PM This order reflects the patients wishes and were consensually agreed upon. Question Answer Comments Discussion of Advance Directives occurred with: Family * Full Code Date Activated Date Inactivated Comments 06/03/2018 7:43 PM 06/03/2018 8:35 PM This order r eflects the patients wishes and were consensually agreed upon. Question Answer Comments Discussion of Advance Directives occurred with: Not Discussed * Full Code Date Activated Date Inactivated Comments 05/13/2016 12:22 PM 05/15/2016 1:42 PM This orde r reflects the patients wishes and were consensually agreed upon. Question Answer Comments Discussion of Advance Directives occurred with: Patient Does the patient have a Living Will? No Does the patient have Health Care Power of Attor jana? No * Full Code Date Activated Date Inactivated Comments 07/16/2014 10:51 AM 07/18/2014 8:03 PM This orde r reflects the patients wishes and were consensually agreed upon. Question Answer Comments Discussion of Advance Directives occurred with: Patient Does the patient have a Living Will? No Does the patient have Health Care Power of Attor jana? No Care Teams Dexigraph Operator Relationship Specialty Start Date End Date Chelo Trotter MD [address] [place] [address] [place] [address] PCP - General Family Medicine 05/02/24 documented as of this encounter
--- OUTSIDE RECORDS SUMMARY | 2024-10-25 09:08 | External Medical Summary | Summary of Care ---
Author Name Unknown Organization [facility] Address [address] [place] [address] Phone [phone] Care Team Providers Care Tank Car Cleaner Name Role Phone Chelo Trotter MD Primary Care Provide r Encounter Details Date Type Department Care Team (Late st Contact Info) Description 08/14/2024 Population Health External Data Unspecified Department Allergies No known active allergiesdocumented as of this encounter (statuses as of 08/14/2024) Medications Multivitamin Adult Oral Tablet Take 1 Tablet by mouth daily. Active guaiFENesin ER 600 MG Oral Tablet Extended Release 12 Hour Take 1 Tablet by mouth in the morning. Active Fluticasone Furoate-Vilanterol 100-25 MCG/ACT Inhalation Aerosol Powder Breath Activated (BREO ellipta) Inhale 1 Puff by mouth in the morning. Active Atorvastatin Calcium 40 MG Oral Tablet (Lipitor)Indicatio ns:Dyslipidemia, goal LDL below 100 Take 1 Tablet by mouth at bedtime. 90 Tablet 3 11/10/19 24 Active Metoprolol Succinate ER 25 MG Oral Tablet Extended Release 24 Hour (toPROL XL) Take 1 Tablet by mouth in the morning. 90 Tablet 3 11/16/19 24 Active Furosemide 20 MG Oral Tablet (Lasix)Indications :Heart failure, systolic, with acute decompensation (HCC) 40 mg on Wednesday's, Wednesday's, and Wednesday's, 20 mg all other days 135 Tablet 3 02/01/20 24 Active Spiriva Respimat 2.5 MCG/ACT Inhalation Aerosol Solution (Tiotropium [place] Monohydrate) Inhale 2 Puffs by mouth in the morning. 1 Each 3 03/09/20 24 Active FLUoxetine HCl 20 MG Oral Capsule (PROzac) Take 1 Capsule by mouth in the morning. 90 Capsule 3 03/16/20 24 Active Additional Information Patient taking differently: 40 mgOral Daily(AM), Reported on 07/14/2024 predniSONE 10 MG Oral Tablet (Deltasone) Take 1 Tablet by mouth in the morning. 90 Tablet 3 03/16/20 24 Active Azithromycin 500 MG Oral Tablet (Zithromax) Take 1 Tablet by mouth once a day on Wednesday, Wednesday, and Wednesday only. 36 Tablet 3 03/24/20 24 Active Allopurinol 300 MG Oral Tablet (Zyloprim)Indicati ons:Acute idiopathic gout involving toe of right foot TAKE ONE TABLET BY MOUTH EVERY DAY 90 Tablet 3 05/03/20 24 Active Levalbuterol HCl 1.25 MG/0.5ML Inhalation Nebulization SolutionIndication s:COPD, group D, by GOLD 2017 classification ([facility]) Inhale 1 Ampule by mouth every 4 hours as needed for Wheezing or Shortness of Breath. 05/02/20 24 Active Albuterol Sulfate HFA 108 (90 Base) MCG/ACT Inhalation Aerosol SolutionIndication s:COPD, group D, by GOLD 2017 classification ([facility]) Inhale 2 Puffs by mouth every 4 hours as needed for Wheezing. 18 g 5 05/02/20 24 Active Spironolactone 25 MG Oral Tablet (Aldactone)Indicat ions:Heart failure, systolic, with acute decompensation ([facility]) Take 1 Tablet by mouth in the morning. 90 Tablet 3 05/03/20 24 Active Apixaban 5 MG Oral Tablet (Eliquis) Take 1 Tablet by mouth in the morning and 1 Tablet before bedtime. 180 Tablet 3 06/21/20 24 Active Ipratropium [place] 0.02 % Inhalation Solution (Atrovent) use 1 vial via nebulizer every 4 hours if needed for shortness of breath or wheezing 75 mL 5 06/27/20 24 Active Finasteride 5 MG Oral Tablet (Proscar)Indicatio ns:Benign prostatic hyperplasia with weak urinary stream TAKE ONE TABLET BY MOUTH EVERY DAY 90 Tablet 1 06/29/20 24 Active documented as of this encounter (statuses as of 08/14/2024) Active Problems Patient Care Coordination No te [...] 20 mg daily x [address] [facility] when initiating Exacerbation Plan o BMP o [...] Weigh daily o Reach out to case hardener if starting any sort of diuretic titration [...] Overview (02/09/2014): 1 mm C5-6 Atherosclerosis of [place] co ronary artery of [place] heart without angina pectoris 04/25/2010 Overview (05/05/2013): AR Assessment & Plan (01/01/2023 10:45 AM EDT): Continue Eliquis, atorvastatin, metoprolol at new reduced dose of 25 mg daily. No a secondary to hypotension. Assessment & Plan (11/09/2022 12:05 PM EDT): Stable -continue Toprol, aspirin, statin, Eliquis. No Markos, likely due to hypotension. Assessment & Plan (10/28/2022 6:29 PM EDT): Stable -continue Toprol, aspirin, statin, Eliquis. No Markos, likely due to hypotension. Old AR (myocardial infarction) 07/26/2009 Cervical spine degeneration Overview (02/09/2014): multilevel Osteoarthritis of spine with myelopathy, lumbar region documented as of this encounter (statuses as of 08/14/2024) Resolved Problems Problem Noted Date Diagnosed Date [...] as of this encounter (statuses as of 08/14/2024) Immunizations Name Administration Dates Next Due Pneumococcal [...] of Assessment Author No 06/03/2018 7:15 PM EST Shimp, Ce leste M, RN * Do you have serious difficulty [...] Monika Poole RN documented in this encounter Plan of Treatment Upcoming Encounters Date Type Department Care Team (Late st Contact Info) Description 01/09/2025 3:00 PM EDT Office Visit Cardiology [address] [place] [address] Zaid Ramsey PA-C [address] [place] [address] 01/12/2025 8:00 AM EDT Office Visit Family Medicine [address] [place] [phone] Chelo Trotter MD [address] [place] [address] [place] [address] Health Maintenance Due Date Last Done Comments DTap/Tdap Vaccines (1 - Tdap) 1969 Cologuard 1995 Colonoscopy 1995 Colorectal Cancer Screening 1995 Fecal Occult Blood Test 1995 Sigmoidoscopy 1995 Lung Cancer Screening 2000 Zoster Vaccines (1 of 2) 2000 Adult Wellness Visit 2016 Depression Screening 04/30/2021 04/30/2020 COVID-19 Vaccine ( season) 2024 CKD HGB USE SMARTSET 71009 11/15/202411/15, 11/16/2023, 11/25/2022, Additional history exists GFR 11/21/2024 05/23/2024, 02/2024, 02/25/2024, Additional history exists CKD PHOS USE SMARTSET 85292 05/02/202502/2024, 11/25/2022, 11/12/2020, Additional history exists Albumin/Creatinine [...] this encounter Medical Devices Implanted Type Area Instructor Painting Device Identifier Shelf Expiration Date Model / Serial / Lot Graft Cervical 5x7 [id number] - [id number] Implanted:Qt y: 3 on 07/16/2014 by Malcolm Woodward MD at [place] [facility] [place] - Human N/A: Neck Lifenet Co [id number] / / Dbx 2.5cc [id number] - [id number] Implanted:Qt y: 1 on 07/16/2014 by Malcolm Woodward MD at [place] [facility] [place] N/A: Spine Cervical MUSCULOSKELETAL TRANSPLANT FND 10/05/2015 198860 / [id number] / Duragen Plus 2x2 Dp 1022 Min5 - [id number] Implanted:Qt y: 1 on 07/16/2014 by Malcolm Woodward MD at [place] [facility] [place] N/A: Spine Cervical [employer] GAVIN 08/25/2016 DP-1022 / / [id number] Screw 3.5x10mm 04.615.010 - [id number] Implanted:Qt y: 1 on 07/16/2014 by Malcolm Woodward MD at [place] [facility] [place] N/A: Spine Cervical SYNTHES 04.615.010 / / Screw 3.5x12mm - [id number] Implanted:Qt y: 1 on 07/16/2014 by Malcolm Woodward MD at [place] [facility] [place] N/A: Spine Cervical SYNTHES 04.615.012 / / Screw 3.5x14mm 04.615.014 - [id number] Implanted:Qt y: 4 on 07/16/2014 by Malcolm Woodward MD at [place] [facility] [place] N/A: Spine Cervical SYNTHES 04.615.014 / / Screw 3.5x16mm - [id number] Implanted:Qt y: 2 on 07/16/2014 by Malcolm Woodward MD at [place] [facility] [place] N/A: Spine Cervical SYNTHES 04.615.016 / / Cap Lkg 04.614.508 - [id number] Implanted:Qt y: 8 on 07/16/2014 by Malcolm Woodward MD at [place] [facility] [place] N/A: Spine Cervical SYNTHES 04.614.508 / / 80mm Jose J Implanted:Qt y: 2 on 07/16/2014 by Malcolm Woodward MD at [place] [facility] [place] N/A: Spine Cervical SYNTHES SPINE 04.615.530 / / Screw Set Sng Inner [id number] - [id number] Implanted:Qt y: 4 on 05/13/2016 by Malcolm Woodward MD at [place] [facility] [place] JNJ : ETHICON CARDIOVATIONS 05/14/2016 [id number] / / Description:in set Screw 7x50 Poly Si [id number] - [id number] Implanted:Qt y: 4 on 05/13/2016 by Malcolm Woodward MD at OR [facility] : ETHICON CARDIOVATIONS 05/14/2016 [id number] / / Description:in set Pre Lordosed Jose J W Line 45mm - [id number] Implanted:Qt y: 2 on 05/13/2016 [facility] DEPUY SPINE 05/14/2016 [id number] / / Description:in set Expedium Ti Sfx 5.5 Lat A6 - [id number] Implanted:Qt y: 1 on 05/13/2016 by Malcolm Woodward MD at [place] [facility] [place] JNJ : ETHICON CARDIOVATIONS 05/14/2016 [id number] / / Description:in set documented as of this encounter Advance Directives * No Code [...] Power of Attor jana? No Care Teams Tank Car Cleaner Relationship Specialty Start Date End Date Chelo Trotter MD [address] [place] [address] [place] [address] PCP - General Family Medicine 05/02/24 documented as of this encounter
--- OUTSIDE RECORDS SUMMARY | 2024-10-25 09:08 | External Medical Summary | Summary of Care ---
Author Name Unknown Organization [facility] Address [address] [place] [place] [address] Phone [phone] Care Team Providers Care Wood Planer Name Role Phone Chelo Trotter MD Primary Care Provide r Reason for Visit * Reason Onset Date Comments Medical Nutrition Therapy 07/17/2024 Encounter Details Date Type Department Care Team (Latest Contact Info) Description 07/17/2024 10:30 AM EST Scheduled Telephone [facility] [address], [place] [id number] Dorota Monroy, RDN [address], [place] [id number] Protein-calorie malnutrition (HCC)* Allergies No known active allergiesdocumented as of this encounter (statuses as of 07/17/2024) Medications Multivitamin Adult Oral Tablet Take 1 [...] Respimat 2.5 MCG/ACT Inhalation Aerosol Solution (Tiotropium [place] Monohydrate) Inhale 2 Puffs by mouth in [...] s:COPD, group D, by GOLD 2017 classification ([facility]) Inhale 1 Ampule by mouth every 4 hours as needed for Wheezing or Shortness of Breath. 05/02/20 24 Active Albuterol Sulfate HFA 108 (90 Base) MCG/ACT Inhalation Aerosol SolutionIndication s:COPD, group D, by GOLD 2017 classification ([facility]) Inhale 2 Puffs by mouth every 4 hours as needed for Wheezing. 18 g 5 05/02/20 24 Active Spironolactone 25 MG Oral Tablet (Aldactone)Indicat ions:Heart failure, systolic, with acute decompensation (HCC) Take 1 Tablet by mouth in the morning. 90 Tablet 3 05/03/20 24 Active Apixaban 5 MG Oral Tablet (Eliquis) Take 1 Tablet by mouth in the morning and 1 Tablet before bedtime. 180 Tablet 3 06/21/20 24 Active Ipratropium [place] 0.02 % Inhalation Solution (Atrovent) use 1 vial via nebulizer every 4 hours if needed for shortness of breath or wheezing 75 mL 5 06/27/20 24 Active Finasteride 5 MG Oral Tablet (Proscar)Indicatio ns:Benign prostatic hyperplasia with weak urinary stream TAKE ONE TABLET BY MOUTH EVERY DAY 90 Tablet 1 06/29/20 24 Active documented as of this encounter (statuses as of 07/17/2024) Active Problems Patient Care Coordination No te [...] mg daily x [address] [facility] when initiating Exacerbation Plan o BMP o [...] o Weigh daily o Reach out to residential case manager if starting any sort of diuretic titration [...] Overview (02/09/2014): 1 mm C5-6 Atherosclerosis of koi co ronary artery of koi heart without angina pectoris 04/25/2010 Overview (05/05/2013): PR Assessment & Plan (01/01/2023 10:45 AM EDT): Continue Eliquis, atorvastatin, metoprolol at new reduced dose of 25 mg daily. No a secondary to hypotension. Assessment & Plan (11/09/2022 12:05 PM EDT): Stable -continue Toprol, aspirin, statin, Eliquis. No Markos, likely due to hypotension. Assessment & Plan (10/28/2022 6:29 PM EDT): Stable -continue Toprol, aspirin, statin, Eliquis. No Markos, likely due to hypotension. Old PR (myocardial infarction) 07/26/2009 Cervical spine degeneration Overview (02/09/2014): multilevel Osteoarthritis of spine with myelopathy, lumbar region documented as of this encounter (statuses as of 07/17/2024) Resolved Problems Problem Noted Date Diagnosed Date [...] time I move") Medication Regimen o Other: lousi broderick prn Self-Management plan o Other: contact [facility]/PCP [...] as of this encounter (statuses as of 07/17/2024) Immunizations Name Administration Dates Next Due Pneumococcal [...] encounter Miscellaneous Notes * Telephone Encounter - Dorota Monroy RDN - 07/17/2024 10:21 AM EST NUTRITION CONSULT - OUTPATIENT [facility] Name: Demetri Romero Sr. Location: [facility] Date: 07/17/2024 Time: 10:21 AM Upon review of EMR, Patient no longer enrolled in the [facility] Program (07/17/24), therefore, no further nutrition assistance needed. Patient currently receiving Hospice Care Services. Reason for Referral: Malnutrition Dorota Monroy RDN [facility], [facility] documented in this encounter Plan of Treatment Upcoming Encounters Date Type Department Care Team (Late st Contact Info) Description 01/09/2025 3:00 PM EDT Office Visit Cardiology [address] [place] [address] Zaid Ramsey PA-C [address] [place] [address] 01/12/2025 8:00 AM EDT Office Visit Family Medicine [address] [place] [phone] Chelo Trotter MD [address] [place] [address] [place] [address] Health Maintenance Due Date Last Done Comments DTap/Tdap Vaccines (1 - Tdap) 1969 Cologuard 1995 Colonoscopy 1995 Colorectal Cancer Screening 1995 Fecal Occult Blood Test 1995 Sigmoidoscopy 1995 Lung Cancer Screening 2000 Zoster Vaccines (1 of 2) 2000 Adult Wellness Visit 2016 Depression Screening 04/30/2021 04/30/2020 COVID-19 Vaccine ( season) 2024 CKD HGB USE SMARTSET 40840 11/15/202411/15, 11/16/2023, 11/25/2022, Additional history exists GFR 11/21/2024 05/23/2024, 02/2024, 02/25/2024, Additional history exists CKD PHOS USE SMARTSET 52973 05/02/202502/2024, 11/25/2022, 11/12/2020, Additional history exists Albumin/Creatinine Ratio 05/04/2025 024, 09/26/2021, 03/22/2018 AAA Screening Completed 12/09/2015 Influenza Vaccine (FLU shot) Completed 02/2024, 04/23/2022, 05/20/2021, Additional history exists Pneumococcal Vaccine: 65+ Years Completed 05/02/2024, 06/21/2019, 06/10/2018 HPV (Gardasil) [...] this encounter Medical Devices Implanted Type Area Automotive Accessory Installer Device Identifier Shelf Expiration Date Model / Serial / Lot Graft Cervical 5x7 [id number] - [id number] Implanted:Qt y: 3 on 07/16/2014 by Malcolm Woodward MD [place] [facility] [place] - Human N/A: Neck Lifenet Co [id number] / / Dbx 2.5cc [id number] - [id number] Implanted:Qt y: 1 on 07/16/2014 by Malcolm Woodward MD [place] [facility] [place] N/A: Spine Cervical MUSCULOSKELETAL TRANSPLANT FND 10/05/2015 [id number] / [id number] / Duragen Plus 2x2 Dp 1022 Min5 - [id number] Implanted:Qt y: 1 on 07/16/2014 by Malcolm Woodward MD [place] [facility] [place] N/A: Spine Cervical [employer] GAVIN 08/25/2016 DP-1022 / / [id number] Screw 3.5x10mm 04.615.010 - [id number] Implanted:Qt y: 1 on 07/16/2014 by Malcolm Woodward MD at [place] [facility] [place] N/A: Spine Cervical SYNTHES 04.615.010 / / Screw 3.5x12mm - [id number] Implanted:Qt y: 1 on 07/16/2014 by Malcolm Woodward MD at [place] [facility] [place] N/A: Spine Cervical SYNTHES 04.615.012 / / Screw 3.5x14mm 04.615.014 - [id number] Implanted:Qt y: 4 on 07/16/2014 by Malcolm Woodward MD at [place] [facility] [place] N/A: Spine Cervical SYNTHES 615.014 / / Screw 3.5x16mm - [id number] Implanted:Qt y: 2 on 07/16/2014 by Malcolm Woodward MD at [place] [facility] [place] N/A: Spine Cervical SYNTHES 04.615.016 / / Cap Lkg 04.614.508 - [id number] Implanted:Qt y: 8 on 07/16/2014 by Malcolm Woodward MD at [place] [facility] [place] N/A: Spine Cervical SYNTHES 614.508 / / 80mm Jose J Implanted:Qt y: 2 on 07/16/2014 by Malcolm Woodward MD at [place] [facility] [place] N/A: Spine Cervical SYNTHES SPINE 615.530 / / Screw Set Sng Inner [id number] - [id number] Implanted:Qt y: 4 on 05/13/2016 by Malcolm Woodward MD at [place] [facility] [place] JNJ : ETHICON CARDIOVATIONS 05/14/2016 [id number] / / Description:in set Screw 7x50 Poly Si [id number] - [id number] Implanted:Qt y: 4 on 05/13/2016 by Malcolm Woodward MD at [place] [facility] [place] JNJ : ETHICON CARDIOVATIONS 05/14/2016 [id number] / / Description:in set Pre Lordosed Jose J W Line 45mm - [id number] Implanted:Qt y: 2 on 05/13/2016 by Malcolm Woodward MD at [place] [facility] [place] JNJ : DEPUY SPINE 05/14/2016 [id number] / / Description:in set Expedium Ti Sfx 5.5 Lat A6 - [id number] Implanted:Qt y: 1 on 05/13/2016 by Malcolm Woodward MD at [place] [facility] [place] JNJ : ETHICON CARDIOVATIONS 05/14/2016 [id number] / / Description:in set documented as of [...] Protein-calorie malnutrition, unspecified severity (HCC) Atherosclerosis of koi coronary artery of koi heart without angina pectoris Paroxysmal atrial fibrillation (HCC) Atrial fibrillation COPD, severity to be determined (HCC) Chronic airway obstruction, not elsewhere classified Laceration of spleen, subsequent encounter Atherosclerosis of koi coronary artery of koi heart without angina pectoris- Primary Paroxysmal atrial [...] artery occlusion with cerebral infarction Atherosclerosis of koi coronary artery of koi heart without angina pectoris Heart failure, systolic, [...] (do not resuscitate) Do not resuscitate status Protein-calorie malnutrition (HCC)- Primary Unspecified protein-calorie malnutrition documented in this encounter Advance Directives * [...] Power of Attor jana? No Care Teams Wood Planer Relationship Specialty Start Date End Date Chelo Trotter MD [address] [place] [address] [place] [address] PCP - General Family Medicine 05/02/24 documented as of this encounter
--- OUTSIDE RECORDS SUMMARY | 2024-10-25 09:08 | External Medical Summary | Summary of Care ---
Author Name Unknown Organization [facility] Address [address] [facility] [place] [address] Phone [phone] Care Team Providers Care Armature Straightener Name Role Phone Chelo Trotter MD Primary Care Provide r Reason for Visit * Reason Comments eRx-Medication Refill Encounter Details Date Type Department Care Team (Late st Contact Info) Description 06/28/2024 Refill Family Medicine [address] [phone] Chelo Trotter MD [address] [place] [address] [place] [address] Benign prostatic hyperplasia with weak urinary stream Allergies No known active allergiesdocumented as of this encounter (statuses as of 06/29/2024) Medications Multivitamin Adult Oral Tablet Take 1 [...] by mouth at bedtime. 90 Tablet 3 024 Active Megavite Fruits & Veggies Oral Tablet Take 1 Tablet by mouth every morning. Active Metoprolol Succinate ER 25 MG Oral [...] Respimat 2.5 MCG/ACT Inhalation Aerosol Solution (Tiotropium [place] Monohydrate) Inhale 2 Puffs by mouth in the morning. 1 Each 3 024 Active FLUoxetine HCl 20 MG Oral Capsule (PROzac) Take 1 Capsule by mouth in the morning. 90 Capsule 3 024 Active Additional Information Patient taking differently: 40 mgOral Daily(AM), Reported on 05/02/2024 predniSONE 10 MG Oral Tablet (Deltasone) Take [...] ns:COPD, group D, by GOLD 2017 classification ([facility]) Inhale 1 Ampule by mouth every 4 hours as needed for Wheezing or Shortness of Breath. Active Albuterol Sulfate HFA 108 (90 Base) MCG/ACT Inhalation Aerosol SolutionIndicatio ns:COPD, group D, by GOLD 2017 classification ([facility]) Inhale 2 Puffs by mouth every 4 hours as needed for Wheezing. 18 g 5 024 Active Spironolactone 25 MG Oral Tablet (Aldactone)Indica tions:Heart failure, systolic, with acute decompensation (HCC) Take 1 Tablet by mouth in the morning. 90 Tablet 3 024 Active Apixaban 5 MG Oral Tablet (Eliquis) Take 1 Tablet by mouth in the morning and 1 Tablet before bedtime. 180 Tablet 3 Active Ipratropium [place] 0.02 % Inhalation Solution (Atrovent) use 1 vial via nebulizer every 4 hours if needed for shortness of breath or wheezing 75 mL 5 Active Finasteride 5 MG Oral Tablet (Proscar)Indicati ons:Benign prostatic hyperplasia with weak urinary stream TAKE ONE TABLET BY MOUTH EVERY DAY 90 Tablet 1 Active Finasteride 5 MG Oral Tablet (Proscar)Indicati ons:Benign prostatic hyperplasia with weak urinary stream TAKE ONE TABLET BY MOUTH EVERY DAY 90 Tablet 024 2023 Discontinued documented as of this encounter (statuses as of 06/29/2024) Active Problems Patient Care Coordination No te [...] 20 mg daily x [address] [facility] when initiating Exacerbation Plan o BMP [...] o Weigh daily o Reach out to rn case manager hospice if starting any sort of diuretic titration [...] Overview (02/09/2014): 1 mm C5-6 Atherosclerosis of [place] co ronary artery of [place] heart without angina pectoris 04/25/2010 Overview (05/05/2013): NE Assessment & Plan (01/01/2023 10:45 AM EDT): Continue Eliquis, atorvastatin, metoprolol at new reduced dose of 25 mg daily. No a secondary to hypotension. Assessment & Plan (11/09/2022 12:05 PM EDT): Stable -continue Toprol, aspirin, statin, Eliquis. No Markos, likely due to hypotension. Assessment & Plan (10/28/2022 6:29 PM EDT): Stable -continue Toprol, aspirin, statin, Eliquis. No Markos, likely due to hypotension. Old NE (myocardial infarction) 07/26/2009 Cervical spine degeneration Overview (02/09/2014): multilevel Osteoarthritis of spine with myelopathy, lumbar region documented as of this encounter (statuses as of 06/29/2024) Resolved Problems Problem Noted Date Diagnosed Date [...] as of this encounter (statuses as of 06/29/2024) Immunizations Name Administration Dates Next Due Pneumococcal [...] encounter Miscellaneous Notes * Telephone Encounter - Madhu George, [facility] - 06/29/2024 1:13 PM EST Signed Prescriptions: Disp Refills Finasteride 5 MG Oral Tablet (Proscar) 90 Tab*1 Sig: TAKE ONE TABLET BY MOUTH EVERY DAYAuthorizing Provider: Nini TROTTER User: MADHU GEORGE documented in this encounter Plan of Treatment Upcoming Encounters Date Type Department Care Team (Late st Contact Info) Description 07/14/2024 8:30 AM EST [facility] Visit [facility], [facility] [address] [place] [address] Carley Martinez, RN [address] [place] [address] 07/17/2024 10:30 AM EST Scheduled Telephone [facility], [facility] [address] [facility] [place] [address] Dorota Monroy RDN [address] [facility] [place] [address] 01/09/2025 3:00 PM EDT Office Visit Cardiology [address] [place] [address] Zaid Ramsey PAEnioC [address] [place] [address] 01/12/2025 8:00 AM EDT Office Visit Family Medicine [address] [place] [phone] Chelo Trotter MD [address] [place] [address] [place] [address] Health Maintenance Due Date Last Done Comments DTap/Tdap Vaccines (1 - Tdap) 1969 Cologuard 1995 Colonoscopy 1995 Colorectal Cancer Screening 1995 Fecal Occult Blood Test 1995 Sigmoidoscopy 1995 Lung Cancer Screening 2000 Zoster Vaccines (1 of 2) 2000 Adult Wellness Visit 2016 Depression Screening 04/30/2021 04/30/2020 COVID-19 Vaccine ( season) 2024 CKD HGB USE SMARTSET 02631 11/15/202411/15, 11/16/2023, 11/25/2022, Additional history exists GFR 11/21/2024 05/23/2024, 02/2024, 02/25/2024, Additional history exists CKD PHOS USE SMARTSET 73868 05/02/202502/2024, 11/25/2022, 11/12/2020, Additional history exists Albumin/Creatinine [...] this encounter Medical Devices Implanted Type Area Figure Refinisher And Repairer Device Identifier Shelf Expiration Date Model / Serial / Lot Graft Cervical 5x7 [id number] - [id number] Implanted:Qt y: 3 on 07/16/2014 by Malcolm Woodward MD at OR [facility] [place] Tissue - Human N/A: Neck Lifenet Co [id number] / / Dbx 2.5cc 558812 - [id number] Implanted:Qt y: 1 on 07/16/2014 by Malcolm Woodward MD at OR [facility] [place] N/A: Spine Cervical MUSCULOSKELETAL TRANSPLANT FND 10/05/2015 671736 / [id number] / Duragen Plus 2x2 Dp 1022 Min5 - [id number] Implanted:Qt y: 1 on 07/16/2014 by Malcolm Woodward MD at OR [facility] [place] N/A: Spine Cervical [employer] GAVIN 08/25/2016 DP-1022 / / [id number] Screw 3.5x10mm 04.615.010 - [id number] Implanted:Qt y: 1 on 07/16/2014 by Malcolm Woodward MD at OR [facility] [place] N/A: Spine Cervical SYNTHES 04.615.010 / / Screw 3.5x12mm - [id number] Implanted:Qt y: 1 on 07/16/2014 by Malcolm Woodward MD at OR [facility] [place] N/A: Spine Cervical SYNTHES 04.615.012 / / Screw 3.5x14mm 04.615.014 - [id number] Implanted:Qt y: 4 on 07/16/2014 by Malcolm Woodward MD at OR [facility] [place] N/A: Spine Cervical SYNTHES 04.615.014 / / Screw 3.5x16mm - [id number] Implanted:Qt y: 2 on 07/16/2014 by Malcolm Woodward MD at OR [facility] [place] N/A: Spine Cervical SYNTHES 04.615.016 / / Cap Lkg 04.614.508 - [id number] Implanted:Qt y: 8 on 07/16/2014 by Malcolm Woodward MD at OR [facility] [place] N/A: Spine Cervical SYNTHES 04.614.508 / / 80mm Jose J Implanted:Qt y: 2 on 07/16/2014 by Malcolm Woodward MD at OR [facility] [place] N/A: Spine Cervical SYNTHES SPINE 04.615.530 / / Screw Set Sng Inner [id number] - [id number] Implanted:Qt y: 4 on 05/13/2016 by Malcolm Woodward MD at OR [facility] [place] JNJ : ETHICON CARDIOVATIONS 05/14/2016 [id number] / / Description:in set Screw 7x50 Poly Si [id number] - [id number] Implanted:Qt y: 4 on 05/13/2016 [facility] ETHICON CARDIOVATIONS 05/14/2016 [id number] / / Description:in set Pre Lordosed Jose J W Line 45mm - [id number] Implanted:Qt y: 2 on 05/13/2016 by Malcolm Woodward MD at OR [facility] [place] JNJ : DEPUY SPINE 05/14/2016 [id number] / / Description:in set Expedium Ti Sfx 5.5 Lat A6 - [id number] Implanted:Qt y: 1 on 05/13/2016 by Malcolm Woodward MD at OR [facility] [place] JNJ : ETHICON CARDIOVATIONS 05/14/2016 [id number] / / Description:in set documented as of [...] Protein-calorie malnutrition, unspecified severity (HCC) Atherosclerosis of [place] coronary artery of [place] heart without angina pectoris Paroxysmal atrial fibrillation (HCC) Atrial fibrillation COPD, severity to be determined (HCC) Chronic airway obstruction, not elsewhere classified Laceration of spleen, subsequent encounter Atherosclerosis of [place] coronary artery of [place] heart without angina pectoris- Primary Paroxysmal atrial [...] artery occlusion with cerebral infarction Atherosclerosis of [place] coronary artery of [place] heart without angina pectoris Heart failure, systolic, due to idiopathic cardiomyopathy (HCC) Unspecified systolic heart failure Paroxysmal atrial fibrillation (HCC) Atrial fibrillation COPD, severity to be determined (HCC) Chronic airway obstruction, not elsewhere classified BPH without obstruction/lower urinary tract symptoms Hypertrophy of prostate without urinary obstruction and other lower urinary tract symptoms (LUTS) COPD, group B, by GOLD 2017 classification ([facility])- Primary Heart failure, systolic, due to idiopathic cardiomyopathy (HCC) Unspecified systolic heart failure Paroxysmal atrial fibrillation (HCC) Atrial fibrillation DNR (do not resuscitate) Do not resuscitate status Benign prostatic hyperplasia with weak urinary stream documented in this encounter Advance Directives * [...] Power of Attor jana? No Care Teams Armature Straightener Relationship Specialty Start Date End Date Chelo Trotter MD [address] [place] [address] [place] [address] PCP - General Family Medicine 05/02/24 documented as of this encounter
--- OUTSIDE RECORDS SUMMARY | 2024-10-25 09:08 | External Medical Summary | Summary of Care ---
Author Name Unknown Organization [facility] Address [address] [place] [address] Phone [phone] Care Team Providers Care Eyelet Machine Operator Name Role Phone Chelo Trotter MD Primary Care Provide r Encounter Details Date Type Department Care Team (Late st Contact Info) Description 07/14/2024 8:30 AM EST [facility] [address] [facility] [place] [address] Carley Martinez, RN [address] [facility] [place] [id number] Allergies No known active allergiesdocumented as of [...] Respimat 2.5 MCG/ACT Inhalation Aerosol Solution (Tiotropium Colgate Monohydrate) Inhale 2 Puffs by mouth in [...] D, by GOLD 2017 classification ([facility]) Inhale 1 Ampule by mouth every 4 hours as needed for Wheezing or Shortness of Breath. 05/02/20 24 Active Albuterol Sulfate HFA 108 (90 Base) MCG/ACT Inhalation Aerosol SolutionIndication s:COPD, group D, by GOLD 2017 classification ([facility]) Inhale 2 Puffs by mouth every 4 [...] 180 Tablet 3 06/21/20 24 Active Ipratropium Colgate 0.02 % Inhalation Solution (Atrovent) use 1 vial via nebulizer every 4 hours if needed for shortness of breath or wheezing 75 mL 5 06/27/20 24 Active Finasteride 5 MG Oral Tablet (Proscar)Indicatio ns:Benign prostatic hyperplasia with weak urinary stream TAKE ONE TABLET BY MOUTH EVERY DAY 90 Tablet 1 06/29/20 24 Active Megavite Fruits & Veggies Oral Tablet Take 1 Tablet by mouth every morning. 024 Discontin ued(Medic ation List Clean Up) documented as of this encounter (statuses as [...] 20 mg daily x 3 days. Notify [facility] when initiating Exacerbation Plan o BMP o [...] Weigh daily o Reach out to case management rn if starting any sort of diuretic titration [...] Overview (02/09/2014): 1 mm C5-6 Atherosclerosis of [place] co ronary artery of [place] heart without angina pectoris 04/25/2010 Overview (05/05/2013): SC Assessment & Plan (01/01/2023 10:45 AM EDT): Continue Eliquis, atorvastatin, metoprolol at new reduced dose of 25 mg daily. No a secondary to hypotension. Assessment & Plan (11/09/2022 12:05 PM EDT): Stable -continue Toprol, aspirin, statin, Eliquis. No Markos, likely due to hypotension. Assessment & Plan (10/28/2022 6:29 PM EDT): Stable -continue Toprol, aspirin, statin, Eliquis. No Markos, likely due to hypotension. Old SC (myocardial infarction) 07/26/2009 Cervical spine degeneration Overview [...] on file documented as of this encounter Last Filed Vital Signs Vital Sign Reading Time Taken Comments Blood Pressure 86/50 07/14/2024 9:00 AM EST Pulse 76 07/14/2024 9:00 AM EST Temperature 36.3 °C (97.3 °F) 07/14/2024 9:00 AM ES T Respiratory Rate 18 07/14/2024 9:00 AM EST Oxygen Saturation 88% 07/14/2024 9:00 AM EST Inhaled Oxygen Concentration - - Weight - - Height - - Body Mass Index - - documented in this encounter Functional Status * Are you [...] Assessment Author No 06/03/2018 7:15 PM EST Monika Salas RN * Do you have difficulty dressing [...] Monika Poole RN documented in this encounter Progress Notes * Carley Martinez RN - 07/14/2024 8:55 AM EST Current Concerns: Patient seen for follow up- COPD, Afib, hx of CVA- right hemiparesis and aphasia [facility] Doing well per . VS wnl Lungs wheeze bilaterally Moist nonproductive cough Sob with exertion Nonpitting edema BLE Voiding without difficulty Bowels wnl Appetite good Taking fluids well Patient is comfortable with hospice interventions. Will close GAH episode. Physical Exam: Physical Exam Constitutional: Appearance: Normal appearance. Cardiovascular: Rate and Rhythm: Normal rate. Rhythm irregular. Pulses: Normal pulses. Pulmonary: Effort: Pulmonary effort is normal. Breath sounds: Wheezing present. Abdominal: General: Bowel sounds are normal. Palpations: Abdomen is soft. Musculoskeletal: General: Normal range of motion. Right lower leg: Edema present. Left lower leg: Edema present. Skin: General: Skin is warm and dry. Capillary Refill: Capillary refill takes 2 to 3 seconds. Neurological: General: No focal deficit present. Mental Status: He is alert and oriented to person, place, and time. Psychiatric: Mood and Affect: Mood normal. Behavior: Behavior normal. Review of Systems: Review of Systems Constitutional: Negative. Respiratory: Positive for shortness of breath. Cardiovascular: Positive for leg swelling. Gastrointestinal: Negative. Genitourinary: Negative. Musculoskeletal: Positive for gait problem. Skin: Negative. Hematological: Negative. Psychiatric/Behavioral: Negative. Care Plan Goal Progress: Orders Placed: No orders of the defined types were placed in this encounter. Medications Given: Care Gaps: Care Gaps Care gaps closed this contact: Education (07/17/24901) Type of education: Clinical/disease (07/17/249[address]) documented in this encounter Plan of Treatment Upcoming Encounters Date Type Department Care Team (Late st Contact Info) Description 07/17/2024 10:30 AM EST Scheduled Telephone [facility] [address] [place] [address] Dorota Monroy RDN [address] [facility] [place] [address] 01/09/2025 3:00 PM EDT Office Visit Cardiology [address] [place] [address] Zaid Ramsey PA-C [address] [place] [address] 01/12/2025 8:00 AM EDT Office Visit Family Medicine [address] [place] [phone] Chelo Trotter MD [address] [place] [address] [place] [address] Health Maintenance Due Date Last Done Comments DTap/Tdap Vaccines (1 - Tdap) 1969 Cologuard 1995 Colonoscopy 1995 Colorectal Cancer Screening 1995 Fecal Occult Blood Test 1995 Sigmoidoscopy 1995 Lung Cancer Screening 2000 Zoster Vaccines (1 of 2) 2000 Adult Wellness Visit 2016 Depression Screening 04/30/2021 04/30/2020 COVID-19 Vaccine ( season) 2024 CKD HGB USE SMARTSET 34310 11/15/202411/15, 11/16/2023, 11/25/2022, Additional history exists GFR 11/21/2024 05/23/2024, 02/2024, 02/25/2024, Additional history exists CKD PHOS USE SMARTSET 58769 05/02/202502/2024, 11/25/2022, 11/12/2020, Additional history exists Albumin/Creatinine Ratio 05/04/20252 024, 09/26/2021, 03/22/2018 AAA Screening Completed 12/09/2015 [...] this encounter Medical Devices Implanted Type Area Tool Room Attendant Device Identifier Shelf Expiration Date Model / Serial / Lot Graft Cervical 5x7 [id number] - [id number] Implanted:Qt y: 3 on 07/16/2014 by Malcolm Woodward MD at [facility] Tissue - Human N/A: Neck [employer] Co [id number] / / Dbx 2.5cc [id number] - [id number] Implanted:Qt y: 1 on 07/16/2014 by Malcolm Woodward MD at [facility] N/A: Spine Cervical MUSCULOSKELETAL TRANSPLANT FND 10/05/2015 [id number] / [id number] / Duragen Plus 2x2 Dp 1022 Min5 - [id number] Implanted:Qt y: 1 on 07/16/2014 by Malcolm Woodward MD at [facility] N/A: Spine Cervical [employer]IN 08/25/2016 DP-1022 / / [id number] Screw 3.5x10mm 04.615.010 - [id number] Implanted:Qt y: 1 on 07/16/2014 by Malcolm Woodward MD at [facility] N/A: Spine Cervical SYNTHES 04.615.010 / / Screw 3.5x12mm - [id number] Implanted:Qt y: 1 on 07/16/2014 by Malcolm Woodward MD at [facility] N/A: Spine Cervical SYNTHES 04.615.012 / / Screw 3.5x14mm 04.615.014 - [id number] Implanted:Qt y: 4 on 07/16/2014 by Malcolm Woodward MD at [facility] N/A: Spine Cervical SYNTHES 04.615.014 / / Screw 3.5x16mm - [id number] Implanted:Qt y: 2 on 07/16/2014 by Malcolm Woodward MD at [facility] N/A: Spine Cervical SYNTHES 04.615.016 / / Cap Lkg 04.614.508 - [id number] Implanted:Qt y: 8 on 07/16/2014 by Malcolm Woodward MD at [facility] N/A: Spine Cervical SYNTHES 04.614.508 / / 80mm Jose J Implanted:Qt y: 2 on 07/16/2014 by Malcolm Woodward MD at [facility] N/A: Spine Cervical SYNTHES SPINE 04.615.530 / / Screw Set Sng Inner [id number] - [id number] Implanted:Qt y: 4 on 05/13/2016 by Malcolm Woodward MD at [facility] JNJ : ETHICON CARDIOVATIONS 05/14/2016 [id number] / / Description:in set Screw 7x50 Poly Si [id number] - [id number] Implanted:Qt y: 4 on 05/13/2016 by Malcolm Woodward MD at [facility] JNJ : ETHICON CARDIOVATIONS 05/14/2016 [id number] / / Description:in set Pre Lordosed Jose J W Line 45mm - [id number] Implanted:Qt y: 2 on 05/13/2016 by Malcolm Woodward MD at [facility] JNJ : DEPUY SPINE 05/14/2016 [id number] / / Description:in set Expedium Ti Sfx 5.5 Lat A6 - [id number] Implanted:Qt y: 1 on 05/13/2016 by Malcolm Woodward MD at [facility] JNJ : ETHICON CARDIOVATIONS 05/14/2016 [id number] / / Description:in set documented as of [...] Power of Attor jana? No Care Teams Eyelet Machine Operator Relationship Specialty Start Date End Date Chelo Trotter MD [address] [place] [address] [place] [phone] PCP - General Family Medicine 05/02/24 documented as of this encounter
--- OUTSIDE RECORDS SUMMARY | 2024-10-25 09:09 | External Medical Summary | Summary of Care ---
Author Name Unknown Organization [facility] Address [address] [place] [address] Phone [phone] Care Team Providers Care Learning And Development Director Name Role Phone Chelo Trotter MD Primary Care Provide r Reason for Visit * Reason Comments Follow Up 3 1/2 month follow u p. Denies chest pain, palpitations, SOB, dizziness and edema. Encounter Details Date Type Department Care Team (Latest Contact Info) Description 05/23/2024 12:00 PM EDT Office Visit Cardiology [address] [place] [address] Zaid Ramsey PA-C [address] [place] [id number] Encounter for monitoring diuretic therapy*; Chronic atrial fibrillation (HCC); Heart failure, systolic, with acute decompensation (HCC); Dyslipidemia, goal LDL below 70; Atherosclerosis of [place] coronary artery of [place] heart without angina pectoris; Ischemic cardiomyopathy Allergies No known active allergiesdocumented as of this encounter (statuses as of 05/24/2024) Medications Medication Sig Dispensed Refills Start Date End Date Status Multivitamin Adult Oral Tablet Take 1 Tablet by mouth daily. Active guaiFENesin ER 600 MG Oral Tablet Extended Release 12 Hour Take 1 Tablet by mouth in the morning. Active Fluticasone Furoate-Vilanterol 100-25 MCG/ACT Inhalation Aerosol Powder Breath Activated (BREO ellipta) Inhale 1 Puff by mouth in the morning. Active Ipratropium [place] 0.02 % Inhalation Solution (Atrovent) use 1 vial via nebulizer every 4 hours if needed for shortness of breath or wheezing 75 mL 5 11/10/2023 Active Atorvastatin Calcium 40 MG Oral Tablet (Lipitor)Indications :Dyslipidemia, goal LDL below 100 Take 1 Tablet by mouth at bedtime. 90 Tablet 3 11/10/2023 Active Megavite Fruits & Veggies Oral Tablet Take 1 Tablet by mouth every morning. Active Metoprolol Succinate ER 25 MG Oral Tablet Extended Release 24 Hour (toPROL XL) Take 1 Tablet by mouth in the morning. 90 Tablet 3 11/16/2023 Active Apixaban 5 MG Oral Tablet (Eliquis) Take 1 Tablet by mouth in the morning and 1 Tablet before bedtime. 180 Tablet 1 12/03/2023 Active Furosemide 20 MG Oral Tablet (Lasix)Indications:H eart failure, systolic, with acute decompensation (HCC) 40 mg on Wednesday's, Wednesday's, and Wednesday's, 20 mg all other days 135 Tablet 3 02/01/2024 Active Spiriva Respimat 2.5 MCG/ACT Inhalation Aerosol Solution (Tiotropium [place] Monohydrate) Inhale 2 Puffs by mouth in the morning. 1 Each 3 03/09/2024 Active FLUoxetine HCl 20 MG Oral Capsule (PROzac) Take 1 Capsule by mouth in the morning. 90 Capsule 3 03/16/2024 Active Additional Information Patient taking differently: 40 mgOral Daily(AM), Reported on 05/02/2024 predniSONE 10 MG Oral Tablet (Deltasone) Take 1 Tablet by mouth in the morning. 90 Tablet 3 03/16/2024 Active Azithromycin 500 MG Oral Tablet (Zithromax) Take 1 Tablet by mouth once a day on Wednesday, Wednesday, and Wednesday only. 36 Tablet 3 03/24/2024 Active Finasteride 5 MG Oral Tablet (Proscar)Indications :Benign prostatic hyperplasia with weak urinary stream TAKE ONE TABLET BY MOUTH EVERY DAY 90 Tablet 04/07/2024 Active Allopurinol 300 MG Oral Tablet (Zyloprim)Indication s:Acute idiopathic gout involving toe of right foot TAKE ONE TABLET BY MOUTH EVERY DAY 90 Tablet 3 05/03/2024 Active Levalbuterol HCl 1.25 MG/0.5ML Inhalation Nebulization SolutionIndications: COPD, group D, by GOLD 2017 classification ([facility]) Inhale 1 Ampule by mouth every 4 hours as needed for Wheezing or Shortness of Breath. 05/02/2024 Active Albuterol Sulfate HFA 108 (90 Base) MCG/ACT Inhalation Aerosol SolutionIndications: COPD, group D, by GOLD 2017 classification ([facility]) Inhale 2 Puffs by mouth every 4 hours as needed for Wheezing. 18 g 5 05/02/2024 Active Spironolactone 25 MG Oral Tablet (Aldactone)Indicatio ns:Heart failure, systolic, with acute decompensation (HCC) Take 1 Tablet by mouth in the morning. 90 Tablet 3 05/03/2024 Active documented as of this encounter (statuses as of 05/24/2024) Active Problems Patient Care Coordination No te [...] without obstruction/lower urinary tract symp toms 01/01/2023 Last Assessment & Plan: Symptoms stable -continue finasteride -tamsulosin recently reduced to every other day due to hypotension Aphasia, post-stroke 11/09/2022 Last Assessment & Plan: Residual aphasia and left-sided weakness from stroke 2-3 years ago -continue Eliquis, statin, metoprolol, aspirin Protein-calorie malnutrition 10/28/2022 Cellulitis of right upper extremity 10/28/2022 Last Assessment & Plan: Redness and edema much improved. Ultrasound negative for DVT. Finish antibiotics. Laceration of spleen 09/15/2022 Overview: fell on 09/12 Dyslipidemia, goal LDL below 100 08/01/2020 Last Assessment & Plan: Continue atorvastatin Gout of left foot 06/10/2018 Last Assessment & Plan: No current flare. -continue allopurinol Paroxysmal atrial fibrillation 06/03/2018 Last Assessment & Plan: Rate controlled -continue Eliquis -continue metoprolol succinate 25 mg daily Heart failure, systolic, due to idiopathic cardi omyopathy 03/18/2018 Last Assessment & Plan: "RED FLAG" HF Symptoms: Leg Swelling (Examples: "I can't wear certain socks or shoes", "My pants feel tight") Increased dyspnea on exertion (Example: "I can't walk to the kitchen or up the stairs") Medication Regimen: Beta Xiomy Therapy: Metoprolol Succinate (ER) TRISTON Inhibitor/ARB Therapy: No TRISTON/ARB/ARNI secondary to: hypotension Diuretic therapy: Lasix Self - Management Plan Other/Additional Comments: using lasix prn Exacerbation Plan Chest X-Ray Stage 3a chronic kidney disease 04/08/2017 Overview: GFR 54.3 Last Assessment & Plan: Last GFR 63 on 09/2022 Anterolisthesis 02/08/2014 Overview: 1 mm C5-6 Atherosclerosis of [place] co ronary artery of [place] heart without angina pectoris 04/25/2010 Overview: [place] Last Assessment & Plan: Continue Eliquis, atorvastatin, metoprolol at new reduced dose of 25 mg daily. No a secondary to hypotension. 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, lumbar region documented as of this encounter (statuses as of 05/24/2024) Resolved Problems Problem Noted Date Diagnosed Date Resolved Date COPD, group D, by GOLD 2017 classification 10/04/2023 05/02/2024 Overview: Per COPD GOLD Classification COPD, group B, by GOLD 2017 classification 03/08/2023 10/07/2023 Overview: Per COPD GOLD Classification Last Assessment & Plan: "RED FLAG" COPD symptoms: Increased dyspnea on [...] Exacerbation plan Ceftriaxone 1g IM/IV Chest Xray Localized edema 11/09/2022 06/10/2023 Last Assessment & Plan: Improved since starting Lasix. Weight 200 lb today. Baseline. 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 Never true 04/24/20 24 Within the past 12 months, t he food you bought just didn't last and you didn't have money to get more. Never true 04/24/2024 Childcare Answer Date Recorded Do you feel overwhelmed with taking care of a child, family member or friend? No 04/24/2024 Does your family need help f inding childcare? (Household - for ages 0-17 years) Not on file 04/24/2024 Clothing Answer Date Recorded Have you been unable to get clothing when it was really needed? No 04/24/2024 Is your family able to get c lothes or diapers when needed? (Household - for ages 0-17 years) Not on file 04/24/2024 Personal Safety Answer Date Recorded Do you feel unsafe or have concerns for your saf ety? No 04/24/2024 Do you have concerns for you r family's safety? (Household - for ages 0-17 years) Not on file 04/24/2024 Utilities Answer Date Recorded Do you have trouble paying y our heating, water, or electric bill? No 04/24/2024 Is your family able to pay t he heat, water, or electric bill? (Household - for ages 0-17 years) Not on file 04/24/2024 Does your family have access to good internet? (Household - for ages 0-17 years) Not on file 04/24/2024 Employment Status Answer Date Recorded Are you unemployed or without regular income? No 04/24/2024 Does the household have a re lar source of income? (Household - for ages 0-17 years) Not on file 04/24/2024 Social Connections Answer Date Recorded How often do you feel lonely or isolated from th ose around you? Never 04/24/2024 Financial Resource Strain Answer Date R ecorded Do you have any trouble payi ng for your medications, or do you think you might in the future? No 04/24/2024 Does your family have troubl e paying for medicine? (Household - for ages 0-17 years) Not on file 04/24/2024 Transportation Needs Answer Date Record ed Do you have trouble getting a ride to medical visits or work? (Adult - for ages 18 years and over) Not on file 04/24/2024 Does your family have a hard time getting a ride to doctors visits? (Household - for ages 0-17 years) Not on file 04/24/2024 Has lack of transportation k ept you from medical appointments, meetings, work, or from getting things needed for daily living? Check all that apply. No 04/24/2024 Do you (or your family) have trouble finding or paying for a ride (transportation)? (Household - for ages 0-17 years) Not on file 04/24/2024 Housing Stability Answer Date Recorded Do you currently live in a s helter or have no steady place to sleep at night? No 04/24/2024 Do you think you are at risk of becoming homeless? (Adult - for ages 18 years and over) Not on file 04/24/2024 Does your family worry about paying for your home or becoming homeless? (Household - for ages 0-17 years) Not on file 0 04/24/2024 Are you homeless or worried that you might be in the future? No 04/24/2024 Are you (or your family) mt eless or worried that you might be in the future? (Household - for ages 0-17 years) Not on file Food Insecurity Answer Date Recorded Do you need food for this week? No 04/24/2024 Are you able to get enough f ood for your family? (Household - for ages 0-17 years) Not on file 04/24/2024 Does your family need food t his week? (Household - for ages 0-17 years) Not on file 04/24/2024 Do you always have enough fo od for your family? (Household - for ages 0-17 years) Not on file 04/24/2024 Sex and Gender Information Value Date Recorded Sex Assigned at Not on file Gender Identity Not on file Sexual Orientation Not on file Job Start Date Occupation Industry Not on file Not on file Not on file documented as of this encounter Last Filed Vital Signs Vital Sign Reading Time Taken Comments Blood Pressure 108/68 05/23/2024 11:52 AM EDT Pulse 68 05/23/2024 11:52 AM EDT Temperature - - Respiratory Rate 16 05/23/2024 11:52 AM EDT Oxygen Saturation - - Inhaled Oxygen Concentration - - Weight 92.8 kg (204 lb 8 oz) 05/23/2024 11:52 AM EDT Height - - Body Mass Index 29.34 02/24/2023 1:00 PM EDT documented in this encounter Functional Status Functional Status Response Date of Assess ment Are you deaf or do you have serious difficulty h earing? No 06/03/2018 Are you blind or do you have serious difficulty seeing, even when wearing glasses? No 06/03/2018 Do you have serious difficul ty walking or climbing stairs? (5 years old or older) No 06/03/2018 Do you have difficulty dress ing or bathing? (5 years old or older) No 06/03/2018 Because of a physical, menta l, or emotional condition, do you have difficulty doing errands alone such as visiting a doctor s office or shopping? (15 years old or older) No 06/03/20 18 Cognitive Status Response Date of Assessm ent Because of a physical, menta l, or emotional condition, do you have serious difficulty concentrating, remembering, or making decisions? (5 years old or older) No 06/03/2018 documented as of this encounter Progress Notes * Zaid Ramsey PA-C - 05/23/2024 12:09 PM EDT History of Present Illness: Demetri Romero . Is a 73 year old male who returns today for close cardiology follow-up. He is accompanied by spouse Yola. Furosemide and spironolactone have gradually been increased over the last couple of months with significant improvement in right arm swelling, dyspnea, abdominal bloating, and lower extremity peripheral edema. Weight is down 18 lb from last evaluation. Supplemental oxygen being utilized with improvement and benefit. Overall, patient is feeling well. On questioning, he does have a little bit of dizziness with quick positional change that lasts for a second or two. No near syncope or syncope. No chest pain. No tachypalpitations. No orthopnea or PND. No melena, hematochezia, or hematuria. 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, lumbar region Stage 3a chronic kidney disease Heart failure, systolic, due to idiopathic cardiomyopathy (HCC) Paroxysmal atrial fibrillation (HCC) Gout of left foot Old [place] (myocardial infarction) Dyslipidemia, goal LDL below 100 Laceration of spleen Protein-calorie malnutrition (HCC) Cellulitis of right upper extremity Aphasia, post-stroke BPH without obstruction/lower urinary tract symptoms DNR (do not resuscitate) Past Medical History: Diagnosis Date Acute ischemic left MCA stroke (HCC) 06/03/2018 Anterolisthesis 02/08/2014 1 mm C5-6 Benign prostatic hypertrophy (BPH) with weak urinary stream BMI 33.0-33.9,adult 04/08/2017 234 lbs Cervical spine degeneration multilevel CKD (chronic kidney disease), stage III ([facility]) 04/08/2017 GFR 54.3 Community acquired pneumonia of left lung 04/24/2020 [facility] Compression fracture of T12 vertebra ([facility]) 09/12/2022 fell at home COPD (chronic obstructive pulmonary disease) ([facility]) Coronary atherosclerosis of [place] coronary artery 04/2010 [place] DVT (deep venous thrombosis) ([facility]) 04/2010 after [place] was on Coumadin for a while Fracture of two ribs with routine healing, left 09/12/2022 fell at home, was in [facility] 09/15 Gout of left foot 06/10/2018 Heart failure, systolic, due to idiopathic cardiomyopathy (HCC) 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 (HCC) Hyperlipidemia LDL goal < 100 Laceration of spleen 09/15/2022 fell on 09/12 Localized edema Need for hepatitis C screening test 02/08/2014 Hepatitis C negative [place] (myocardial infarction) 2009 Osteoarthritis of spine with myelopathy, lumbar region Pneumonia due to COVID-19 virus 07/30/2022 [facility] Shingles 09/07/2016 Spinal stenosis of lumbar region L3-4 Tobacco use disorder Past Surgical History: Procedure Laterality Date ADULT ECHOCARDIOGRAM 01/13/2022 moderate posterior and lateral wall motion abnormalites, EF 45-49%, Mod LA enlargement CARDIAC STENT PLACEMENT, PERCUTANEOUS, 1 VESSEL 05/05/2010 [facility], complex PCI with aspiration thrombectomy and placement of 2 bare metal stents in Left Circ LUMBAR SPINE FUSION, POSTEROLATERAL N/A 05/13/2016 ARTHRODESIS SPINE POSTERIOR LUMBAR performed by Malcolm Woodward MD at [facility] NECK SPINE FUSION (CERV, BELOW C2) N/A 07/16/2014 ARTHRODESIS SPINE ANTERIOR CERVICAL performed by Malcolm Woodward MD at [facility] [address] NECK SPINE FUSION (CERV, BELOW C2) N/A 07/16/2014 ARTHRODESIS SPINE POSTERIOR CERVICAL DUAL APPROACH performed by Malcolm Woodward MD at [facility] [address] REMOVE LUMBAR SPINE LAMINA, 1 SEG N/A 05/13/2016 LAMINECTOMY FACETECTOMY AND FORAMINOTOMY LUMBAR performed by Malcolm Woodward MD at OR [facility] US AAA SCREEN, VASCULAR LAB atherosclerotic changes, 24x2.6 cm no AAA US ABDOMEN LIMITED Left 09/24/2022 spleen normal Family History Problem Relation Name Age of Onset Heart disease Mother in her 70s Heart disease Father in her 80s Stroke Father Stroke Sister Heart disease Sister Renal Hx Brother ESRD on HD Heart disease Brother Social History Socioeconomic History Marital status: Spouse name: Not on file Number of children: Not on file Years of education: Not on file Highest education level: Not on file Occupational History 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 No mold. Social Determinants of Health Financial Resource Strain: Low Risk (04/24/2024) Financial Resource Strain Do you have any trouble paying for your medications, or do you think you might in the future? (Adult - for ages 18 years and over): No Does your family have trouble paying for medicine? (Household - for ages 0-17 years): Not on file Food Insecurity: No Food Insecurity (04/24/2024) Food Insecurity Do you need food for this week? (Adult - for ages 18 years and over): No Are you able to get enough food for your family? (Household - for ages 0-17 years): Not on file Does your family need food this week? (Household - for ages 0-17 years): Not on file Do you always have enough food for your family? (Household - for ages 0-17 years): Not on file Transportation Needs: No Transportation Needs (04/24/2024) Transportation Needs Do you have trouble getting a ride to medical visits or work? (Adult - for ages 18 years and over):Not on file Does your family have a hard time getting a ride to doctors’ visits? (Household - for ages 0-17 years): Not on file Has lack of transportation kept you from medical appointments, meetings, work, or from getting things needed for daily living? Check all that apply. (Adult - for ages 18 years and over): No Do you (or your family) have trouble finding or paying for a ride (transportation)? (Household - for ages 0-17 years): Not on file Social Connections: Socially Integrated (04/24/2024) Social Connections How often do you feel lonely or isolated from those around you? (Adult - for ages 18 years and over): Never Housing Stability: Low Risk (04/24/2024) Housing Stability Do you currently live in a chcf or have no steady place to sleep at night? (Adult - for ages 18 years and over): No Do you think you are at risk of becoming homeless? (Adult - for ages 18 years and over): Not on file Does your family worry about paying for your home or becoming homeless? (Household - for ages 0-17 years): Not on file Are you homeless or worried that you might be in the future? (Adult - for ages 18 years and over): No Are you (or your family) homeless or worried that you might be in the future? (Household - for ages0-17 years): Not on file Complete Review of Systems is as stated above, negative, or noncontributory. Review of patient's allergies indicates: No Known Allergies Current Outpatient Medications Medication Sig Dispense Refill Multivitamin Adult Oral Tablet Take 1 Tablet by mouth daily. guaiFENesin ER 600 MG Oral Tablet Extended Release 12 Hour Take 1 Tablet by mouth in the morning. Fluticasone Furoate-Vilanterol 100-25 MCG/ACT Inhalation Aerosol Powder Breath Activated (BREO ellipta) Inhale 1 Puff by mouth in the morning. Ipratropium [place] 0.02 % Inhalation Solution (Atrovent) use 1 vial via nebulizer every 4 hours ifneeded for shortness of breath or wheezing 75 mL 5 Atorvastatin Calcium 40 MG Oral Tablet (Lipitor) Take 1 Tablet by mouth at bedtime. 90 Tablet 3 Megavite Fruits & Veggies Oral Tablet Take 1 Tablet by mouth every morning. Metoprolol Succinate ER 25 MG Oral Tablet Extended Release 24 Hour (toPROL XL) Take 1 Tablet by mouth in the morning. 90 Tablet 3 Apixaban 5 MG Oral Tablet (Eliquis) Take 1 Tablet by mouth in the morning and 1 Tablet before bedtime. 180 Tablet 1 Furosemide 20 MG Oral Tablet (Lasix) 40 mg on Wednesday's, Wednesday's, and Wednesday's, 20 mg all other days 135 Tablet 3 Spiriva Respimat 2.5 MCG/ACT Inhalation Aerosol Solution (Tiotropium [place] Monohydrate) Inhale 2 Puffs by mouth in the morning. 1 Each 3 FLUoxetine HCl 20 MG Oral Capsule (PROzac) Take 1 Capsule by mouth in the morning. (Patient taking differently: Take 2 Capsules by mouth in the morning.) 90 Capsule 3 predniSONE 10 MG Oral Tablet (Deltasone) Take 1 Tablet by mouth in the morning. 90 Tablet 3 Azithromycin 500 MG Oral Tablet (Zithromax) Take 1 Tablet by mouth once a day on Wednesday, Wednesday,and Wednesday only. 36 Tablet 3 Finasteride 5 MG Oral Tablet (Proscar) TAKE ONE TABLET BY MOUTH EVERY DAY 90 Tablet 0 Allopurinol 300 MG Oral Tablet (Zyloprim) TAKE ONE TABLET BY MOUTH EVERY DAY 90 Tablet 3 Levalbuterol HCl 1.25 MG/0.5ML Inhalation Nebulization Solution Inhale 1 Ampule by mouth every 4 hours as needed for Wheezing or Shortness of Breath. Spironolactone 25 MG Oral Tablet (Aldactone) Take 1 Tablet by mouth in the morning. 90 Tablet 3 Albuterol Sulfate HFA 108 (90 Base) MCG/ACT Inhalation Aerosol Solution Inhale 2 Puffs by mouth every 4 hours as needed for Wheezing. 18 g 5 No current facility-administered medications for this visit. OBJECTIVE/PHYSICAL EXAMINATION: BP 108/68 | Pulse 68 | Resp 16 | Wt 92.8 kg (204 lb 8 oz) | BMI 29.34 kg/m² | BSA 2.14 m² Examined in a chair. General: No acute distress. Pleasant. Comfortable. Cooperative. Eyes: PER. Conjunctiva pink, sclera clear. HENT: Normocephalic. Atraumatic. Neck: + Surgical scars anteriorly and posteriorly. Carotid bruits. No overt JVD. Heart: Very difficult to hear, irregularly irregular, 68 bpm. No murmur. Lungs: Diminished. Decreased. Scattered rhonchi that improve post cough. No wheeze. Abdomen: +BS. Soft. Nontender. No masses. No organomegaly. Extremities: No edema. No blisters! No clubbing. No cyanosis. Pulses: radial=2/4, posterior tibial=1/4. Neurological: with evidence of prior CVA, residual right sided effects Data: Echocardiogram 01/13/22 The examination quality was diagnostic. there is a moderate sized posterior and lateral wall motion abnormality with hypokinesis to akinesis of the segments. The left ventricular systolic function is mildly reduced. The qualitative LV ejection fraction is 45-49% (mildly reduced). The right ventricular systolic function is qualitatively normal. The left atrium is moderately enlarged. The right atrium is moderately enlarged. Mild aortic valve sclerosis is present. Aortic stenosis is absent. EKG on 11/16/2023: Atrial fibrillation with a ventricular rate of 86 bpm. January 2024 Zio Monitor: Atrial Fibrillation occurred continuously (100% burden), ranging from 45-115bpm (avg of 70 bpm). Isolated VEs were rare (<1.0%), VE Couplets were rare (<1.0%), and no VETriplets were present. ASSESSMENT/PLAN: ASCVD. Status post PCI with BMS left CX in 2009. Not on ASA Ischemic cardiomyopathy. LVEF 45-49% via December 2021 TTE Volume status: Normovolemic. Off TRISTON/ARB, borderline hypotension, chronic, stable Chronic atrial fibrillation. Rate controlled, chronically prescribed Eliquis anticoagulation Dyslipidemia, prescribed Atorvastatin 40mg daily, LDL goal is less than 70 mg/dL. LDL cholesterol 49 mg/dL on 05/02/2024 COPD. History of a CVA with residual right sided paralysis RECOMMENDATIONS/PLAN: Basic metabolic panel and magnesium level today Continue current medications as prescribed, pending #1 Resting echocardiography to be arranged at next evaluation, to reassess LV systolic function Cardiology follow-up in 4-6 months or as needed. ER with emergencies. Zaid Ramsey PA-C Department of Cardiology I spent a total of 20-29 minutes (exact time 28 mins) on the date of service in preparation, delivery, and documentation of the care provided to Demetri Romero Sr. excluding any time spent in the performance of separately billed services. This visit involved medical care services related to at least one serious condition or complex condition requiring ongoing care. This chart was completed in part utilizing [employer] Speech Voice Recognition Software. Grammatical errors, random word insertions, prounoun errors, and incomplete sentences are an occasional consequence of this system due to software limitations, ambient noise, and hardware issues. Any formal questions or concerns about the content, text, or information contained within the body of this dictation should be directly addressed to the provider for clarification. documented in this encounter Nursing Notes * Bradly Gipson LPN - 05/23/2024 11:52 AM EDT Patient identified by full name and date of Chief Complaint Patient presents with Follow Up 3 1/2 month follow up. Denies chest pain, palpitations, SOB, dizziness and edema. Examination Room: 3 Name: Demetri Romero Sr. Date of : (1950). Reason for Visit: Follow up Interim Hospitalization(s): Denies Problems/Concerns: Denies Chest Pain/SOB: Denies [facility] Discussed: Yes [facility] is a way you can talk to your provider online through e-mail. Would you like to sign up? I can activate it for you? DECLINES Patient was instructed to not get up on the exam table until directed and assisted by their provider; patient is to remain seated in the chair/ wheelchair/ exam table for fall prevention and safety reasons. Patient is aware to have assistance to step down off exam table with personnel. Patient voiced full comprehension of instructions. documented in this encounter Plan of Treatment Upcoming Encounters Date Type Department Care Team (Late st Contact Info) Description 05/26/2024 8:30 AM EDT Home Visit [facility] [place], [address] [place] [address] Carley Martinez, RN [address] [place] [address] 01/09/2025 3:00 PM EDT Office Visit Cardiology [address] [place] [address] Zaid Ramsey PA-C [address] [place] [address] 01/12/2025 8:00 AM EDT Office Visit Family Medicine [address] [place] [phone] Chelo Trotter MD [address] [place] [address] [place] [address] Health Maintenance Due Date Last Done Comments DTap/Tdap Vaccines (1 - Tdap) 1969 Cologuard 1995 Colonoscopy 1995 Colorectal Cancer Screening 1995 Fecal Occult Blood Test 1995 Sigmoidoscopy 1995 Lung Cancer Screening 2000 Zoster Vaccines (1 of 2) 2000 Adult Wellness Visit 2016 Depression Screening 04/30/2021 04/30/2020 COVID-19 Vaccine ( - season) 2024 CKD HGB USE SMARTSET 95201 11/15/202411/15, 11/16/2023, 11/25/2022, Additional history exists GFR 11/21/2024 05/23/2024, 02/2024, 02/25/2024, Additional history exists CKD PHOS USE SMARTSET 50438 05/02/202502/2024, 11/25/2022, 11/12/2020, Additional history exists Albumin/Creatinine [...] this encounter Medical Devices Implanted Type Area Multiple Drum Sander Helper Device Identifier Shelf Expiration Date Model / Serial / Lot Graft Cervical 5x7 [id number] - [id number] Implanted:Qt y: 3 on 07/16/2014 by Malcolm Woodward MD at OR [facility] [place] Tissue - Human N/A: Neck Lifenet Co [id number]-W00 / / Dbx 2.5cc [id number] - [id number] Implanted:Qt y: 1 on 07/16/2014 by Malcolm Woodward MD at OR [facility] [place] N/A: Spine Cervical MUSCULOSKELETAL TRANSPLANT FND 10/05/2015 [id number] / [id number] / Duragen Plus 2x2 Dp 1022 Min5 - [id number] Implanted:Qt y: 1 on 07/16/2014 by Malcolm Woodward MD at OR [facility] [place] N/A: Spine Cervical INTEGRA [employer]IFESCI[employer] GAVIN 08/25/2016 DP-1022 / / [id number] Screw 3.5x10mm 04.615.010 - [id number] Implanted:Qt y: 1 on 07/16/2014 by Malcolm Woodward MD at OR [facility] [place] N/A: Spine Cervical SYNTHES 04.615.010 / / Screw 3.5x12mm - [id number] Implanted:Qt y: 1 on 07/16/2014 by Malcolm Woodward MD at OR [facility] [place] N/A: Spine Cervical SYNTHES 04.615.012 / / Screw 3.5x14mm 04.615.014 - [id number] Implanted:Qt y: 4 on 07/16/2014 by Malcolm Woodward MD at OR [facility] [place] N/A: Spine Cervical SYNTHES 04.615.014 / / Screw 3.5x16mm - [id number] Implanted:Qt y: 2 on 07/16/2014 by Malcolm Woodward MD at OR [facility] [place] N/A: Spine Cervical SYNTHES 04.615.016 / / Cap Lkg .614.508 - [id number] Implanted:Qt y: 8 on 07/16/2014 by Malcolm Woodward MD at OR [facility] [place] N/A: Spine Cervical SYNTHES 04614.508 / / 80mm Jose J Implanted:Qt y: 2 on 07/16/2014 by Malcolm Woodward MD at OR [facility] [place] N/A: Spine Cervical SYNTHES SPINE 04615.530 / / Screw Set Sng Inner [id number] - [id number] Implanted:Qt y: 4 on 05/13/2016 by Malcolm Woodward MD at OR [facility] [place] JNJ : ETHICON CARDIOVATIONS 05/14/2016 [id number] / / Description:in set Screw 7x50 Poly Si [id number] - [id number] Implanted:Qt y: 4 on 05/13/2016 by Malcolm Woodward MD at OR [facility] [place] JNJ : ETHICON CARDIOVATIONS 05/14/2016 [id number] / / Description:in set Pre Lordosed Jose J W Line 45mm - [id number] Implanted:Qt y: 2 on 05/13/2016 by Malcolm Woodward MD at OR [facility] [place] JNJ : DEPUY SPINE 05/14/2016 [id number] / / Description:in set Expedium Ti Sfx 5.5 Lat A6 - [id number] Implanted:Qt y: 1 on 05/13/2016 by Malcolm Woodward MD at OR [facility] [place] JNJ : ETHICON CARDIOVATIONS 05/14/2016 [id number] / / Description:in set documented as of this encounter Results * MAGNESIUM (05/23/2024 12:23 PM EDT) Magnesium 1.9 1.5 - 2.6 mg/dL 05/24/2024 1:29 AM EDT LABORATORY [facility] Blood Venous blood specimen / Unknown Venipuncture / Unknown 05/23/2024 12:23 PM EDT 05/23/2024 12:23 PM EDT Zaid Jovelmiguel SAMUEL-Fani LAB BLOOD ORDERABLE S [facility] [address] [place] [address] * (ABNORMAL) BASIC METABOLIC PANEL (05/23/2024 12:23 PM EDT) BUN 15 6 - 20 mg/dL 05/24/2024 1:29 AM EDT [facility] CREATININE 1.4(H) 0.6 - 1.2 mg/dL 05/24/2024 1:29 AM EDT [facility] EGFR 54(L) >=60 mL/min 05/24/2024 1:29 AM EDT [facility] Comment:eGFR is calculated b ased on the CKD-EPI 2020 equation. SODIUM 139 135 - 146 mmol/L 05/24/2024 1:29 AM EDT [facility] POTASSIUM 4.0 3.5 - 5.1 mmol/L 05/24/2024 1:29 AM EDT [facility] CHLORIDE 100 98 - 107 mmol/L 05/24/2024 1:29 AM EDT [facility] CO2 21(L) 22 - 32 mmol/L 05/24/2024 1:29 AM EDT [facility] ANION GAP 18(H) 7 - 15 mmol/L 05/24/2024 1:29 AM EDT [facility] GLUCOSE 114 70 - 120 mg/dL 05/24/2024 1:29 AM EDT [facility] CALCIUM 10.0 8.4 - 10.2 mg/dL 05/24/2024 1:29 AM EDT LABORATORY C Blood Venous blood specimen / Unknown Venipuncture / Unknown 05/23/2024 12:23 PM EDT 05/23/2024 12:23 PM EDT Zaid Jovelmiguel SAMUEL-C LAB BLOOD ORDERABLE S [facility] [address] [place] [address] documented in this encounter Visit Diagnoses Diagnosis Encounter for monitoring diuretic therapy- Primary Encounter for therapeutic drug monitoring Chronic atrial fibrillation (HCC) Atrial fibrillation Heart failure, systolic, with acute decompensation (HCC) Acute on chronic systolic heart failure Dyslipidemia, goal LDL below 70 Other and unspecified hyperlipidemia Atherosclerosis of [place] coronary artery of [place] heart without angina pectoris Ischemic cardiomyopathy Other specified forms of chronic ischemic heart disease documented in this encounter Advance Directives * [...] Power of Attor jana? No Care Teams Learning And Development Director Relationship Specialty Start Date End Date Chelo Trotter MD [address] [place] [address] [place] [address] PCP - General Family Medicine 05/02/24 documented as of this encounter
--- OUTSIDE RECORDS SUMMARY | 2024-10-25 09:09 | External Medical Summary | Summary of Care ---
Author Name Unknown Organization [facility] Address [address] [place] [address] Phone [phone] Care Team Providers Care Senior Analysis Specialist Name Role Phone Chelo Trotter MD Primary Care Provide r Reason for Visit * Reason Onset Date Comments Medication Refill 06/27/2024 Re: Ipratropiu m Acme Inhalation Solution 0.02% Encounter Details Date Type Department Care Team (Late st Contact Info) Description 06/27/2024 [facility]ill [facility] [address] [facility] [place] [address] Isreal Bragg PA-C [address] [place] [phone] Allergies No known active allergiesdocumented as of this encounter (statuses as of 06/27/2024) Medications Multivitamin Adult Oral Tablet Take 1 [...] bedtime. 90 Tablet 3 11/10/19 24 Active Megavite Fruits & Veggies Oral [...] Respimat 2.5 MCG/ACT Inhalation Aerosol Solution (Tiotropium Acme Monohydrate) Inhale 2 Puffs by mouth in [...] only. 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 05/02/20 24 Active Albuterol Sulfate HFA 108 (90 Base) MCG/ACT Inhalation Aerosol SolutionIndication s:COPD, group D, by GOLD 2017 classification (FORMERLY [facility]) Inhale 2 Puffs by mouth every 4 [...] 180 Tablet 3 06/21/20 24 Active Ipratropium Acme 0.02 % Inhalation Solution (Atrovent) use 1 vial via nebulizer every 4 hours if needed for shortness of breath or wheezing 75 mL 5 06/27/20 24 Active Ipratropium Acme 0.02 % Inhalation Solution (Atrovent) use 1 vial via nebulizer every 4 hours if needed for shortness of breath or wheezing 75 mL 5 11/10/19 24 024 Discontin ued(Refil l) documented as of this encounter (statuses as of 06/27/2024) Active Problems Patient Care Coordination No te [...] 20 mg daily x 3 days. Notify [facility] when initiating Exacerbation Plan o BMP o [...] o Weigh daily o Reach out to correctional case records supervisor if starting any sort of diuretic titration [...] Overview (02/09/2014): 1 mm C5-6 Atherosclerosis of [place] ronary artery of [place] heart without angina pectoris 04/25/2010 Overview (05/05/2013): LA Assessment & Plan (01/01/2023 10:45 AM EDT): Continue Eliquis, atorvastatin, metoprolol at new reduced dose of 25 mg daily. No a secondary to hypotension. Assessment & Plan (11/09/2022 12:05 PM EDT): Stable -continue Toprol, aspirin, statin, Eliquis. No Markos, likely due to hypotension. Assessment & Plan (10/28/2022 6:29 PM EDT): Stable -continue Toprol, aspirin, statin, Eliquis. No Markos, likely due to hypotension. Old LA (myocardial infarction) 07/26/2009 Cervical spine degeneration Overview (02/09/2014): multilevel Osteoarthritis of spine with myelopathy, lumbar region documented as of this encounter (statuses as of 06/27/2024) Resolved Problems Problem Noted Date Diagnosed Date [...] as of this encounter (statuses as of 06/27/2024) Immunizations Name Administration Dates Next Due Pneumococcal [...] encounter Miscellaneous Notes * Telephone Encounter - Isreal Bragg PA-C - 06/27/2024 10:23 AM ESTSigned Prescriptions: Disp Refills Ipratropium Acme 0.02 % Inhalation Solu*75 mL 5 Sig: use 1 vial via nebulizer every 4 hours if needed for shortness of breath or wheezing Authorizing Provider: ISREAL BRAGG * Telephone Encounter - Doretha Park OSA - 06/27/2024 9:19 AM EST Please authorize with refills, as appropriate. Thank you, WESTLEY Olivares documented in this encounter Plan of Treatment Upcoming Encounters Date Type Department Care Team (Late st Contact Info) Description 07/14/2024 8:30 AM EST Home Visit [facility] [address] [address] Carley Martinez, RN [address] [place] [address] 07/17/2024 10:30 AM EST Scheduled Telephone [facility], [facility] [address] [place] [address] Dorota Monroy RDN [address] [place] [address] 01/09/2025 3:00 PM EDT Office Visit Cardiology [address] [place] [address] Zaid Ramsey PA-C [address] [place] [address] 01/12/2025 8:00 AM EDT Office Visit Family Medicine [address] [place] [phone] Chelo Trotter MD [address] [place] [address] [place] [address] Health Maintenance Due Date Last Done Comments DTap/Tdap Vaccines (1 - Tdap) 1969 Cologuard 1995 Colonoscopy 1995 Colorectal Cancer Screening 1995 Fecal Occult Blood Test 1995 Sigmoidoscopy 1995 Lung Cancer Screening 2000 Zoster Vaccines (1 of 2) 2000 Adult Wellness Visit 2016 Depression Screening 04/30/2021 04/30/2020 COVID-19 Vaccine ( - season) 2024 CKD HGB USE SMARTSET 92948 11/15/202411/15, 11/16/2023, 11/25/2022, Additional history exists GFR 11/21/2024 05/23/2024, 02/2024, 02/25/2024, Additional history exists CKD PHOS USE SMARTSET 87944 05/02/202502/2024, 11/25/2022, 11/12/2020, Additional history exists Albumin/Creatinine [...] this encounter Medical Devices Implanted Type Area Dog Catcher Device Identifier Shelf Expiration Date Model / Serial / Lot Graft Cervical 5x7 [id number] - [id number] Implanted:Qt y: 3 on 07/16/2014 by Malcolm Woodward [place] [facility] [place] - Human N/A: Neck Lifenet Co [id number] / / Dbx 2.5cc [id number] - [id number] Implanted:Qt y: 1 on 07/16/2014 by Malcolm Woodward MD [place] [facility] [place] N/A: Spine Cervical MUSCULOSKELETAL TRANSPLANT FND 10/05/2015 747602 / [id number] / Duragen Plus 2x2 Dp 1022 Min5 - [id number] Implanted:Qt y: 1 on 07/16/2014 by Malcolm Woodward MD [place] [facility] [place] N/A: Spine Cervical INTEGRA LIFESCI[employer] GAVIN 08/25/2016 DP-1022 / / [id number] Screw 3.5x10mm 04.615.010 - [id number] Implanted:Qt y: 1 on 07/16/2014 by Malcolm Woodward MD [place] [facility] [place] N/A: Spine Cervical SYNTHES 04.615.010 / / Screw 3.5x12mm - [id number] Implanted:Qt y: 1 on 07/16/2014 by Malcolm Woodward MD [place] [facility] [place] N/A: Spine Cervical SYNTHES 04.615.012 / / Screw 3.5x14mm 04.615.014 - [id number] Implanted:Qt y: 4 on 07/16/2014 by Malcolm Woodward MD [place] [facility] [place] N/A: Spine Cervical SYNTHES 04.615.014 / / Screw 3.5x16mm - [id number] Implanted:Qt y: 2 on 07/16/2014 by Malcolm Woodward MD [place] [facility] [place] N/A: Spine Cervical SYNTHES 04.615.016 / / Cap Lkg 04.614.508 - [id number] Implanted:Qt y: 8 on 07/16/2014 by Malcolm Woodward MD [place] [facility] [place] N/A: Spine Cervical SYNTHES 04.614.508 / / 80mm Jose J Implanted:Qt y: 2 on 07/16/2014 by Malcolm Woodward MD [place] [facility] [place] N/A: Spine Cervical SYNTHES SPINE 04.615.530 / / Screw Set Sng Inner [id number] - [id number] Implanted:Qt y: 4 on 05/13/2016 by Malcolm Woodward MD [place] [facility] [place] JNJ : ETHICON CARDIOVATIONS 05/14/2016 [id number] / / Description:in set Screw 7x50 Poly Si [id number] - [id number] Implanted:Qt y: 4 on 05/13/2016 by Malcolm Woodward MD [place] [facility] [place] JNJ : ETHICON CARDIOVATIONS 05/14/2016 [id number] / / Description:in set Pre Lordosed Jose J W Line 45mm - [id number] Implanted:Qt y: 2 on 05/13/2016 by Malcolm Woodward MD [place] [facility] [place] JNJ : DEPUY SPINE 05/14/2016 [id number] / / Description:in set Expedium Ti Sfx 5.5 Lat A6 - [id number] Implanted:Qt y: 1 on 05/13/2016 by Malcolm Woodward MD [place] [facility] [place] JNJ : ETHICON CARDIOVATIONS 05/14/2016 [id number] / / Description:in set documented as of [...] Power of Attor jana? No Care Teams Senior Analysis Specialist Relationship Specialty Start Date End Date Chelo Trotter MD [address] [place] [address] [place] [address] PCP - General Family Medicine 05/02/24 documented as of this encounter
--- OUTSIDE RECORDS SUMMARY | 2024-10-25 09:09 | External Medical Summary | Summary of Care ---
Author Name Unknown Organization [facility] Address [address] [place] [address] Phone [phone] Care Team Providers Care General Matcher Name Role Phone Chelo Trotter MD Primary Care Provide r Encounter Details Date Type Department Care Team (Late st Contact Info) Description 06/01/2024 Population Health External Data Unspecified Department Allergies No known active allergiesdocumented as of this encounter (statuses as of 06/08/2024) Medications Multivitamin Adult Oral Tablet Take 1 Tablet by mouth daily. Active guaiFENesin ER 600 MG Oral Tablet Extended Release 12 Hour Take 1 Tablet by mouth in the morning. Active Fluticasone Furoate-Vilanterol 100-25 MCG/ACT Inhalation Aerosol Powder Breath Activated (BREO ellipta) Inhale 1 Puff by mouth in the morning. Active Ipratropium [place] 0.02 % Inhalation Solution (Atrovent) use 1 vial via nebulizer every 4 hours if needed for shortness of breath or wheezing 75 mL 5 11/10/19 24 Active Atorvastatin Calcium 40 MG Oral Tablet [...] morning. 90 Tablet 3 11/16/19 24 Active Apixaban 5 MG Oral Tablet (Eliquis) Take 1 Tablet by mouth in the morning and 1 Tablet before bedtime. 180 Tablet 1 12/03/19 24 Active Furosemide 20 MG Oral Tablet (Lasix)Indications :Heart failure, systolic, with acute decompensation (HCC) 40 mg on Wednesday's, Wednesday's, and Wednesday's, 20 mg all other days 135 Tablet 3 02/01/20 24 Active Spiriva Respimat 2.5 MCG/ACT Inhalation Aerosol Solution (Tiotropium [place] Monohydrate) Inhale 2 Puffs by mouth in [...] 2017 classification ([facility]) Inhale 1 Ampule by mouth every 4 hours as needed for Wheezing or Shortness of Breath. 05/02/20 24 Active Albuterol Sulfate HFA 108 (90 Base) MCG/ACT Inhalation Aerosol SolutionIndication s:COPD, group D, by GOLD 2017 classification ([facility]) Inhale 2 Puffs by mouth every 4 hours as needed for Wheezing. 18 g 5 05/02/20 24 Active Spironolactone 25 MG Oral Tablet (Aldactone)Indicat ions:Heart failure, systolic, with acute decompensation (HCC) Take 1 Tablet by mouth in the morning. 90 Tablet 3 05/03/20 24 Active documented as of this encounter (statuses as of 06/08/2024) Active Problems Patient Care Coordination No te [...] 20 mg daily x 3 days. Notify [facility] when initiating Exacerbation Plan o BMP [...] o Weigh daily o Reach out to rehabilitation case coordinator if starting any sort of diuretic titration [...] Overview (02/09/2014): 1 mm C5-6 Atherosclerosis of [place] co ronary artery of robinson heart without angina pectoris 04/25/2010 Overview (05/05/2013): [...] as of this encounter (statuses as of 06/08/2024) Resolved Problems Problem Noted Date Diagnosed Date [...] as of this encounter (statuses as of 06/08/2024) Immunizations Name Administration Dates Next Due Pneumococcal [...] 7:15 PM EST Monika Salas RN * Are you blind or do [...] Description 07/14/2024 8:30 AM EST [facility] Visit [facility] [address] [address] Carley Martinez, CHATO [address] [place] [address] 01/09/2025 3:00 PM EDT Office Visit Cardiology [address] [place] [address] Zaid Ramsey PA-C [address] [place] [address] 01/12/2025 8:00 AM EDT Office Visit Family Medicine [address] [place] [phone] Chelo Trotter MD [address] [place] [address] [place] [address] Health Maintenance Due Date Last Done Comments DTap/Tdap Vaccines (1 - Tdap) 1969 Cologuard 1995 Colonoscopy 1995 Colorectal Cancer Screening 1995 Fecal Occult Blood Test 1995 Sigmoidoscopy 1995 Lung Cancer Screening 2000 Zoster Vaccines (1 of 2) 2000 Adult Wellness Visit 2016 Depression Screening 04/30/2021 04/30/2020 COVID-19 Vaccine ( season) 2024 CKD HGB USE SMARTSET 33483 11/15/202411/15, 11/16/2023, 11/25/2022, Additional history exists GFR 11/21/2024 05/23/2024, 02/2024, 02/25/2024, Additional history exists CKD PHOS USE SMARTSET 69328 05/02/202502/2024, 11/25/2022, 11/12/2020, Additional history exists Albumin/Creatinine [...] this encounter Medical Devices Implanted Type Area Helper Metal Hanging Device Identifier Shelf Expiration Date Model / Serial / Lot Graft Cervical 5x7 [id number] - [id number] Implanted:Qt y: 3 on 07/16/2014 by Malcolm Woodward MD at [place] [facility] Tissue - Human N/A: Neck Lifenet Co [id number] / / Dbx 2.5cc [id number] - [id number] Implanted:Qt y: 1 on 07/16/2014 by Malcolm Woodward MD at [place] [facility] N/A: Spine Cervical MUSCULOSKELETAL TRANSPLANT FND 10/05/2015 [id number] / [id number] / Duragen Plus 2x2 Dp 1022 Min5 - [id number] Implanted:Qt y: 1 on 07/16/2014 by Malcolm Woodward MD at [place] [facility] N/A: Spine Cervical [employer] GAVIN 08/25/2016 DP-1022 / / [id number] Screw 3.5x10mm 04.615.010 - [id number] Implanted:Qt y: 1 on 07/16/2014 by Malcolm Woodward MD at [place] [facility] N/A: Spine Cervical SYNTHES 04.615.010 / / Screw 3.5x12mm - [id number] Implanted:Qt y: 1 on 07/16/2014 by Malcolm Woodward MD at [place] [facility] N/A: Spine Cervical SYNTHES 04.615.012 / / Screw 3.5x14mm 04.615.014 - [id number] Implanted:Qt y: 4 on 07/16/2014 by Malcolm Woodward MD at [place] [facility] N/A: Spine Cervical SYNTHES 04.615.014 / / Screw 3.5x16mm - [id number] Implanted:Qt y: 2 on 07/16/2014 by Malcolm Woodward MD at [place] [facility] N/A: Spine Cervical SYNTHES 04.615.016 / / Cap Lkg 04.614.508 - [id number] Implanted:Qt y: 8 on 07/16/2014 by Malcolm Woodward MD at [place] [facility] N/A: Spine Cervical SYNTHES 04.614.508 / / 80mm Jose J Implanted:Qt y: 2 on 07/16/2014 by Malcolm Woodward MD at [place] [facility] N/A: Spine Cervical SYNTHES SPINE 04.615.530 / / Screw Set Sng Inner [id number] - [id number] Implanted:Qt y: 4 on 05/13/2016 by Malcolm Woodward MD at [place] [facility] JNJ : ETHICON CARDIOVATIONS 05/14/2016 [id number] / / Description:in set Screw 7x50 Poly Si [id number] - [id number] Implanted:Qt y: 4 on 05/13/2016 by Malcolm Woodward MD at [place] [facility] JNJ : ETHICON CARDIOVATIONS 05/14/2016 [id number] / / Description:in set Pre Lordosed Jose J W Line 45mm - [id number] Implanted:Qt y: 2 on 05/13/2016 by Malcolm Woodward MD at [place] [facility] JNJ : DEPUY SPINE 05/14/2016 [id number] / / Description:in set Expedium Ti Sfx 5.5 Lat A6 - [id number] Implanted:Qt y: 1 on 05/13/2016 by Malcolm Woodward MD at [place] [facility] JNJ : ETHICON CARDIOVATIONS 05/14/2016 [id number] / / Description:in set documented as of [...] Power of Attor jana? No Care Teams General Matcher Relationship Specialty Start Date End Date Chelo Trotter MD [address] [place] [address] [place] [phone] PCP - General Family Medicine 05/02/24 documented as of this encounter
--- OUTSIDE RECORDS SUMMARY | 2024-10-25 09:09 | External Medical Summary | Summary of Care ---
Author Name Unknown Organization [facility] Address [address] [place] [address] Phone [phone] Care Team Providers Care Ui Application Developer Name Role Phone Prem Trotter MD Primary Care Provide r Reason for Visit * Reason Onset Date Comments Medication Refill 06/20/2024 Encounter Details Date Type Department Care Team (Late st Contact Info) Description 06/20/2024 Refill Family Medicine [address] [phone] Prem Trotter MD [address] [place] [address] [place] [phone] Allergies No known active allergiesdocumented as of this encounter (statuses as of 06/21/2024) Medications Multivitamin Adult Oral Tablet Take 1 Tablet by mouth daily. Active guaiFENesin ER 600 MG Oral Tablet Extended Release 12 Hour Take 1 Tablet by mouth in the morning. Active Fluticasone Furoate-Vilanterol 100-25 MCG/ACT Inhalation Aerosol Powder Breath Activated (BREO ellipta) Inhale 1 Puff by mouth in the morning. Active Ipratropium [place] 0.02 % Inhalation Solution (Atrovent) use 1 [...] Respimat 2.5 MCG/ACT Inhalation Aerosol Solution (Tiotropium [place] Monohydrate) Inhale 2 Puffs by mouth in [...] s:COPD, group D, by GOLD 2017 classification ([facility]) Inhale 1 Ampule by mouth every 4 hours as needed for Wheezing or Shortness of Breath. 05/02/20 24 Active Albuterol Sulfate HFA 108 (90 Base) MCG/ACT Inhalation Aerosol SolutionIndication s:COPD, group D, by GOLD 2017 classification ([facility]) Inhale 2 Puffs by mouth [...] bedtime. 180 Tablet 3 06/21/20 24 Active Apixaban 5 MG Oral Tablet (Eliquis) Take 1 Tablet by mouth in the morning and 1 Tablet before bedtime. 180 Tablet 1 12/03/19 24 024 Discontin ued(Refil l) documented as of this encounter (statuses as of 06/21/2024) Active Problems Patient Care Coordination No te [...] 20 mg daily x 3 days. Notify [facility] when initiating Exacerbation Plan o BMP [...] Weigh daily o Reach out to case liner if starting any sort of diuretic titration [...] Overview (02/09/2014): 1 mm C5-6 Atherosclerosis of [place] co ronary artery of [place] heart without angina pectoris 04/25/2010 Overview (05/05/2013): [...] as of this encounter (statuses as of 06/21/2024) Resolved Problems Problem Noted Date Diagnosed Date [...] as of this encounter (statuses as of 06/21/2024) Immunizations Name Administration Dates Next Due Pneumococcal [...] encounter Miscellaneous Notes * Telephone Encounter - Prem Trotter MD - 06/21/2024 9:26 AM EST Signed Prescriptions: Disp Refills Apixaban 5 MG Oral Tablet (Eliquis) 180 Ta*3 Sig: Take 1 Tablet by mouth in the morning and 1 Tablet before bedtime. Authorizing Provider: PREM TROTTER * Telephone Encounter - Lenore Chen CMA - 06/21/2024 8:42 AM ESTPending Prescriptions: Disp Refills Apixaban 5 MG Oral Tablet (Eliquis) 180 Ta*3 Sig: Take 1 Tablet by mouth in the morning and 1 Tablet before bedtime. * Telephone Encounter - Cami Dubois OSA - 06/20/2024 4:26 PM EST Did you pend patient's preferred pharmacy and medication before forwarding?yes Pharmacy: [id number] [address] [facility] Pending Prescriptions: Disp Refills Apixaban 5 MG Oral Tablet (Eliquis) 180 Ta*1 Sig: Take 1 Tablet by mouth in the morning and 1 Tablet before bedtime. Last Visit: 05/02/2024 (in office), Visit date not found (telemedicine) Next Visit: 01/12/2025 If no future appointments scheduled, and last appointment is greater than a year ago, please schedule patient for a follow-up appointment Last date the medication was ordered: 12/03/2023 Is this request for a controlled substance?No Urine Drug Screen:No results found for this or any previous visit. Patient Phone Numbers Labs: Lab Results Component Value Date/Time CREAT 1.4 (H) 05/23/2024 12:23 PM CREAT 0.86 09/15/2022 12:00 AM CREAT 1.3 (H) 08/01/2020 11:35 AM POTASSIUM 4.0 05/23/2024 12:23 PM POTASSIUM 3.7 09/15/2022 12:00 AM POTASSIUM 4.1 08/01/2020 11:35 AM TSH 2.89 11/16/2023 10:47 AM TSH 2.05 06/03/2018 09:53 PM LDL 49 05/02/2024 08:18 AM LDL 56 08/01/2020 11:35 AM LDL NOT APPLICABLE 08/01/2020 11:35 AM ALT 22 10/22/2022 02:37 PM ALT 19 06/03/2018 09:53 PM HGBA1C 5.6 06/03/2018 09:53 PM documented in this encounter Plan of Treatment Upcoming Encounters Date Type Department Care Team (Late st Contact Info) Description 07/14/2024 8:30 AM EST Home Visit [facility] [address] [address] Carley Martinez RN [address] [place] [address] 07/17/2024 10:30 AM EST Scheduled Telephone [facility], [facility] [address] [facility] [place] [address] Dorota Monroy RDN [address] [place] [address] 01/09/2025 3:00 PM EDT Office Visit Cardiology [address] [place] [address] Zaid Ramsey PA-C [address] [place] [address] 01/12/2025 8:00 AM EDT Office Visit Family Medicine [address] [place] [phone] Prem Trotter MD [address] [place] [address] [place] [address] Health Maintenance Due Date Last Done Comments DTap/Tdap Vaccines (1 - Tdap) 1969 Cologuard 1995 Colonoscopy 1995 Colorectal Cancer Screening 1995 Fecal Occult Blood Test 1995 Sigmoidoscopy 1995 Lung Cancer Screening 2000 Zoster Vaccines (1 of 2) 2000 Adult Wellness Visit 2016 Depression Screening 04/30/2021 04/30/2020 COVID-19 Vaccine ( - season) 2024 CKD HGB USE SMARTSET 90650 11/15/202411/15, 11/16/2023, 11/25/2022, Additional history exists GFR 11/21/2024 05/23/2024, 02/2024, 02/25/2024, Additional history exists CKD PHOS USE SMARTSET 94266 05/02/202502/2024, 11/25/2022, 11/12/2020, Additional history exists Albumin/Creatinine [...] this encounter Medical Devices Implanted Type Area Binder Roller Device Identifier Shelf Expiration Date Model / Serial / Lot Graft Cervical 5x7 [id number] - [id number] Implanted:Qt y: 3 on 07/16/2014 by Malcolm Woodward MD [place] [facility] - Human N/A: Neck Lifenet Co [id number] / / Dbx 2.5cc [id number] - [id number] Implanted:Qt y: 1 on 07/16/2014 by Malcolm Woodward MD [place] [facility] N/A: Spine Cervical MUSCULOSKELETAL TRANSPLANT FND 10/05/2015 [id number] / [id number] / Duragen Plus 2x2 Dp 1022 Min5 - [id number] Implanted:Qt y: 1 on 07/16/2014 by Malcolm Woodward MD [place] [facility] N/A: Spine Cervical [employer] GAVIN 08/25/2016 DP-1022 / / [id number] Screw 3.5x10mm 04.615.010 - [id number] Implanted:Qt y: 1 on 07/16/2014 by Malcolm Woodward MD at [place] [facility] N/A: Spine Cervical SYNTHES 04.615.010 / / Screw 3.5x12mm - [id number] Implanted:Qt y: 1 on 07/16/2014 by Malcolm Woodward MD at [place] [facility] N/A: Spine Cervical SYNTHES 04.615.012 / / Screw 3.5x14mm 04.615.014 - [id number] Implanted:Qt y: 4 on 07/16/2014 by Malcolm Woodward MD at [place] [facility] N/A: Spine Cervical SYNTHES 04.615.014 / / Screw 3.5x16mm - [id number] Implanted:Qt y: 2 on 07/16/2014 by Malcolm Woodward MD at [place] [facility] N/A: Spine Cervical SYNTHES 04.615.016 / / Cap Lkg 04.614.508 - [id number] Implanted:Qt y: 8 on 07/16/2014 by Malcolm Woodward MD at [place] [facility] N/A: Spine Cervical SYNTHES 04.614.508 / / 80mm Jose J Implanted:Qt y: 2 on 07/16/2014 by Malcolm Woodward MD at [place] [facility] N/A: Spine Cervical SYNTHES SPINE 04.615.530 / / Screw Set Sng Inner [id number] - [id number] Implanted:Qt y: 4 on 05/13/2016 by Malcolm Woodward MD at [place] [facility] JNJ : ETHICON CARDIOVATIONS 05/14/2016 [id number] / / Description:in set Screw 7x50 Poly Si [id number] - [id number] Implanted:Qt y: 4 on 05/13/2016 by Malcolm Woodward MD at [place] [facility] JNJ : ETHICON CARDIOVATIONS 05/14/2016 [id number] / / Description:in set Pre Lordosed Jose J W Line 45mm - [id number] Implanted:Qt y: 2 on 05/13/2016 by Malcolm Woodward MD at [place] [facility] JNJ : DEPUY SPINE 05/14/2016 [id number] / / Description:in set Expedium Ti Sfx 5.5 Lat A6 - [id number] Implanted:Qt y: 1 on 05/13/2016 by Malcolm Woodward MD at [place] [facility] JNJ : ETHICON CARDIOVATIONS 05/14/2016 [id number] / / Description:in set documented as of [...] Power of Attor jana? No Care Teams Ui Application Developer Relationship Specialty Start Date End Date Prem Trotter MD [address] [place] [address] [place] [address] PCP - General Family Medicine 05/02/24 documented as of this encounter
--- OUTSIDE RECORDS SUMMARY | 2024-10-25 09:09 | External Medical Summary | Summary of Care ---
Author Name Unknown Organization [facility] Address [address] [place] [address] Phone [phone] Care Team Providers Care Sports Intern Name Role Phone Chelo Trotter MD Primary Care Provide r Encounter Details Date Type Department Care Team (Late st Contact Info) Description 05/26/2024 10:00 AM EDT [facility] [place] [address] Carley Martinez, RN [address] [facility] [place] [address] Allergies No known active allergiesdocumented as of this encounter (statuses as of 05/26/2024) Medications Medication Sig Dispensed Refills Start Date End Date Status Multivitamin Adult Oral Tablet Take 1 Tablet by mouth daily. Active guaiFENesin ER 600 MG Oral Tablet Extended Release 12 Hour Take 1 Tablet by mouth in the morning. Active Fluticasone Furoate-Vilanterol 100-25 MCG/ACT Inhalation Aerosol Powder Breath Activated (BREO ellipta) Inhale 1 Puff by mouth in the morning. Active Ipratropium [place] 0.02 % Inhalation Solution (Atrovent) use 1 [...] Respimat 2.5 MCG/ACT Inhalation Aerosol Solution (Tiotropium [place] Monohydrate) Inhale 2 Puffs by mouth in [...] COPD, group D, by GOLD 2017 classification ([facility]) Inhale 1 Ampule by mouth every 4 hours as needed for Wheezing or Shortness of Breath. 05/02/2024 Active Albuterol Sulfate HFA 108 (90 Base) MCG/ACT Inhalation Aerosol SolutionIndications: COPD, group D, by GOLD 2017 classification ([facility]) Inhale 2 Puffs by mouth every 4 hours as needed for Wheezing. 18 g 5 05/02/2024 Active Spironolactone 25 MG Oral Tablet (Aldactone)Indicatio ns:Heart failure, systolic, with acute decompensation (HCC) Take 1 Tablet by mouth in the morning. 90 Tablet 3 05/03/2024 Active documented as of this encounter (statuses as of 05/26/2024) Active Problems Patient Care Coordination No te [...] 02/08/2014 Overview: 1 mm C5-6 Atherosclerosis of [place] ronary artery of [place] heart without angina pectoris 04/25/2010 Overview: [place] Last Assessment & Plan: Continue Eliquis, atorvastatin, metoprolol at new reduced dose of 25 mg daily. No a secondary to hypotension. 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 (Household - for ages [...] Sign Reading Time Taken Comments Blood Pressure 90/62 05/26/2024 10:11 AM EDT Pulse 68 05/26/2024 10:11 AM EDT Temperature 36.3 °C (97.3 °F) 05/26/2024 10:11 AM E DT Respiratory Rate 18 05/26/2024 10:11 AM EDT Oxygen Saturation 91% 05/26/2024 10:11 AM EDT Inhaled Oxygen Concentration - - Weight - - Height - - Body Mass Index - - documented in this encounter Functional Status Functional [...] as of this encounter Progress Notes * Carley Martinez RN - 05/26/2024 9:54 AM EDT Current Concerns: Patient seen for follow up- Recently admitted to [facility] hospice. present for visit. Patient doing well- mood stable- conversed with this nurse- does have aphasia but did well with communicating. Recently seen by Cardiology- no changes Labs stable Weight stable VS wnl Lungs rhonchi noted bilateral lower lobes- baseline No LE edema noted Voiding without difficulty Bowels wnl- per report Appetite good Taking fluids Denies pain Physical Exam: Physical Exam Constitutional: Appearance: Normal appearance. Cardiovascular: Rate and Rhythm: Normal rate. Pulses: Normal pulses. Pulmonary: Effort: Pulmonary effort is normal. Breath sounds: Normal breath sounds. Abdominal: General: There is distension. Palpations: Abdomen is soft. Musculoskeletal: General: Normal range of motion. Skin: General: Skin is warm and dry. Capillary Refill: Capillary refill takes 2 to 3 seconds. Neurological: Mental Status: He is alert. Mental status is at baseline. Psychiatric: Mood and Affect: Mood normal. Behavior: Behavior normal. Review of Systems: Review of Systems Constitutional: Negative. HENT: Negative. Respiratory: Positive for shortness of breath. Cardiovascular: Negative. Gastrointestinal: Positive for abdominal distention. Genitourinary: Negative. Musculoskeletal: Positive for gait problem. Skin: Negative. Allergic/Immunologic: Food allergies: z. Hematological: Negative. Psychiatric/Behavioral: Negative. Care Plan Goal Progress: Orders Placed: No orders of the defined types were placed in this encounter. Medications Given: Care Gaps: Care Gaps Care gaps closed this contact:: Education (05/26/24 5571) documented in this encounter Plan of Treatment Upcoming Encounters Date Type Department Care Team (Late st Contact Info) Description 07/14/2024 8:30 AM EST Home Visit [facility] [address] [place] [address] Carley Martinez RN [address] [place] [address] 01/09/2025 3:00 PM EDT Office Visit Cardiology [address] [place] [address] Zaid Ramsey PA-C [address] [place] [address] 01/12/2025 8:00 AM EDT Office Visit Family Medicine [address] [place] [phone] Chelo Trotter MD [address] [place] [address] [place] [address] Health Maintenance Due Date Last Done Comments DTap/Tdap Vaccines (1 - Tdap) 1969 Cologuard 1995 Colonoscopy 1995 Colorectal Cancer Screening 1995 Fecal Occult Blood Test 1995 Sigmoidoscopy 1995 Lung Cancer Screening 2000 Zoster Vaccines (1 of 2) 2000 Adult Wellness Visit 2016 Depression Screening 04/30/2021 04/30/2020 COVID-19 Vaccine ( season) 2024 CKD HGB USE SMARTSET 04938 11/15/202411/15, 11/16/2023, 11/25/2022, Additional history exists GFR 11/21/2024 05/23/2024, 02/2024, 02/25/2024, Additional history exists CKD PHOS USE SMARTSET 92486 05/02/202502/2024, 11/25/2022, 11/12/2020, Additional history exists Albumin/Creatinine [...] this encounter Medical Devices Implanted Type Area Operations Forester Device Identifier Shelf Expiration Date Model / Serial / Lot Graft Cervical 5x7 Il1a-[id number] - [id number] Implanted:Qt y: 3 on 07/16/2014 by Malcolm Woodward MD [place] [facility] [place] Tissue - Human N/A: Neck Lifenet Co [id number] / / Dbx 2.5cc 166005 - [id number] Implanted:Qt y: 1 on 07/16/2014 by Malcolm Woodward MD [place] [facility] [place] N/A: Spine Cervical MUSCULOSKELETAL TRANSPLANT FND 10/05/2015 [id number] / [id number] / Duragen Plus 2x2 Dp 1022 Min5 - [id number] Implanted:Qt y: 1 on 07/16/2014 by Malcolm Woodward MD [place] [facility] [place] N/A: Spine Cervical [employer]RA [employer] GAVIN 08/25/2016 DP-1022 / / [id number] Screw 3.5x10mm 04.615.010 - [id number] Implanted:Qt y: 1 on 07/16/2014 by Malcolm Woodward MD at [place] [facility] [place] N/A: Spine Cervical SYNTHES 04.615.010 / / Screw 3.5x12mm - [id number] Implanted:Qt y: 1 on 07/16/2014 by Malcolm Woodward MD at [place] [facility] [place] N/A: Spine Cervical SYNTHES 04.615.012 / / Screw 3.5x14mm 04.615.014 - [id number] Implanted:Qt y: 4 on 07/16/2014 by Malcolm Woodward MD at [place] [facility] [place] N/A: Spine Cervical SYNTHES 04.615.014 / / Screw 3.5x16mm - [id number] Implanted:Qt y: 2 on 07/16/2014 by Malcolm Woodward MD at [place] [facility] [place] N/A: Spine Cervical SYNTHES 04.615.016 / / Cap Lkg 04.614.508 - [id number] Implanted:Qt y: 8 on 07/16/2014 by Malcolm Woodward MD at [place] [facility] N/A: Spine Cervical SYNTHES 04.614.508 / / 80mm Jose J Implanted:Qt y: 2 on 07/16/2014 by Malcolm Woodward MD at [place] [facility] N/A: Spine Cervical SYNTHES SPINE 04.615.530 / / Screw Set Sng Inner [id number] - [id number] Implanted:Qt y: 4 on 05/13/2016 by Malcolm Woodward MD at [place] [facility] [place] JNJ : ETHICON CARDIOVATIONS 05/14/2016 [id number] / / Description:in set Screw 7x50 Poly Si [id number] - [id number] Implanted:Qt y: 4 on 05/13/2016 by Malcolm Woodward MD at [place] [facility] JNJ : ETHICON CARDIOVATIONS 05/14/2016 [id number] / / Description:in set Pre Lordosed Jose J W Line 45mm - [id number] Implanted:Qt y: 2 on 05/13/2016 by Malcolm Woodward MD at [place] [facility] JNJ : DEPUY SPINE 05/14/2016 [id number] / / Description:in set Expedium Ti Sfx 5.5 Lat A6 - [id number] Implanted:Qt y: 1 on 05/13/2016 by Malcolm Woodward MD at [place] [facility] JNJ : ETHICON CARDIOVATIONS 05/14/2016 [id number] / / Description:in set documented as of [...] Power of Attor jana? No Care Teams Sports Intern Relationship Specialty Start Date End Date Chelo Trotter MD [address] [place] [address] [place] [address] PCP - General Family Medicine 05/02/24 documented as of this encounter
--- OUTSIDE RECORDS SUMMARY | 2024-10-25 09:09 | External Medical Summary | Summary of Care ---
Author Name Unknown Organization [facility] Address [address] [facility] [address] Phone [phone] Care Team Providers Care Software Verification Engineer Name Role Phone Chelo Trotter MD Primary Care Provide r Reason for Visit * Reason Onset Date Comments Test Results 05/24/2024 Encounter Details Date Type Department Care Team (Late st Contact Info) Description 05/24/2024 Telephone Cardiology, [facility] [address] [place] [address] Zaid Ramsey PA-C [address] [facility] [address] Test Results Allergies No known active allergiesdocumented [...] by mouth in the morning. Active Ipratropium [place] 0.02 % Inhalation Solution (Atrovent) use 1 [...] (Lasix)Indications:H eart failure, systolic, with acute decompensation ([facility]) 40 mg on Wednesday's, Wednesday's, and Wednesday's, 20 mg all other days 135 Tablet 3 02/01/2024 Active Spiriva Respimat 2.5 MCG/ACT Inhalation Aerosol Solution (Tiotropium [place] Monohydrate) Inhale 2 Puffs by mouth in [...] COPD, group D, by GOLD 2017 classification ([facility]) Inhale 1 Ampule by mouth every 4 hours as needed for Wheezing or Shortness of Breath. 05/02/2024 Active Albuterol Sulfate HFA 108 (90 Base) MCG/ACT Inhalation Aerosol SolutionIndications: COPD, group D, by GOLD 2017 classification ([facility]) Inhale 2 Puffs by mouth every 4 hours as needed for Wheezing. 18 g 5 05/02/2024 Active Spironolactone 25 MG Oral Tablet (Aldactone)Indicatio ns:Heart failure, systolic, with acute decompensation ([facility]) Take 1 Tablet by mouth in the [...] 02/08/2014 Overview: 1 mm C5-6 Atherosclerosis of [place] ronary artery of [place] heart without angina pectoris 04/25/2010 Overview: [place] Last Assessment & Plan: Continue Eliquis, atorvastatin, metoprolol at new reduced dose of 25 mg daily. No a secondary to hypotension. Old [place] (myocardial infarction) 07/26/2009 Cervical spine degeneration Overview: [...] No 04/24/2024 Does the household have a [facility]? (Household - for [...] documented as of this encounter Functional Status Functional Status Response [...] No 06/03/2018 documented as of this encounter Miscellaneous Notes * Telephone Encounter - Bradly Gipson LPN - 05/24/2024 10:49 AM EDT Called patient and left a message on spouses identified voicemail to make patient aware. ----- Message from Zaid Ramsey sent at 05/24/2024 7:14 AM EDT ----- Laboratory work looks good. Please continue medications as presently prescribed. Please notify Yola of above documented in this encounter Plan of Treatment Upcoming Encounters Date Type Department Care Team (Late st Contact Info) Description 05/26/2024 8:30 AM EDT [facility] Visit [facility] [address] [place] [address] Carley Martinez, RN [address] [place] [address] 01/09/2025 3:00 PM EDT Office Visit Cardiology [address] [place] [address] Zaid Ramsey PA-C [address] [place] [address] 01/12/2025 8:00 AM EDT Office Visit Family Medicine [address] [place] [phone] Chelo Trotter MD [address] [place] [address] [place] [address] Health Maintenance Due Date Last Done Comments DTap/Tdap Vaccines (1 - Tdap) 1969 Cologuard 1995 Colonoscopy 1995 Colorectal Cancer Screening 1995 Fecal Occult Blood Test 1995 Sigmoidoscopy 1995 Lung Cancer Screening 2000 Zoster Vaccines (1 of 2) 2000 Adult Wellness Visit 2016 Depression Screening 04/30/2021 04/30/2020 COVID-19 Vaccine ( season) 2024 CKD HGB USE SMARTSET 31534 11/15/202411/15, 11/16/2023, 11/25/2022, Additional history exists GFR 11/21/2024 05/23/2024, 02/2024, 02/25/2024, Additional history exists CKD PHOS USE SMARTSET 71028 05/02/202502/2024, 11/25/2022, 11/12/2020, Additional history exists Albumin/Creatinine [...] this encounter Medical Devices Implanted Type Area Manager Of Network Device Identifier Shelf Expiration Date Model / Serial / Lot Graft Cervical 5x7 [id number] - [id number] Implanted:Qt y: 3 on 07/16/2014 by Malcolm Woodward MD at [place] [facility] [place] Tissue - Human N/A: Neck Lifenet Co [id number]-[id number] / / Dbx 2.5cc 199395 - [id number] Implanted:Qt y: 1 on 07/16/2014 by Malcolm Woodward MD at [place] [facility] [place] N/A: Spine Cervical MUSCULOSKELETAL TRANSPLANT FND 10/05/2015 965338 / [id number] / Duragen Plus 2x2 Dp 1022 Min5 - [id number] Implanted:Qt y: 1 on 07/16/2014 by Malcolm Woodward MD at [place] [facility] [place] N/A: Spine Cervical [employer] GAVIN 08/25/2016 DP-1022 / / [id number] Screw 3.5x10mm 04.615.010 - [id number] Implanted:Qt y: 1 on 07/16/2014 by Malcolm Woodward MD at [place] [facility] [place] N/A: Spine Cervical SYNTHES 04.615.010 / / Screw 3.5x12mm - [id number] Implanted:Qt y: 1 on 07/16/2014 by Malcolm Woodward MD at [place] [facility] [place] N/A: Spine Cervical SYNTHES 04.615.012 / / Screw 3.5x14mm 04.615.014 - [id number] Implanted:Qt y: 4 on 07/16/2014 by Malcolm Woodward MD at [place] [facility] [place] N/A: Spine Cervical SYNTHES 04.615.014 / / Screw 3.5x16mm - [id number] Implanted:Qt y: 2 on 07/16/2014 by Malcolm Woodward MD at [place] [facility] [place] N/A: Spine Cervical SYNTHES 04.615.016 / / Cap Lkg 04.614.508 - [id number] Implanted:Qt y: 8 on 07/16/2014 by Malcolm Woodward MD at [place] [facility] [place] N/A: Spine Cervical SYNTHES 04.614.508 / / 80mm Jose J Implanted:Qt y: 2 on 07/16/2014 by Maloclm Woodward MD at [place] [facility] [place] N/A: Spine Cervical SYNTHES SPINE 04.615.530 / / Screw Set Sng Inner [id number] - [id number] Implanted:Qt y: 4 on 05/13/2016 by Malcolm Woodward MD at [place] [facility] [place] JNJ : ETHICON CARDIOVATIONS 05/14/2016 [id number] / / Description:in set Screw 7x50 Poly Si [id number] - [id number] Implanted:Qt y: 4 on 05/13/2016 by Malcolm Woodward MD at [place] [facility] [place] JNJ : ETHICON CARDIOVATIONS 05/14/2016 [id number] / / Description:in set Pre Lordosed Jose J W Line 45mm - [id number] Implanted:Qt y: 2 on 05/13/2016 by Malcolm Woodward MD at [place] [facility] [place] JNJ : DEPUY SPINE 05/14/2016 [id number] / / Description:in set Expedium Ti Sfx 5.5 Lat A6 - [id number] Implanted:Qt y: 1 on 05/13/2016 by Malcolm Woodward MD at [place] [facility] [place] JNJ : ETHICON CARDIOVATIONS 05/14/2016 [id number] / / Description:in set documented as of [...] Power of Attor jana? No Care Teams Software Verification Engineer Relationship Specialty Start Date End Date Chelo Trotter MD [address] [place] [address] [place] [phone] PCP - General Family Medicine 05/02/24 documented as of this encounter
--- OUTSIDE RECORDS SUMMARY | 2024-10-25 09:10 | External Medical Summary | Summary of Care ---
Author Name Unknown Organization [facility] Address [address] [place] [address] Phone [phone] Care Team Providers Care Mixer Whipped Topping Name Role Phone Chelo Trotter MD Primary Care Provide r Encounter Details Date Type Department Care Team (Late st Contact Info) Description 05/09/2024 Population Health External Data Unspecified Department Allergies No known active allergiesdocumented as of this encounter (statuses as of 05/10/2024) Medications Medication Sig Dispensed Refills Start Date End Date Status Multivitamin Adult Oral Tablet Take 1 Tablet by mouth daily. Active guaiFENesin ER 600 MG Oral Tablet Extended Release 12 Hour Take 1 Tablet by mouth in the morning. Active Fluticasone Furoate-Vilanterol 100-25 MCG/ACT Inhalation Aerosol Powder Breath Activated (BREO ellipta) Inhale 1 Puff by mouth in the morning. Active Ipratropium [place] 0.02 % Inhalation Solution (Atrovent) use 1 [...] Respimat 2.5 MCG/ACT Inhalation Aerosol Solution (Tiotropium [place] Monohydrate) Inhale 2 Puffs by mouth in [...] as of this encounter (statuses as of 05/10/2024) Active Problems Patient Care Coordination No te [...] 02/08/2014 Overview: 1 mm C5-6 Atherosclerosis of [place] ronary artery of [place] heart without angina pectoris 04/25/2010 Overview: [place] Last Assessment & Plan: Continue Eliquis, atorvastatin, metoprolol at new reduced dose of 25 mg daily. No a secondary to hypotension. 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, lumbar region documented as of this encounter (statuses as of 05/10/2024) Resolved Problems Problem Noted Date Diagnosed Date [...] as of this encounter (statuses as of 05/10/2024) Immunizations Name Administration Dates Next Due Pneumococcal [...] No 06/03/2018 documented as of this encounter Plan of Treatment Upcoming Encounters Date Type Department Care Team (Late st Contact Info) Description 05/15/2024 12:30 PM EDT [facility] [place] [address] [place] [address] Carley Martinez, RN [address] [place] [address] 05/23/2024 12:00 PM EDT Office Visit Cardiology [address] [place] [address] Zaid Ramsey PA-C [address] [place] [address] 05/26/2024 8:30 AM EDT [facility] [address] [place] [address] Carley Martinez RN [address] [place] [address] 01/12/2025 8:00 AM EDT Office Visit Family Medicine [address] [place] [phone] Chelo Trotter MD [address] [place] [address] [place] [address] Health Maintenance Due Date Last Done Comments DTap/Tdap Vaccines (1 - Tdap) 1969 Cologuard 1995 Colonoscopy 1995 Colorectal Cancer Screening 1995 Fecal Occult Blood Test 1995 Sigmoidoscopy 1995 Lung Cancer Screening 2000 Zoster Vaccines (1 of 2) 2000 Adult Wellness Visit 2016 Depression Screening 04/30/2021 04/30/2020 COVID-19 Vaccine ( - season) 2024 GFR 10/31/2024 05/02/2024, 0808/2023, 11/26/2023, Additional history exists CKD HGB USE SMARTSET 48690 11/15/202411/15, 11/16/2023, 11/25/2022, Additional history exists CKD PHOS USE SMARTSET 23644 05/02/2025 100 02/2024, 11/25/2022, 11/12/2020, Additional history exists Albumin/Creatinine Ratio [...] this encounter Medical Devices Implanted Type Area Manual Writer Device Identifier Shelf Expiration Date Model / Serial / Lot Graft Cervical 5x7 Ha0r-[id number] - [id number] Implanted:Qt y: 3 on 07/16/2014 by Malcolm Woodward [place] [facility] [place] - Human N/A: Neck Lifenet Co SE4M-C67 / / Dbx 2.5cc 352639 - [id number] Implanted:Qt y: 1 on 07/16/2014 by Malcolm Woodward MD [place] [facility] [place] N/A: Spine Cervical MUSCULOSKELETAL TRANSPLANT FND 10/05/2015 787457 / [id number] / Duragen Plus 2x2 Dp 1022 Min5 - [id number] Implanted:Qt y: 1 on 07/16/2014 by Malcolm Woodward MD [place] [facility] [place] N/A: Spine Cervical [employer] GAVIN 08/25/2016 DP-1022 / / [id number] Screw 3.5x10mm 04.615.010 - [id number] Implanted:Qt y: 1 on 07/16/2014 by Malcolm Woodward MD [place] [facility] [place] N/A: Spine Cervical SYNTHES 04.615.010 / / Screw 3.5x12mm - [id number] Implanted:Qt y: 1 on 07/16/2014 by Malcolm Woodward MD [place] [facility] [place] N/A: Spine Cervical SYNTHES 04.615.012 / / Screw 3.5x14mm 04.615.014 - [id number] Implanted:Qt y: 4 on 07/16/2014 by Malcolm Woodward MD [place] [facility] [place] N/A: Spine Cervical SYNTHES 04.615.014 / / Screw 3.5x16mm - [id number] Implanted:Qt y: 2 on 07/16/2014 by Malcolm Woodward MD [place] [facility] [place] N/A: Spine Cervical SYNTHES 04.615.016 / / Cap Lkg 04.614.508 - [id number] Implanted:Qt y: 8 on 07/16/2014 by Malcolm Woodward MD [place] [facility] [place] N/A: Spine Cervical SYNTHES 04.614.508 / / 80mm Jose J Implanted:Qt y: 2 on 07/16/2014 by Malcolm Woodward MD [place] [facility] [place] N/A: Spine Cervical SYNTHES SPINE 04.615.530 / / Screw Set Sng Inner [id number] - [id number] Implanted:Qt y: 4 on 05/13/2016 by Malcolm Woodward MD [place] [facility] [place] JNJ : ETHICON CARDIOVATIONS 05/14/2016 [id number] / / Description:in set Screw 7x50 Poly Si [id number] - [id number] Implanted:Qt y: 4 on 05/13/2016 by Malcolm Woodward MD [place] [facility] [place] JNJ : ETHICON CARDIOVATIONS 05/14/2016 [id number] / / Description:in set Pre Lordosed Jose J W Line 45mm - [id number] Implanted:Qt y: 2 on 05/13/2016 by Malcolm Woodward MD [place] [facility] [place] JNJ : DEPUY SPINE 05/14/2016 [id number] / / Description:in set Expedium Ti Sfx 5.5 Lat A6 - [id number] Implanted:Qt y: 1 on 05/13/2016 by Malcolm Woodward MD [place] [facility] [place] JNJ : ETHICON CARDIOVATIONS 05/14/2016 [id number] / / Description:in set documented as of [...] Power of Attor jana? No Care Teams Mixer Whipped Topping Relationship Specialty Start Date End Date Chelo Trotter MD [address] [place] [address] [place] [address] PCP - General Family Medicine 05/02/24 documented as of this encounter
--- OUTSIDE RECORDS SUMMARY | 2024-10-25 09:10 | External Medical Summary | Summary of Care ---
Author Name Unknown Organization [facility] Address [address] [place] [address] Phone [phone] Care Team Providers Care Handkerchief Sample Clerk Name Role Phone Chelo Trotter MD Primary Care Provide r Reason for Visit * Reason Onset Date Comments Re-Check Medication Administration 05/02/2024 Flu an d/or Pneumo Inj Encounter Details Date Type Department Care Team (Latest Contact Info) Description 05/02/2024 7:20 AM EDT Office Visit Family Medicine [address] [place] [address] Chelo Trotter MD [address] [place] [address] [place] [address] Arm swelling*; Need for prophylactic vaccination and inoculation against influenza; COPD, group D, by GOLD 2017 classification (HCC); Dyslipidemia, goal LDL below 100; Stage 3a chronic kidney disease; Need for pneumococcal 20-valent conjugate vaccination Allergies No known active allergiesdocumented as of this encounter (statuses as of 05/08/2024) Medications Medication Sig Dispensed Refills Start Date End Date Status Multivitamin Adult Oral Tablet Take 1 Tablet by mouth daily. Active guaiFENesin ER 600 MG Oral Tablet Extended Release 12 Hour Take 1 Tablet by mouth in the morning. Active Fluticasone Furoate-Vilanterol 100-25 MCG/ACT Inhalation Aerosol Powder Breath Activated (BREO ellipta) Inhale 1 Puff by mouth in the morning. Active Ipratropium [place] 0.02 % Inhalation Solution (Atrovent) use 1 vial via nebulizer every 4 hours if needed for shortness of breath or wheezing 75 mL 5 4 Active Atorvastatin Calcium 40 MG Oral Tablet (Lipitor)Indicatio ns:Dyslipidemia, goal LDL below 100 Take 1 Tablet by mouth at bedtime. 90 Tablet 3 4 Active Megavite Fruits & Veggies Oral Tablet Take 1 Tablet by mouth every morning. Active Metoprolol Succinate ER 25 MG Oral Tablet Extended Release 24 Hour (toPROL XL) Take 1 Tablet by mouth in the morning. 90 Tablet 3 4 Active Apixaban 5 MG Oral Tablet (Eliquis) Take 1 Tablet by mouth in the morning and 1 Tablet before bedtime. 180 Tablet 1 4 Active Furosemide 20 MG Oral Tablet (Lasix)Indications :Heart failure, systolic, with acute decompensation (HCC) 40 mg on Wednesday's, Wednesday's, and Wednesday's, 20 mg all other days 135 Tablet 3 4 Active Spiriva Respimat 2.5 MCG/ACT Inhalation Aerosol Solution (Tiotropium [place] Monohydrate) Inhale 2 Puffs by mouth in the morning. 1 Each 3 4 Active FLUoxetine HCl 20 MG Oral Capsule (PROzac) Take 1 Capsule by mouth in the morning. 90 Capsule 3 4 Active Additional Information Patient taking differently: 40 mgOral Daily(AM), Reported on 05/02/2024 predniSONE 10 MG Oral Tablet (Deltasone) Take 1 Tablet by mouth in the morning. 90 Tablet 3 4 Active Azithromycin 500 MG Oral Tablet (Zithromax) Take 1 Tablet by mouth once a day on Wednesday, Wednesday, and Wednesday only. 36 Tablet 3 4 Active Finasteride 5 MG Oral Tablet (Proscar)Indicatio ns:Benign prostatic hyperplasia with weak urinary stream TAKE ONE TABLET BY MOUTH EVERY DAY 90 Tablet 4 Active Levalbuterol HCl 1.25 MG/0.5ML Inhalation Nebulization SolutionIndication s:COPD, group D, by GOLD 2017 classification ([facility]) Inhale 1 Ampule by mouth every 4 hours as needed for Wheezing or Shortness of Breath. 4 Active Albuterol Sulfate HFA 108 (90 Base) MCG/ACT Inhalation Aerosol SolutionIndication s:COPD, group D, by GOLD 2017 classification ([facility]) Inhale 2 Puffs by mouth every 4 hours as needed for Wheezing. 18 g 5 4 Active Albuterol Sulfate HFA 108 (90 Base) MCG/ACT Inhalation Aerosol SolutionIndication s:Wheezing Inhale by mouth 2 Puffs every 4 hours as needed for Wheezing. 18 g 5 2 Discontinued(Re fill) Levalbuterol HCl 1.25 MG/0.5ML Inhalation Nebulization Solution Inhale 1 Ampule by mouth every 4 hours as needed for Wheezing or Shortness of Breath. 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 (HCC),COPD, group B, by GOLD 2017 classification ([facility]) take 5 tabs by mouth daily x2 days, 4 tabs daily x2 days, 3 tabs daily x2 days, 2 tabs daily x2 days, 1 tab daily once daily x2 days 30 Tablet 4 024 Discontinued(Me dication List Clean Up) Spironolactone 25 MG Oral Tablet (Aldactone)Indicat ions:Heart failure, systolic, with acute decompensation (HCC) 25 mg on Wednesday's, Wednesday's, and Wednesday's, 12.5 mg all other days 65 Tablet 3 4 Discontinued(Re fill) documented as of this encounter (statuses as of 05/08/2024) Active Problems Patient Care Coordination No te [...] 02/08/2014 Overview: 1 mm C5-6 Atherosclerosis of [place] co ronary artery of [place] heart without angina pectoris 04/25/2010 Overview: UT Last Assessment & Plan: Continue Eliquis, atorvastatin, metoprolol at new reduced dose of 25 mg daily. No a secondary to hypotension. Old UT (myocardial infarction) 07/26/2009 Cervical spine degeneration Overview: multilevel Osteoarthritis of spine with myelopathy, lumbar region documented as of this encounter (statuses as of 05/08/2024) Resolved Problems Problem Noted Date Diagnosed Date [...] as of this encounter (statuses as of 05/08/2024) Immunizations Name Administration Dates Next Due Pneumococcal [...] No 04/24/2024 Does the household have a [facility] [employer] source of income? (Household - for ages [...] Sign Reading Time Taken Comments Blood Pressure 98/68 05/02/2024 7:23 AM EDT Pulse 72 05/02/2024 7:23 AM EDT Temperature 36.1 °C (96.9 °F) 05/02/2024 7:23 AM ED T Respiratory Rate - - Oxygen Saturation 95% 05/02/2024 7:23 AM EDT Inhaled Oxygen Concentration - - Weight 94.9 kg (209 lb 3.2 oz) 05/02/2024 7:23 A M EDT Height - - Body Mass Index 30.02 02/24/2023 1:00 PM EDT documented in this [...] as of this encounter Progress Notes * Chelo Trotter MD - 05/02/2024 7:31 AM EDT Subjective: HPI: Demetri Romero Sr. is a 73 year old male with hx of COPD, CAD s/p stent, HFpEF, Afib on eliquis, HLD, hx of CVA with R sided weakness, Gout, BPH with CKD III, DDD, C spine surgery, Depression, dementia seen for Pt is here with his R forearm edema since the CVA for 6 years - denied any erythema - intermittent blisters due to swelling - does take lasix and aldactone every other day - denied any trauma - pt does have limited mobility due to the stroke Depression: - per pt's mood has been okay - thinks pt is still having mild depression - on prozac 40mg (recently increased) Take prednisone 10mg daily for COPD - uses intermittent oxygen supplement with ambulation CAD s/p stent: - does not take aspirin but on eliquis Pt is also having memory (short term) issues since stroke - not worsening Patient Active Problem List Diagnosis Atherosclerosis of [place] coronary artery of [place] heart without angina pectoris Anterolisthesis 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, lumbar region Stage 3a chronic kidney disease Heart failure, systolic, due to idiopathic cardiomyopathy (HCC) Paroxysmal atrial fibrillation (HCC) Gout of left foot Old UT (myocardial infarction) Dyslipidemia, goal LDL below 100 Laceration of spleen Protein-calorie malnutrition (HCC) Cellulitis of right upper extremity Aphasia, post-stroke BPH without obstruction/lower urinary tract symptoms DNR (do not resuscitate) COPD, group D, by GOLD 2017 classification ([facility]) Current Outpatient Medications Medication Sig Dispense Refill Multivitamin Adult Oral Tablet Take 1 Tablet by mouth daily. guaiFENesin ER 600 MG Oral Tablet Extended Release 12 Hour Take 1 Tablet by mouth in the morning. Allopurinol 300 MG Oral Tablet (Zyloprim) TAKE ONE TABLET BY MOUTH EVERY DAY 90 Tablet 3 Fluticasone Furoate-Vilanterol 100-25 MCG/ACT Inhalation Aerosol Powder Breath Activated (BREO ellipta) Inhale 1 Puff by mouth in the morning. Ipratropium [place] 0.02 % Inhalation Solution (Atrovent) use 1 [...] 1 Tablet before bedtime. 180 Tablet 1 Spironolactone 25 MG Oral Tablet (Aldactone) 25 mg on Wednesday's, Wednesday's, and Wednesday's, 12.5 mg all other days 65 Tablet 3 Furosemide 20 MG Oral Tablet (Lasix) 40 mg on Wednesday's, Wednesday's, and Wednesday's, 20 mg all other days 135 Tablet 3 Spiriva Respimat 2.5 MCG/ACT Inhalation Aerosol Solution (Tiotropium [place] Monohydrate) Inhale 2 Puffs by mouth in [...] BY MOUTH EVERY DAY 90 Tablet 0 Levalbuterol HCl 1.25 MG/0.5ML Inhalation Nebulization Solution Inhale 1 Ampule by mouth every 4 hours as needed for Wheezing or Shortness of Breath. Albuterol Sulfate HFA 108 (90 Base) MCG/ACT Inhalation Aerosol Solution Inhale 2 Puffs by mouth every 4 hours as needed for Wheezing. 18 g 5 No current facility-administered medications for this visit. Past Medical History: Diagnosis Date Acute ischemic left MCA stroke (HCC) 06/03/2018 Anterolisthesis 02/08/2014 1 mm C5-6 Benign prostatic hypertrophy (BPH) with weak urinary stream BMI 33.0-33.9,adult 04/08/2017 234 lbs Cervical spine degeneration multilevel CKD (chronic kidney disease), stage III ([facility]) 04/08/2017 GFR 54.3 Community acquired pneumonia of left lung 04/24/2020 [facility] Compression fracture of T12 vertebra ([facility]) 09/12/2022 fell at home COPD (chronic obstructive pulmonary disease) ([facility]) Coronary atherosclerosis of [place] coronary artery 04/2010 UT DVT (deep venous thrombosis) ([facility]) 04/2010 after UT was on Coumadin for a while Fracture of two ribs with routine healing, left 09/12/2022 fell at home, was in [facility] 09/15 Gout of left foot 06/10/2018 Heart failure, systolic, due to idiopathic cardiomyopathy (HCC) 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 (HCC) Hyperlipidemia LDL goal < 100 Laceration of spleen 09/15/2022 fell on 09/12 Localized edema Need for hepatitis C screening test 02/08/2014 Hepatitis C negative Old UT (myocardial infarction) 2009 Osteoarthritis of spine with myelopathy, lumbar region Pneumonia due to COVID-19 virus 07/30/2022 [facility] Shingles 09/07/2016 Spinal stenosis of lumbar region L3-4 Tobacco use disorder Past Surgical History: Procedure Laterality Date ADULT ECHOCARDIOGRAM 01/13/2022 moderate posterior and lateral wall motion abnormalites, EF 45-49%, Mod LA enlargement CARDIAC STENT PLACEMENT, PERCUTANEOUS, 1 VESSEL 05/05/2010 [facility], complex PCI with aspiration thrombectomy and placement of 2 bare metal stents in Left Circ LUMBAR SPINE FUSION, POSTEROLATERAL N/A 05/13/2016 ARTHRODESIS SPINE POSTERIOR LUMBAR performed by Malcolm Woodward MD at [facility] NECK SPINE FUSION (CERV, BELOW C2) N/A 07/16/2014 ARTHRODESIS SPINE ANTERIOR CERVICAL performed by Malcolm Woodward MD at [facility] NECK SPINE FUSION (CERV, BELOW C2) N/A 07/16/2014 ARTHRODESIS SPINE POSTERIOR CERVICAL DUAL APPROACH performed by Malcolm Woodward MD at [facility] REMOVE LUMBAR SPINE LAMINA, 1 SEG N/A 05/13/2016 LAMINECTOMY FACETECTOMY AND FORAMINOTOMY LUMBAR performed by Malcolm Woodward MD at [facility] US AAA SCREEN, VASCULAR LAB atherosclerotic changes, 24x2.6 cm no AAA US ABDOMEN LIMITED Left 09/24/2022 spleen normal Review of patient's allergies indicates: No Known Allergies Family History Problem Relation Name Age of Onset Heart disease Mother in her 70s Heart disease Father in her 80s Stroke Father Stroke Sister Heart disease Sister Renal Hx Brother ESRD on HD Heart disease Brother Social History Tobacco Use Smoking status: Former Current packs/day: 0.00 Average packs/day: 0.5 packs/day for 51.0 years (25.5 ttl pk-yrs) Types: Cigarettes Start date: 05/13/1965 Quit date: 05/13/2016 Years since quittin.9 Smokeless tobacco: Never Tobacco comments: age 12 Substance Use Topics Alcohol use: Not Currently Vaping/E-Cigarette Use Vaping/E-Cigarette Use Never User Vaping/E-Cigarette Substances Vaping/E-Cigarette Devices ROS: -Per HPI OBJECTIVE: BP 98/68 | Pulse 72 | Temp 36.1 °C (96.9 °F) | Wt 94.9 kg (209 lb 3.2 oz) | SpO2 95% | BMI 30.02 kg/m² | BSA 2.16 m² PHYSICAL EXAM: Vitals are reviewed General:. NAD, well developed HEENT:. Normal Conjunctiva, EOMI Cardiac:. Normal S1, S2, no murmur Lungs:. CTA, no wheezing or crackles MSK:.R arm and R leg pitting edema, good capillary refill and radial pulse Psych:. normal affect ASSESSMENT/PLAN: I suspect the R arm swelling is due to decreased mobility + venous insufficiency - will get doppler - recommended compression and frequent movement of the arms Arm swelling (Primary) - DURABLE MEDICAL EQUIPMENT - VASC DUPLEX VENOUS UE UNILAT Need for prophylactic vaccination and inoculation against influenza - INFLUENZA VAC., TRIVALENT, HD, PF, 65 AND ABOVE, 0.5 ML IM (FLUZONE HD) COPD, group D, by GOLD 2017 classification ([facility]) - Albuterol Sulfate HFA 108 (90 Base) MCG/ACT Inhalation Aerosol Solution; Inhale 2 Puffs by mouth every 4 hours as needed for Wheezing. Dyslipidemia, goal LDL below 100 - LIPID PANEL WITHOUT DIRECT LDL Stage 3a chronic kidney disease - ALBUMIN / CREATININE RATIO, URINE Need for pneumococcal 20-valent conjugate vaccination - PNEUMOCOCCAL VACC, PCV20, IM ([id number]) Follow Up: Return in about 6 months (around 10/31/2024). Chelo Trotter MD Family medicine, [place] [phone] * Glory Hernández CMA - 05/02/2024 7:25 AM EDT PRE - ADMINISTRATION DOCUMENTATION Are you experiencing any cold symptoms or fever? No Have you had Guillain-Clarence Syndrome (an illness that causes paralysis) within the last 6 weeks? No Have you had the flu shot in the past? YES Have you ever had a reaction to the flu shot? No Glory Hernández CMA, 05/02/2024 7:25 AM Immunization Administration Documentation Time Out Procedure Performed: Yes Patient Identified (Ask Name/Date of ): Yes Does the patient have a fever greater than 101 degrees today? No Patient allergic to latex? No VFC Stock: No Immunization(s) verified: Yes, Immunization Name: Flu, VIS Sheet(s) given: Yes Verified Side and Site: Yes Verified Shot(s) with Parent(s)/Patient: Yes documented in this encounter Nursing Notes * Glory Hernández CMA - 05/02/2024 7:18 AM EDT He is here for a regular recheck. Dr. Santos was his PCP. He has GAH. He has continue swelling in his arm from his stroke and it still bothers him. They would like pnemonia vaccine. It is not showing he is due for prevnar 20. Ok to give? documented in this encounter Plan of Treatment Upcoming Encounters Date Type Department Care Team (Late st Contact Info) Description 05/11/2024 2:00 PM EDT Home Visit Wojciech at [facility] [address] [address] Carley Martinez, CHATO [address] [place] [phone] 05/23/2024 12:00 PM EDT Office Visit Cardiology [address] [place] [address] Zaid Ramsey PA-C [address] [place] [phone] 05/26/2024 8:30 AM EDT Home Visit Wojciech at [facility] [address] [address] Carley Martinez, CHATO [address] [place] [place] [address] 01/12/2025 8:00 AM EDT Office Visit Family Medicine [address] [place] [address] Chelo Trotter MD [address] [place] [address] [place] [address] Health Maintenance Due Date Last Done Comments DTap/Tdap Vaccines (1 - Tdap) 1969 Cologuard 1995 Colonoscopy 1995 Colorectal Cancer Screening 1995 Fecal Occult Blood Test 1995 Sigmoidoscopy 1995 Lung Cancer Screening 2000 Zoster Vaccines (1 of 2) 2000 Adult Wellness Visit 2016 Depression Screening 04/30/2021 04/30/2020 COVID-19 Vaccine ( season) 2024 GFR 10/31/2024 05/02/2024, 08/2023, 11/26/2023, Additional history exists CKD HGB USE SMARTSET 74056 11/15/202411/15, 11/16/2023, 11/25/2022, Additional history exists CKD PHOS USE SMARTSET 88163 05/02/202502/2024, 11/25/2022, 11/12/2020, Additional history exists Albumin/Creatinine [...] this encounter Medical Devices Implanted Type Area Sterilizer Operator Device Identifier Shelf Expiration Date Model / Serial / Lot Graft Cervical 5x7 [id number] - [id number] Implanted:Qt y: 3 on 07/16/2014 by Malcolm Woodward MD at [facility] Tissue - Human N/A: Neck [employer] [id number] / / Dbx 2.5cc [id number] - [id number] Implanted:Qt y: 1 on 07/16/2014 by Malcolm Woodward MD at [facility] N/A: Spine Cervical MUSCULOSKELETAL TRANSPLANT FND 10/05/2015 [id number] / [id number] / Duragen Plus 2x2 Dp 1022 Min5 - [id number] Implanted:Qt y: 1 on 07/16/2014 by Malcolm Woodward MD at [facility] N/A: Spine Cervical [employer] GAVIN 08/25/2016 DP-1022 / / [id number] Screw 3.5x10mm 04.615.010 - [id number] Implanted:Qt y: 1 on 07/16/2014 by Malcolm Woodward MD at [facility] N/A: Spine Cervical SYNTHES 04.615.010 / / Screw 3.5x12mm - [id number] Implanted:Qt y: 1 on 07/16/2014 by Malcolm Woodward MD at [facility] N/A: Spine Cervical SYNTHES 04.615.012 / / Screw 3.5x14mm 04.615.014 - [id number] Implanted:Qt y: 4 on 07/16/2014 by Malcolm Wodoward MD at [facility] N/A: Spine Cervical SYNTHES 04.615.014 / / Screw 3.5x16mm - [id number] Implanted:Qt y: 2 on 07/16/2014 by Malcolm Woodward MD at [facility] N/A: Spine Cervical SYNTHES 04.615.016 / / Cap Lkg 04.614.508 - [id number] Implanted:Qt y: 8 on 07/16/2014 by Malcolm Woodward MD at [facility] N/A: Spine Cervical SYNTHES 04.614.508 / / 80mm Jose J Implanted:Qt y: 2 on 07/16/2014 by Malcolm Woodward MD at [facility] N/A: Spine Cervical SYNTHES SPINE 04.615.530 / / Screw Set Sng Inner [id number] - [id number] Implanted:Qt y: 4 on 05/13/2016 by Malcolm Woodward MD at [facility] JNJ : ETHICON CARDIOVATIONS 05/14/2016 [id number] / / Description:in set Screw 7x50 Poly Si [id number] - [id number] Implanted:Qt y: 4 on 05/13/2016 by Malcolm Woodward MD at [facility] JNJ : ETHICON CARDIOVATIONS 05/14/2016 [id number] / / Description:in set Pre Lordosed Jose J W Line 45mm - [id number] Implanted:Qt y: 2 on 05/13/[facility] DEPUY SPINE 05/14/2016 [id number] / / Description:in set Expedium Ti Sfx 5.5 Lat A6 - [id number] Implanted:Qt y: 1 on 05/13/2016 by Malcolm Woodward MD at [facility] JNJ : ETHICON CARDIOVATIONS 05/14/2016 [id number] / / Description:in set documented as of this encounter Procedures Procedure Name Priority Date/Time Associated Diagnosis Comments ALBUMIN / CREATININE RATIO, URINE Routine 05/04/2024 11:03 AM EDT Stage 3a chronic kidney disease VASC DUPLEX VENOUS UE UNILAT Routine 05/04/2024 8:49 AM EDT Arm swelling LIPID PANEL WITHOUT DIRECT LDL Routine 05/02/2024 8:18 AM EDT Dyslipidemia, goal LDL below 100 documented in this encounter Results * ALBUMIN / CREATININE RATIO, URINE (05/04/2024 11:03 AM EDT) Albumin, Random Urine <1.20 mg/dL 05/04/2024 11:41 PM EDT [facility] Creatinine, Random Urine 232 mg/dL 05/04/2024 11:41 PM EDT [facility] Albumin / Creatinine Ratio, Urine <5 <30 mg/g Creat 05/04/2024 11:41 PM EDT [facility] Urine Urine specimen obtained by clean catch procedure / Unknown Non-blood Collection / Unknown 05/04/2024 11:03 AM EDT 05/04/2024 11:03 AM EDT Narrative [facility] - 05/04/2024 11:41 PM EDT Normal: <30 mg/g creatinine High: 30-300 mg/g creatinine Very High: >300 mg/g creatinine Nephrotic: >2200 mg/g creatinine Chelo Trotter MD LAB URINE ORD ERABLES [facility] [address] [place] [address] * VASC DUPLEX VENOUS UE UNILAT (05/04/2024 8:49 AM EDT) Anatomical Region Laterality Modality Upper Extremity, Vascular Ultras ound Impressions 05/04/2024 12:43 PM EDT : right upper extremity venous duplex examination with no evidence of acute deep venous thrombosis. The right basilic and cephalic veins are patent with no evidence of superficial thrombophlebitis. Narrative 05/04/2024 12:43 PM EDT VASCULAR LAB RESULTS DATE OF EXAM: 05/04/24 PRESENTING CONDITIONS: Chronic RUE swelling and pain. Stroke with RUE weakness. This is an interpretation of an exam performed at the [facility]. Immediately before proceeding with the vascular lab procedure reported below, the identity of the patient, the correct exam and the correct procedural site were verified. Kam scale, color flow and spectral doppler were performed for this examination. PHYSICIAN REPORT: Upper Extremity Venous Duplex Examination Duplex examination includes visualization of the right internal jugular vein, innominate vein, subclavian vein and axillary vein. The veins are free of internal echoes with normal diameter changes in response to respiratory cycles demonstrated. Doppler signals demonstrate spontaneous cyclic flow dynamics. The brachial veins demonstrate normal compressibility. The basilic and cephalic veins are compressible without internal echoes. The contralateral subclavian vein is patent and demonstrates respirophasic flow. Chelo Trotter MD RAD VASCULAR * LIPID PANEL WITHOUT DIRECT LDL (05/02/2024 8:18 AM EDT) Triglycerides 92 <=174 mg/dL 05/02/2024 8:50 PM EDT [facility] Comment: Triglyceride Reference Ranges (mg/dL): <150 Acceptable 150-174 Borderline high 175-499 High >=500 Very high Cholesterol 116 <200 mg/dL 05/02/2024 8:50 PM EDT [facility] Comment: Total Cholesterol Reference Ranges (mg/dL): <200 Desirable 200-239 Borderline high >=240 High HDL Cholesterol 49 >39 mg/dL 8:50 PM EDT [facility] Comment: HDL Cholesterol Reference Ranges (mg/dL): >=60 High (Desirable) <50 Low (Undesirable) For Females <40 Low (Undesirable) For Males Non-HDL Cholesterol 67 <=159 mg/dL 05/02/2024 8:50 PM EDT [facility] Comment: Non-HDL Cholesterol Reference Range (mg/dL): <100 Target level for high risk ASCVD patient <130 Optimal for general population 130-159 Near optimal for general population 160-189 Borderline High 190-219 High >=220 Very High LDL Cholesterol 49 <=129 mg/dL 05/02/2024 8:50 PM EDT [facility] Comment: LDL Cholesterol Reference Ranges (mg/dL): <70 Target level for high risk ASCVD patient <100 Optimal for general population 100-129 Near optimal for general population 130-159 Borderline high 160-189 High >=190 Very high Blood Venous blood specimen / Unknown Venipuncture / Unknown 05/02/2024 8:18 AM EDT 05/02/2024 8:19 AM EDT Chelo Trotter MD LAB BLOOD ORD ERABLES [facility] [address] [place] [address] documented in this encounter Visit Diagnoses Diagnosis Arm swelling- Primary Swelling of limb Need for prophylactic vaccination and inoculation against influenza COPD, group D, by GOLD 2017 classification (HCC) Dyslipidemia, goal LDL below 100 Other and unspecified hyperlipidemia Stage 3a chronic kidney disease Need for pneumococcal 20-valent conjugate vaccination documented in this encounter Advance Directives * [...] Power of Attor jana? No Care Teams Handkerchief Sample Clerk Relationship Specialty Start Date End Date Chelo Trotter MD [address] [place] [address] [place] [address] PCP - General Family Medicine 05/02/24 documented as of this encounter
--- OUTSIDE RECORDS SUMMARY | 2024-10-25 09:10 | External Medical Summary | Summary of Care ---
Author Name Unknown Organization [facility] Address [address] [place] [address] Phone [phone] Care Team Providers Care Social Group Worker Name Role Phone Chelo Trotter MD Primary Care Provide r Reason for Visit * Reason Onset Date Comments Re-Check Medication Administration 05/02/2024 Flu an d/or Pneumo Inj Encounter Details Date Type Department Care Team (Latest Contact Info) Description 05/02/2024 7:20 AM EDT Office Visit Family Medicine [address] [place] [address] Chelo Trotter MD [address] [place] [address] [place] [address] Arm swelling*; Need for prophylactic vaccination and inoculation against influenza; COPD, group D, by GOLD 2017 classification (HCC); Dyslipidemia, goal LDL below 100; Stage 3a chronic kidney disease; Need for pneumococcal 20-valent conjugate vaccination Allergies No known active allergiesdocumented as of this encounter (statuses as of 05/09/2024) Medications Medication Sig Dispensed Refills Start Date End Date Status Multivitamin Adult Oral Tablet Take 1 Tablet by mouth daily. Active guaiFENesin ER 600 MG Oral Tablet Extended Release 12 Hour Take 1 Tablet by mouth in the morning. Active Fluticasone Furoate-Vilanterol 100-25 MCG/ACT Inhalation Aerosol Powder Breath Activated (BREO ellipta) Inhale 1 Puff by mouth in the morning. Active Ipratropium [place] 0.02 % Inhalation Solution (Atrovent) use 1 [...] Respimat 2.5 MCG/ACT Inhalation Aerosol Solution (Tiotropium [place] Monohydrate) Inhale 2 Puffs by mouth in [...] s:COPD, group D, by GOLD 2017 classification ([facility]) Inhale 1 Ampule by mouth every 4 hours as needed for Wheezing or Shortness of Breath. 4 Active Albuterol Sulfate HFA 108 (90 Base) MCG/ACT Inhalation Aerosol SolutionIndication s:COPD, group D, by GOLD 2017 classification ([facility]) Inhale 2 Puffs by mouth every [...] ns:COPD, group B, by GOLD 2017 classification (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) take 5 tabs by mouth daily [...] as of this encounter (statuses as of 05/09/2024) Active Problems Patient Care Coordination No te [...] 02/08/2014 Overview: 1 mm C5-6 Atherosclerosis of [place] co ronary artery of [place] heart without angina pectoris 04/25/2010 Overview: [place] Last Assessment & Plan: Continue Eliquis, atorvastatin, metoprolol at new reduced dose of 25 mg daily. No a secondary to hypotension. Old [place] (myocardial infarction) 07/26/2009 Cervical spine degeneration Overview: multilevel Osteoarthritis of spine with myelopathy, lumbar region documented as of this encounter (statuses as of 05/09/2024) Resolved Problems Problem Noted Date Diagnosed Date [...] as of this encounter (statuses as of 05/09/2024) Immunizations Name Administration Dates Next Due Pneumococcal [...] No 04/24/2024 Does the household [facility]? 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) Current Outpatient Medications Medication Sig Dispense [...] Puff by mouth in the morning. Ipratropium Callaway 0.02 % Inhalation Solution (Atrovent) use 1 [...] Respimat 2.5 MCG/ACT Inhalation Aerosol Solution (Tiotropium [place] Monohydrate) Inhale 2 Puffs by mouth in [...] multilevel CKD (chronic kidney disease), stage III ([facility]) 04/08/2017 GFR 54.3 Community acquired pneumonia of left lung 04/24/2020 [facility] Compression fracture of T12 vertebra ([facility]) 09/12/2022 fell at home COPD (chronic obstructive pulmonary disease) ([facility]) Coronary atherosclerosis of [place] coronary artery 04/2010 [place] DVT (deep venous thrombosis) (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 (HCC) Hyperlipidemia LDL goal < 100 Laceration of spleen 09/15/2022 fell on 09/12 Localized edema Need for hepatitis C screening test 02/08/2014 Hepatitis C negative Old [place] (myocardial infarction) 2009 Osteoarthritis of spine with myelopathy, lumbar region Pneumonia due to COVID-19 virus 07/30/2022 [facility] Shingles 09/07/2016 Spinal stenosis of lumbar region L3-4 Tobacco use disorder Past Surgical History: Procedure Laterality Date ADULT ECHOCARDIOGRAM 01/13/2022 moderate posterior and lateral wall motion abnormalites, EF 45-49%, Mod LA enlargement CARDIAC STENT PLACEMENT, PERCUTANEOUS, 1 VESSEL 05/05/2010 [facility], complex PCI with aspiration thrombectomy and placement of 2 bare metal stents in Left Circ LUMBAR SPINE FUSION, POSTEROLATERAL N/A 05/13/2016 ARTHRODESIS SPINE POSTERIOR LUMBAR performed by Malcolm Woodward MD at OR [facility] NECK SPINE FUSION (CERV, BELOW C2) N/A 07/16/2014 ARTHRODESIS SPINE ANTERIOR CERVICAL performed by Malcolm Woodward MD at OR [facility] NECK SPINE FUSION (CERV, BELOW C2) N/A 07/16/2014 ARTHRODESIS SPINE POSTERIOR CERVICAL DUAL APPROACH performed by Malcolm Woodward MD at OR [facility] REMOVE LUMBAR SPINE LAMINA, 1 SEG N/A 05/13/2016 LAMINECTOMY FACETECTOMY AND FORAMINOTOMY LUMBAR performed by Malcolm Woodward MD at OR [facility] US AAA SCREEN, VASCULAR LAB atherosclerotic changes, [...] COPD, group D, by GOLD 2017 classification ([facility]) - Albuterol Sulfate HFA 108 (90 Base) MCG/ACT Inhalation Aerosol Solution; Inhale 2 Puffs by mouth every 4 hours as needed for Wheezing. Dyslipidemia, goal LDL below 100 - LIPID PANEL WITHOUT DIRECT LDL Stage 3a chronic kidney disease - ALBUMIN / CREATININE RATIO, URINE Need for pneumococcal 20-valent conjugate vaccination - PNEUMOCOCCAL VACC, PCV20, IM ([id number]) Follow Up: Return in about 6 months (around 10/31/2024). Chelo Trotter MD Family medicine, [place] [phone] * Glory Hernández CMA - 05/02/2024 7:25 AM EDT PRE - ADMINISTRATION DOCUMENTATION Are you experiencing any cold symptoms or fever? No Have you had Guillain-Kenner Syndrome (an illness that causes paralysis) within [...] Description 05/15/2024 12:30 PM EDT Home Visit Wojciech at [facility] [address] [place] [address] Carley Martinez, CHATO [address] [place] [phone] 05/23/2024 12:00 PM EDT Office Visit Cardiology [address] [place] [address] Zaid Ramsey PA-C [address] [place] [address] 05/26/2024 8:30 AM EDT Home Visit kristi at [facility] [address] [place] [address] Carley Martinez, CHATO [address] [place] [address] 01/12/2025 8:00 AM EDT Office Visit Family Medicine [address] [place] [phone] Chelo Trotter MD [address] [place] [address] [place] [address] Health Maintenance Due Date Last Done Comments DTap/Tdap Vaccines (1 - Tdap) 1969 Cologuard 1995 Colonoscopy 1995 Colorectal Cancer Screening 1995 Fecal Occult Blood Test 1995 Sigmoidoscopy 1995 Lung Cancer Screening 2000 Zoster Vaccines (1 of 2) 2000 Adult Wellness Visit 2016 Depression Screening 04/30/2021 04/30/2020 COVID-19 Vaccine ( season) 2024 GFR 10/31/2024 05/02/2024, 08/2023, 11/26/2023, Additional history exists CKD HGB USE SMARTSET 95090 11/15/202411/15, 11/16/2023, 11/25/2022, Additional history exists CKD PHOS USE SMARTSET 35084 05/02/202502/2024, 11/25/2022, 11/12/2020, Additional history exists Albumin/Creatinine [...] this encounter Medical Devices Implanted Type Area Chief Credit Officer Device Identifier Shelf Expiration Date Model / Serial / Lot Graft Cervical 5x7 [id number] - [id number] Implanted:Qt y: 3 on 07/16/2014 by Malcolm Woodward MD at OR [facility] Tissue - Human N/A: Neck [employer] [id number] / / Dbx 2.5cc [id number] - [id number] Implanted:Qt y: 1 on 07/16/2014 by Malcolm Woodward MD at OR [facility] N/A: Spine Cervical MUSCULOSKELETAL TRANSPLANT FND 10/05/2015 [id number] / [id number] / Duragen Plus 2x2 Dp 1022 Min5 - [id number] Implanted:Qt y: 1 on 07/16/2014 by Malcolm Woodward MD at OR [facility] N/A: Spine Cervical [employer] GAVIN 08/25/2016 DP-1022 / / [id number] Screw 3.5x10mm 04.615.010 - [id number] Implanted:Qt y: 1 on 07/16/2014 by Malcolm Woodward MD at OR [facility] N/A: Spine Cervical SYNTHES 04.615.010 / / Screw 3.5x12mm - [id number] Implanted:Qt y: 1 on 07/16/2014 by Malcolm Woodward MD at OR [facility] N/A: Spine Cervical SYNTHES 04.615.012 / / Screw 3.5x14mm 04.615.014 - [id number] Implanted:Qt y: 4 on 07/16/2014 by Malcolm Woodward MD at OR [facility] N/A: Spine Cervical SYNTHES 04.615.014 / / Screw 3.5x16mm - [id number] Implanted:Qt y: 2 on 07/16/2014 by Malcolm Woodward MD at OR [facility] N/A: Spine Cervical SYNTHES 04.615.016 / / Cap Lkg 04.614.508 - [id number] Implanted:Qt y: 8 on 07/16/2014 by Malcolm Woodward MD at OR [facility] N/A: Spine Cervical SYNTHES 04.614.508 / / 80mm Jose J Implanted:Qt y: 2 on 07/16/2014 by Malcolm Woodward MD at OR [facility] N/A: Spine Cervical SYNTHES SPINE 04.615.530 / / Screw Set Sng Inner [id number] - [id number] Implanted:Qt y: 4 on 05/13/2016 by Malcolm Woodward MD at OR [facility] JNJ : ETHICON CARDIOVATIONS 05/14/2016 [id number] / / Description:in set Screw 7x50 Poly Si [id number] - [id number] Implanted:Qt y: 4 on 05/13/2016 by Malcolm Woodward MD at OR [facility] JNJ : ETHICON CARDIOVATIONS 05/14/2016 [id number] / / Description:in set Pre Lordosed Jose J W Line 45mm - [id number] Implanted:Qt y: 2 on 05/13/2016 [facility] DEPUY SPINE 05/14/2016 [id number] / / Description:in set Expedium Ti Sfx 5.5 Lat A6 - [id number] Implanted:Qt y: 1 on 05/13/2016 by Malcolm Woodward MD at OR [facility] JNJ : ETHICON CARDIOVATIONS 05/14/2016 [id number] / / Description:in set documented as of [...] <1.20 mg/dL 05/04/2024 11:41 PM EDT LAB[facility]ATORY [facility] Creatinine, Random Urine 232 mg/dL 05/04/2024 11:41 PM EDT LAB[facility]ATORY [facility] Albumin / Creatinine Ratio, Urine <5 <30 mg/g Creat 05/04/2024 11:41 PM EDT LAB[facility] Urine Urine specimen obtained by clean catch procedure / Unknown Non-blood Collection / Unknown 05/04/2024 11:03 AM EDT 05/04/2024 11:03 AM EDT Narrative LAB[facility]ATORY [facility] - 05/04/2024 11:41 PM EDT Normal: <30 mg/g creatinine High: 30-300 mg/g creatinine Very High: >300 mg/g creatinine Nephrotic: >2200 mg/g creatinine Chelo Trotter MD LAB URINE ORD ERABLES LAB[facility] [address] [place] [address] * VASC DUPLEX VENOUS UE [...] interpretation of an exam performed at the [facility]. Immediately before proceeding with the vascular lab [...] <=174 mg/dL 05/02/2024 8:50 PM EDT LAB[facility]ATORY [facility] Comment: Triglyceride Reference Ranges (mg/dL): <150 Acceptable 150-174 Borderline high 175-499 High >=500 Very high Cholesterol 116 <200 mg/dL 05/02/2024 8:50 PM EDT LAB[facility] Comment: Total Cholesterol Reference Ranges (mg/dL): <200 Desirable 200-239 Borderline high >=240 High HDL Cholesterol 49 >39 mg/dL 8:50 PM EDT LAB[facility] Comment: HDL Cholesterol Reference Ranges (mg/dL): >=60 High (Desirable) <50 Low (Undesirable) For Females <40 Low (Undesirable) For Males Non-HDL Cholesterol 67 <=159 mg/dL 05/02/2024 8:50 PM EDT LAB[facility] Comment: Non-HDL Cholesterol Reference Range (mg/dL): <100 Target level for high risk ASCVD patient <130 Optimal for general population 130-159 Near optimal for general population 160-189 Borderline High 190-219 High >=220 Very High LDL Cholesterol 49 <=129 mg/dL 05/02/2024 8:50 PM EDT LAB[facility] Comment: LDL Cholesterol Reference Ranges (mg/dL): <70 Target level for high risk ASCVD patient <100 Optimal for general population 100-129 Near optimal for general population 130-159 Borderline high 160-189 High >=190 Very high Blood Venous blood specimen / Unknown Venipuncture / Unknown 05/02/2024 8:18 AM EDT 05/02/2024 8:19 AM EDT Chelo Trotter MD LAB BLOOD ORD ERABLES [facility] [address] [place] [address] documented in this encounter Visit [...] Power of Attor jana? No Care Teams Social Group Worker Relationship Specialty Start Date End Date Chelo Trotter MD [address] [place] [address] [place] [address] PCP - General Family Medicine 05/02/24 documented as of this encounter
--- OUTSIDE RECORDS SUMMARY | 2024-10-25 09:10 | External Medical Summary ---
Author Name Unknown Address Unknown Organization [id number]:[facility] - [address] [place] [address] Laboratory Report Ordering Provider Test Date Status KASHMIR LOVE 05/23/2024 12:23:41 Final Observation Date Value Abnormality Reference (Units ) Status Magnesium 05/23/2024 12:23:41 1.9 1.5-2.6 (m g/dL) Final Performing Location [facility] - [address] [place] [address]
--- OUTSIDE RECORDS SUMMARY | 2024-10-25 09:10 | External Medical Summary | Summary of Care ---
Author Name Unknown Organization [facility] Address [address] [place] [address] Phone [phone] Care Team Providers Care Shelter Supervisor Name Role Phone Chelo Trotter MD Primary Care Provide r Reason for Visit * Reason Comments Outpatient Testing Encounter Details Date Type Department Care Team (Late st Contact Info) Description 05/23/2024 12:30 PM EDT Laboratory Laboratory [address] [place] [phone] [place] [address] Encounter for monitoring diuretic therapy Allergies No known active allergiesdocumented as of this encounter (statuses as of 05/23/2024) Medications Medication Sig Dispensed Refills Start Date End Date Status Multivitamin Adult Oral Tablet Take 1 Tablet by mouth daily. Active guaiFENesin ER 600 MG Oral Tablet Extended Release 12 Hour Take 1 Tablet by mouth in the morning. Active Fluticasone Furoate-Vilanterol 100-25 MCG/ACT Inhalation Aerosol Powder Breath Activated (BREO ellipta) Inhale 1 Puff by mouth in the morning. Active Ipratropium [place] 0.02 % Inhalation Solution (Atrovent) use 1 [...] (Lasix)Indications:H eart failure, systolic, with acute decompensation ([facility]) 40 mg on Wednesday's, Wednesday's, and Wednesday's, 20 mg all other days 135 Tablet 3 02/01/2024 Active Spiriva Respimat 2.5 MCG/ACT Inhalation Aerosol Solution (Tiotropium [place] Monohydrate) Inhale 2 Puffs by mouth in [...] COPD, group D, by GOLD 2017 classification ([facility]) Inhale 1 Ampule by mouth every 4 hours as needed for Wheezing or Shortness of Breath. 05/02/2024 Active Albuterol Sulfate HFA 108 (90 Base) MCG/ACT Inhalation Aerosol SolutionIndications: COPD, group D, by GOLD 2017 classification ([facility]) Inhale 2 Puffs by mouth every 4 hours as needed for Wheezing. 18 g 5 05/02/2024 Active Spironolactone 25 MG Oral Tablet (Aldactone)Indicatio ns:Heart failure, systolic, with acute decompensation (HCC) Take 1 Tablet by mouth in the morning. 90 Tablet 3 05/03/2024 Active documented as of this encounter (statuses as of 05/23/2024) Active Problems Patient Care Coordination No te [...] 02/08/2014 Overview: 1 mm C5-6 Atherosclerosis of [place] co ronary artery of [place] heart without angina pectoris 04/25/2010 Overview: [place] Last Assessment & Plan: Continue Eliquis, atorvastatin, metoprolol at new reduced dose of 25 mg daily. No a secondary to hypotension. Old [place] (myocardial infarction) 07/26/2009 Cervical spine degeneration Overview: multilevel Osteoarthritis of spine with myelopathy, lumbar region documented as of this encounter (statuses as of 05/23/2024) Resolved Problems Problem Noted Date Diagnosed Date [...] as of this encounter (statuses as of 05/23/2024) Immunizations Name Administration Dates Next Due Pneumococcal [...] Description 05/26/2024 8:30 AM EDT Home Visit [facility] [address] [place] [address] Carley Martinez, RN [address] [place] [address] 01/09/2025 3:00 PM EDT Office Visit Cardiology [address] [place] [address] Zaid Ramsey PA-C [address] [place] [address] 01/12/2025 8:00 AM EDT Office Visit Family Medicine [address] [place] [phone] Chelo Trotter MD [address] [place] [address] [place] [address] Pending Results Name Type Priority Associated Diagnoses Date /Time BASIC METABOLIC PANEL Lab Routine Encounter for monitoring diuretic therapy 05/23/2024 12:23 PM EDT MAGNESIUM Lab Routine Encounter for monitoring diuretic therapy 05/23/2024 12:23 PM EDT Health Maintenance Due Date Last Done Comments DTap/Tdap Vaccines (1 - Tdap) 1969 Cologuard 1995 Colonoscopy 1995 Colorectal Cancer Screening 1995 Fecal Occult Blood Test 1995 Sigmoidoscopy 1995 Lung Cancer Screening 2000 Zoster Vaccines (1 of 2) 2000 Adult Wellness Visit 2016 Depression Screening 04/30/2021 04/30/2020 COVID-19 Vaccine ( season) 2024 GFR 10/31/2024 05/02/2024, 08/2023, 11/26/2023, Additional history exists CKD HGB USE SMARTSET 98611 11/15/202411/15, 11/16/2023, 11/25/2022, Additional history exists CKD PHOS USE SMARTSET 10598 05/02/202502/2024, 11/25/2022, 11/12/2020, Additional history exists Albumin/Creatinine [...] this encounter Medical Devices Implanted Type Area Corporate Strategy Analyst Device Identifier Shelf Expiration Date Model / Serial / Lot Graft Cervical 5x7 [id number] - [id number] Implanted:Qt y: 3 on 07/16/2014 by Malcolm Woodward MD at [place] [facility] Tissue - Human N/A: Neck [employer] [id number] / / Dbx 2.5cc [id number] - [id number] Implanted:Qt y: 1 on 07/16/2014 by Malcolm Woodward MD at [place] [facility] N/A: Spine Cervical MUSCULOSKELETAL TRANSPLANT FND 10/05/2015 [id number] / [id number] / Duragen Plus 2x2 Dp 1022 Min5 - [id number] Implanted:Qt y: 1 on 07/16/2014 by Malcolm Woodward MD at [place] [facility] N/A: Spine Cervical [employer] GAVIN 08/25/2016 DP-1022 / / [id number] Screw 3.5x10mm 04.615.010 - [id number] Implanted:Qt y: 1 on 07/16/2014 by Malcolm Woodward MD at OR [facility] N/A: Spine Cervical SYNTHES 04.615.010 / / Screw 3.5x12mm - [id number] Implanted:Qt y: 1 on 07/16/2014 by Malcolm Woodward MD at [facility] N/A: Spine Cervical SYNTHES 04.615.012 / / Screw 3.5x14mm 04.615.014 - [id number] Implanted:Qt y: 4 on 07/16/2014 by Malcolm Woodward MD at [place] [facility] N/A: Spine Cervical SYNTHES 04.615.014 / / Screw 3.5x16mm - [id number] Implanted:Qt y: 2 on 07/16/2014 by Malcolm Woodward MD at OR [facility] N/A: Spine Cervical SYNTHES 04.615.016 / / Cap Lkg 04.614.508 - [id number] Implanted:Qt y: 8 on 07/16/2014 by Malcolm Woodward MD at [facility] N/A: Spine Cervical SYNTHES 04.614.508 / / 80mm Jose J Implanted:Qt y: 2 on 07/16/2014 by Malcolm Woodward MD at OR [facility] N/A: Spine Cervical SYNTHES SPINE 04.615.530 / / Screw Set Sng Inner [id number] - [id number] Implanted:Qt y: 4 on 05/13/2016 by Malcolm Woodward MD at OR [facility] JNJ : ETHICON CARDIOVATIONS 05/14/2016 [id number] / / Description:in set Screw 7x50 Poly Si [id number] - [id number] Implanted:Qt y: 4 on 05/13/2016 by Malcolm Woodward MD at [place] [facility] JNJ : ETHICON CARDIOVATIONS 05/14/2016 [id number] / / Description:in set Pre Lordosed Jose J W Line 45mm - [id number] Implanted:Qt y: 2 on 05/13/2016 by Malcolm Woodward MD at OR [facility] JNJ : DEPUY SPINE 05/14/2016 [id number] / / Description:in set Expedium Ti Sfx 5.5 Lat A6 - [id number] Implanted:Qt y: 1 on 05/13/2016 by Malcolm Woodward MD at [place] [facility] ANGELA : ETHICON CARDIOVATIONS 05/14/2016 [id number] / / Description:in set documented as of this encounter Visit Diagnoses Diagnosis Encounter for monitoring diuretic therapy Encounter for therapeutic drug monitoring documented in this encounter Advance Directives * [...] Power of Attor jana? No Care Teams Shelter Supervisor Relationship Specialty Start Date End Date Chelo Trotter MD [address] [place] [address] [place] [address] PCP - General Family Medicine 05/02/24 documented as of this encounter
--- OUTSIDE RECORDS SUMMARY | 2024-10-25 09:10 | External Medical Summary ---
Author Name Unknown Address Unknown Organization [id number]:[facility] - [address] [place] [address] Laboratory Report Ordering Provider Test Date Status KASHMIR LOVE 05/23/2024 12:23:41 Final Observation Date Value Abnormality Reference (Units ) Status BUN 05/23/2024 12:23:41 15 6-20 (mg/dL) Final Creatinine 05/23/2024 12:23:41 1.4 Above high normal 0.6-1.2 (mg/dL) Final Glomerular filtration rate/1.73 sq M.predicted [Volume Rate/Area] in Serum, Plasma or Blood by Creatinine-based formula (CKD-EPI) 05/23/2024 12:23:41 54 Below low normal >=60 (mL/min) Final eGFR is calculated based on the CKD-EPI 2020 equation. Sodium 05/23/2024 12:23:41 139 135-146 (m mol/L) Final Potassium 05/23/2024 12:23:41 4.0 3.5-5.1 (m mol/L) Final Cl 05/23/2024 12:23:41 100 98-107 (mm ol/L) Final CO2 05/23/2024 12:23:41 21 Below low normal 22- 32 (mmol/L) Final Anion gap 05/23/2024 12:23:41 18 Above high normal 7- 15 (mmol/L) Final Glucose 05/23/2024 12:23:41 114 70-120 (mg /dL) Final Calcium 05/23/2024 12:23:41 10.0 8.4-10.2 ( mg/dL) Final Performing Location [facility] - [address] [place] [address]
--- OUTSIDE RECORDS SUMMARY | 2024-10-25 09:10 | External Medical Summary | Summary of Care ---
Author Name Unknown Organization [facility] Address [address] [place] [address] Phone [phone] Care Team Providers Care Nuclear Medicine Pet Ct Technologist Name Role Phone Chelo Trotter MD Primary Care Provide r Reason for Visit * Reason Onset Date Comments Appointment 05/09/2024 Encounter Details Date Type Department Care Team (Late st Contact Info) Description 05/09/2024 Telephone [facility] [place] [address] [place] [address] Willie Meeks, [place] [address], [place] [id number] Appointment Allergies No known active allergiesdocumented as of [...] by mouth in the morning. Active Ipratropium [place] 0.02 % Inhalation Solution (Atrovent) use 1 [...] Respimat 2.5 MCG/ACT Inhalation Aerosol Solution (Tiotropium [place] Monohydrate) Inhale 2 Puffs by mouth in [...] COPD, group D, by GOLD 2017 classification ([facility]) Inhale 1 Ampule by mouth every 4 hours as needed for Wheezing or Shortness of Breath. 05/02/2024 Active Albuterol Sulfate HFA 108 (90 Base) MCG/ACT Inhalation Aerosol SolutionIndications: COPD, group D, by GOLD 2017 classification ([facility]) Inhale 2 Puffs by mouth [...] 02/08/2014 Overview: 1 mm C5-6 Atherosclerosis of [place] co ronary artery of [place] heart without angina pectoris 04/25/2010 Overview: MO Last Assessment & Plan: Continue Eliquis, atorvastatin, metoprolol at new reduced dose of 25 mg daily. No a secondary to hypotension. Old MO (myocardial infarction) 07/26/2009 Cervical spine degeneration Overview: [...] No 04/24/2024 Does the household have a [facility] source of income? (Household - for ages [...] encounter Miscellaneous Notes * Telephone Encounter - Willie Meeks OSA - 05/09/2024 9:13 AM EDT TT Request from Bibiana Vieira Rescheduled May 11 visit with Carley Martinez to May 15 at 12:30 pm to fit in another GIANNA visit. Spoke with patient and confirmed. documented in this encounter Plan of Treatment Upcoming Encounters Date Type Department Care Team (Late st Contact Info) Description 05/15/2024 12:30 PM EDT [facility] [address] [address] Carely Martinez RN [address] [place] [address] 05/23/2024 12:00 PM EDT Office Visit Cardiology [address] [place] [address] Zaid Ramsey PA-C [address] [place] [address] 05/26/2024 8:30 AM EDT [facility] Visit [facility] [address] [address] Carley Martinez RN [address] [place] [address] 01/12/2025 8:00 AM EDT Office Visit Family Medicine [address] [place] [phone] Chelo Trotter MD [address] [place] [address] [place] [phone] Health Maintenance Due Date Last Done Comments DTap/Tdap Vaccines (1 - Tdap) 1969 Cologuard 1995 Colonoscopy 1995 Colorectal Cancer Screening 1995 Fecal Occult Blood Test 1995 Sigmoidoscopy 1995 Lung Cancer Screening 2000 Zoster Vaccines (1 of 2) 2000 Adult Wellness Visit 2016 Depression Screening 04/30/2021 04/30/2020 COVID-19 Vaccine ( season) 2024 GFR 10/31/2024 05/02/2024, 08/2023, 11/26/2023, Additional history exists CKD HGB USE SMARTSET 31680 11/15/202411/15, 11/16/2023, 11/25/2022, Additional history exists CKD PHOS USE SMARTSET 92322 05/02/202502/2024, 11/25/2022, 11/12/2020, Additional history exists Albumin/Creatinine [...] this encounter Medical Devices Implanted Type Area Clinical Rehabilitation Coordinator Device Identifier Shelf Expiration Date Model / Serial / Lot Graft Cervical 5x7 [id number] - [id number] Implanted:Qt y: 3 on 07/16/2014 by Maclolm Woodward [place] [facility] [place] - Human N/A: Neck Lif[employer] Co [id number] / / Dbx 2.5cc [id number] - [id number] Implanted:Qt y: 1 on 07/16/2014 by Malcoml Woodward MD [place] [facility] N/A: Spine Cervical MUSCULOSKELETAL TRANSPLANT FND 10/05/2015 [id number] / [id number] / Duragen Plus 2x2 Dp 1022 Min5 - [id number] Implanted:Qt y: 1 on 07/16/2014 by Malcolm Woodward MD [place] [facility] N/A: Spine Cervical [employer] GAVIN 08/25/2016 [id number] / / [id number] Screw 3.5x10mm 04.615.010 - [id number] Implanted:Qt y: 1 on 07/16/2014 by Malcolm Woodward MD [place] [facility] N/A: Spine Cervical SYNTHES 04.615.010 / / Screw 3.5x12mm - [id number] Implanted:Qt y: 1 on 07/16/2014 by Malcolm Woodward MD [place] [facility] N/A: Spine Cervical SYNTHES 04.615.012 / / Screw 3.5x14mm 04.615.014 - [id number] Implanted:Qt y: 4 on 07/16/2014 by Malcolm Woodward MD [place] [facility] N/A: Spine Cervical SYNTHES 04.615.014 / / Screw 3.5x16mm - [id number] Implanted:Qt y: 2 on 07/16/2014 by Malcolm Woodward MD [place] [facility] N/A: Spine Cervical SYNTHES 04.615.016 / / Cap Lkg 04.614.508 - [id number] Implanted:Qt y: 8 on 07/16/2014 by Malcolm Woodward MD [place] [facility] N/A: Spine Cervical SYNTHES 04.614.508 / / 80mm Jose J Implanted:Qt y: 2 on 07/16/2014 by Malcolm Woodward MD [place] [facility] N/A: Spine Cervical SYNTHES SPINE 04.615.530 / / Screw Set Sng Inner [id number] - [id number] Implanted:Qt y: 4 on 05/13/2016 by Malcolm Woodward MD [place] [facility] JNJ : ETHICON CARDIOVATIONS 05/14/2016 [id number] / / Description:in set Screw 7x50 Poly Si [id number] - [id number] Implanted:Qt y: 4 on 05/13/2016 by Malcolm Woodward MD [place] [facility] JNJ : ETHICON CARDIOVATIONS 05/14/2016 [id number] / / Description:in set Pre Lordosed Jose J W Line 45mm - [id number] Implanted:Qt y: 2 on 05/13/2016 [facility] DEPUY SPINE 05/14/2016 [id number] / / Description:in set Expedium Ti Sfx 5.5 Lat A6 - [id number] Implanted:Qt y: 1 on 05/13/2016 [facility] ETHICON CARDIOVATIONS 05/14/2016 [id number] / / Description:in set documented as of [...] Power of Attor jana? No Care Teams Nuclear Medicine Pet Ct Technologist Relationship Specialty Start Date End Date Chelo Trotter MD [address] [place] [address] [place] [phone] PCP - General Family Medicine 05/02/24 documented as of this encounter
--- OUTSIDE RECORDS SUMMARY | 2024-10-25 09:11 | External Medical Summary | Summary of Care ---
Author Name Unknown Organization [facility] Address [address] [place] [address] Phone [phone] Care Team Providers Care Mellowing Machine Operator Name Role Phone Chelo Trotter MD Primary Care Provide r Reason for Visit * Reason Onset Date Comments Re-Check Medication Administration 05/02/2024 Flu an d/or Pneumo Inj Encounter Details Date Type Department Care Team (Latest Contact Info) Description 05/02/2024 7:20 AM EDT Office Visit Family Medicine [address] [place] [address] Chelo Trotter MD [address] [place] [address] [place] [address] Arm swelling*; Need for prophylactic vaccination and inoculation against influenza; COPD, group D, by GOLD 2017 classification (HCC); Dyslipidemia, goal LDL below 100; Stage 3a chronic kidney disease; Need for pneumococcal 20-valent conjugate vaccination Allergies No known active allergiesdocumented as of this encounter (statuses as of 05/04/2024) Medications Medication Sig Dispensed Refills Start Date End Date Status Multivitamin Adult Oral Tablet Take 1 Tablet by mouth daily. Active guaiFENesin ER 600 MG Oral Tablet Extended Release 12 Hour Take 1 Tablet by mouth in the morning. Active Fluticasone Furoate-Vilanterol 100-25 MCG/ACT Inhalation Aerosol Powder Breath Activated (BREO ellipta) Inhale 1 Puff by mouth in the morning. Active Ipratropium [place] 0.02 % Inhalation Solution (Atrovent) use 1 [...] Respimat 2.5 MCG/ACT Inhalation Aerosol Solution (Tiotropium [place] Monohydrate) Inhale 2 Puffs by mouth in [...] s:COPD, group D, by GOLD 2017 classification ([facility]) Inhale 1 Ampule by mouth every 4 hours as needed for Wheezing or Shortness of Breath. 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 No a secondary to hypotension. Old MT (myocardial infarction) 07/26/2009 Cervical spine degeneration Overview: multilevel Osteoarthritis of spine with myelopathy, lumbar region documented as of this encounter (statuses as of 05/04/2024) Resolved Problems Problem Noted Date Diagnosed Date [...] as of this encounter (statuses as of 05/04/2024) Immunizations Name Administration Dates Next Due Pneumococcal [...] No 04/24/2024 Does the household have a [facility]? 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, lumbar region Stage 3a chronic kidney disease Heart failure, systolic, due to idiopathic cardiomyopathy (HCC) Paroxysmal atrial fibrillation (HCC) Gout of left foot Old MT (myocardial infarction) Dyslipidemia, goal LDL below 100 Laceration of spleen Protein-calorie malnutrition (HCC) Cellulitis of right upper extremity Aphasia, post-stroke BPH without obstruction/lower urinary tract symptoms DNR (do not resuscitate) COPD, group D, by GOLD 2017 classification ([facility]) Current Outpatient Medications Medication Sig Dispense Refill [...] Puff by mouth in the morning. Ipratropium [place] 0.02 % Inhalation Solution (Atrovent) use 1 [...] Respimat 2.5 MCG/ACT Inhalation Aerosol Solution (Tiotropium [place] Monohydrate) Inhale 2 Puffs by mouth in [...] multilevel CKD (chronic kidney disease), stage III ([facility]) 04/08/2017 GFR 54.3 Community acquired pneumonia of left lung 04/24/2020 [facility] Compression fracture of T12 vertebra ([facility]) 09/12/2022 fell at home COPD (chronic obstructive pulmonary disease) ([facility]) Coronary atherosclerosis of creek coronary artery 04/2010 MT DVT (deep venous thrombosis) ([facility]) 04/2010 after MT was on Coumadin for a while Fracture of two ribs with routine healing, left 09/12/2022 fell at home, was in [facility] 09/15 Gout of left foot 06/10/2018 Heart failure, systolic, due to idiopathic cardiomyopathy (HCC) 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 (HCC) Hyperlipidemia LDL goal < 100 Laceration of spleen 09/15/2022 fell on 09/12 Localized edema Need for hepatitis C screening test 02/08/2014 Hepatitis C negative Old MT (myocardial infarction) 2009 Osteoarthritis of spine with myelopathy, lumbar region Pneumonia due to COVID-19 virus 07/30/2022 [facility] Shingles 09/07/2016 Spinal stenosis of lumbar region L3-4 Tobacco use disorder Past Surgical History: Procedure Laterality Date ADULT ECHOCARDIOGRAM 01/13/2022 moderate posterior and lateral wall motion abnormalites, EF 45-49%, Mod LA enlargement CARDIAC STENT PLACEMENT, PERCUTANEOUS, 1 VESSEL 05/05/2010 [facility], complex PCI with aspiration thrombectomy and placement of 2 bare metal stents in Left Circ LUMBAR SPINE FUSION, POSTEROLATERAL N/A 05/13/2016 ARTHRODESIS SPINE POSTERIOR LUMBAR performed [place] Malcolm [place]ward [place] [facility] [place]K SPINE FUSION (CERV, BELOW C2) N/A 07/16/2014 ARTHRODESIS SPINE ANTERIOR CERVICAL performed by Malcolm Woodward MD [place] [facility] N[place]K SPINE FUSION (CERV, BELOW C2) N/A 07/16/2014 ARTHRODESIS SPINE POSTERIOR CERVICAL DUAL APPROACH performed by Malcolm Woodward MD [place] [facility] REMOVE LUMBAR SPINE LAMINA, 1 SEG N/A 05/13/2016 LAMINECTOMY FACETECTOMY AND FORAMINOTOMY LUMBAR performed by Malcolm Woodward MD [place] [facility] [place] AAA SCREEN, VASCULAR LAB atherosclerotic changes, [...] COPD, group D, by GOLD 2017 classification ([facility]) - Albuterol Sulfate HFA 108 (90 Base) MCG/ACT Inhalation Aerosol Solution; Inhale 2 Puffs by mouth every 4 hours as needed for Wheezing. Dyslipidemia, goal LDL below 100 - LIPID PANEL WITHOUT DIRECT LDL Stage 3a chronic kidney disease - ALBUMIN / CREATININE RATIO, URINE Need for pneumococcal 20-valent conjugate vaccination - PNEUMOCOCCAL VACC, PCV20, IM ([id number]) Follow Up: Return in about 6 months (around 10/31/2024). Chelo Trotter MD Family medicine, [place] [phone] * Glory Hernández CMA - 05/02/2024 7:25 AM EDT PRE - ADMINISTRATION DOCUMENTATION Are you experiencing any cold symptoms or fever? No Have you had Guillain-Keiser Syndrome (an illness that causes paralysis) within [...] 2:00 PM EDT Home Visit [facility] [address] [address] Carley Martinez, CHATO [address] [address] 05/23/2024 12:00 PM EDT Office Visit Cardiology [address] [place] [address] Zaid Ramsey PA-C [address] [place] [address] 05/26/2024 8:30 AM EDT Home Visit [facility] [address] [address] Carley Martinez, CHATO [address] [place] [address] 01/12/2025 8:00 AM EDT Office Visit Family Medicine [address] [place] [address] Chelo Trotter MD [address] [place] [address] [place] [address] Pending Results Name Type Priority Associated Diagnoses Date /Time ALBUMIN / CREATININE RATIO, URINE Lab Routine Stage 3a chronic kidney disease 05/04/2024 11:03 AM EDT Health Maintenance Due Date Last Done Comments DTap/Tdap Vaccines (1 - Tdap) 1969 Cologuard 1995 Colonoscopy 1995 Colorectal Cancer Screening 1995 Fecal Occult Blood Test 1995 Sigmoidoscopy 1995 Lung Cancer Screening 2000 Zoster Vaccines (1 of 2) 2000 Adult Wellness Visit 2016 Depression Screening 04/30/2021 04/30/2020 Albumin/Creatinine Ratio 09/26/2022 09/26/2021, 02/24 COVID-19 Vaccine ( season) 2024 GFR 10/31/2024 05/02/2024, 08/2023, 11/26/2023, Additional history exists CKD HGB USE SMARTSET 54243 11/15/202411/15, 11/16/2023, 11/25/2022, Additional history exists CKD PHOS USE SMARTSET 03956 05/02/202502/2024, 11/25/2022, 11/12/2020, Additional history exists AAA Screening Completed 12/09/2015 Influenza Vaccine (FLU [...] this encounter Medical Devices Implanted Type Area Climbing Guide Device Identifier Shelf Expiration Date Model / Serial / Lot Graft Cervical 5x7 [id number] - [id number] Implanted:Qt y: 3 on 07/16/2014 by Malcolm [place]ward [place] [facility] [place] - Human N/A: Neck Lif[employer] [id number] / / Dbx 2.5cc [id number] - [id number] Implanted:Qt y: 1 on 07/16/2014 by Malcolm [place]ward [place] [facility] [place] N/A: Spine Cervical MUSCULOSKELETAL TRANSPLANT FND 10/05/2015 [id number] / [id number] / Duragen Plus 2x2 Dp 1022 Min5 - [id number] Implanted:Qt y: 1 on 07/16/2014 by Malcolm Woodward [place] [facility] N/A: Spine Cervical [employer] GAVIN 08/25/2016 DP-1022 / / [id number] Screw 3.5x10mm 04.615.010 - [id number] Implanted:Qt y: 1 on 07/16/2014 by Malcolm Woodward [place] [facility] [place] N/A: Spine Cervical SYNTHES 04.615.010 / / Screw 3.5x12mm - [id number] Implanted:Qt y: 1 on 07/16/2014 by Malcolm Woodward [place] [facility] [place] N/A: Spine Cervical SYNTHES 04.615.012 / / Screw 3.5x14mm 04.615.014 - [id number] Implanted:Qt y: 4 on 07/16/2014 by Malcolm Woodward [place] [facility] N/A: Spine Cervical SYNTHES 04.615.014 / / Screw 3.5x16mm - [id number] Implanted:Qt y: 2 on 07/16/2014 by Malcolm Woodward MD [place] [facility] [place] N/A: Spine Cervical SYNTHES 04.615.016 / / Cap Lkg 04.614.508 - [id number] Implanted:Qt y: 8 on 07/16/2014 by Malcolm Woodward [place] [facility] [place] N/A: Spine Cervical SYNTHES 04.614.508 / / 80mm Jose J Implanted:Qt y: 2 on 07/16/2014 by Malcolm Woodward MD [place] [facility] N/A: Spine Cervical SYNTHES SPINE 04.615.530 / / Screw Set Sng Inner [id number] - [id number] Implanted:Qt y: 4 on 05/13/2016 by Malcolm Woodward [place] [facility] [place] JNJ : ETHICON CARDIOVATIONS 05/14/2016 [id number] / / Description:in set Screw 7x50 Poly Si [id number] - [id number] Implanted:Qt y: 4 on 05/13/2016 by Malcolm Woodward [place] [facility] [place] JNJ : ETHICON CARDIOVATIONS 05/14/2016 [id number] / / Description:in set Pre Lordosed Jose J W Line 45mm - [id number] Implanted:Qt y: 2 on 05/13/2016 by Malcolm Woodward MD [place] [facility] [place] JNJ : DEPUY SPINE 05/14/2016 [id number] / / Description:in set Expedium Ti Sfx 5.5 Lat A6 - [id number] Implanted:Qt y: 1 on 05/13/2016 by Malcolm Woodward MD [place] [facility] [place] JNJ : ETHICON CARDIOVATIONS 05/14/2016 [id number] / / Description:in set documented as of this encounter Procedures Procedure Name Priority Date/Time Associated Diagnosis Comments VASC DUPLEX VENOUS UE UNILAT Routine 05/04/2024 8:49 AM EDT Arm swelling LIPID PANEL WITHOUT DIRECT LDL Routine 05/02/2024 8:18 AM EDT Dyslipidemia, goal LDL below 100 documented in this encounter Results * VASC DUPLEX VENOUS UE UNILAT (05/04/2024 [...] interpretation of an exam performed at the [facility]. Immediately before proceeding with the vascular lab [...] <=174 mg/dL 05/02/2024 8:50 PM EDT [facility] Comment: Triglyceride Reference Ranges (mg/dL): <150 Acceptable 150-174 Borderline high 175-499 High >=500 Very high Cholesterol 116 <200 mg/dL 05/02/2024 8:50 PM EDT [facility] Comment: Total Cholesterol Reference Ranges (mg/dL): <200 Desirable 200-239 Borderline high >=240 High HDL Cholesterol 49 >39 mg/dL 8:50 PM EDT [facility] [place]: HDL Cholesterol Reference Ranges (mg/dL): >=60 High (Desirable) <50 Low (Undesirable) For Females <40 Low (Undesirable) For Males Non-HDL Cholesterol 67 <=159 mg/dL 05/02/2024 8:50 PM EDT [facility] Comment: Non-HDL Cholesterol Reference Range (mg/dL): <100 Target level for high risk ASCVD patient <130 Optimal for general population 130-159 Near optimal for general population 160-189 Borderline High 190-219 High >=220 Very High LDL Cholesterol 49 <=129 mg/dL 05/02/2024 8:50 PM EDT [facility] Comment: LDL Cholesterol Reference Ranges (mg/dL): <70 Target level for high risk ASCVD patient <100 Optimal for general population 100-129 Near optimal for general population 130-159 Borderline high 160-189 High >=190 Very high Blood Venous blood specimen / Unknown Venipuncture / Unknown 05/02/2024 8:18 AM EDT 05/02/2024 8:19 AM EDT Chelo Trotter MD LAB BLOOD ORD ERABLES [facility] [address] [place] [address] documented in this encounter Visit Diagnoses Diagnosis [...] patient have Health Care Power of Attor ajna? No Care Teams Mellowing Machine Operator Relationship Specialty Start Date End Date Chelo Trotter MD [address] [place] [address] [place] [address] PCP - General Family Medicine 05/02/24 documented as of this encounter
--- OUTSIDE RECORDS SUMMARY | 2024-10-25 09:11 | External Medical Summary | Summary of Care ---
Author Name Unknown Organization [facility] Address [address] [facility] [address] Phone [phone] Care Team Providers Care Biostatistics Director Name Role Phone Chelo Trotter MD Primary Care Provide r Encounter Details Date Type Department Care Team (Late st Contact Info) Description 05/06/2024 Orders Only PATIENT PORTAL DO NOT DELETE THIS DEPT USED BY [place] AVILA [id number] Allergies No known active allergiesdocumented as of this encounter (statuses as of 05/06/2024) Medications Medication Sig Dispensed Refills Start Date End Date Status Multivitamin Adult Oral Tablet Take 1 Tablet by mouth daily. Active guaiFENesin ER 600 MG Oral Tablet Extended Release 12 Hour Take 1 Tablet by mouth in the morning. Active Fluticasone Furoate-Vilanterol 100-25 MCG/ACT Inhalation Aerosol Powder Breath Activated (BREO ellipta) Inhale 1 Puff by mouth in the morning. Active Ipratropium [place] 0.02 % Inhalation Solution (Atrovent) use 1 [...] Respimat 2.5 MCG/ACT Inhalation Aerosol Solution (Tiotropium [place] Monohydrate) Inhale 2 Puffs by mouth in [...] COPD, group D, by GOLD 2017 classification ([facility]) Inhale 1 Ampule by mouth every 4 hours as needed for Wheezing or Shortness of Breath. 05/02/2024 Active Albuterol Sulfate HFA 108 (90 Base) MCG/ACT Inhalation Aerosol SolutionIndications: COPD, group D, by GOLD 2017 classification ([facility]) Inhale 2 Puffs by mouth every 4 hours as needed for Wheezing. 18 g 5 05/02/2024 Active Spironolactone 25 MG Oral Tablet (Aldactone)Indicatio ns:Heart failure, systolic, with acute decompensation (HCC) Take 1 Tablet by mouth in the morning. 90 Tablet 3 05/03/2024 Active documented as of this encounter (statuses as of 05/06/2024) Active Problems Patient Care Coordination No te [...] 02/08/2014 Overview: 1 mm C5-6 Atherosclerosis of [place] co ronary artery of [place] heart without angina pectoris 04/25/2010 Overview: [place] Last Assessment & Plan: Continue Eliquis, atorvastatin, metoprolol at new reduced dose of 25 mg daily. No a secondary to hypotension. Old [place] (myocardial infarction) 07/26/2009 Cervical spine degeneration Overview: multilevel Osteoarthritis of spine with myelopathy, lumbar region documented as of this encounter (statuses as of 05/06/2024) Resolved Problems Problem Noted Date Diagnosed Date [...] as of this encounter (statuses as of 05/06/2024) Immunizations Name Administration Dates Next Due Pneumococcal [...] No 04/24/2024 Does the household have a [facility] source of income? (Household - for ages [...] Description 05/11/2024 2:00 PM EDT [facility] Visit [facility] [address] [address] Carley Martinez, RN [address] [address] 05/23/2024 12:00 PM EDT Office Visit Cardiology [address] [place] [address] Zaid Ramsey PA-C [address] [address] 05/26/2024 8:30 AM EDT [facility] Visit [facility] [address] [address] Carley Martinez, CHATO [address] [place] [address] 01/12/2025 8:00 AM EDT Office Visit Family Medicine [address] [place] [phone] Chelo Trotter MD [address] [place] [address] [place] [address] Health Maintenance Due Date Last Done Comments DTap/Tdap Vaccines (1 - Tdap) 1969 Cologuard 1995 Colonoscopy 1995 Colorectal Cancer Screening 1995 Fecal Occult Blood Test 1995 Sigmoidoscopy 1995 Lung Cancer Screening 2000 Zoster Vaccines (1 of 2) 2000 Adult Wellness Visit 2016 Depression Screening 04/30/2021 04/30/2020 COVID-19 Vaccine ( season) 2024 GFR 10/31/2024 05/02/2024, 08/2023, 11/26/2023, Additional history exists CKD HGB USE SMARTSET 89841 11/15/202411/15, 11/16/2023, 11/25/2022, Additional history exists CKD PHOS USE SMARTSET 21544 05/02/202502/2024, 11/25/2022, 11/12/2020, Additional history exists Albumin/Creatinine [...] this encounter Medical Devices Implanted Type Area Consumer Banker Device Identifier Shelf Expiration Date Model / Serial / Lot Graft Cervical 5x7 [id number] - [id number] Implanted:Qt y: 3 on 07/16/2014 by Malcolm [place]ward [place] [facility] [place] Human N/A: Neck Lif[employer]et Co [id number] / / Dbx 2.5cc [id number] - [id number] Implanted:Qt y: 1 on 07/16/2014 by Malcolm Woodward [place] [facility] N/A: Spine Cervical MUSCULOSKELETAL TRANSPLANT FND 10/05/2015 [id number] / [id number] / Duragen Plus 2x2 Dp 1022 Min5 - [id number] Implanted:Qt y: 1 on 07/16/2014 by Malcolm Woodward [place] [facility] N/A: Spine Cervical [employer] GAVIN 08/25/2016 DP-1022 / / [id number] Screw 3.5x10mm 04.615.010 - [id number] Implanted:Qt y: 1 on 07/16/2014 by Malcolm Woodward MD [place] [facility] N/A: Spine Cervical SYNTHES 04.615.010 / / Screw 3.5x12mm - [id number] Implanted:Qt y: 1 on 07/16/2014 by Malcolm Woodward MD [place] [facility] N/A: Spine Cervical SYNTHES 04.615.012 / / Screw 3.5x14mm 04.615.014 - [id number] Implanted:Qt y: 4 on 07/16/2014 by Malcolm Woodward [place] [facility] [place]/A: Spine Cervical SYNTHES 04.615.014 / / Screw 3.5x16mm - [id number] Implanted:Qt y: 2 on 07/16/2014 by Malcolm Woodward MD [place] [facility] N/A: Spine Cervical SYNTHES 04.615.016 / / Cap Lkg 04.614.508 - [id number] Implanted:Qt y: 8 on 07/16/2014 by Malcolm Woodward MD [place] [facility] N/A: Spine Cervical SYNTHES 04.614.508 / / 80mm Jose J Implanted:Qt y: 2 on 07/16/2014 by Malcolm Woodward MD [place] [facility] N/A: Spine Cervical SYNTHES SPINE 04.615.530 / / Screw Set Sng Inner [id number] - [id number] Implanted:Qt y: 4 on 05/13/2016 by Malcolm Woodward MD [place] [facility] JNJ : ETHICON CARDIOVATIONS 05/14/2016 [id number] / / Description:in set Screw 7x50 Poly Si [id number] - [id number] Implanted:Qt y: 4 on 05/13/2016 by Malcolm Woodward MD [place] [facility] JNJ : ETHICON CARDIOVATIONS 05/14/2016 [id number] / / Description:in set Pre Lordosed Jose J W Line 45mm - [id number] Implanted:Qt y: 2 on 05/13/2016 by Malcolm Woodward MD [place] [facility] JNJ : DEPUY SPINE 05/14/2016 [id number] / / Description:in set Expedium Ti Sfx 5.5 Lat A6 - [id number] Implanted:Qt y: 1 on 05/13/2016 by Malcolm Woodward MD [place] [facility] JNJ : ETHICON CARDIOVATIONS 05/14/2016 [id number] / / Description:in set documented as of [...] Power of Attor jana? No Care Teams Biostatistics Director Relationship Specialty Start Date End Date Chelo Trotter MD [address] [place] [address] [place] [address] PCP - General Family Medicine 05/02/24 documented as of this encounter
--- OUTSIDE RECORDS SUMMARY | 2024-10-25 09:11 | External Medical Summary | Summary of Care ---
Author Name Unknown Organization [facility] Address [address] [place] [address] Phone [phone] Care Team Providers Care Doorperson Name Role Phone Chelo Trotter MD Primary Care Provide r Reason for Visit * Reason Onset Date Comments Re-Check Medication Administration 05/02/2024 Flu an d/or Pneumo Inj Encounter Details Date Type Department Care Team (Latest Contact Info) Description 05/02/2024 7:20 AM EDT Office Visit Family Medicine [address] [place] [address] Chelo Trotter MD [address] [place] [address] [place] [address] Arm swelling*; Need for [...] by mouth in the morning. Active Ipratropium [place] 0.02 % Inhalation Solution (Atrovent) use 1 [...] Respimat 2.5 MCG/ACT Inhalation Aerosol Solution (Tiotropium [place] Monohydrate) Inhale 2 Puffs by mouth in [...] s:COPD, group D, by GOLD 2017 classification ([facility]) Inhale 1 Ampule by mouth every 4 hours as needed for Wheezing or Shortness of Breath. 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 No a secondary to hypotension. Old [place] (myocardial infarction) 07/26/2009 Cervical spine degeneration Overview: [...] No 04/24/2024 [facility] the [facility]? 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, lumbar region Stage 3a chronic kidney disease Heart failure, systolic, due to idiopathic cardiomyopathy (HCC) Paroxysmal atrial fibrillation (HCC) Gout of left foot Old [place] (myocardial infarction) Dyslipidemia, goal LDL below 100 Laceration of spleen Protein-calorie malnutrition (HCC) Cellulitis of right upper extremity Aphasia, post-stroke BPH without obstruction/lower urinary tract symptoms DNR (do not resuscitate) COPD, group D, by GOLD 2017 classification ([facility]) Current Outpatient Medications Medication Sig Dispense Refill [...] Puff by mouth in the morning. Ipratropium [place] 0.02 % Inhalation Solution (Atrovent) use 1 [...] Respimat 2.5 MCG/ACT Inhalation Aerosol Solution (Tiotropium [place] Monohydrate) Inhale 2 Puffs by mouth in [...] multilevel CKD (chronic kidney disease), stage III ([facility]) 04/08/2017 GFR 54.3 Community acquired pneumonia of left lung 04/24/2020 [facility] Compression fracture of T12 vertebra ([facility]) 09/12/2022 fell at home COPD (chronic obstructive pulmonary disease) ([facility]) Coronary atherosclerosis of [place] coronary artery 04/2010 [place] DVT (deep venous thrombosis) ([facility]) 04/2010 after [place] was on Coumadin for a while Fracture of two ribs with routine healing, left 09/12/2022 fell at home, was in [facility] 09/15 Gout of left foot 06/10/2018 Heart failure, systolic, due to idiopathic cardiomyopathy (HCC) 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 (HCC) Hyperlipidemia LDL goal < 100 Laceration of spleen 09/15/2022 fell on 09/12 Localized edema Need for hepatitis C screening test 02/08/2014 Hepatitis C negative Old [place] (myocardial infarction) 2009 Osteoarthritis of spine with myelopathy, lumbar region Pneumonia due to COVID-19 virus 07/30/2022 [facility] Shingles 09/07/2016 Spinal stenosis of lumbar region L3-4 Tobacco use disorder Past Surgical History: Procedure Laterality Date ADULT ECHOCARDIOGRAM 01/13/2022 moderate posterior and lateral wall motion abnormalites, EF 45-49%, Mod LA enlargement CARDIAC STENT PLACEMENT, PERCUTANEOUS, 1 VESSEL 05/05/2010 [facility], complex PCI with aspiration thrombectomy and placement of 2 bare metal stents in Left Circ LUMBAR SPINE FUSION, POSTEROLATERAL N/A 05/13/2016 ARTHRODESIS SPINE POSTERIOR LUMBAR performed by Malcolm Woodward MD at [place] [facility] NECK SPINE FUSION (CERV, BELOW C2) N/A 07/16/2014 ARTHRODESIS SPINE ANTERIOR CERVICAL performed by Malcolm Woodward MD at [place] [facility] NECK SPINE FUSION (CERV, BELOW C2) N/A 07/16/2014 ARTHRODESIS SPINE POSTERIOR CERVICAL DUAL APPROACH performed by Malcolm Woodward MD at [place] [facility] REMOVE LUMBAR SPINE LAMINA, 1 SEG N/A 05/13/2016 LAMINECTOMY FACETECTOMY AND FORAMINOTOMY LUMBAR performed by Malcolm Woodward MD at OR [facility] US AAA SCREEN, VASCULAR LAB atherosclerotic changes, [...] COPD, group D, by GOLD 2017 classification ([facility]) - Albuterol Sulfate HFA 108 (90 Base) MCG/ACT Inhalation Aerosol Solution; Inhale 2 Puffs by mouth every 4 hours as needed for Wheezing. Dyslipidemia, goal LDL below 100 - LIPID PANEL WITHOUT DIRECT LDL Stage 3a chronic kidney disease - ALBUMIN / CREATININE RATIO, URINE Need for pneumococcal 20-valent conjugate vaccination - PNEUMOCOCCAL VACC, PCV20, IM ([id number]) Follow Up: Return in about 6 months (around 10/31/2024). Chelo Trotter MD Family medicine, [place] [phone] * Glory Hernández CMA - 05/02/2024 7:25 AM EDT PRE - ADMINISTRATION DOCUMENTATION Are you experiencing any cold symptoms or fever? No Have you had Guillain-[place] Syndrome (an illness that causes paralysis) within [...] 2:00 PM EDT Home Visit [facility] [address] [address] Carley Martinez, CHATO [address] [address] [address] 05/23/2024 12:00 PM EDT Office Visit Cardiology [address] [place] [address] Zaid Ramsey PA-C [address] [address] 05/26/2024 8:30 AM EDT Home Visit [facility] at [facility] [address] [address] Carley Martinez, CHATO [address] [place] [address] [address] 01/12/2025 8:00 AM EDT Office Visit Family Medicine [address] [place] [address] Chelo Trotter MD [address] [place] [address] [place] [address] Health Maintenance Due Date Last Done Comments DTap/Tdap Vaccines (1 - Tdap) 1969 Cologuard 1995 Colonoscopy 1995 Colorectal Cancer Screening 1995 Fecal Occult Blood Test 1995 Sigmoidoscopy 1995 Lung Cancer Screening 2000 Zoster Vaccines (1 of 2) 2000 Adult Wellness Visit 2016 Depression Screening 04/30/2021 04/30/2020 COVID-19 Vaccine ( season) 2024 GFR 10/31/2024 05/02/2024, 08/2023, 11/26/2023, Additional history exists CKD HGB USE SMARTSET 45215 11/15/202411/15, 11/16/2023, 11/25/2022, Additional history exists CKD PHOS USE SMARTSET 24317 05/02/202502/2024, 11/25/2022, 11/12/2020, Additional history exists Albumin/Creatinine [...] this encounter Medical Devices Implanted Type Area Ethnoarchaeologist Device Identifier Shelf Expiration Date Model / Serial / Lot Graft Cervical 5x7 [id number] - [id number] Implanted:Qt y: 3 on 07/16/2014 by Malcolm Woodward MD at [place] [facility] Tissue - Human N/A: Neck Lifenet Co [id number] / / Dbx 2.5cc 938335 - [id number] Implanted:Qt y: 1 on 07/16/2014 by Malcolm Woodward MD at [place] [facility] N/A: Spine Cervical MUSCULOSKELETAL TRANSPLANT FND 10/05/2015 [id number] / [id number] / Duragen Plus 2x2 Dp 1022 Min5 - [id number] Implanted:Qt y: 1 on 07/16/2014 by Malcolm Woodward MD at [place] [facility] N/A: Spine Cervical [employer] GAVIN 08/25/2016 DP-1022 / / [id number] Screw 3.5x10mm 04.615.010 - [id number] Implanted:Qt y: 1 on 07/16/2014 by Malcolm Woodward MD at [place] [facility] N/A: Spine Cervical SYNTHES 04.615.010 / / Screw 3.5x12mm - [id number] Implanted:Qt y: 1 on 07/16/2014 by Malcolm Woodward MD at [place] [facility] N/A: Spine Cervical SYNTHES 04.615.012 / / Screw 3.5x14mm 04.615.014 - [id number] Implanted:Qt y: 4 on 07/16/2014 by Malcolm Woodward MD at [place] [facility] N/A: Spine Cervical SYNTHES 04.615.014 / / Screw 3.5x16mm - [id number] Implanted:Qt y: 2 on 07/16/2014 by Malcolm Woodward MD at [place] [facility] N/A: Spine Cervical SYNTHES 04.615.016 / / Cap Lkg 04.614.508 - [id number] Implanted:Qt y: 8 on 07/16/2014 by Malcolm Woodward MD at [place] [facility] N/A: Spine Cervical SYNTHES 04.614.508 / / 80mm Jose J Implanted:Qt y: 2 on 07/16/2014 by Malcolm Woodward MD at [place] [facility] N/A: Spine Cervical SYNTHES SPINE 04.615.530 / / Screw Set Sng Inner [id number] - [id number] Implanted:Qt y: 4 on 05/13/2016 by Malcolm Woodward MD at [place] [facility] JNJ : ETHICON CARDIOVATIONS 05/14/2016 [id number] / / Description:in set Screw 7x50 Poly Si [id number] - [id number] Implanted:Qt y: 4 on 05/13/2016 by Malcolm Woodward MD at [place] [facility] JNJ : ETHICON CARDIOVATIONS 05/14/2016 [id number] / / Description:in set Pre Lordosed Jose J W Line 45mm - [id number] Implanted:Qt y: 2 on 05/13/2016 [facility] DEPUY SPINE 05/14/2016 [id number] / / Description:in set Expedium Ti Sfx 5.5 Lat A6 - [id number] Implanted:Qt y: 1 on 05/13/2016 by Malcolm Woodward MD at [place] [facility] JNJ : ETHICON CARDIOVATIONS 05/14/2016 [id number] / / Description:in set documented as of [...] <1.20 mg/dL 05/04/2024 11:41 PM EDT LAB[facility]ORY [facility] Creatinine, Random Urine 232 mg/dL 05/04/2024 11:41 PM EDT LAB[facility]ORY [facility] Albumin / Creatinine Ratio, Urine <5 <30 mg/g Creat 05/04/2024 11:41 PM EDT [facility] Urine Urine specimen obtained by clean catch procedure / Unknown Non-blood Collection / Unknown 05/04/2024 11:03 AM EDT 05/04/2024 11:03 AM EDT Narrative [facility]ORY [facility] - 05/04/2024 11:41 PM EDT Normal: <30 mg/g creatinine High: 30-300 mg/g creatinine Very High: >300 mg/g creatinine Nephrotic: >2200 mg/g creatinine Chelo Trotter MD LAB URINE ORD ERABLES LAB[facility]ORY [facility] [address] [place] [address] * VASC DUPLEX VENOUS UE [...] interpretation of an exam performed at the [facility]. Immediately before proceeding with the vascular [...] <=174 mg/dL 05/02/2024 8:50 PM EDT [facility]ORY [facility] Comment: Triglyceride Reference Ranges (mg/dL): <150 Acceptable 150-174 Borderline high 175-499 High >=500 Very high Cholesterol 116 <200 mg/dL 05/02/2024 8:50 PM EDT [facility] Comment: Total Cholesterol Reference Ranges (mg/dL): <200 Desirable 200-239 Borderline high >=240 High HDL Cholesterol 49 >39 mg/dL 8:50 PM EDT [facility] Comment: HDL Cholesterol Reference Ranges (mg/dL): >=60 High (Desirable) <50 Low (Undesirable) For Females <40 Low (Undesirable) For Males Non-HDL Cholesterol 67 <=159 mg/dL 05/02/2024 8:50 PM EDT [facility]ORY [facility] Comment: Non-HDL Cholesterol Reference Range (mg/dL): <100 Target level for high risk ASCVD patient <130 Optimal for general population 130-159 Near optimal for general population 160-189 Borderline High 190-219 High >=220 Very High LDL Cholesterol 49 <=129 mg/dL 05/02/2024 8:50 PM EDT LAB[facility]ORY [facility] Comment: LDL Cholesterol Reference Ranges (mg/dL): <70 Target level for high risk ASCVD patient <100 Optimal for general population 100-129 Near optimal for general population 130-159 Borderline high 160-189 High >=190 Very high Blood Venous blood specimen / Unknown Venipuncture / Unknown 05/02/2024 8:18 AM EDT 05/02/2024 8:19 AM EDT Chelo Trotter MD LAB BLOOD ORD ERABLES [facility] [address] [place] [address] documented in this encounter Visit [...] Power of Attor jana? No Care Teams Doorperson Relationship Specialty Start Date End Date Chelo Trotter MD [address] [place] [address] [place] [address] PCP - General Family Medicine 05/02/24 documented as of this encounter
--- OUTSIDE RECORDS SUMMARY | 2024-10-25 09:12 | External Medical Summary ---
Author Name Unknown Address Unknown Organization [id number]:[facility] [place] [facility] [place] [address] [place] [address] Laboratory Report Ordering Provider Test Date Status FABIÁNHENOK 05/02/2024 08:18:05 Final Observation Date Value Abnormality Reference (Units ) Status Uric Acid 05/02/2024 08:18:05 4.5 3.4-7.0 (m g/dL) Final Performing Location [facility] - [address] [place] [address]
--- OUTSIDE RECORDS SUMMARY | 2024-10-25 09:12 | External Medical Summary ---
Author Name Unknown Address Unknown Organization K01:[facility]ORY [facility] - [address] [place] [address] Laboratory Report Ordering Provider Test Date Status HENOK LOCKWOOD 05/02/2024 08:18:05 Final Observation Date Value Abnormality Reference (Units ) Status Phosphate 05/02/2024 08:18:05 3.9 2.5-4.8 (m g/dL) Final Performing Location [facility] - [address] [place] [address]
--- OUTSIDE RECORDS SUMMARY | 2024-10-25 09:12 | External Medical Summary | Summary of Care ---
Author Name Unknown Organization [facility] Address [address] [place] [address] Phone [phone] Care Team Providers Care Pencils Washer Name Role Phone Prem Trotter MD Primary Care Provide r Reason for Visit * Reason Comments eRx-Medication Refill Encounter Details Date Type Department Care Team (Late st Contact Info) Description 04/30/2024 Refill Family Medicine [address] [phone] Jorge Luis Santos MD [address] [place] [address] [place] [address] Encounter for long-term (current) use of medications*; Acute idiopathic gout involving toe of right foot Allergies No known active allergiesdocumented as of this encounter (statuses as of 05/03/2024) Medications Medication Sig Dispensed Refills Start Date End Date Status Multivitamin Adult Oral Tablet Take 1 Tablet by mouth daily. Active guaiFENesin ER 600 MG Oral Tablet Extended Release 12 Hour Take 1 Tablet by mouth in the morning. Active Fluticasone Furoate-Vilanterol 100-25 MCG/ACT Inhalation Aerosol Powder Breath Activated (BREO ellipta) Inhale 1 Puff by mouth in the morning. Active Ipratropium Anna 0.02 % Inhalation Solution (Atrovent) use 1 [...] before bedtime. 180 Tablet 1 4 Active Spironolactone 25 MG Oral Tablet (Aldactone)Indicat ions:Heart failure, systolic, with acute decompensation (HCC) 25 mg on Wednesday's, Wednesday's, and Wednesday's, 12.5 mg all other days 65 Tablet 3 4 Active Furosemide 20 MG Oral Tablet (Lasix)Indications :Heart failure, systolic, with acute decompensation (HCC) 40 mg on Wednesday's, s, and s, 20 mg all other days 135 Tablet 3 4 Active Spiriva Respimat 2.5 MCG/ACT Inhalation Aerosol Solution (Tiotropium Anna Monohydrate) Inhale 2 Puffs by mouth in [...] MOUTH EVERY DAY 90 Tablet 4 Active Allopurinol 300 MG Oral Tablet (Zyloprim)Indicati ons:Acute idiopathic gout involving toe of right foot TAKE ONE TABLET BY MOUTH EVERY DAY 90 Tablet 3 4 Active Albuterol Sulfate HFA 108 (90 Base) MCG/ACT Inhalation Aerosol SolutionIndication s:Wheezing Inhale by mouth 2 Puffs every 4 hours as needed for Wheezing. 18 g 5 2 024 Discontinued(Re fill) Allopurinol 300 MG Oral Tablet (Zyloprim)Indicati ons:Acute idiopathic gout involving toe of right foot TAKE ONE TABLET BY MOUTH EVERY DAY 90 Tablet 3 3 024 Discontinued documented as of this encounter (statuses as of 05/03/2024) Active Problems Patient Care Coordination No te [...] 02/08/2014 Overview: 1 mm C5-6 Atherosclerosis of [place] ronary artery of [place] heart without angina pectoris 04/25/2010 Overview: [facility] Last Assessment & Plan: Continue Eliquis, atorvastatin, metoprolol at new reduced dose of 25 mg daily. No a secondary to hypotension. Old VA (myocardial infarction) 07/26/2009 Cervical spine degeneration Overview: multilevel Osteoarthritis of spine with myelopathy, lumbar region documented as of this encounter (statuses as of 05/03/2024) Resolved Problems Problem Noted Date Diagnosed Date [...] as of this encounter (statuses as of 05/03/2024) Immunizations Name Administration Dates Next Due Pneumococcal Conjugate Vacc, 13 Valent (Prevnar) 06/10/2018 Pneumococcal Polysaccharide PPV23 (Pneumovax) Seasonal Influenza, PF, 6 M & above, [...] No 04/24/2024 Does the household have a [facility] source of income? (Household - for [...] encounter Miscellaneous Notes * Telephone Encounter - Fabián Whiting [facility] - 05/03/2024 5:48 AM EDTSigned Prescriptions: Disp Refills Allopurinol 300 MG Oral Tablet (Zyloprim) 90 Tab*3 Sig: TAKE ONE TABLET BY MOUTH EVERY DAY Authorizing Provider: PREM TROTTER Ordering User: FABIÁN WHITING * Telephone Encounter - Fabián Whiting [facility] - 05/03/2024 4:41 AM EDT Last uric acid lab from 2018 elevated Ordered lab as add on to yesterday's lab Phosphorus also ordered for care gap. Thank You, Fabián Whiting [facility] Clinical Pharmacist [facility] [phone] 05/03/2024, 4:42 AM * Telephone Encounter - Gab Freitas [facility] - 05/02/2024 7:55 AM EDT Postponed until 05/03/24, office visit 05/02/24 Pending Prescriptions: Disp Refills Allopurinol 300 MG Oral Tablet (Zyloprim)*90 Tab*0 Sig: TAKE ONE TABLET BY MOUTH EVERY DAY Last Visit: 03/09/2023 (in office), Visit date not found (telemedicine) Next Visit: Visit date not found If no future appointments scheduled, and last appointment is greater than a year ago, please schedule patient for a follow-up appointment Last date the medication was ordered: 04/29/23 Pharmacy: [id number] [facility] Is this request for a controlled substance? No Urine Drug Screen:No results found for this or any previous visit. Patient Phone Numbers Labs: Lab Results Component Value Date/Time CREAT 1.4 (H) 02/25/2024 09:03 AM CREAT 0.86 09/15/2022 12:00 AM CREAT 1.3 (H) 08/01/2020 11:35 AM POTASSIUM 3.7 02/25/2024 09:03 AM POTASSIUM 3.7 09/15/2022 12:00 AM POTASSIUM 4.1 08/01/2020 11:35 AM TSH 2.89 11/16/2023 10:47 AM TSH 2.05 06/03/2018 09:53 PM LDL 44 11/25/2022 08:07 AM LDL 56 08/01/2020 11:35 AM LDL NOT APPLICABLE 08/01/2020 11:35 AM ALT 22 10/22/2022 02:37 PM ALT 19 06/03/2018 09:53 PM HGBA1C 5.6 06/03/2018 09:53 PM * Telephone Encounter - Interface, [facility] - 05/02/2024 6:04 AM EDT Pending Prescriptions: Disp Refills Allopurinol 300 MG Oral Tablet [Pharmacy M*90 Tab*0 Sig: TAKE ONE TABLET BY MOUTH EVERY DAY documented in this encounter Plan of Treatment Upcoming Encounters Date Type Department Care Team ([facility] st Contact Info) Description 05/04/2024 8:15 AM EDT Imaging Radiology [address] [place] [address] 05/11/2024 2:00 PM EDT Home Visit [facility] [address] [place] [address] Carley Martinez, CHATO [address] [place] [address] 05/23/2024 12:00 PM EDT Office Visit Cardiology [address] [place] [address] Zaid Ramsey PA-C [address] [place] [address] 05/26/2024 8:30 AM EDT Home Visit [facility] [address] [place] [address] Carley Martinez RN [address] [place] [address] 01/12/2025 8:00 AM EDT Office Visit Family Medicine [address] [place] [phone] Prem Trotter MD [address] [place] [address] [place] [address] Health Maintenance Due Date Last Done Comments DTap/Tdap Vaccines (1 - Tdap) 1969 Cologuard 1995 Colonoscopy 1995 Colorectal Cancer Screening 1995 Fecal Occult Blood Test 1995 Sigmoidoscopy 1995 Lung Cancer Screening 2000 Zoster Vaccines (1 of 2) 2000 Adult Wellness Visit 2016 Depression Screening 04/30/2021 04/30/2020 Albumin/Creatinine Ratio 09/26/2022 09/26/2021, 02/24 *COPD SEVERITY VERIFIED BY PFT 10/26/2022 COVID-19 Vaccine ( season) 2024 GFR 10/31/2024 05/02/2024, 08/2023, 11/26/2023, Additional history exists CKD HGB USE SMARTSET 94763 11/15/202411/15, 11/16/2023, 11/25/2022, Additional history exists CKD PHOS USE SMARTSET 52736 05/02/202502/2024, 11/25/2022, 11/12/2020, Additional history exists AAA [...] this encounter Medical Devices Implanted Type Area Engineering Document Control Clerk Device Identifier Shelf Expiration Date Model / Serial / Lot Graft Cervical 5x7 [id number] - [id number] Implanted:Qt y: 3 on 07/16/2014 by Malcolm Woodward MD at [place] [facility] [place] Tissue - Human N/A: Neck [employer] [id number] / / Dbx 2.5cc [id number] - [id number] Implanted:Qt y: 1 on 07/16/2014 by Malcolm Woodward MD at [place] [facility] [place] N/A: Spine Cervical MUSCULOSKELETAL TRANSPLANT FND 10/05/2015 [id number] / [id number] / Duragen Plus 2x2 Dp 1022 Min5 - [id number] Implanted:Qt y: 1 on 07/16/2014 by Malcolm Woodward MD at [place] [facility] [place] N/A: Spine Cervical [employer]IN 08/25/2016 DP-[id number] / / [id number] Screw 3.5x10mm 04.615.010 - [id number] Implanted:Qt y: 1 on 07/16/2014 by Malcolm Woodward MD at [place] [facility] [place] N/A: Spine Cervical SYNTHES 04.615.010 / / Screw 3.5x12mm - [id number] Implanted:Qt y: 1 on 07/16/2014 by Malcolm Woodward MD at [place] [facility] [place] N/A: Spine Cervical SYNTHES 04.615.012 / / Screw 3.5x14mm 04.615.014 - [id number] Implanted:Qt y: 4 on 07/16/2014 by Malcolm Woodward MD at [place] [facility] [place] N/A: Spine Cervical SYNTHES 04.615.014 / / Screw 3.5x16mm - [id number] Implanted:Qt y: 2 on 07/16/2014 by Malcolm Woodward MD at [place] [facility] [place] N/A: Spine Cervical SYNTHES 04.615.016 / / Cap Lkg 04.614.508 - [id number] Implanted:Qt y: 8 on 07/16/2014 by Malcolm Woodward MD at [place] [facility] [place] N/A: Spine Cervical SYNTHES 04.614.508 / / 80mm Jose J Implanted:Qt y: 2 on 07/16/2014 by Malcolm Woodward MD at [place] [facility] [place] N/A: Spine Cervical SYNTHES SPINE 04.615.530 / / Screw Set Sng Inner [id number] - [id number] Implanted:Qt y: 4 on 05/13/2016 by Malcolm Woodward MD at [place] [facility] [place] JNJ : ETHICON CARDIOVATIONS 05/14/2016 [id number] / / Description:in set Screw 7x50 Poly Si [id number] - [id number] Implanted:Qt y: 4 on 05/13/2016 by Malcolm Woodward MD at [place] [facility] [place] JNJ : ETHICON CARDIOVATIONS 05/14/2016 [id number] / / Description:in set Pre Lordosed Jose J W Line 45mm - [id number] Implanted:Qt y: 2 on 05/13/2016 by Malcolm Woodward MD at [place] [facility] [place] JNJ : DEPUY SPINE 05/14/2016 [id number] / / Description:in set Expedium Ti Sfx 5.5 Lat A6 - [id number] Implanted:Qt y: 1 on 05/13/2016 by Malcolm Woodward MD at [place] [facility] [place] JNJ : ETHICON CARDIOVATIONS 05/14/2016 [id number] / / Description:in set documented as of this encounter Results * PHOSPHORUS (05/02/2024 8:18 AM EDT) Phosphorus 3.9 2.5 - 4.8 mg/dL 05/03/2024 5:27 AM EDT LABORATORY [facility] Blood Venous blood specimen / Unknown Venipuncture / Unknown 05/02/2024 8:18 AM EDT 05/02/2024 8:19 AM EDT Fabián Whiting [facility] LAB BLOOD ORDERABLES Performing Organization Address City/[facility]/ZIP Co de Phone Number LABORATORY [address] [address] * URIC ACID (05/02/2024 8:18 AM EDT) Uric Acid 4.5 3.4 - 7.0 mg/dL 05/03/2024 5:28 AM EDT LAB[facility]ATORY [facility] Blood Venous blood specimen / Unknown Venipuncture / Unknown 05/02/2024 8:18 AM EDT 05/02/2024 8:19 AM EDT Fabián Whiting [facility] LAB BLOOD ORDERABLES Performing Organization Address City/[facility]/ZIP Co de Phone Number LABORATORY [address] [address] documented in this encounter Visit Diagnoses Diagnosis Encounter for long-term (current) use of medications- Primary Encounter for long-term (current) use of other medications 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 No Care Teams Pencils Washer Relationship Specialty Start Date End Date Prem Trotter MD [address] [place] [address] [place] [address] PCP - General Family Medicine 05/02/24 documented as of this encounter
--- OUTSIDE RECORDS SUMMARY | 2024-10-25 09:12 | External Medical Summary | Summary of Care ---
Author Name Unknown Organization [facility] Address [address] [place] [address] Phone [phone] Care Team Providers Care Historical Archeologist Name Role Phone Chelo Trotter MD Primary Care Provide r Reason for Visit * Reason Onset Date Comments Re-Check Medication Administration 05/02/2024 Flu an d/or Pneumo Inj Encounter Details Date Type Department Care Team (Latest Contact Info) Description 05/02/2024 7:20 AM EDT Office Visit Family Medicine [address] [place] [address] Chelo Trotter MD [address] [place] [address] [place] [address] Arm swelling*; Need for prophylactic vaccination and inoculation against influenza; COPD, group D, by GOLD 2017 classification (HCC); Dyslipidemia, goal LDL below 100; Stage 3a chronic kidney disease; Need for pneumococcal 20-valent conjugate vaccination Allergies No known active allergiesdocumented as of this encounter (statuses as of 05/02/2024) Medications Medication Sig Dispensed Refills Start Date End Date Status Multivitamin Adult Oral Tablet Take 1 Tablet by mouth daily. Active guaiFENesin ER 600 MG Oral Tablet Extended Release 12 Hour Take 1 Tablet by mouth in the morning. Active Allopurinol 300 MG Oral Tablet (Zyloprim)Indicatio ns:Acute idiopathic gout involving toe of right foot TAKE ONE TABLET BY MOUTH EVERY DAY 90 Tablet 3 04/29/2023 Active Fluticasone Furoate-Vilanterol 100-25 MCG/ACT Inhalation Aerosol Powder Breath Activated (BREO ellipta) Inhale 1 Puff by mouth in the morning. Active Ipratropium Dupont 0.02 % Inhalation Solution (Atrovent) use 1 vial via nebulizer every 4 hours if needed for shortness of breath or wheezing 75 mL 5 11/10/2023 Active Atorvastatin Calcium 40 MG Oral Tablet (Lipitor)Indication s:Dyslipidemia, goal LDL below 100 Take 1 Tablet [...] before bedtime. 180 Tablet 1 12/03/2023 Active Spironolactone 25 MG Oral Tablet (Aldactone)Indicati ons:Heart failure, systolic, with acute decompensation (HCC) 25 mg on Wednesday's, Wednesday's, and Wednesday's, 12.5 mg all other days 65 Tablet 3 02/01/2024 Active Furosemide 20 MG Oral Tablet (Lasix)Indications: Heart failure, systolic, with acute decompensation (HCC) 40 mg on Wednesday's, Wednesday's, and Wednesday's, 20 mg all other days 135 Tablet 3 02/01/2024 Active Spiriva Respimat 2.5 MCG/ACT Inhalation Aerosol Solution (Tiotropium Dupont Monohydrate) Inhale 2 Puffs by mouth in [...] 03/24/2024 Active Finasteride 5 MG Oral Tablet (Proscar)Indication s:Benign prostatic hyperplasia with weak urinary stream TAKE ONE TABLET BY MOUTH EVERY DAY 90 Tablet 04/07/2024 Active Levalbuterol HCl 1.25 MG/0.5ML Inhalation Nebulization SolutionIndications :COPD, group D, by GOLD 2017 classification ([facility]) Inhale 1 Ampule by mouth every 4 hours as needed for Wheezing or Shortness of Breath. 05/02/2024 Active Albuterol Sulfate HFA 108 (90 Base) MCG/ACT Inhalation Aerosol SolutionIndications :COPD, group D, by GOLD 2017 classification ([facility]) Inhale 2 Puffs by mouth every 4 hours as needed for Wheezing. 18 g 5 05/02/2024 Active Albuterol Sulfate HFA 108 (90 Base) MCG/ACT Inhalation Aerosol SolutionIndications :Wheezing Inhale by mouth 2 Puffs every 4 hours as needed for Wheezing. 18 g 5 04/23/2022 4 Discontinu ed(Refill) Levalbuterol HCl 1.25 MG/0.5ML Inhalation Nebulization Solution Inhale 1 Ampule by mouth every 4 hours as needed for Wheezing or Shortness of Breath. 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 ([facility]),COPD, group B, by GOLD 2017 classification ([facility]) take 5 tabs by mouth daily x2 days, 4 tabs daily x2 days, 3 tabs daily x2 days, 2 tabs daily x2 days, 1 tab daily once daily x2 days 30 Tablet 01/24/2024 4 Discontinu ed(Medicat ion List Clean Up) documented as of this encounter (statuses as of 05/02/2024) Active Problems Patient Care Coordination No te [...] 02/08/2014 Overview: 1 mm C5-6 Atherosclerosis of grayling co ronary artery of grayling heart without angina pectoris 04/25/2010 Overview: [place] Last Assessment & Plan: Continue Eliquis, atorvastatin, metoprolol at new reduced dose of 25 mg daily. No a secondary to hypotension. Old [place] (myocardial infarction) 07/26/2009 Cervical spine degeneration Overview: multilevel Osteoarthritis of spine with myelopathy, lumbar region documented as of this encounter (statuses as of 05/02/2024) Resolved Problems Problem Noted Date Diagnosed Date [...] as of this encounter (statuses as of 05/02/2024) Immunizations Name Administration Dates Next Due Pneumococcal [...] ages 0-17 years) Not on file 04/24/2024 Are you homeless or worried that [...] Patient Active Problem List Diagnosis Atherosclerosis of grayling coronary artery of grayling heart without angina pectoris Anterolisthesis 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 Ipratropium Dupont 0.02 % Inhalation Solution (Atrovent) use 1 [...] Respimat 2.5 MCG/ACT Inhalation Aerosol Solution (Tiotropium Dupont Monohydrate) Inhale 2 Puffs by mouth in [...] multilevel CKD (chronic kidney disease), stage III ([facility]) 04/08/2017 GFR 54.3 Community acquired pneumonia of left lung 04/24/2020 [facility] Compression fracture of T12 vertebra ([facility]) 09/12/2022 fell at home COPD (chronic obstructive pulmonary disease) ([facility]) Coronary atherosclerosis of grayling coronary artery 04/2010 [place] DVT (deep venous thrombosis) ([facility]) 04/2010 after PA was on Coumadin for a while Fracture of two ribs with routine healing, left 09/12/2022 fell at home, was in [facility] 09/15 Gout of left foot 06/10/2018 Heart failure, systolic, due to idiopathic cardiomyopathy (HCC) 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 ([facility]) Hyperlipidemia LDL goal < 100 Laceration of spleen 09/15/2022 fell on 09/12 Localized edema Need for hepatitis C screening test 02/08/2014 Hepatitis C negative Old [place] (myocardial infarction) 2009 Osteoarthritis of spine with myelopathy, lumbar region Pneumonia due to COVID-19 virus 07/30/2022 [facility] Shingles 09/07/2016 Spinal stenosis of lumbar region L3-4 Tobacco use disorder Past Surgical History: Procedure Laterality Date ADULT ECHOCARDIOGRAM 01/13/2022 moderate posterior and lateral wall motion abnormalites, EF 45-49%, Mod LA enlargement CARDIAC STENT PLACEMENT, PERCUTANEOUS, 1 VESSEL 05/05/2010 [facility], complex PCI with aspiration thrombectomy and placement of 2 bare metal stents in Left Circ LUMBAR SPINE FUSION, POSTEROLATERAL N/A 05/13/2016 ARTHRODESIS SPINE POSTERIOR LUMBAR performed [place] Malcolm Woodward [place] [facility] [place]K SPINE FUSION (CERV, BELOW C2) N/A 07/16/2014 ARTHRODESIS SPINE ANTERIOR CERVICAL performed by Malcolm Woodward MD at [place] [facility] NECK SPINE FUSION (CERV, BELOW C2) N/A 07/16/2014 ARTHRODESIS SPINE POSTERIOR CERVICAL DUAL APPROACH performed by Malcolm Woodward MD [place] [facility] REMOVE LUMBAR SPINE LAMINA, 1 SEG N/A 05/13/2016 LAMINECTOMY FACETECTOMY AND FORAMINOTOMY LUMBAR performed by Malcolm Woodward MD at [place] [facility] US AAA SCREEN, VASCULAR LAB atherosclerotic changes, [...] COPD, group D, by GOLD 2017 classification ([facility]) - Albuterol Sulfate HFA 108 (90 Base) MCG/ACT Inhalation Aerosol Solution; Inhale 2 Puffs by mouth every 4 hours as needed for Wheezing. Dyslipidemia, goal LDL below 100 - LIPID PANEL WITHOUT DIRECT LDL Stage 3a chronic kidney disease - ALBUMIN / CREATININE RATIO, URINE Need for pneumococcal 20-valent conjugate vaccination - PNEUMOCOCCAL VACC, PCV20, IM ([id number]) Follow Up: Return in about 6 months (around 10/31/2024). Chelo Trotter MD Family medicine, [place] [phone] * Glory Hernández CMA - 05/02/2024 7:25 AM EDT PRE - ADMINISTRATION DOCUMENTATION Are you experiencing any cold symptoms or fever? No Have you had Guillain-Matlock Syndrome (an illness that causes paralysis) within [...] 2:00 PM EDT Home Visit [facility] at [facility] [address] [place] [address] Carley Martinez RN [address] [place] [address] 05/23/2024 12:00 PM EDT Office Visit Cardiology [address] [place] [address] Zaid Ramsey PA-C [address] [place] [address] 05/26/2024 8:30 AM EDT Home Visit [facility] [address] [place] [address] [address] Carley Martienz RN [address] [place] [address] 01/12/2025 8:00 AM EDT Office Visit Family Medicine [facility] [place] [place] [phone] Chelo Trotter MD [address] [place] [address] [place] [address] Pending Results Name Type Priority Associated Diagnoses Date /Time LIPID PANEL WITHOUT DIRECT LDL Lab Routine Dyslipidemia, goal LDL below 100 05/02/2024 8:18 AM EDT Scheduled Orders Name Type Priority Associated Diagnoses Orde r Schedule ALBUMIN / CREATININE RATIO, URINE Lab Routine Stage 3a chronic kidney disease Ordered: 05/02/2024 VASC DUPLEX VENOUS UE UNILAT Medical Imaging Routine Arm swelling Ordered: 05/02/2024 Health Maintenance Due Date Last Done Comments DTap/Tdap Vaccines (1 - Tdap) 1969 Cologuard 1995 Colonoscopy 1995 Colorectal Cancer Screening 1995 Fecal Occult Blood Test 1995 Sigmoidoscopy 1995 Lung Cancer Screening 2000 Zoster Vaccines (1 of 2) 2000 Adult Wellness Visit 2016 Depression Screening 04/30/2021 04/30/2020 Albumin/Creatinine Ratio 09/26/2022 09/26/2021, 02/24 *COPD SEVERITY VERIFIED BY PFT 10/26/2022 CKD PHOS USE SMARTSET 06340 11/26/2023 050 09/2022, 11/12/2020, 06/21/2019, Additional history exists COVID-19 Vaccine ( season) 2024 GFR 08/27/2024 02/25/2024, 0 09/2023, 11/16/2023, Additional history exists CKD HGB USE SMARTSET 80185 11/15/202411/15, 11/16/2023, 11/25/2022, Additional history exists AAA Screening Completed 12/09/2015 [...] encounter Medical Devices Implanted Type Area Manager Payment Device Identifier Shelf Expiration Date Model / Serial / Lot Graft Cervical 5x7 [id number] - [id number] Implanted:Qt y: 3 on 07/16/2014 by Malcolm Woodward MD [place] [facility] Tissue - Human N/A: Neck Lifenet Co [id number] / / Dbx 2.5cc [id number] - [id number] Implanted:Qt y: 1 on 07/16/2014 by Malcolm Woodward MD [place] [facility] N/A: Spine Cervical MUSCULOSKELETAL TRANSPLANT FND 10/05/2015 [id number] / [id number] / Duragen Plus 2x2 Dp 1022 Min5 - [id number] Implanted:Qt y: 1 on 07/16/2014 by Malcolm Woodward MD at [place] [facility] N/A: Spine Cervical [employer]RA [employer] GAVIN 08/25/2016 DP-1022 / / [id number] Screw 3.5x10mm 04.615.010 - [id number] Implanted:Qt y: 1 on 07/16/2014 by Malcolm Woodward MD at [place] [facility] N/A: Spine Cervical SYNTHES 04.615.010 / / Screw 3.5x12mm - [id number] Implanted:Qt y: 1 on 07/16/2014 by Malcolm Woodward MD [place] [facility] N/A: Spine Cervical SYNTHES 04.615.012 / / Screw 3.5x14mm 04.615.014 - [id number] Implanted:Qt y: 4 on 07/16/2014 by Malcolm Woodward MD [place] [facility] N/A: Spine Cervical SYNTHES 04.615.014 / / Screw 3.5x16mm - [id number] Implanted:Qt y: 2 on 07/16/2014 by Malcolm Woodward MD [place] [facility] N/A: Spine Cervical SYNTHES 04.615.016 / / Cap Lkg 04.614.508 - [id number] Implanted:Qt y: 8 on 07/16/2014 by Malcolm Woodward MD [place] [facility] N/A: Spine Cervical SYNTHES 4.508 / / 80mm Jose J Implanted:Qt y: 2 on 07/16/2014 by Malcolm Woodward MD [place] [facility] N/A: Spine Cervical SYNTHES SPINE 04615.530 / / Screw Set Sng Inner [id number] - [id number] Implanted:Qt y: 4 on 05/13/2016 by Malcolm Woodward MD at [place] [facility] JNJ : ETHICON CARDIOVATIONS 05/14/2016 [id number] / / Description:in set Screw 7x50 Poly Si [id number] - [id number] Implanted:Qt y: 4 on 05/13/2016 by Malcolm Woodward MD at [place] [facility] JNJ : ETHICON CARDIOVATIONS 05/14/2016 [id number] / / Description:in set Pre Lordosed Jose J W Line 45mm - [id number] Implanted:Qt y: 2 on 05/13/2016 by Malcolm Woodward MD at [place] [facility] JNJ : DEPUY SPINE 05/14/2016 [id number] / / Description:in set Expedium Ti Sfx 5.5 Lat A6 - [id number] Implanted:Qt y: 1 on 05/13/2016 by Malcolm Woodward MD at [place] [facility] JNJ : ETHICON CARDIOVATIONS 05/14/2016 [id number] / / Description:in set documented as of this encounter Visit Diagnoses Diagnosis Arm swelling- Primary Swelling of limb Need for prophylactic vaccination and inoculation against influenza COPD, group D, by GOLD 2017 classification ([facility]) Dyslipidemia, goal LDL below 100 Other and [...] Power of Attor jana? No Care Teams Historical Archeologist Relationship Specialty Start Date End Date Chelo Trotter MD [address] [place] [address] [place] [address] PCP - General Family Medicine 05/02/24 documented as of this encounter
--- OUTSIDE RECORDS SUMMARY | 2024-10-25 09:12 | External Medical Summary ---
Author Name Unknown Address Unknown Organization [id number][place] [place] [address] [place] [address] Laboratory Report Ordering Provider Test Date Status RENEE AMARO 05/04/2024 11:03:26 Demetria l Normal: <30 mg/g creatinine< br/>High: 30-300 mg/g creatinine
Very High: >300 mg/g creatinine
Nephrotic: >2200 mg/g creatinine Observation Date Value Abnormality Reference (Units ) Status Albumin, Urine 05/04/2024 11:03:26 <1.20 (mg/dL) Final Creatinine, Urine 05/04/2024 11:03:26 232 (mg/dL) Final Albumin/Creatinine [Mass Ratio] in Urine 05/04/2024 11:03:26 <5 <30 (mg/g Creat) Final Performing Location [facility] [place] [address] [place] [address]
--- OUTSIDE RECORDS SUMMARY | 2024-10-25 09:12 | External Medical Summary | Summary of Care ---
Author Name Unknown Organization [facility] Address [address] [place] [address] Phone [phone] Care Team Providers Care Cottrell Operator Name Role Phone Chelo Trotter MD Primary Care Provide r Reason for Visit * Reason Comments Outpatient Testing Encounter Details Date Type Department Care Team (Late st Contact Info) Description 05/04/2024 11:10 AM EDT Laboratory Laboratory [address] [place] [phone] , Specimen Drop Off [address] [place] [address] Arrived Allergies No known active allergiesdocumented as of [...] by mouth in the morning. Active Ipratropium Stedman 0.02 % Inhalation Solution (Atrovent) use 1 [...] Respimat 2.5 MCG/ACT Inhalation Aerosol Solution (Tiotropium Stedman Monohydrate) Inhale 2 Puffs by mouth in [...] D, by GOLD 2017 classification ([facility]) Inhale 1 Ampule by mouth every 4 hours as needed for Wheezing or Shortness of Breath. 05/02/2024 Active Albuterol Sulfate HFA 108 (90 Base) MCG/ACT Inhalation Aerosol SolutionIndications: COPD, group D, by GOLD 2017 classification ([facility]) Inhale 2 Puffs by mouth every 4 [...] 02/08/2014 Overview: 1 mm C5-6 Atherosclerosis of marsh[place] co ronary artery of marshall heart without angina pectoris 04/25/2010 Overview: [place] Last Assessment & Plan: Continue Eliquis, atorvastatin, metoprolol at new reduced dose of 25 mg daily. No a secondary to hypotension. Old [place] (myocardial infarction) 07/26/2009 Cervical spine degeneration Overview: [...] Description 05/11/2024 2:00 PM EDT [facility] Visit [facility] [address] [address] Carley Martinez, RN [address] [place] [address] [address] 05/23/2024 12:00 PM EDT Office Visit Cardiology [address] [place] [address] Zaid Ramsey PA-C [address] [place] [address] 05/26/2024 8:30 AM EDT Home Visit [facility] at [facility] [address] [address] [address] Carley Martinez, CHATO [address] [place] [address] 01/12/2025 8:00 AM EDT Office Visit Family Medicine [address] [place] [phone] Chelo Trotter MD [address] [place] [address] [place] [address] Health Maintenance Due Date Last Done Comments [...] Additional history exists CKD HGB USE SMARTSET 16285 11/15/202411/15, 11/16/2023, 11/25/2022, Additional history exists CKD PHOS USE SMARTSET 78607 05/02/202502/2024, 11/25/2022, 11/12/2020, Additional history exists AAA [...] this encounter Medical Devices Implanted Type Area Machinist Wood Device Identifier Shelf Expiration Date Model / Serial / Lot Graft Cervical 5x7 [id number] - [id number] Implanted:Qt y: 3 on 07/16/2014 by Malcolm Woodward MD [place] [facility] [place] - Human N/A: Neck Lifenet Co [id number] / / Dbx 2.5cc 645008 - [id number] Implanted:Qt y: 1 on 07/16/2014 by Malcolm Woodward MD [place] [facility] N/A: Spine Cervical MUSCULOSKELETAL TRANSPLANT FND 10/05/2015 798969 / [id number] / Duragen Plus 2x2 Dp 1022 Min5 - [id number] Implanted:Qt y: 1 on 07/16/2014 by Malcolm Woodward MD [place] [facility] N/A: Spine Cervical [employer]RA [employer] GAVIN 08/25/2016 DP-1022 / / [id number] Screw 3.5x10mm 04.615.010 - [id number] Implanted:Qt y: 1 on 07/16/2014 by Malcolm Woodward MD [place] [facility] N/A: Spine Cervical SYNTHES 04.615.010 / / Screw 3.5x12mm - [id number] Implanted:Qt y: 1 on 07/16/2014 by Malcolm Woodward MD [place] [facility] N/A: Spine Cervical SYNTHES 04.615.012 / / Screw 3.5x14mm 04.615.014 - [id number] Implanted:Qt y: 4 on 07/16/2014 by Malcolm Woodward MD [place] [facility] N/A: Spine Cervical SYNTHES 04.615.014 / / Screw 3.5x16mm - [id number] Implanted:Qt y: 2 on 07/16/2014 by Malcolm Woodward MD [place] [facility] N/A: Spine Cervical SYNTHES 04.615.016 / / Cap Lkg 04.614.508 - [id number] Implanted:Qt y: 8 on 07/16/2014 by Malcolm Woodward MD [place] [facility] N/A: Spine Cervical SYNTHES 04.614.508 / / 80mm Jose J Implanted:Qt y: 2 on 07/16/2014 by Malcolm Woodward MD [place] [facility] N/A: Spine Cervical SYNTHES SPINE 04.615.530 / / Screw Set Sng Inner [id number] - [id number] Implanted:Qt y: 4 on 05/13/2016 by Malcolm Woodward MD at [place] [facility] JNJ : ETHICON CARDIOVATIONS 05/14/2016 [id number] / / Description:in set Screw 7x50 Poly Si [id number] - [id number] Implanted:Qt y: 4 on 05/13/2016 by Malcolm Woodward MD at [place] [facility] JNJ : ETHICON CARDIOVATIONS 05/14/2016 [id number] / / Description:in set Pre Lordosed Jose J W Line 45mm - [id number] Implanted:Qt y: 2 on 05/13/2016 by Malcolm Woodward MD at OR [facility] JNJ : DEPUY SPINE 05/14/2016 [id number] / / Description:in set Expedium Ti Sfx 5.5 Lat A6 - [id number] Implanted:Qt y: 1 on 05/13/2016 by Malcolm Woodward MD at [place] [facility] JNJ : ETHICON CARDIOVATIONS 05/14/2016 [id number] / / Description:in set documented as of [...] Power of Attor jana? No Care Teams Cottrell Operator Relationship Specialty Start Date End Date Chelo Trotter MD [address] [place] [address] [place] [phone] PCP - General Family Medicine 05/02/24 documented as of this encounter
--- OUTSIDE RECORDS SUMMARY | 2024-10-25 09:12 | External Medical Summary ---
Author Name Unknown Address Unknown Organization K01[place] [place] [address] [place] [address] Laboratory Report Ordering Provider Test Date Status RENEE AMARO 05/02/2024 08:18:05 Demetria l Observation Date Value Abnormality Reference (Units ) Status Triglyceride 05/02/2024 08:18:05 92 <=174 ( mg/dL) Final Triglyceride Reference Range s (mg/dL):
<150 Acceptable
150-174 Borderline high
175-499 High
>=500 Very high Cholesterol 05/02/2024 08:18:05 116 <200 (mg /dL) Final Total Cholesterol Reference Ranges (mg/dL):
<200 Desirable
200-239 Borderline high
>=240 High HDL 05/02/2024 08:18:05 49 >39 (mg/dL ) Final HDL Cholesterol Reference Ra nges (mg/dL):
>=60 High (Desirable)
<50 Low (Undesirable) For Females
<40 Low (Undesirable) For Males NON-HDL CHOLESTEROL 05/02/2024 08:18:05 67 <=159 (mg/dL) Final Non-HDL Cholesterol Referenc e Range (mg/dL):
<100 Target level for high risk ASCVD patient
<130 Optimal for general population
130-159 Near optimal for general population
160-189 Borderline High
190-219 High
>=220 Very High LDL, (calculated) 05/02/2024 08:18:05 49 <= 129 (mg/dL) Final LDL Cholesterol Reference Ra nges (mg/dL):
<70 Target level for high risk ASCVD patient
<100 Optimal for general population
100-129 Near optimal for general population
130-159 Borderline high
160-189 High
>=190 Very high Performing Location [facility] [place] [address] [facility] [address]
--- OUTSIDE RECORDS SUMMARY | 2024-10-25 09:12 | External Medical Summary | Summary of Care ---
Author Name Unknown Organization [facility] Address [address] [place] [address] Phone [phone] Care Team Providers Care Meter Engineer Name Role Phone Chelo Trotter MD Primary Care Provide r Reason for Visit * Reason Comments Outpatient Testing Encounter Details Date Type Department Care Team (Late st Contact Info) Description 05/02/2024 8:20 AM EDT Laboratory Laboratory [address] [place] [phone] [place] [address] Encounter for monitoring diuretic therapy; Stage 3 chronic kidney disease, unspecified whether stage 3a or 3b CKD (HCC) Allergies No known active allergiesdocumented as of this encounter (statuses as of 05/02/2024) Medications Medication Sig Dispensed Refills Start Date End Date Status Multivitamin Adult Oral Tablet Take 1 Tablet by mouth daily. Active guaiFENesin ER 600 MG Oral Tablet Extended Release 12 Hour Take 1 Tablet by mouth in the morning. 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 Active Ipratropium Magee 0.02 % Inhalation Solution (Atrovent) use 1 [...] 12/03/2023 Active Spironolactone 25 MG Oral Tablet (Aldactone)Indicatio ns:Heart failure, systolic, with acute decompensation (HCC) 25 mg on Wednesday's, Wednesday's, and Wednesday's, 12.5 mg all other days 65 Tablet 3 02/01/2024 Active Furosemide 20 MG Oral Tablet (Lasix)Indications:H eart failure, systolic, with acute decompensation (HCC) 40 mg on Wednesday's, Wednesday's, and Wednesday's, 20 mg all other days 135 Tablet 3 02/01/2024 Active Spiriva Respimat 2.5 MCG/ACT Inhalation Aerosol Solution (Tiotropium Magee Monohydrate) Inhale 2 Puffs by mouth in [...] group D, by GOLD 2017 classification (HCC) Inhale 1 Ampule by mouth every 4 hours as needed for Wheezing or Shortness of Breath. 05/02/2024 Active Albuterol Sulfate HFA 108 (90 Base) MCG/ACT Inhalation Aerosol SolutionIndications: Wheezing Inhale 2 Puffs by mouth every 4 hours as needed for Wheezing. 18 g 5 05/02/2024 Active documented as of this encounter (statuses [...] with dizziness. Problem Noted Date Diagnosed Date COPD, group D, by GOLD 2017 classification 10/03 Overview: Per COPD GOLD Classification DNR (do not resuscitate) 06/11/2023 BPH without [...] 02/08/2014 Overview: 1 mm C5-6 Atherosclerosis of eyak co ronary artery of eyak heart without angina pectoris 04/25/2010 Overview: CT Last Assessment & Plan: Continue Eliquis, atorvastatin, metoprolol at new reduced dose of 25 mg daily. No a secondary to hypotension. 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, lumbar region documented as of this encounter (statuses as of 05/02/2024) Resolved Problems Problem Noted Date Diagnosed Date Resolved Date COPD, group B, by GOLD 2017 classification [...] 04/24/2024 Does the household have a re gular [...] 2:00 PM EDT Home Visit [facility]jeetisingcira at [facility] [address] [place] [phone] Carley Martinez, CHATO [address] [place] [phone] 05/23/2024 12:00 PM EDT Office Visit Cardiology [address] [place] [address] Zaid Ramsey PA-C [address] [place] [phone] 05/26/2024 8:30 AM EDT Home Visit Wojciech at [facility] [address] [place] [phone] Carley Martinez, CHATO [address] [place] [address] 01/12/2025 8:00 AM EDT Office Visit Family Medicine [address] [place] [phone] Chelo Trotter MD [address] [place] [address] [place] [address] Pending Results Name Type Priority Associated Diagnoses Date /Time BASIC METABOLIC PANEL Lab Routine Encounter for monitoring diuretic therapy Stage 3 chronic kidney disease, unspecified whether stage 3a or 3b CKD (HCC) 05/02/2024 8:18 AM EDT Health Maintenance Due Date Last Done Comments Alpha-1 Antitrypsin 1968 DTap/Tdap Vaccines (1 - Tdap) 1969 Cologuard 1995 Colonoscopy 1995 Colorectal Cancer Screening 1995 Fecal Occult Blood Test 1995 Sigmoidoscopy 1995 Lung Cancer Screening 2000 Zoster Vaccines (1 of 2) 2000 Adult Wellness Visit 2016 Depression Screening 04/30/2021 04/30/2020 Albumin/Creatinine Ratio 09/26/2022 09/26/2021, 02/24 *COPD SEVERITY VERIFIED BY PFT 10/26/2022 CKD PHOS USE SMARTSET 59894 11/26/2023 05/0 09/2022, 11/12/2020, 06/21/2019, Additional history exists COVID-19 Vaccine ( season) 2024 GFR 08/27/2024 02/25/2024, 05/0 09/2023, 11/16/2023, Additional history exists CKD HGB USE SMARTSET 24402 11/15/202411/15, 11/16/2023, 11/25/2022, Additional history exists O2 ASSESSMENT COMPLETED IN PAST YEAR FOR COPD 04/24/2025 04/24/2024 AAA Screening Completed 12/09/2015 Influenza Vaccine (FLU [...] this encounter Medical Devices Implanted Type Area Biztalk Architect Device Identifier Shelf Expiration Date Model / Serial / Lot Graft Cervical 5x7 [id number] - [id number] Implanted:Qt y: 3 on 07/16/2014 by Malcolm Woodward MD at [facility] [place] Tissue - Human N/A: Neck Lifenet Co [id number] / / Dbx 2.5cc [id number] - [id number] Implanted:Qt y: 1 on 07/16/2014 by Malcolm Woodward MD at [facility] [place] N/A: Spine Cervical MUSCULOSKELETAL TRANSPLANT FND 10/05/2015 [id number] / [id number] / Duragen Plus 2x2 Dp 1022 Min5 - [id number] Implanted:Qt y: 1 on 07/16/2014 by Malcolm Woodward MD at [facility] [place] N/A: Spine Cervical [employer] GAVIN 08/25/2016 [id number] / / [id number] Screw 3.5x10mm 04.615.010 - [id number] Implanted:Qt y: 1 on 07/16/2014 by Malcolm Woodward MD at [facility] [place] N/A: Spine Cervical SYNTHES 04.615.010 / / Screw 3.5x12mm - [id number] Implanted:Qt y: 1 on 07/16/2014 by Malcolm Woodward MD at [facility] [place] N/A: Spine Cervical SYNTHES 04.615.012 / / Screw 3.5x14mm 04.615.014 - [id number] Implanted:Qt y: 4 on 07/16/2014 by Malcolm Woodward MD at [facility] [place] N/A: Spine Cervical SYNTHES 04.615.014 / / Screw 3.5x16mm - [id number] Implanted:Qt y: 2 on 07/16/2014 by Malcolm Woodward MD at [facility] [place] N/A: Spine Cervical SYNTHES 04.615.016 / / Cap Lkg 04.614.508 - [id number] Implanted:Qt y: 8 on 07/16/2014 by Malcolm Woodward MD at [facility] [place] N/A: Spine Cervical SYNTHES 04.614.508 / / 80mm Jose J Implanted:Qt y: 2 on 07/16/2014 by Malcolm Woodward MD at [facility] [place] N/A: Spine Cervical SYNTHES SPINE 04.615.530 / / Screw Set Sng Inner [id number] - [id number] Implanted:Qt y: 4 on 05/13/2016 by Malcolm Woodward MD at [facility] [place] JNJ : ETHICON CARDIOVATIONS 05/14/2016 [id number] / / Description:in set Screw 7x50 Poly Si [id number] - [id number] Implanted:Qt y: 4 on 05/13/2016 by Malcolm Woodward MD at [facility] [place] JNJ : ETHICON CARDIOVATIONS 05/14/2016 [id number] / / Description:in set Pre Lordosed Jose J W Line 45mm - [id number] Implanted:Qt y: 2 on 05/13/2016 by Malcolm Woodward MD at [facility] [place] JNJ : DEPUY SPINE 05/14/2016 [id number] / / Description:in set Expedium Ti Sfx 5.5 Lat A6 - [id number] Implanted:Qt y: 1 on 05/13/2016 by Malcolm Woodward MD at [facility] [place] JNJ : ETHICON CARDIOVATIONS 05/14/2016 [id number] / / Description:in set documented as of this encounter Visit Diagnoses Diagnosis Encounter for monitoring diuretic therapy Encounter for therapeutic drug monitoring Stage 3 chronic kidney disease, unspecified whether stage 3a or 3b CKD (HCC) documented in this encounter Advance Directives * No Code (Latest Code Status on File) Date Activated Date Inactivated Comments 06/03/2018 8:35 PM 06/10/2018 11:13 PM This order reflects the patients wishes and were consensually agreed upon. Question Answer Comments Discussion of Advance Directives occurred with: Family * Full Code Date Activated Date Inactivated Comments 06/03/2018 7:43 PM 06/03/2018 8:35 PM This order reflects the patients wishes [...] Power of Attor jana? No Care Teams Meter Engineer Relationship Specialty Start Date End Date Chelo Trotter MD [address] [place] [address] [place] [phone] PCP - General Family Medicine 05/02/24 documented as of this encounter
--- OUTSIDE RECORDS SUMMARY | 2024-10-25 09:13 | External Medical Summary ---
Author Name Unknown Address Unknown Organization [id number]:[facility] [place] [address] [place] [address] Laboratory Report Ordering Provider Test Date Status KASHMIR LOVE 05/02/2024 08:18:05 Final Observation Date Value Abnormality Reference (Units ) Status BUN 05/02/2024 08:18:05 16 6-20 (mg/dL) Final Creatinine 05/02/2024 08:18:05 1.4 Above high normal 0.6-1.2 (mg/dL) Final Glomerular filtration rate/1.73 sq M.predicted [Volume Rate/Area] in Serum, Plasma or Blood by Creatinine-based formula (CKD-EPI) 05/02/2024 08:18:05 52 Below low normal >=60 (mL/min) Final eGFR is calculated based on the CKD-EPI 2020 equation. Sodium 05/02/2024 08:18:05 140 135-146 (m mol/L) Final Potassium 05/02/2024 08:18:05 3.5 3.5-5.1 (m mol/L) Final Cl 05/02/2024 08:18:05 104 98-107 (mm ol/L) Final CO2 05/02/2024 08:18:05 26 22-32 (mmo l/L) Final Anion gap 05/02/2024 08:18:05 10 7-15 (mmol /L) Final Glucose 05/02/2024 08:18:05 88 70-120 (mg /dL) Final Calcium 05/02/2024 08:18:05 9.7 8.4-10.2 ( mg/dL) Final Performing Location [facility] [place] [facility] [address] [place] [address]
[2024-10-25] MEDS: DOCUSATE SODIUM 100 MG CAP PO SCH (09:16)
--- NOTE | 2024-10-25 11:04 | Orthopedic Consultation ---
Date of Service October 25, 2024 History of Present Illness Reason for Consultation: Vertebral compression fracture Requesting Physician: . Attending Physician: Israel Steele MD 74-year-old male with a PMH COPD, temporal lobe stroke with verbal aphasia, is on Eliquis who presents via EMS from his home due to a ground-level fall on Wednesday. This was a witnessed fall and the family states that he did not hit his head, did not lose consciousness, main complaint was back pain. Patient has increased difficulty with movement and pain recently as well as difficulty with bowel movements and urination over the past couple of days. confirms that she straight cathed him. Patient reports that he has some back pain of a chronic nature both in his cervical spine and lumbar spine, but more recently the thoracolumbar upper lumbar region. He does not note specific symptoms radiating to the lower extremities. Exam reveals him to indicate pain right at the upper lumbar thoracic lumbar junction to palpation this is minimal. He has appropriate strength in lower extremities on command for ankle plantar dorsiflexion knee flexion extension strength. No clonus noted, palpation of the cervical spine was unremarkable, no focal motor weakness in the upper extremities. EXAMINATION: CT of the chest, abdomen and pelvis, as well as the thoracic and lumbar spine, performed after the administration of IV contrast October 24, 2024 TECHNIQUE: Helical CT images from the lung apices through the symphysis pubis were obtained with contrast. Coronal and sagittal reformatted images were generated at a workstation for further assessment. COMPARISON: None HISTORY: Pain FINDINGS: Lines and tubes: None Mediastinum/Neck Base: No thyroid nodules. Central tracheobronchial tree is patent. Heart size is normal. No pericardial effusion. Normal thoracic vasculature. No thoracic lymphadenopathy. Heavy coronary calcification. Lungs: There is an area of confluent opacity throughout the lingula. There is moderate emphysema. Bibasilar subsegmental atelectasis. No pleural effusion or pneumothorax. Liver: No suspicious liver lesions. Portal veins appear patent. Gallbladder: No gallstones. No evidence of acute cholecystitis. Spleen: Normal size. Pancreas: No suspicious pancreatic lesions. The pancreatic duct is not dilated. Adrenal glands: No adrenal nodules. Kidneys: No hydronephrosis or obstructing renal stones. Bladder / Pelvic organs: Unremarkable. Bowel: No bowel obstruction. No abnormal bowel wall thickening. The appendix is unremarkable. Lymph nodes: No retroperitoneal, mesenteric, or pelvic lymphadenopathy. Peritoneum / Retroperitoneum: No free fluid or air within the abdomen. Vessels: No infrarenal aortic aneurysm. Heavy aortoiliac calcification. Bones and soft tissues: Degenerative changes of the spine. The bones are osteopenic. Posterior maude and screw fixation through L4 and L5, where there is mature bony fusion across the facet joints. Superior endplate compression fracture at T12 resulting in approximately 45-50 % stenosis. Superior and plate compression fracture at L1 resulting in approximately 25% stenosis. Multilevel chronic, posterior healing rib fractures associated with callus formation. IMPRESSION: 1. Superior endplate compression fractures at T12 and L1, are favored acute, considering limitations to evaluation due to significant osteopenia. 2. Chronic, multilevel healing posterior left rib fractures. 3. Confluent opacity throughout the lingula, which may be infectious. CT scan images of the thoracic and lumbar spine from October 24, 2024 at [facility] were reviewed, is my separate interpretation, compared these to prior abdominal pelvic CT scan images from September 14, 2022, this reveals that the patient has prior instrumentation at L4-5 for a prior fusion which is healed. Some limited degenerative changes in the lumbar spine. The L1 compression fracture appears to compared to the previous scan in 2022, this appears to be chronic in nature, whereas the superior endplate compression fracture of T12 is age-indeterminate though new since compared to the previous images from 2 years ago. Impression: Pain in the upper lumbar thoracolumbar region, this is due to a limited extent, findings as noted on CT scans indicating superior endplate compression fracture of T12 at L1, T12 age-indeterminate whereas L1 I think is chronic in nature. Recommendations: patient to obtain a thoracolumbar brace and mobilization with physical therapy, follow-up in the office with upright radiographs after discharge, the patient is to avoid any bending lifting twisting. Allergies Allergy/AdvReac Type Severity Reaction Status Date / Time No Known Allergies Allergy Verified 10/24/24 20:49 Home Medications Medication Instructions Recorded Confirmed Type allopurinol 300 mg tablet 300 mg PO DAILY 06/03/18 10/24/24 History atorvastatin 40 mg tablet 40 mg PO DAILY 06/03/18 10/24/24 History gabapentin 300 mg capsule 300 mg PO TID 06/03/18 10/24/24 History multivitamin 1 tab PO DAILY 06/03/18 10/24/24 History tamsulosin 0.4 mg capsule 0.4 mg PO DAILY 06/03/18 10/24/24 History finasteride 5 mg tablet 5 mg PO DAILY 04/24/20 10/24/24 History fluoxetine 20 mg capsule 40 mg PO DAILY 04/24/20 10/24/24 History fexofenadine 180 mg tablet 180 mg PO DAILY PRN Allergic 07/30/22 10/24/24 History Symptoms fluticasone propionate 50 2 spray intranasal DAILY PRN 07/30/22 10/24/24 History mcg/actuation nasal Congestion spray,suspension acetaminophen 325 mg tablet 650 mg (2 x 325 mg) PO TID #30 tabs 09/17/22 10/24/24 Rx (Athenol) fluticasone furoate 100 1 ea inhalation DAILY 30 days #60 09/17/22 10/24/24 Rx mcg-vilanterol 25 mcg/dose ea inhalation powder (Breo Ellipta) ipratropium bromide 0.02 % 0.5 mg (2.5 mL) inhalation TID 7 09/17/22 10/24/24 Rx solution for inhalation days #52.5 mL levalbuterol HCl 1.25 mg/0.5 mL 1.25 mg (0.5 mL) inhalation TID 09/17/22 5 Rx solution for nebulization #30 ea prednisone 10 mg tablet 10 mg PO DAILY #30 tabs 09/17/22 10/24/24 Rx prednisone 10 mg tablet 10 mg PO UD #27 tabs 09/17/22 10/24/24 Rx albuterol sulfate 90 mcg/actuation 2 puff inhalation Q4H PRN sob 10/25/24 10/25/24 History aerosol inhaler apixaban 5 mg tablet (Eliquis) 5 mg PO BID 10/25/24 10/25/24 History azithromycin 500 mg tablet 500 mg PO UD 10/25/24 10/25/24 History furosemide 20 mg tablet 20 mg PO UD 10/25/24 10/25/24 History metoprolol succinate 25 mg 25 mg PO DAILY 10/25/24 10/25/24 History tablet,extended release 24 hr multivitamin 1 tab PO DAILY 10/25/24 10/25/24 History spironolactone 25 mg tablet 25 mg PO DAILY 10/25/24 10/25/24 History tiotropium bromide 2.5 2 puff inhalation DAILY 10/25/24 10/25/24 History mcg/actuation mist for inhalation (Spiriva Respimat) Past Med/Surg History Problem List (Updated 10/25/24 @ 14:00 by Vicki Masters PA-C) Back pain (Acute) Compression fracture of thoracic vertebra (Acute) Fall (Acute) Constipation (Acute) Compression fracture of lumbar vertebra (Acute) Fall Acute respiratory failure with hypoxia (Acute) Leukocytosis (Acute) Hypotension (Acute) Leukocytosis (Acute) Coagulopathy (Acute) Fall (Acute) Left rib fracture (Acute) Compression fracture (Acute) BPH (benign prostatic hyperplasia) CKD (chronic kidney disease), stage III 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 PAF (paroxysmal atrial fibrillation) (Acute) Pneumonia due to COVID-19 virus (Acute) Depression Pneumonia (Acute) Abdominal pain (Acute) Constipation (Acute) Heart disease (Chronic) Medical History BPH (benign prostatic hyperplasia) CKD (chronic kidney disease), stage III Heart disease History of smoking Kidney stones 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 PAF (paroxysmal atrial fibrillation) Surgical History History of neck surgery Family History Brother Kidney disease Father Heart disease Social History Smoking Status: Former smoker Tobacco Type: Cigarettes Second Hand Exposure: No; Do You Dip or Chew Tobacco: No; Hx Alcohol Use: No Hx Substance Use: No Preferred Language: Upper Sorbian Communication Ability: Impaired Communication Ability Comment: Previous stroke deficits Manager Rehab Required: No Beliefs That Will Affect Care: None Current Living Situation: Spouse Current Living Situation Comment: with spouse at home Feels Safe at Home: Yes Assistive Devices: Oxygen - Continuous, Walker and Wheelchair Review of Systems All systems reviewed & are unremarkable except as noted in HPI & below. Physical Exam . Results & Data Results & Data Laboratory Results . Diagnostic Findings . PG Care Time/CCT Total # of Minutes Spent Total Time Spent with Patient: Total time spent is greater than 50% in coordination of care (as documented) at patient's floor/unit and/or counseling patient: Coding Level of Care Code 77396 IN/OBS CONSULT LVL 3,45M
--- NOTE | 2024-10-25 15:16 | Hospitalist Progress Note ---
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 Patient seems to have fell on his back. Did not hit his bed. No loss of consciousness. He answers with yes or no. At presentation, patient was having increased difficulty with movement and also difficulty with bowel movements and urination for last couple of days and seems straight catheter him. He is being managed for the following: Likely mechanical Fall T12 and L1 compression fracture, noted on T-spine CT CT Head and C-spine CT w/ no acute finding, c/w Pain control Orthospine consult, await recs. PT OT when stable Possible pneumonia: noted on imaging at presentation. c/w rocephin and doxy 10/25. Acute kidney injury over CKD stage III: admitting creatinine of 1.45, baseline creatinine around 1, status post IV fluid, will hold home diuretics for now, will DC IV fluid at this time patient appears to be getting volume overloaded. Creatinine improving, will repeat labs in AM. Constipation and urinary retention: trinh for now. c/w bowel regimen. Hold for loose stool. . Will monitor Mild elevation in troponin, likely demand ischemia: Patient with no chest pain, EKG with no acute finding, demand ischemia likely secondary to acute illness. Echo with EF of 55 to 60%, no new regional wall motion abnormality. Continue to monitor over telemetry. Other chronic medical conditions: Continue with/resume home meds as and when able History of CVA/aphasia: Continue home Eliquis and statin. Ambulates with walker. Takes regular diet. PT/OT. Chronic systolic CHF: EF of 45 to 49% per December 2021 echo. EF 60 to 65% per July 2022 echo. Continue with home diuretics. DC IV fluid. COPD: On prednisone 10 Mg daily, continue home meds including inhalers. CAD: Status post stent, continue statin/Eliquis/beta-bartolo A-fib: Continue home metoprolol and Eliquis. Could not access patient's outpatient epic records to confirm dose of metoprolol, but per pharmacy records patient is taking 25 Mg daily. Will continue metoprolol 25 Mg daily for now. History of pericardial effusion: Per echo December 2022. Repeat echo with no pericardial effusion. DVT prophylaxis: Nancyquthelma Disposition: Med telemetry, PT/OT, CM to assist with DC planning Full code Admission and Anticipated Discharge Date Admission Date: October 24, 2024 Subjective Patient was seen and examined at bedside. Patient was lying in bed, on 4 L oxygen via nasal cannula, NAD, resting comfortably. Patient has expressive aphasia, ROS not able in detail, patient denies pain or numbness or tingling. Physical Exam Physical Exam: General- Not in distress Head- atraumatic Eyes- PERRL. ENT- oropharynx clear Neck- supple, no JVD. Lungs- clear to auscultation no wheezing or crackles Heart- regular rhythm; no murmur, no gallop. Abdomen- normal bowel sounds, soft, nontender, no distension Extremities- no pretibial edema LLE, RLE 1-2+ pedal/ankle edema noted, no erythema seen Neuro- alert, and awake. aphasia, obeys simple commands, moves extremities. Results & Data Results & Data Vital Signs (Past 12 Hours) Vital Signs Temp Pulse Pulse Pulse Resp BP BP 10/25/24 15:00 75 10/25/24 14:58 36.7 C 67 16 90/65 L 10/25/24 12:13 73 18 10/25/24 12:06 36.9 C 70 15 98/66 L 10/25/24 08:30 10/25/24 07:37 36.4 C L 68 17 114/80 10/25/24 07:25 81 20 10/25/24 07:14 69 10/25/24 03:56 10/25/24 03:56 36.2 C L 71 18 103/67 Pulse Ox O2 Del Method O2 Flow Rate 10/25/24 15:00 10/25/24 14:58 91 Nasal Cannula 4 10/25/24 12:13 91 Nasal Cannula 4 10/25/24 12:06 93 Nasal Cannula 10/25/24 08:30 Nasal Cannula 4 10/25/24 07:37 98 Nasal Cannula 6 10/25/24 07:25 97 Nasal Cannula 4 10/25/24 07:14 10/25/24 03:56 Nasal Cannula 4 10/25/24 03:56 99 Nasal Cannula 4
[2024-10-26 07:00] LABS: Hematocrit (blood only) 34.6 % (42.0-52.0); Hemoglobin 10.8 g/dl (14.0-18.0); Mean Corpuscular Hemoglobin 23.3 pg (25.0-34.0); Mean Corpuscular Hgb Conc 31.2 g/dL (32.0-36.0); Mean Corpuscular Volume 74.7 fL (80.0-100.0); Mean Platelet Volume 9.9 fL (9.4-12.4); Platelet Count 191 K/uL (130-400); RDW Coefficient of Variation 17.5 % (11.5-14.5); Red Blood Count 4.63 M/uL (4.70-6.10); White Blood Count 13.62 K/ul (4.8-10.8)
[2024-10-26 07:15] LABS: BUN Creatinine Ratio 21.2 (10-20); Calcium 8.9 mg/dl (8.6-10.3); Creatinine Clr Calc Pharmacy 62.9 ml/min; Magnesium 1.8 mg/dl (1.7-2.4); Phosphorus 2.9 mg/dl (2.5-4.9); Potassium 4.2 mmol/L (3.5-5.1)
[2024-10-26] MEDS: POLYETHYLENE (MIRALAX) 17 GM PACK PO SCH (08:34)
[2024-10-26] MEDS: CHOLECALCIFEROL 25 MCG (1000 UNITS) TAB PO SCH (08:36)
--- NOTE | 2024-10-26 09:58 | Electrocardiogram Report ---
Test Reason : Blood Pressure : */* mmHG Vent. Rate : 74 BPM Atrial Rate : 340 BPM P-R Int : * ms QRS Dur : 78 ms QT Int : 418 ms P-R-T Axes : * 14 101 degrees QTcB Int : 463 ms Atrial flutter with variable A-V block Low voltage QRS Abnormal ECG When compared with ECG of 24-Oct-2024 17:20, No significant change Confirmed by Dmitri Vincent ([id number]) on 10/26/2024 9:58:27 AM Referred By: REFERRED SELF Confirmed By: Dmitri Vincent
--- NOTE | 2024-10-26 14:40 | Hospitalist Progress Note ---
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 Patient seems to have fell on his back. Did not hit his bed. No loss of consciousness. He answers with yes or no. At presentation, patient was having increased difficulty with movement and also difficulty with bowel movements and urination for last couple of days and seems straight catheter him. He is being managed for the following: Likely mechanical Fall T12 and L1 compression fracture, noted on T-spine CT CT Head and C-spine CT w/ no acute finding, c/w Pain control Orthospine consult, appreciate recs / PT OT when stable Possible pneumonia: noted on imaging at presentation. c/w rocephin and doxy 10/25. Acute kidney injury over CKD stage III: admitting creatinine of 1.45, baseline creatinine around 1, s/p ivf. Creatinine improved, will repeat labs in AM. Constipation and urinary retention: trinh for now. c/w bowel regimen. Hold for loose stool. . Will monitor Mild elevation in troponin, likely demand ischemia: Patient with no chest pain, EKG with no acute finding, demand ischemia likely secondary to acute illness. Echo with EF of 55 to 60%, no new regional wall motion abnormality. Continue to monitor over telemetry. Other chronic medical conditions: Continue with/resume home meds as and when able History of CVA/aphasia: Continue home Eliquis and statin. Ambulates with walker. Takes regular diet. PT/OT. Chronic systolic CHF: EF of 45 to 49% per December 2021 echo. EF 60 to 65% per July 2022 echo. Continue with home diuretics. DC IV fluid. COPD: On prednisone 10 Mg daily, continue home meds including inhalers. CAD: Status post stent, continue statin/Eliquis/beta-bartolo A-fib: Continue home metoprolol and Eliquis. c/w home metoprolol 25 Mg daily. History of pericardial effusion: Per echo December 2022. Repeat echo with no pericardial effusion. DVT prophylaxis: Eliquis Disposition: Med telemetry, PT/OT, CM to assist with DC planning Full code Admission and Anticipated Discharge Date Admission Date: October 24, 2024 Subjective Patient was seen and examined at bedside. Patient was lying in bed, on 3 L oxygen via nasal cannula, NAD, resting comfortably. Patient has expressive aphasia, ROS not able in detail, patient denies pain. Physical Exam Physical Exam: General- Not in distress Head- atraumatic Eyes- PERRL. ENT- oropharynx clear Neck- supple, no JVD. Lungs- clear to auscultation no wheezing or crackles Heart- regular rhythm; no murmur, no gallop. Abdomen- normal bowel sounds, soft, nontender, no distension Extremities- no pretibial edema LLE, RLE 1+ pedal/ankle edema noted, no erythema seen Neuro- alert, and awake. aphasia, obeys simple commands, moves extremities. Results & Data Results & Data Vital Signs (Past 12 Hours) Vital Signs Temp Pulse Pulse Resp BP Pulse Ox Pulse Ox 10/26/24 13:05 87 18 92 10/26/24 11:16 36.4 C L 81 20 96/66 L 92 10/26/24 08:30 10/26/24 07:26 36.4 C L 70 20 107/71 96 10/26/24 07:07 73 10/26/24 07:02 68 18 98 10/26/24 04:14 36.7 C 78 20 97/66 L 94 10/26/24 02:53 94 O2 Del Method O2 Del Method O2 Flow Rate O2 Flow Rate 10/26/24 13:05 Room Air 10/26/24 11:16 Nasal Cannula 3 10/26/24 08:30 Nasal Cannula 3 10/26/24 07:26 Nebulizer 10/26/24 07:07 10/26/24 07:02 Nasal Cannula 4 10/26/24 04:14 Nasal Cannula 4 10/26/24 02:53 Nasal Cannula 4
--- NOTE | 2024-10-26 15:50 | Orthopedic Progress Note ---
Date of Service October 26, 2024 Subjective Patient seen and examined, he notes continued some limited low back pain, he expressed that he had mobilized in the room but was unclear about ambulating in the hallway. He did acknowledge that the thoracolumbar brace is in the room but not worn. No changes relative to exam in lower extremities. Impression: T12 and L1 compression fractures, the L1 fracture appears to be subacute. Plan: Recommend mobilization with physical therapy with brace on when patient is up and out of bed, follow-up in the office after discharge. Review of Systems All systems reviewed & are unremarkable except as noted in HPI & below. Physical Exam . Results & Data Results & Data Laboratory Results . Diagnostic Findings . PG Care Time/CCT Total # of Minutes Spent Total Time Spent with Patient: Total time spent is greater than 50% in coordination of care (as documented) at patient's floor/unit and/or counseling patient: Coding Level of Care Code 78854 SUB INP/OBS CARE 2/35MIN
[2024-10-26] MEDS: LACTULOSE SYRUP 20 GM/30 ML UDC PO ONE (17:11)
[2024-10-27 06:08] LABS: Hemoglobin 9.7 g/dl (14.0-18.0); Mean Corpuscular Hemoglobin 23.3 pg (25.0-34.0); Mean Corpuscular Hgb Conc 31.3 g/dL (32.0-36.0); Mean Corpuscular Volume 74.5 fL (80.0-100.0); Mean Platelet Volume 9.8 fL (9.4-12.4); Platelet Count 206 K/uL (130-400); RDW Coefficient of Variation 17.5 % (11.5-14.5); RDW Standard Deviation 46.7 fL (36.4-46.3); Red Blood Count 4.16 M/uL (4.70-6.10)
[2024-10-27 06:13] LABS: BUN Creatinine Ratio 18.8 (10-20); Calcium 8.7 mg/dl (8.6-10.3); Creatinine Clr Calc Pharmacy 53.5 ml/min; Magnesium 1.7 mg/dl (1.7-2.4); Phosphorus 2.4 mg/dl (2.5-4.9); Potassium 4.3 mmol/L (3.5-5.1)
[2024-10-27 08:06] VITALS: TEMP 98.4
[2024-10-27] MEDS: POT PHOSPHATE MONOBASIC W/ SOD TAB PO SCH (08:49)
[2024-10-27 11:20] VITALS: BP 103/69; PULSE 79; RESP 20; O2SAT 98
--- NOTE | 2024-10-27 12:19 | Discharge Summary ---
Date of Service October 27, 2024 Admission HPI Per Admitting Provider 74-year-old male with past med history significant for left foot gout, dyslipidemia, paroxysmal atrial fibrillation, history of CAD, history of systolic CHF due to idiopathic cardiomyopathy, history of A-fib, history of aphasia poststroke, CKD stage III, BPH, osteoarthritis, history of laceration of spleen, who lives at home with his and ambulates with a walker and can eat regular diet, who fell few days back was brought today for complaints of back pain. Not able to reach currently. Able to talk to son. Patient seems to fell from the kitchen table seems on last Wednesday. Fell on his back. Did not hi t his bed. No loss of consciousness. Patient was complaining of back pain and was brought here today. He has chronic cough from his COPD. No fevers. No nausea or vomiting. No diarrhea. Currently patient resting comfortably.. He answers with yes or no. He denies headache, denies chest pain, denies shortness of breath, denies abdominal pain, seems to be having pain in the back and groin region. Hemodynamics are okay.As per the ER patient was having increased difficulty with movement and also difficulty with bowel movements and urination for last couple of days and seems straight catheter him Past medical history. As mentioned above Past surgical history. Cardiac stent placement. Lumbar spine fusion surgery. Neck spine fusion. Social history. . Quit smoking 2016. Smoked 0.5 pack a day for 51 years. No alcohol use currently. No drug use. Family history. Father had heart disease. Stroke. Brother had heart disease. Mother had heart disease. Sister has heart disease. Sister had stroke. Admission Exam Per Admitting Provider General- Not in distress Head- atraumatic Eyes- PERRL. ENT- oropharynx clear Neck- supple, no JVD. Lungs- clear to auscultation no wheezing or crackles Heart- regular rhythm; no murmur, no gallop. Abdomen- normal bowel sounds, soft, nontender, no distension Extremities- no pretibial edema, no erythema seen Neuro- alert, and awake. aphasia, obeys simple commands, moves extremities. Principal Diagnosis Likely mechanical Fall Age-related osteoporosis with current pathologic fracture, T12 and L1 vertebra Vitamin D deficiency Acute kidney injury over CKD stage III, resolved Possible pneumonia Discharge Exam General- Not in distress Head- atraumatic Eyes- PERRL. ENT- oropharynx clear Neck- supple, no JVD. Lungs- clear to auscultation no wheezing or crackles Heart- regular rhythm; no murmur, no gallop. Abdomen- normal bowel sounds, soft, nontender, no distension Extremities- no pretibial edema LLE, RLE trace pedal/ankle edema noted, no erythema seen Neuro- alert, and awake. aphasia, obeys simple commands, moves extremities. Discharge Data Allergies Allergy/AdvReac Type Severity Reaction Status Date / Time No Known Allergies Allergy Verified 10/24/24 20:49 Consultations 10/24/24 22:23 ED Decision to Admit Stat 10/25/24 08:00 Consult Orthopedic Spine Surgery Routine Ordered Studies 10/24/24 17:32 CT Abd and Pelvis [CT abd pelvis IV con only] Stat CT chest diagnostic w con Stat CT head/brain wo con Stat CT neck [CT cervical spine wo con] Stat 10/24/24 17:42 CT lumbar spine w con Stat CT thoracic spine w con Stat Hospital Course (1) Fall: 74 yo M w/ PMH of left foot gout, dyslipidemia, paroxysmal atrial fibrillation, CAD, systolic CHF due to idiopathic cardiomyopathy, aphasia poststroke, CKD stage III, BPH, osteoarthritis, laceration of spleen, who lives at home with his and ambulates with a walker and can eat regular diet, 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 Patient seems to have fell on his back. Did not hit his bed. No loss of consciousness. He answers with yes or no. At presentation, patient was having increased difficulty with movement and also difficulty with bowel movements and urination for last couple of days and seems straight catheter him. He was managed for the following: Likely mechanical Fall T12 and L1 compression fracture, noted on T-spine CT CT Head and C-spine CT w/ no acute finding, c/w Pain control Orthospine consult, appreciate recs 4/2 PT OT when stable f/u w/ orthospine on dc, c/w home health PT. Possible pneumonia: noted on imaging at presentation. c/w rocephin and doxy 4/2. to po atb on dc to complete course. Acute kidney injury over CKD stage III: admitting creatinine of 1.45, baseline creatinine around 1, s/p ivf. Creatinine improved. Constipation and urinary retention: c/w bowel regimen. Hold for loose stool. will do void trial prior to dc today to see if trinh can be taken off. If not will dc w/ trinh and have him f/u w/ uro on dc. Mild elevation in troponin, likely demand ischemia: Patient with no chest pain, EKG with no acute finding, demand ischemia likely secondary to acute illness. Echo with EF of 55 to 60%, no new regional wall motion abnormality. Continue to monitor over telemetry. Other chronic medical conditions: Continue with/resume home meds as and when able History of CVA/aphasia: Continue home Eliquis and statin. Ambulates with walker. Takes regular diet. PT/OT. Chronic systolic CHF: EF of 45 to 49% per December 2021 echo. EF 60 to 65% per July 2022 echo. Continue with home diuretics. COPD: On prednisone 10 Mg daily, continue home meds including inhalers. CAD: Status post stent, continue statin/Eliquis/beta-bartolo A-fib: Continue home metoprolol and Eliquis. c/w home metoprolol 25 Mg daily. History of pericardial effusion: Per echo December 2022. Repeat echo with no pericardial effusion. DVT prophylaxis: Eliquis Disposition: Med telemetry, PT/OT, CM to assist with DC planning Full code Patient is being discharged to home with home health with following instructions at the point of discharge: Follow-up with your primary care physician within a week time and likely you will need labs CBC/CMP/magnesium/phosphorus. You are noted to have vertebral fracture [T12 and L1], utilize LSO brace when out of bed and during activity, follow-up with orthospine physician in 1 to 2 weeks time upon discharge. Continue with home health physical therapy. Avoid any bending, lifting or twisting. You were noted to have vitamin D deficiency, vitamin D supplement has been added, repeat vitamin D level in 3 months, coordinate with your PCP office to set up the test. You will be discharged on antibiotic to complete the course for pneumonia, you will need repeat Chest x-ray in about 6 weeks time to document resolution of your pneumonia. You can utilize [id number] laxatives and stool softeners per concrete engineering technician's direction for constipation. Take your medications as prescribed. Please make sure that you are able to get your medications today by calling your pharmacy before you leave the hospital so that your treatment continuity is not broken. Home Health Attestation I certify that this patient is under my care and that I, or a physicians marketing operations assistant working with me, had a face to-face encounter that meets the home health [id number] encounter requirements with this patient. The encounter with the patient was in whole, or in part, for the following medical condition, which is the primary reason for home health care (list medical condition): pneumonia, elevated troponin I certify that, based on my findings, the following services are medically necessary home health services: My clinical findings support the need for the above services because: Caregiver Instruct Med Mgmt, Safety, Disease Process, Signs to Report Home Safety Assessment OT Assess ADL Status and Restore Function w ADLs PT Assessment for Endurance / Balance / Strength PT Eval for Safety and Mobility PT Eval for Safety, Gait Training, Assistive Devices PT Gait and Balance Training, Strengthening and Safety Safety Skilled Nsg Assessment Skilled Nsg Assess Pt Illness, Disease and Sx Monitoring S/S to Report to Provider Teach on Disease Management and Interventions Vital Signs Further, I certify that my clinical findings support that this patient is homebound (i.e. absences from home require considerable and taxing effort and are for medical reasons or sikh services or infrequently or of short duration when for other reasons) because: Transportation Assistance/Unable to Leave Home Unassisted Certification for Home Health Services: Based on the above findings, I certify that this patient is confined to the home and needs intermittent penitentiary care, physical therapy and/or speech therapy or continues to need occupational therapy. The patient is under my care, and I have initiated the establishment of the plan of care. This patient will be followed by a physician who will periodically review the plan of care. Total Time Total Time Spent Total Time Spent (In Minutes): 35 Discharge Plan Discharge Items Patient Disposition: Home - Home Health Services Reason For Visit: FALL, PNEUMONIA, ELEVATED TROP Discharge Diagnosis: Likely mechanical Fall Age-related osteoporosis with current pathologic fracture, T12 and L1 vertebra Vitamin D deficiency Acute kidney injury over CKD stage III, resolved Possible pneumonia Condition on Discharge: Good Activity: Resume your previous activity Non-emergency contact: Primary Care Provider Call non-emergency contact if: you have any medication questions and your symptoms worsen Follow-up/Referrals: Chelo Trotter MD [Primary Care Provider] - (Date & Time 11/03/2024 9:20 AM Provider: Chelo Trotter MD Family [facility] ) Diet: Heart Healthy Diet Texture: Dental soft (bite-sized) Addtl Attending Provider Instructions: Follow-up with your primary care physician within a week time and likely you will need labs CBC/CMP/magnesium/phosphorus. You are noted to have vertebral fracture [T12 and L1], utilize LSO brace when out of bed and during activity, follow-up with orthospine physician in 1 to 2 weeks time upon discharge. Continue with home health physical therapy. Avoid any bending, lifting or twisting. You were noted to have vitamin D deficiency, vitamin D supplement has been added, repeat vitamin D level in 3 months, coordinate with your PCP office to set up the test. You will be discharged on antibiotic to complete the course for pneumonia, you will need repeat Chest x-ray in about 6 weeks time to document resolution of your pneumonia. You can utilize [id number] laxatives and stool softeners per concrete engineering technician's direction for constipation. Take your medications as prescribed. Please make sure that you are able to get your medications today by calling your pharmacy before you leave the hospital so that your treatment continuity is not broken. Pending Studies at Discharge: No Stand-Alone Forms: [facility], Smoking Cessation Medications and DC Order Prescriptions: New doxycycline hyclate 100 mg Capsule 100 mg PO Q12H 3 Days Qty: 6 0RF docusate sodium 100 mg Capsule 100 mg PO BID PRN (Reason: constipation) Qty: 30 0RF polyethylene glycol 3350 [Miralax] 17 gram Powder In Packet 17 g PO DAILY PRN (Reason: laxative effect) Qty: 30 0RF cholecalciferol (vitamin D3) 25 mcg (1,000 unit) Capsule 25 mcg PO QAM Qty: 30 0RF cefdinir 300 mg capsule 300 mg PO BID 4 Days Qty: 8 0RF Probiotic 3 billion cell capsule 3,000 mmu cells PO DAILY 7 Days Qty: 7 0RF Rx Instructions: administer with a meal Continued multivitamin Tablet 1 tab PO DAILY atorvastatin 40 mg Tablet 40 mg PO DAILY tamsulosin 0.4 mg Capsule 0.4 mg PO DAILY gabapentin 300 mg Capsule 300 mg PO TID allopurinol 300 mg Tablet 300 mg PO DAILY fluoxetine 20 mg capsule 40 mg PO DAILY finasteride 5 mg tablet 5 mg PO DAILY fexofenadine 180 mg Tablet 180 mg PO DAILY PRN (Reason: Allergic Symptoms) fluticasone propionate 50 mcg/actuation [place],Suspension 2 spray INTRANASAL DAILY PRN (Reason: Congestion) ipratropium bromide 0.02 % Solution 0.5 mg inhalation TID 7 Days Qty: 52.5 1RF Rx Instructions: May also use every 4 hours as needed for shortness of breath or wheezing levalbuterol HCl 1.25 mg/0.5 mL Solution For Nebulization 1.25 mg inhalation TID Qty: 30 1RF Rx Instructions: May also use every 4 hours as needed for shortness of breath or wheezing acetaminophen [Athenol] 325 mg tablet 650 mg PO TID Qty: 30 1RF fluticasone furoate-vilanterol [Breo Ellipta] 100-25 mcg/dose Blister With Device 1 ea inhalation DAILY 30 Days Qty: 60 1RF prednisone 10 mg tablet 10 mg PO DAILY Qty: 30 0RF Rx Instructions: Hold for now, resume once prednisone taper is finished Eliquis 5 mg tablet 5 mg PO BID albuterol sulfate 90 mcg/actuation HFA aerosol inhaler 2 puff INHALATION Q4H PRN (Reason: sob) furosemide 20 mg tablet 20 mg PO UD Rx Instructions: 40mg po daily on Wed, Wed and Wednesday and 20mg po daily all other days metoprolol succinate 25 mg tablet extended release 24 hr 25 mg PO DAILY spironolactone 25 mg tablet 25 mg PO DAILY Spiriva Respimat 2.5 mcg/actuation mist 2 puff INHALATION DAILY multivitamin Tablet 1 tab PO DAILY Discontinued prednisone 10 mg tablet 10 mg PO UD Qty: 27 0RF Rx Instructions: Prednisone taper as written on discharge instructions azithromycin 500 mg tablet 500 mg PO UD Rx Instructions: azithromycin 500mg po on wed, wed and wednesday only Discharge Orders: Discharge Order (Routine); Ordered 10/27/24 Ordered By: Israel Steele Admission Data Admit Date/Time: 10/24/24 23:50 Attending Provider: Israel Steele Admit Provider: Cr Viveros Primary Care Provider: Chelo Trotter Other Providers: Cr Viveros; Estuardo Blas; Wilman,[facility]
[2024-10-27] MEDS ORDERED: DOXYCYCLINE HYCLATE 100 MG CAP PO SCH (16:00)
== END 2024-10-27 13:18 | disposition home health service (06) | DRG 542 ==
LOC: ED 17:14 → 2N 23:50 → SUATTDRO 23:50 → 2N 10-25 02:16

== ENCOUNTER 2024-10-31 14:22 | Inpatient (IN) ==
--- NOTE | 2024-10-31 15:18 | Emergency Department Note ---
Impression & Plan Back pain, Compression fracture of lumbar vertebra, Ambulatory dysfunction, Compression fracture of body of thoracic vertebra ED Provider Note ED Provider Note NAME: DEMETRIS FLOR AGE:74 SEX: Male : 1950 ARRIVES VIA: EMS INFORMANT: Patient ED PROVIDER(s): Noemi Gunter DO CHIEF COMPLAINT: Back pain, unable to walk HPI: This is a 74-year-old male brought in by EMS due to family's concern for worsening back pain and difficulty walking at home. Patient just recently discharged from the hospital 4 days ago after a recent fall. He was noted to have compression fractures of T12 and L1 following the fall. Patient also noted to have pneumonia during admission and was treated with Rocephin and doxycycline. Patient discharged home with . concerned that she was not given any pain medication to take at home. Family states he does have a history of COPD additionally but and does typically wear 2 L/min of oxygen. They have not noticed any increased oxygen requirements. They state he has 1 more day of his antibiotic left. Patient does have difficulty communicating due to a prior CVA and is chronically anticoagulated. No recurrent falls. Family has not noted any increased difficulty breathing, fevers or chills, vomiting or diarrhea. Patient denies any chest or abdominal pain, denies headaches. PAST MEDICAL HISTORY:See Below PAST SURGICAL HISTORY:See Below FAMILY HISTORY:See Below SOCIAL HISTORY:See Below HOME MEDICATIONS:See Below ALLERGIES:See Below VITALS:See Below PHYSICAL EXAMINATION: GENERAL: alert, well appearing, well nourished, no distress, non-toxic EYE EXAM: normal conjunctiva, PERRL and EOM's grossly intact OROPHARYNX: no exudate, no erythema, lips, buccal mucosa, and tongue normal and mucous membranes are moist NECK: supple, no nuchal rigidity, no adenopathy, non-tender LUNGS: Clear to auscultation. Normal chest wall mechanics, no w/r/r HEART: no murmurs, S1 normal and S2 normal ABDOMEN: abdomen soft, non-tender, normo-active bowel sounds, no masses, no rebound or guarding. BACK: Back is symmetrical on inspection and there is no deformity, pain with palpation in the superior lumbar spine SKIN: no rashes, petechiae, orbruising UPPER EXTREMITIES: upper extremities are grossly normal. FROM, nml pulses b/l. LOWER EXTREMITIES: No pitting edema. FROM, nml pulses b/l. NEURO EXAM: Normal sensorium, cranial nerves II-XII grossly intact, abnormal speech, no facial droop,nogross weakness of arms, no gross weakness of legs. Gross sensation intact. No ataxia. Vital Signs: reviewed and remarkable Differential Diagnosis: dehydration, anemia, hypoglycemia, hyponatremia, hypernatremia, urinary tract infection, pneumonia, bronchitis, sepsis, metabolic abnormalities, as well as others were considered MEDICAL DECISION MAKING: This is a 74-year-old male who presents emergency department due to family concern for uncontrolled pain secondary to recent fall and compression fractures noted in the back as well as ambulatory dysfunction. Patient was afebrile and hemodynamically stable. No new or evolving neurologic symptoms. Patient does have difficulty communicating at baseline due to prior history of a stroke. Labs drawn and sent, IV established, EKG and chest x-ray performed at bedside interpreted by me and patient monitored on telemetry. Patient started on IV Tylenol and Lidoderm patch. An oral muscle relaxer was added additionally for pain. Family feels patient needs inpatient rehab until he is well enough to come home. No evidence of worsening pneumonia given recent diagnosis, patient is still finishing course of antibiotics per family report. He remained hemodynamically stable throughout. Case discussed with the hospitalist team for additional evaluation and management. Consultation(s): 1705: Case discussed with Dr. Barton, [facility] hospitalist team for additional evaluation and management. ER Treatment Provided: See below Diagnostics Interpreted By Me: -ECG: Atrial fibrillation at 78, normal axis, normal intervals, nonspecific ST/T wave changes -Cardiac Monitoring: An order was placed for continuous cardiac monitoring. The monitor shows a rate of 78 with a.fib rhythm. -Laboratory studies: As stated above and show below. -Imaging studies: cxr: No wide mediastinum, no cardiomegaly, improved left lower lobe pneumonia, no acute pulmonary edema Triage Nursing Note Reviewed Prior/Outside Records Reviewed Past Med/Surg History Problem List (Updated 10/31/24 @ 21:09 by Noemi Gunter DO) Compression fracture of body of thoracic vertebra (Acute) Ambulatory dysfunction (Acute) Back pain (Acute) Ambulatory dysfunction Back pain (Acute) Compression fracture of thoracic vertebra (Acute) Fall (Acute) Constipation (Acute) Compression fracture of lumbar vertebra (Acute) Fall Acute respiratory failure with hypoxia (Acute) Leukocytosis (Acute) Hypotension (Acute) Leukocytosis (Acute) Coagulopathy (Acute) Fall (Acute) Left rib fracture (Acute) Compression fracture (Acute) BPH (benign prostatic hyperplasia) CKD (chronic kidney disease), stage 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 PAF (paroxysmal atrial fibrillation) (Acute) Pneumonia due to COVID-19 virus (Acute) Depression Pneumonia (Acute) Abdominal pain (Acute) Constipation (Acute) Heart disease (Chronic) Medical History History of smoking Family History Brother Kidney disease Father Heart disease Social History Smoking Status: Former smoker Tobacco Type: Cigarettes Second Hand Exposure: No; Do You Dip or Chew Tobacco: No; Hx Alcohol Use: No Hx Substance Use: No Preferred Language: [place] Communication Ability: Effective Communication Ability Comment: pt has aphagia, yes & no answers and gestures Quick Technician Required: No Beliefs That Will Affect Care: None Current Living Situation: Spouse Current Living Situation Comment: with spouse at home Feels Safe at Home: Yes Safety Concerns: Feels Safe At This Time Assistive Devices: Cane and Walker Assistive Devices Comment: supposed to use back brace Allergies Allergies Allergy/AdvReac Type Severity Reaction Status Date / Time No Known Allergies Allergy Verified 10/31/24 17:42 Home Meds Home Medications Medication Instructions Recorded Confirmed allopurinol 300 mg tablet 300 mg PO DAILY 06/03/18 10/31/24 atorvastatin 40 mg tablet 40 mg PO DAILY 06/03/18 10/31/24 multivitamin 1 tab PO DAILY 06/03/18 10/31/24 tamsulosin 0.4 mg capsule 0.4 mg PO DAILY 06/03/18 10/31/24 finasteride 5 mg tablet 5 mg PO DAILY 04/24/20 10/31/24 fluoxetine 20 mg capsule 40 mg PO DAILY 04/24/20 10/31/24 fexofenadine 180 mg tablet 180 mg PO DAILY PRN Allergic 07/30/22 10/31/24 Symptoms fluticasone propionate 50 2 spray intranasal DAILY PRN 07/30/22 10/31/24 mcg/actuation nasal Congestion spray,suspension albuterol sulfate 90 mcg/actuation 2 puff inhalation Q4H PRN sob 10/25/24 10/31/24 aerosol inhaler apixaban 5 mg tablet (Eliquis) 5 mg PO BID 10/25/24 10/31/24 furosemide 20 mg tablet 20 mg PO SUTUTHSA 10/25/24 10/31/24 metoprolol succinate 25 mg 25 mg PO DAILY 10/25/24 10/31/24 tablet,extended release 24 hr spironolactone 25 mg tablet 25 mg PO DAILY 10/25/24 10/31/24 tiotropium bromide 2.5 2 puff inhalation DAILY 10/25/24 10/31/24 mcg/actuation mist for inhalation (Spiriva Respimat) furosemide 20 mg tablet 40 mg PO MOWEFR 10/31/24 10/31/24 Previous Rx's Medication Instructions Recorded acetaminophen 325 mg tablet 650 mg (2 x 325 mg) PO TID #30 tabs 09/17/22 (Athenol) fluticasone furoate 100 1 ea inhalation DAILY 30 days #60 09/17/22 mcg-vilanterol 25 mcg/dose ea inhalation powder (Breo Ellipta) ipratropium bromide 0.02 % 0.5 mg (2.5 mL) inhalation TID 7 09/17/22 solution for inhalation days #52.5 mL levalbuterol HCl 1.25 mg/0.5 mL 1.25 mg (0.5 mL) inhalation TID 09/17/22 solution for nebulization #30 ea cholecalciferol (vitamin D3) 25 25 mcg PO QAM #30 caps 10/27/24 mcg (1,000 unit) capsule docusate sodium 100 mg capsule 100 mg PO BID PRN constipation #30 10/27/24 caps polyethylene glycol 3350 17 gram 17 g PO DAILY PRN laxative effect 10/27/24 oral powder packet (Miralax) #30 ea Results & Data (ED) Vital Signs Vital Signs - 24 hr 10/31/24 14:38 10/31/24 14:57 10/31/24 16:19 Temperature 36.4 C L Temperature Source Oral Pulse Rate 75 68 Pulse Rate [Apical] 73 Respiratory Rate 18 20 Respiratory Effort / Characteristics Non-Labored Spontaneous Spontaneous Respiratory Depth Normal Normal Respiratory Pattern Regular Blood Pressure 120/79 Blood Pressure [Right Arm] 97/66 L Blood Pressure Mean 92 Blood Pressure Mean [Right Arm] 76 Blood Pressure Position Lying Blood Pressure Position [Right Arm] Lying Pulse Oximetry 100 96 Oxygen Delivery Method Nasal Cannula Nasal Cannula Oxygen Flow Rate 2 3 Sepsis Recent Fever Within 48 Hours No Sepsis New/Unexplained Change in Mental Status No Sepsis Action Taken by Nursing No Action Required 10/31/24 16:48 10/31/24 16:51 10/31/24 16:59 Temperature Temperature Source Pulse Rate 91 H 73 Pulse Rate [Apical] Respiratory Rate 21 20 Respiratory Effort / Characteristics Respiratory Depth Respiratory Pattern Blood Pressure 120/79 Blood Pressure [Right Arm] Blood Pressure Mean 98 Blood Pressure Mean [Right Arm] Blood Pressure Position Blood Pressure Position [Right Arm] Pulse Oximetry 96 95 Oxygen Delivery Method Nasal Cannula Nasal Cannula Oxygen Flow Rate 2 2 Sepsis Recent Fever Within 48 Hours Sepsis New/Unexplained Change in Mental Status Sepsis Action Taken by Nursing 10/31/24 17:03 10/31/24 17:15 10/31/24 17:21 Temperature Temperature Source Pulse Rate 83 83 81 Pulse Rate [Apical] Respiratory Rate 21 21 15 Respiratory Effort / Characteristics Respiratory Depth Respiratory Pattern Blood Pressure Blood Pressure [Right Arm] Blood Pressure Mean Blood Pressure Mean [Right Arm] Blood Pressure Position Blood Pressure Position [Right Arm] Pulse Oximetry 98 99 100 Oxygen Delivery Method Nasal Cannula Nasal Cannula Nasal Cannula Oxygen Flow Rate 2 2 2 Sepsis Recent Fever Within 48 Hours Sepsis New/Unexplained Change in Mental Status Sepsis Action Taken by Nursing 10/31/24 17:26 10/31/24 17:30 Temperature Temperature Source Pulse Rate 79 Pulse Rate [Apical] Respiratory Rate 18 Respiratory Effort / Characteristics Respiratory Depth Respiratory Pattern Blood Pressure 118/72 Blood Pressure [Right Arm] Blood Pressure Mean 79 Blood Pressure Mean [Right Arm] Blood Pressure Position Blood Pressure Position [Right Arm] Pulse Oximetry 94 Oxygen Delivery Method Nasal Cannula Oxygen Flow Rate 2 Sepsis Recent Fever Within 48 Hours Sepsis New/Unexplained Change in Mental Status Sepsis Action Taken by Nursing Laboratory Data 11/01/24 06:51 11/01/24 06:51 Lab Results 10/31/24 Range/Units 16:00 WBC 10.28 (4.8-10.8) K/ul RBC 5.00 (4.70-6.10) M/uL Hgb 11.6 L (14.0-18.0) g/dl Hct 37.1 L (42.0-52.0) % MCV 74.2 L (80.0-100.0) fL MCH 23.2 L (25.0-34.0) pg MCHC 31.3 L (32.0-36.0) g/dL RDW Std Deviation 47.8 H (36.4-46.3) fL RDW Coeff of Lenora 18.6 H (11.5-14.5) % Plt Count 351 (130-400) K/uL MPV 8.8 L (9.4-12.4) fL Immature Gran % (Auto) 0.9 % Neut % (Auto) 63.8 % Lymph % (Auto) 16.1 % [place] % (Auto) 7.2 % Eos % (Auto) 10.8 % Baso % (Auto) 1.2 % Neut # (Auto) 6.57 H (1.40-6.50) K/uL Lymph # (Auto) 1.65 (1.20-3.40) K/uL [place] # (Auto) 0.74 H (0.11-0.59) K/uL Eos # (Auto) 1.11 H (0.00-0.50) K/uL Baso # (Auto) 0.12 (0.00-0.20) K/uL Immature Gran # (Auto) 0.09 (0.01-0.20) K/uL PT 12.8 H (9.0-12.0) Seconds INR 1.2 H (0.9-1.1) Sodium 137 (136-145) mmol/L Potassium 4.2 (3.5-5.1) mmol/L Chloride 105 (98-107) mmol/L Carbon Dioxide 25 (21-32) mmol/L Anion Gap 7 (3-11) BUN 27 H (6-23) mg/dl Creatinine 1.35 (0.6-1.4) mg/dl Est Cr Clr Drug Dosing 46.7 ml/min eGFR 55.09 BUN/Creatinine Ratio 20.0 (10-20) Glucose 82 (70-99(Fasting)) mg/dl Calcium 9.4 (8.6-10.3) mg/dl Magnesium 1.9 (1.7-2.4) mg/dl Total Bilirubin 0.8 (0.2-1.0) mg/dl AST 19 (13-39) U/L ALT 12 (7-52) U/L Alkaline Phosphatase 95 (34-104) U/L Troponin I High Sens 24.7 H (0-20) pg/ml Total Protein 5.9 L (6.0-8.3) gm/dl Albumin 3.2 L (3.4-5.0) gm/dl Globulin 2.7 (2.5-4.0) gm/dl Albumin/Globulin Ratio 1.2 (0.9-2) Lipase 18 (11-82) U/L Procalcitonin 0.06 (0-0.5) ng/ml TSH 1.086 (0.300-4.500) uIu/ml Administered Medications Acetaminophen (Acetaminophen 325 Mg Tab) 650 mg PO Q8H KAMINI Stop: 11/30/24 21:59 Last Admin: 11/01/24 13:15 Dose: 650 mg Documented By: Admin: 11/01/24 05:28 Dose: 650 mg Documented By: Admin: 10/31/24 22:19 Dose: 650 mg Documented By: ADRIAN Albuterol (Albut/Ipratrop 3mg/0.5mg Neb 3 Ml Vial) 3 ml NEB Q6R KAMINI; Protocol Stop: 11/30/24 21:41 Last Admin: 11/01/24 12:45 Dose: 3 ml Documented By: Admin: 11/01/24 07:43 Dose: 3 ml Documented By: [id number] Admin: 11/01/24 00:56 Dose: 3 ml Documented By: Admin: 10/31/24 22:02 Dose: 3 ml Documented By: HUSSAIN Allopurinol (Allopurinol 300 Mg Tab) 300 mg PO DAILY KAMINI Stop: 12/01/24 08:59 Last Admin: 11/01/24 08:08 Dose: 300 mg Documented By: DAWN Apixaban (Apixaban 5 Mg Tablet) 5 mg PO BID KAMINI Stop: 11/30/24 21:41 Last Admin: 11/01/24 08:08 Dose: 5 mg Documented By: Admin: 10/31/24 22:20 Dose: 5 mg Documented By: ADRIAN Atorvastatin Calcium (Atorvastatin 40 Mg Tab) 40 mg PO DAILY KAMINI Stop: 12/01/24 08:59 Last Admin: 11/01/24 08:09 Dose: 40 mg Documented By: DAWN Finasteride (Finasteride 5 Mg Tab) 5 mg PO DAILY [facility] Stop: 12/01/24 08:59 Last Admin: 11/01/24 08:08 Dose: 5 mg Documented By: DAWN Fluoxetine HCl (Fluoxetine Hcl 20 Mg Cap) 40 mg PO DAILY [facility] Stop: 12/01/24 08:59 Last Admin: 11/01/24 08:07 Dose: 40 mg Documented By: DAWN Fluticasone/Vilanterol (Fluticasone/Vilanterol 100/25mcg 14 Puffs/Inhaler) 1 puffs INH DAILY [facility] Stop: 12/01/24 08:59 Last Admin: 11/01/24 08:10 Dose: 1 puffs Documented By: DAWN Furosemide (Furosemide 40 Mg Tab) 40 mg PO MoWeFr@0900 [facility] Stop: 12/01/24 08:59 Last Admin: 11/01/24 08:07 Dose: 40 mg Documented By: DAWN Gabapentin (Gabapentin 300 Mg Cap) 300 mg PO TID [facility] Stop: 11/30/24 21:41 Last Admin: 11/01/24 13:16 Dose: 300 mg Documented By: Admin: 11/01/24 08:08 Dose: 300 mg Documented By: Admin: 10/31/24 22:20 Dose: 300 mg Documented By: ADRIAN Lidocaine (Lidocaine 5% 1 Patch) 1 patch TD QAM [facility] Stop: 12/01/24 08:59 Last Admin: 11/01/24 12:40 Dose: 1 patch Documented By: Admin: 11/01/24 08:10 Dose: 1 patch Documented By: DAWN Methocarbamol (Methocarbamol 500 Mg Tablet) 500 mg PO TID PRN PRN Reason: Moderate Pain (Scale 4, 5, 6) Stop: 11/30/24 21:41 Last Admin: 11/01/24 12:08 Dose: 500 mg Documented By: Admin: 11/01/24 08:07 Dose: 500 mg Documented By: DAWN Metoprolol Succinate (Metoprolol Succ 25mg Ext Rel Tab) 25 mg PO DAILY [facility] Stop: 12/01/24 08:59 Last Admin: 11/01/24 08:08 Dose: 25 mg Documented By: DAWN Miscellaneous (Remove Lidoderm Patch) 1 each N/A DAILY@2100 [facility] Stop: 12/01/24 00:00 Last Admin: 10/31/24 23:42 Dose: 1 each Documented By: ADRIAN Multivitamins (Multivitamin Tab) 1 tab PO DAILY [facility] Stop: 12/01/24 08:59 Last Admin: 11/01/24 08:08 Dose: 1 tab Documented By: DAWN Senna/Docusate Sodium (Docusate Sodium/Senna 50/8.6mg Tab) 1 tab PO QAM [facility] Stop: 12/01/24 08:59 Last Admin: 11/01/24 08:14 Dose: 1 tab Documented By: DAWN Spironolactone (Spironolactone 25 Mg Tab) 25 mg PO DAILY K[facility]I Stop: 12/01/24 08:59 Last Admin: 11/01/24 08:08 Dose: 25 mg Documented By: DAWN Tamsulosin HCl (Tamsulosin Hcl 0.4 Mg Cap) 0.4 mg PO DAILY [facility] Stop: 12/01/24 08:59 Last Admin: 11/01/24 08:08 Dose: 0.4 mg Documented By: DAWN Umeclidinium [place] (Umeclidinium [place] 62.5mcg/Blister 7 Puffs/Inhaler) 1 puffs INH DAILY [facility] Stop: 12/01/24 08:59 Last Admin: 11/01/24 08:09 Dose: 1 puffs Documented By: DAWN Vitamin D (Cholecalciferol 25 Mcg (1000 Units) Tab) 25 mcg PO QAM [facility] Stop: 12/01/24 08:59 Last Admin: 11/01/24 08:08 Dose: 25 mcg Documented By: DAWN Discontinued Medications Albuterol (Albut/Ipratrop 3mg/0.5mg Neb 3 Ml Vial) 3 ml NEB NOW STA; Protocol Stop: 10/31/24 15:33 Last Admin: 10/31/24 16:11 Dose: 3 ml Documented By: ZENY Cefdinir (Cefdinir 300 Mg Cap) 300 mg PO ONE STA; Protocol Stop: 10/31/24 21:43 Last Admin: 10/31/24 22:20 Dose: 300 mg Documented By: ADRIAN Sodium Chloride (Nss) 1,000 mls @ 125 mls/hr IV .Q8H KAMINI Stop: 11/01/24 15:29 Last Infusion: 10/31/24 22:22 Dose: Infused Documented By: Admin: 10/31/24 16:08 Dose: 125 mls/hr Documented By: NA Acetaminophen (Ofirmev) 1,000 mg in 100 mls @ 400 mls/hr IV NOW STA Stop: 10/31/24 15:42 Last Infusion: 10/31/24 16:30 Dose: Infused Documented By: Admin: 10/31/24 16:07 Dose: 400 mls/hr Documented By: NA Sodium Chloride (Nss) 1,000 mls @ 80 mls/hr IV .[id number] KAMINI Stop: 11/01/24 10:11 Last Infusion: 11/01/24 11:27 Dose: Infused Documented By: Admin: 10/31/24 22:20 Dose: 80 mls/hr Documented By: ADRIAN Lidocaine (Lidocaine 5% 1 Patch) 1 patch TD NOW STA Stop: 10/31/24 15:28 Last Admin: 10/31/24 16:03 Dose: 1 patch Documented By: NA Methocarbamol (Methocarbamol 500 Mg Tablet) 500 mg PO NOW STA Stop: 10/31/24 17:01 Last Admin: 10/31/24 17:40 Dose: 500 mg Documented By: ZENY Imaging Data Radiologist's Impression: Chest X-Ray 10/31/24 15:28 XR chest 1V portable CLINICAL HISTORY: recent pna COMPARISON STUDY: 09/17/2022 FINDINGS: Stable cardiomegaly without pulmonary vascular congestion. There is mild stranding opacity at the left lung base, improved. No other consolidation or pleural effusion. No pneumothorax. IMPRESSION: Residual pneumonia left lung base, improved. ACT 112: Negative or not required by law. Electronically signed by: Malcolm Christensen M.D. 10/31/2024 3:45 PM Discharge Plan Visit Data Chief Complaint: Back Injury/Pain Stated Complaint: Back Pain ED Provider: Noemi Gunter Discharge Problem: Back pain, Compression fracture of lumbar vertebra, Ambulatory dysfunction, Compression fracture of body of thoracic vertebra Patient Disposition: Admitted As Inpatient Discharge Instructions Interventions: ED Discharge Assessment Last Done: 10/31/24 20:44
--- NOTE | 2024-10-31 15:46 | XRay Report ---
XR chest 1V portable CLINICAL HISTORY: recent pna COMPARISON STUDY: 09/17/2022 FINDINGS: Stable cardiomegaly without pulmonary vascular congestion. There is mild stranding opacity at the left lung base, improved. No other consolidation or pleural effusion. No pneumothorax. IMPRESSION: Residual pneumonia left lung base, improved. ACT 112: Negative or not required by law. Electronically signed by: Malcolm Christensen M.D. 10/31/2024 3:45 PM
[2024-10-31] MEDS: LIDOCAINE 5% 1 PATCH TD STA (16:03)
[2024-10-31] MEDS: ACETAMINOPHEN 1,000 MG/100 ML VIAL IV STA (16:07)
[2024-10-31] MEDS: SODIUM CHLORIDE 0.9% 1,000 ML IV SCH ×2 (16:08→22:20)
[2024-10-31] MEDS: ALBUT/IPRATROP 3MG/0.5MG NEB 3 ML VIAL NEB STA (16:11)
[2024-10-31 16:21] LABS: Basophils # (auto) 0.12 K/uL (0.00-0.20); Basophils % (auto) 1.2 %; Eosinophils # (auto) 1.11 K/uL (0.00-0.50); Eosinophils % (auto) 10.8 %; Hematocrit (blood only) 37.1 % (42.0-52.0); Hemoglobin 11.6 g/dl (14.0-18.0); Immature Granulocytes # (auto) 0.09 K/uL (0.01-0.20); Immature Granulocytes % (auto) 0.9 %; Lymphocytes # (auto) 1.65 K/uL (1.20-3.40); Lymphocytes % (auto) 16.1 %; Mean Corpuscular Hemoglobin 23.2 pg (25.0-34.0); Mean Corpuscular Hgb Conc 31.3 g/dL (32.0-36.0); Mean Corpuscular Volume 74.2 fL (80.0-100.0); Mean Platelet Volume 8.8 fL (9.4-12.4); Monocytes # (auto) 0.74 K/uL (0.11-0.59); Monocytes % (auto) 7.2 %; Neutrophils # (auto) 6.57 K/uL (1.40-6.50); Neutrophils % (auto) 63.8 %; Platelet Count 351 K/uL (130-400); RDW Coefficient of Variation 18.6 % (11.5-14.5); RDW Standard Deviation 47.8 fL (36.4-46.3); White Blood Count 10.28 K/ul (4.8-10.8)
[2024-10-31 16:39] LABS: INR 1.2 (0.9-1.1); Prothrombin Time 12.8 Seconds (9.0-12.0)
[2024-10-31 16:40] LABS: Albumin Globulin Ratio 1.2 (0.9-2); Albumin Level 3.2 gm/dl (3.4-5.0); Bilirubin,Total 0.8 mg/dl (0.2-1.0); Calcium 9.4 mg/dl (8.6-10.3); Creatinine Clr Calc Pharmacy 46.7 ml/min; Globulin 2.7 gm/dl (2.5-4.0); Magnesium 1.9 mg/dl (1.7-2.4); Potassium 4.2 mmol/L (3.5-5.1); Total Protein 5.9 gm/dl (6.0-8.3)
[2024-10-31 16:47] LABS: Troponin I High Sensitivity 24.7 pg/ml (0-20)
[2024-10-31 16:54] LABS: Thyroid Stimulating Hormone 1.086 uIu/ml (0.300-4.500)
[2024-10-31] MEDS: METHOCARBAMOL 500 MG TABLET PO STA (17:40)
--- NOTE | 2024-10-31 18:09 | History & Physical Report ---
Date of Service October 31, 2024 Assessment & Plan (1) Back pain: (2) Compression fracture of thoracic vertebra: (3) Ambulatory dysfunction: Plan 74-year-old male with past med history significant for left foot gout, dyslipidemia, paroxysmal atrial fibrillation, history of CAD, history of systolic CHF due to idiopathic cardiomyopathy, history of A-fib, history of aphasia poststroke, CKD stage III, BPH, osteoarthritis, history of laceration of spleen who presents to ED 2/2 persistent to back pain and inability to ambulate. Recently hospitalized 10/24-10/27 2/2 fall and subsequent age related osteoporotic compression fx of T12-L1. He was seen and evaluated by orthospine and prescribed LSO brace. Discharged with scheduled APAP. He did not have any gabapentin at home. After discharge he has been unable to ambulate or get out of bed. Due to pain and immobility he was brought back today to consider rehab. #Ambulatory dysfunction 2/2 prior mechanical fall #Age related osteoporotic compression fx of T12-L1, POA #Acute low back pain admit to med/surg consult PT/OT pt likely needs rehab, it was recommended upon discharge but he chose to go home schedule tylenol, add gabapentin 300mg TID as this seemed to help pt during last admission prn Robaxin, scheduled lidocaine patch consider low dose narcotic if not improving LSO brace while ambulatory #Recent PNA: completed course of doxycycline, will get last dose of cefnidir this evening, CXR improving, he is saturating well on his chronic 2L w/o increased resp sx #Elevated trop: suspect demand ischemia, 24.7, will repeat 2hr trop, no CP, ecg w/o ischemic change, rate controlled afib #CKD3- new baseline appears to be ~ 1.3-1.4, avoid nephrotoxic agents, will give gentle IVF x 1 due to reported poor intake #Vitamin D def - vit d level 17 during last admission, started on supplement, recommend repeat in 3 months Other chronic medical conditions: Continue with/resume home meds as and when able History of CVA/aphasia: Continue home Eliquis and statin. Ambulates with walker. Takes regular diet. PT/OT. Chronic systolic CHF: EF 55-60% per echo 11/17, mild LVH, AV sclerosis, mild MR/TR, elevated pulm pressure. Continue with home diuretics. COPD with chronic hypoxic resp failure: continue home meds including inhalers, scheduled nebs and 2L of O2 CAD: Status post stent, continue statin/Eliquis/beta-bartolo A-fib: Continue home metoprolol and Eliquis. c/w home metoprolol 25 Mg daily. DVT prophylaxis: Eliquis Disposition: admit to medical, consult PT/OT, family would like referral to [facility] DNR/DNI Pt was seen and examined in collaboration with Dr. Barton, please see addendum I spent a total of 65 minutes coordinating, documenting and providing care for this patient excluding time spent in the performance of separately billed services or time spent by another provider/QHP. History of Present Illness Chief Complaint: Unable to walk at home 2/2 back pain. Primary Care Provider: Chelo Trotter MD 74-year-old male with past med history significant for left foot gout, dyslipidemia, paroxysmal atrial fibrillation, history of CAD, history of systolic CHF due to idiopathic cardiomyopathy, history of A-fib, history of aphasia poststroke, CKD stage III, BPH, osteoarthritis, history of laceration of spleen who presents to ED 2/2 persistent to back pain and inability to ambulate. Of significance he was recently hospitalized 10/24-10/27 2/2 low back pain due to fall with current pathologic fx of T12 and L1 vertebra. He was also found to have possible PNA and tx with antibiotics. He was discharged on oral doxy and cefdinir. He completed the doxy and has one more dose of cefdinir. Daughter and are at bedside and help assist history. They report he has not gotten out of bed since discharge; therefore he hasn't worn his brace. He states its too painful. He hasn't ate/drank much. He has been taking his pills and using urinal. He has had 2 bowel movements. Daughter feels he needs rehab and he hasn't seen outpt PT yet. In ED pt was mildly hypotensive. He received IVF and SBP was in 120s. He was on 2L of O2 which is his baseline. Lab work was mostly unrevealing. CXR showed a residual LLL PNA. He was started on APAP, lidocaine patch and muscle relaxer. He also got some fluids. Daughter states he has a chronic cough with COPD. Feels it is unchanged. There has been no reports of fevers at home. He denies any increasing SOB. He reports back pain is middle/lower back. It does not radiate. He is not having any bowel or bladder incont. Sx are similar to when he was discharged. While he was inpt ht was getting gabapentin. He did not have this at home to continue. There was a miscommunication on his med list on admission as it was listed on there from a previous neck surgery. Allergies Allergy/AdvReac Type Severity Reaction Status Date / Time No Known Allergies Allergy Verified 10/31/24 17:42 Home Medications Medication Instructions Recorded Confirmed Type allopurinol 300 mg tablet 300 mg PO DAILY 06/03/18 10/31/24 History atorvastatin 40 mg tablet 40 mg PO DAILY 06/03/18 10/31/24 History multivitamin 1 tab PO DAILY 06/03/18 10/31/24 History tamsulosin 0.4 mg capsule 0.4 mg PO DAILY 06/03/18 10/31/24 History finasteride 5 mg tablet 5 mg PO DAILY 04/24/20 10/31/24 History fluoxetine 20 mg capsule 40 mg PO DAILY 04/24/20 10/31/24 History fexofenadine 180 mg tablet 180 mg PO DAILY PRN Allergic 07/30/22 10/31/24 History Symptoms fluticasone propionate 50 2 spray intranasal DAILY PRN 07/30/22 10/31/24 History mcg/actuation nasal Congestion spray,suspension acetaminophen 325 mg tablet 650 mg (2 x 325 mg) PO TID #30 tabs 09/17/22 10/31/24 Rx (Athenol) fluticasone furoate 100 1 ea inhalation DAILY 30 days #60 09/17/22 10/31/24 Rx mcg-vilanterol 25 mcg/dose ea inhalation powder (Breo Ellipta) ipratropium bromide 0.02 % 0.5 mg (2.5 mL) inhalation TID 7 09/17/22 10/31/24 Rx solution for inhalation days #52.5 mL levalbuterol HCl 1.25 mg/0.5 mL 1.25 mg (0.5 mL) inhalation TID 09/17/22 10/31/24 Rx solution for nebulization #30 ea albuterol sulfate 90 mcg/actuation 2 puff inhalation Q4H PRN sob 04/02/25 04/08/25 History aerosol inhaler apixaban 5 mg tablet (Eliquis) 5 mg PO BID 10/25/24 10/31/24 History furosemide 20 mg tablet 20 mg PO SUTUTHSA 10/25/24 10/31/24 History metoprolol succinate 25 mg 25 mg PO DAILY 10/25/24 10/31/24 History tablet,extended release 24 hr spironolactone 25 mg tablet 25 mg PO DAILY 10/25/24 10/31/24 History tiotropium bromide 2.5 2 puff inhalation DAILY 10/25/24 10/31/24 History mcg/actuation mist for inhalation (Spiriva Respimat) cholecalciferol (vitamin D3) 25 25 mcg PO QAM #30 caps 10/27/24 10/31/24 Rx mcg (1,000 unit) capsule docusate sodium 100 mg capsule 100 mg PO BID PRN constipation #30 10/27/24 10/31/24 Rx caps polyethylene glycol 3350 17 gram 17 g PO DAILY PRN laxative effect 10/27/24 10/31/24 Rx oral powder packet (Miralax) #30 ea furosemide 20 mg tablet 40 mg PO MOWEFR 10/31/24 10/31/24 History Past Med/Surg History Problem List (Updated 10/31/24 @ 19:01 by Diana Capone PA-C) Ambulatory dysfunction Back pain (Acute) Compression fracture of thoracic vertebra (Acute) Fall (Acute) Constipation (Acute) Compression fracture of lumbar vertebra (Acute) Fall Acute respiratory failure with hypoxia (Acute) Leukocytosis (Acute) Hypotension (Acute) Leukocytosis (Acute) Coagulopathy (Acute) Fall (Acute) Left rib fracture (Acute) Compression fracture (Acute) BPH (benign prostatic hyperplasia) CKD (chronic kidney disease), stage III group home (current) use of anticoagulants PAF (paroxysmal atrial fibrillation) (Acute) Pneumonia due to COVID-19 virus (Acute) Depression Pneumonia (Acute) Abdominal pain (Acute) Constipation (Acute) Heart disease (Chronic) Medical History History of smoking Family History Brother Kidney disease Father Heart disease Social History Smoking Status: Never smoker Tobacco Type: Cigarettes Second Hand Exposure: No; Do You Dip or Chew Tobacco: No; Hx Alcohol Use: No Hx Substance Use: No Preferred Language: [place] Communication Ability: Impaired Communication Ability Comment: Previous stroke deficits Dot Compliance Specialist Required: No Beliefs That Will Affect Care: None Current Living Situation: Spouse Current Living Situation Comment: with spouse at home Feels Safe at Home: Yes Assistive Devices: Oxygen - Continuous, Walker and Wheelchair Review of Systems Review of Systems: All systems reviewed & are unremarkable except as noted in HPI & below Physical Exam Physical Exam: constitutional: WD/WN, limited bed mobility, vitals as above, NAD, lying in bed, pleasant, conversing easily +aphasia which is chronic Head: Normocephalic, Atraumatic Eyes: PERRL, conjunctivae normal, anicteric sclerae ENMT: external ear and nose normal, oropharynx normal Neck: trachea midline, no thyromegaly normal visual inspection Respiratory: normal respiratory effort, lungs clear to auscultation, no wheeze, rales, rhonchi. Normal insp/exp effort, no accessory muscle use on 2L of O2 via NC Cardiovascular: RRR, no murmur, no edema Vessels: no JVD or carotid bruit Chest: normal inspection of chest Abdomen: normal bowel sounds, soft, nontender, no hepatosplenomegaly Musculoskeletal: no cyanosis or clubbing, thickened nails, arom x 4 Skin: no rashes, warm and dry normal turgor Neurologic: no face palsy, + dysarthria CN's II-XI intact bilaterally and moves all extremities Psychiatric: A+Ox3, euthymic affect Results & Data Results & Data Vital Signs (Past 12 Hours) Vital Signs Temp Pulse Pulse Resp BP BP Pulse Ox 10/31/24 17:30 79 18 94 10/31/24 17:26 118/72 10/31/24 17:21 81 15 100 10/31/24 17:15 83 21 99 10/31/24 17:03 83 21 98 10/31/24 16:59 120/79 10/31/24 16:51 73 20 95 10/31/24 16:48 91 H 21 96 10/31/24 16:19 73 20 97/66 L 96 10/31/24 14:57 68 10/31/24 14:38 36.4 C L 75 18 120/79 100 O2 Del Method O2 Flow Rate 10/31/24 17:30 Nasal Cannula 2 10/31/24 17:26 10/31/24 17:21 Nasal Cannula 2 10/31/24 17:15 Nasal Cannula 2 10/31/24 17:03 Nasal Cannula 2 10/31/24 16:59 10/31/24 16:51 Nasal Cannula 2 10/31/24 16:48 Nasal Cannula 2 10/31/24 16:19 Nasal Cannula 3 10/31/24 14:57 10/31/24 14:38 Nasal Cannula 2 Laboratory Results I have independently reviewed and interpreted patient's admitting labs including CBC, CMP, PTT, PT/INR, mag and troponin. Diagnostic Findings Chest X-Ray 10/31/24 15:28 XR chest 1V portable CLINICAL HISTORY: recent pna COMPARISON STUDY: 09/17/2022 FINDINGS: Stable cardiomegaly without pulmonary vascular congestion. There is mild stranding opacity at the left lung base, improved. No other consolidation or pleural effusion. No pneumothorax. IMPRESSION: Residual pneumonia left lung base, improved. ACT 112: Negative or not required by law. Electronically signed by: Malcolm Christensen M.D. 10/31/2024 3:45 PM Medications Administered Medication List Sodium Chloride (Nss) 1,000 mls @ 125 mls/hr IV .Q8H KAMINI Stop: 11/01/24 15:29 Last Admin: 10/31/24 16:08 Dose: 125 mls/hr Documented By: NA Discontinued Medications Albuterol (Albut/Ipratrop 3mg/0.5mg Neb 3 Ml Vial) 3 ml NEB NOW STA; Protocol Stop: 10/31/24 15:33 Last Admin: 10/31/24 16:11 Dose: 3 ml Documented By: NA Acetaminophen (Ofirmev) 1,000 mg in 100 mls @ 400 mls/hr IV NOW STA Stop: 10/31/24 15:42 Last Admin: 10/31/24 16:07 Dose: 400 mls/hr Documented By: NA Lidocaine (Lidocaine 5% 1 Patch) 1 patch TD NOW STA Stop: 10/31/24 15:28 Last Admin: 10/31/24 16:03 Dose: 1 patch Documented By: NA Methocarbamol (Methocarbamol 500 Mg Tablet) 500 mg PO NOW STA Stop: 10/31/24 17:01 Last Admin: 10/31/24 17:40 Dose: 500 mg Documented By: NA COVID-19 Results Results COVID-19 Adm Lab Results: RBC 5.00 M/uL (4.70-6.10) 10/31/24 WBC 10.28 K/ul (4.8-10.8) 10/31/24 Hgb 11.6 g/dl (14.0-18.0) L 10/31/24 Hct 37.1 % (42.0-52.0) L 10/31/24 Plt Count 351 K/uL (130-400) 10/31/24 Neutrophils (%) (Auto) 63.8 % 10/31/24 Lymphocytes (%) (Auto) 16.1 % 10/31/24 Monocytes # (Auto) 0.74 K/uL (0.11-0.59) H 10/31/24 Eosinophils # (Auto) 1.11 K/uL (0.00-0.50) H 10/31/24 Immature Granulocyte % (Auto) 0.9 % 10/31/24 Neutrophils # (Auto) 6.57 K/uL (1.40-6.50) H 10/31/24 Lymphocytes # (Auto) 1.65 K/uL (1.20-3.40) 10/31/24 Monocytes # (Auto) 0.74 K/uL (0.11-0.59) H 10/31/24 Eosinophils # (Auto) 1.11 K/uL (0.00-0.50) H 10/31/24 Basophils # (Auto) 0.12 K/uL (0.00-0.20) 10/31/24 Immature Granulocyte # (Auto) 0.09 K/uL (0.01-0.20) 5 Na 137 mmol/L (136-145) 10/31/24 K 4.2 mmol/L (3.5-5.1) 10/31/24 Cl 105 mmol/L (98-107) 10/31/24 CO2 25 mmol/L (21-32) 10/31/24 Anion Gap 7 (3-11) 10/31/24 BUN 27 mg/dl (6-23) H 10/31/24 Creatinine 1.35 mg/dl (0.6-1.4) 10/31/24 BUN/Creatinine Ratio 20.0 (10-20) 10/31/24 Glucose Level 82 mg/dl (70-99(Fasting)) 10/31/24 Ca 9.4 mg/dl (8.6-10.3) 10/31/24 Total Bilirubin 0.8 mg/dl (0.2-1.0) 10/31/24 AST/SGOT 19 U/L (13-39) 10/31/24 ALT/SGPT 12 U/L (7-52) 10/31/24 Alkaline Phosphatase 95 U/L (34-104) 10/31/24 Total Protein 5.9 gm/dl (6.0-8.3) L 10/31/24 Albumin 3.2 gm/dl (3.4-5.0) L 10/31/24 Globulin 2.7 gm/dl (2.5-4.0) 10/31/24 Albumin/Globulin Ratio 1.2 (0.9-2) 10/31/24 Procalcitonin 0.06 ng/ml (0-0.5) 10/31/24 INR 1.2 (0.9-1.1) H 10/31/24 Chest X-Ray 10/31/24 Code Status & VTE Plan Code Status DNR/DNI VTE Prophylaxis Plan VTE Prophylaxis will be ordered: No Reason for no VTE drug order: Treatment not indicated Supervising Physician Co-Signing Physician Notes Pt was seen and examined by myself, Chanelle Barton MD on the day of service. Care was coordinated with Diana Capone PA-C. 74yoM recently admitted who presents once more with family with concern for persistent back pain and request for rehab placement. On exam pt is [place], no acute distress, NC in nares. PT/OT, pain control Otherwise as above. I spent a total [id number] coordinating, documenting, and providing care for this patient excluding time spent in the performance of separately billed services (1) Back pain Back pain laterality: midline Back pain location: thoracic back pain Chronicity: acute Qualified Code(s): M54.6 - Pain in thoracic spine (2) Compression fracture of thoracic vertebra Encounter type: initial encounter Thoracic vertebra fracture level: T12 Qualified Code(s): S22.080A - Wedge compression fracture of T11-T12 vertebra, initial encounter for closed fracture
[2024-10-31 20:31] LABS: Appearance Urine Clear (Clear); Bilirubin Urine Negative (Negative); Blood Urine Negative (Negative); Color Urine Yellow; Glucose Urine UA Negative (Negative); Ketones Urine Trace (Negative); Leukocyte Esterase Urine Negative (Negative); Nitrite Urine Negative (Negative); Protein Urine Negative (Negative); Specific Gravity Urine 1.029 (1.000-1.030); Urobilinogen Urine Negative (Negative); pH Urine 5.5 (4.5-7.5)
[2024-10-31] MEDS ORDERED: MELATONIN 3 MG TAB PO PRN (21:42)
[2024-10-31] MEDS ORDERED: FAMOTIDINE 20 MG TAB PO PRN (21:42)
[2024-10-31] MEDS ORDERED: ONDANSETRON INJ 2 MG/ML 2 ML VIAL IV PRN (21:42)
[2024-10-31] MEDS: ALBUT/IPRATROP 3MG/0.5MG NEB 3 ML VIAL NEB SCH (22:02)
[2024-10-31] MEDS: ACETAMINOPHEN 325 MG TAB PO SCH (22:19)
[2024-10-31] MEDS: APIXABAN 5 MG TABLET PO SCH (22:20)
[2024-10-31] MEDS: CEFDINIR 300 MG CAP PO STA (22:20)
[2024-10-31] MEDS: GABAPENTIN 300 MG CAP PO SCH (22:20)
--- NOTE | 2024-11-01 05:27 | Electrocardiogram Report ---
Test Reason : Blood Pressure : */* mmHG Vent. Rate : 78 BPM Atrial Rate : * BPM P-R Int : * ms QRS Dur : 76 ms QT Int : 408 ms P-R-T Axes : * -5 118 degrees QTcB Int : 465 ms Atrial fibrillation Nonspecific ST and T wave abnormality Abnormal ECG When compared with ECG of 26-Oct-2024 06:06, No significant change Confirmed by Peng Levy ([id number]) on 11/01/2024 5:27:25 AM Referred By: REFERRED SELF Confirmed By: Peng Levy
[2024-11-01 07:57] LABS: Basophils # (auto) 0.12 K/uL (0.00-0.20); Basophils % (auto) 1.1 %; Eosinophils # (auto) 1.36 K/uL (0.00-0.50); Eosinophils % (auto) 12.4 %; Hematocrit (blood only) 31.9 % (42.0-52.0); Hemoglobin 9.9 g/dl (14.0-18.0); Immature Granulocytes % (auto) 0.9 %; Lymphocytes # (auto) 1.54 K/uL (1.20-3.40); Mean Corpuscular Hemoglobin 23.2 pg (25.0-34.0); Mean Corpuscular Volume 74.9 fL (80.0-100.0); Mean Platelet Volume 9.4 fL (9.4-12.4); Monocytes # (auto) 1.38 K/uL (0.11-0.59); Monocytes % (auto) 12.5 %; Neutrophils % (auto) 59.1 %; Platelet Count 313 K/uL (130-400); RDW Standard Deviation 48.5 fL (36.4-46.3); Red Blood Count 4.26 M/uL (4.70-6.10)
[2024-11-01] MEDS: FLUoxetine HCL 20 MG CAP PO SCH (08:07)
[2024-11-01] MEDS: METHOCARBAMOL 500 MG TABLET PO PRN (08:07)
[2024-11-01] MEDS: FUROSEMIDE 40 MG TAB PO SCH (08:07)
[2024-11-01] MEDS: METOPROLOL SUCC 25MG EXT REL TAB PO SCH (08:08)
[2024-11-01] MEDS: FINASTERIDE 5 MG TAB PO SCH (08:08)
[2024-11-01] MEDS: TAMSULOSIN HCL 0.4 MG CAP PO SCH (08:08)
[2024-11-01] MEDS: MULTIVITAMIN TAB PO SCH (08:08)
[2024-11-01] MEDS: allopurinoL 300 MG TAB PO SCH (08:08)
[2024-11-01] MEDS: CHOLECALCIFEROL 25 MCG (1000 UNITS) TAB PO SCH (08:08)
[2024-11-01] MEDS: SPIRONOLACTONE 25 MG TAB PO SCH (08:08)
[2024-11-01] MEDS: ATORVASTATIN 40 MG TAB PO SCH (08:09)
[2024-11-01] MEDS: UMECLIDINIUM BROMIDE 62.5MCG/BLISTER 7 PUFFS/INHALER INH SCH (08:09)
[2024-11-01 08:10] LABS: Calcium 8.8 mg/dl (8.6-10.3); Magnesium 1.8 mg/dl (1.7-2.4); Potassium 4.2 mmol/L (3.5-5.1)
[2024-11-01] MEDS: FLUTICASONE/VILANTEROL 100/25MCG 14 PUFFS/INHALER INH SCH (08:10)
[2024-11-01] MEDS: LIDOCAINE 5% 1 PATCH TD SCH (08:10)
[2024-11-01] MEDS: DOCUSATE SODIUM/SENNA 50/8.6MG TAB PO SCH (08:14)
[2024-11-01 08:16] LABS: BUN Creatinine Ratio 20.7 (10-20); Creatinine Clr Calc Pharmacy 46.2 ml/min
--- NOTE | 2024-11-01 11:37 | Hospitalist Progress Note ---
Date of Service November 01, 2024 Assessment & Plan (1) Back pain: (2) Compression fracture of thoracic vertebra: (3) Ambulatory dysfunction: Plan 74-year-old male with past med history significant for left foot gout, dyslipidemia, paroxysmal atrial fibrillation, history of CAD, history of systolic CHF due to idiopathic cardiomyopathy, history of A-fib, history of aphasia poststroke, CKD stage III, BPH, osteoarthritis, history of laceration of spleen who presents to ED 2/2 persistent to back pain and inability to ambulate. Recently hospitalized 10/24-10/27 2/2 fall and subsequent age related osteoporotic compression fx of T12-L1. He was seen and evaluated by orthospine and prescribed LSO brace. Discharged with scheduled APAP. He did not have any gabapentin at home. After discharge he has been unable to ambulate or get out of bed. Due to pain and immobility he was brought back today to consider rehab. #Ambulatory dysfunction 2/2 prior mechanical fall #Age related osteoporotic compression fx of T12-L1, POA #Low back pain Continue scheduled tylenol, gabapentin 300mg TID a Continue prn Robaxin, scheduled lidocaine patch LSO brace while ambulatory PT/OT eval CM to work on placement #Recent PNA: CXR improving Completed Abx On chronic 2L NC per #Elevated trop: Trop 24.7->22.9 Likely demand ischemia No new ischemic changes on EKG #CKD3 Cr 1.3-1.4. Stable May be new baseline #Vitamin D def - Vit d level 17 during last admission Continue Vit D po Recommend repeat in 3 months Other chronic medical conditions: History of CVA/aphasia: Continue home statin. Chronic systolic CHF: EF 55-60% per echo 10/2024, mild LVH, AV sclerosis, mild MR/TR, elevated pulm pressure. Continue with home diuretics. COPD with chronic hypoxic resp failure: continue home meds including inhalers and 2L of O2 CAD: Status post stent, continue statin/beta-bartolo A-fib: Continue home metoprolol and Eliquis. DVT prophylaxis: Eliquis DNR/DNI I spent a total of 50 minutes coordinating, documenting and providing care for this patient excluding time spent in performance of separately billed services Admission and Anticipated Discharge Date Admission Date: October 31, 2024 Subjective Patient seen and examined Patient has expressive aphasia which limits ROS However able to answer yes or no to simple questions. Denied any pain at this time at bedside reports his pain is better controlled since admission yesterday Physical Exam Constitutional: + well hydrated; no acute distress ENMT: external ear and nose normal, oropharynx normal Respiratory: normal respiratory effort, lungs clear to auscultation Cardiovascular: Rate/Rhythm: + irregularly irregular Gastrointestinal (Abdomen): normal bowel sounds, soft, nontender, no hepatosplenomegaly Musculoskeletal: No pedal edema Neurologic: +Expressive aphasia/dysarthria. Moves al l extremities Results & Data Results & Data Vital Signs (Past 12 Hours) Vital Signs Temp Pulse Resp BP Pulse Ox O2 Del Method O2 Flow Rate 11/01/24 07:58 Nasal Cannula 2 11/01/24 07:54 36.4 C L 69 18 99/67 L 97 Nasal Cannula 2 11/01/24 07:45 36.4 C L 67 18 97/67 L 97 Nasal Cannula 2 11/01/24 07:43 43 L 15 89 L Nasal Cannula 2 11/01/24 00:56 54 L 18 96 Nasal Cannula 2 Laboratory Results Abnormal lab results 10/31/24 10/31/24 10/31/24 Range/Units 16:00 19:31 20:13 WBC (4.8-10.8) K/ul RBC (4.70-6.10) M/uL Hgb 11.6 L (14.0-18.0) g/dl Hct 37.1 L (42.0-52.0) % MCV 74.2 L (80.0-100.0) fL MCH 23.2 L (25.0-34.0) pg MCHC 31.3 L (32.0-36.0) g/dL RDW Std Deviation 47.8 H (36.4-46.3) fL RDW Coeff of Lenora 18.6 H (11.5-14.5) % MPV 8.8 L (9.4-12.4) fL Neut # (Auto) 6.57 H (1.40-6.50) K/uL Mathews # (Auto) 0.74 H (0.11-0.59) K/uL Eos # (Auto) 1.11 H (0.00-0.50) K/uL PT 12.8 H (9.0-12.0) Seconds INR 1.2 H (0.9-1.1) Chloride (98-107) mmol/L BUN 27 H (6-23) mg/dl BUN/Creatinine Ratio (10-20) Troponin I High Sens 24.7 H 22.9 H (0-20) pg/ml Total Protein 5.9 L (6.0-8.3) gm/dl Albumin 3.2 L (3.4-5.0) gm/dl Urine Ketones Trace H (Negative) 11/01/24 Range/Units 06:51 WBC 11.00 H (4.8-10.8) K/ul RBC 4.26 L (4.70-6.10) M/uL Hgb 9.9 L (14.0-18.0) g/dl Hct 31.9 L (42.0-52.0) % MCV 74.9 L (80.0-100.0) fL MCH 23.2 L (25.0-34.0) pg MCHC 31.0 L (32.0-36.0) g/dL RDW Std Deviation 48.5 H (36.4-46.3) fL RDW Coeff of Lenora 18.0 H (11.5-14.5) % MPV (9.4-12.4) fL Neut # (Auto) (1.40-6.50) K/uL Mathews # (Auto) 1.38 H (0.11-0.59) K/uL Eos # (Auto) 1.36 H (0.00-0.50) K/uL PT (9.0-12.0) Seconds INR (0.9-1.1) Chloride 108 H (98-107) mmol/L BUN 28 H (6-23) mg/dl BUN/Creatinine Ratio 20.7 H (10-20) Troponin I High Sens (0-20) pg/ml Total Protein (6.0-8.3) gm/dl Albumin (3.4-5.0) gm/dl Urine Ketones (Negative) (1) Back pain Back pain laterality: midline Back pain location: thoracic back pain Chronicity: acute Qualified Code(s): M54.6 - Pain in thoracic spine (2) Compression fracture of thoracic vertebra Encounter type: initial encounter Thoracic vertebra fracture level: T12 Qualified Code(s): S22.080A - Wedge compression fracture of T11-T12 vertebra, initial encounter for closed fracture
[2024-11-02] MEDS: FUROSEMIDE 20 MG TAB PO SCH (08:47)
[2024-11-02 08:58] LABS: Hematocrit (blood only) 33.8 % (42.0-52.0); Hemoglobin 10.4 g/dl (14.0-18.0); Mean Corpuscular Hgb Conc 30.8 g/dL (32.0-36.0); Mean Corpuscular Volume 74.8 fL (80.0-100.0); Mean Platelet Volume 9.6 fL (9.4-12.4); Platelet Count 357 K/uL (130-400); RDW Coefficient of Variation 18.6 % (11.5-14.5); RDW Standard Deviation 49.8 fL (36.4-46.3); Red Blood Count 4.52 M/uL (4.70-6.10); White Blood Count 11.79 K/ul (4.8-10.8)
[2024-11-02 09:12] LABS: BUN Creatinine Ratio 17.9 (10-20); Calcium 9.1 mg/dl (8.6-10.3); Creatinine Clr Calc Pharmacy 46.5 ml/min; Potassium 4.3 mmol/L (3.5-5.1)
--- NOTE | 2024-11-02 14:45 | Hospitalist Progress Note ---
Date of Service November 02, 2024 Assessment & Plan (1) Back pain: (2) Compression fracture of thoracic vertebra: (3) Ambulatory dysfunction: Plan 74-year-old male with past med history significant for left foot gout, dyslipidemia, paroxysmal atrial fibrillation, history of CAD, history of systolic CHF due to idiopathic cardiomyopathy, history of A-fib, history of aphasia poststroke, CKD stage III, BPH, osteoarthritis, history of laceration of spleen who presents to ED 2/2 persistent to back pain and inability to ambulate. Recently hospitalized 10/24-10/27 2/2 fall and subsequent age related osteoporotic compression fx of T12-L1. He was seen and evaluated by orthospine and prescribed LSO brace. Discharged with scheduled APAP. He did not have any gabapentin at home. After discharge he has been unable to ambulate or get out of bed. Due to pain and immobility he was brought back today to consider rehab. #Ambulatory dysfunction 2/2 prior mechanical fall #Age related osteoporotic compression fx of T12-L1, POA #Low back pain Continue scheduled tylenol, gabapentin 300mg TID a Continue prn Robaxin, scheduled lidocaine patch LSO brace while ambulatory PT/OT eval CM working on placement #Recent PNA: CXR improving Completed Abx On chronic 2L NC per #Elevated trop: Trop 24.7->22.9 Likely demand ischemia No new ischemic changes on EKG #CKD3 Cr 1.3-1.4. Stable May be new baseline #Vitamin D def - Vit d level 17 during last admission Continue Vit D po Recommend repeat in 3 months Other chronic medical conditions: History of CVA/aphasia: Continue home statin. Chronic systolic CHF: EF 55-60% per echo 10/2024, mild LVH, AV sclerosis, mild MR/TR, elevated pulm pressure. Continue with home diuretics. COPD with chronic hypoxic resp failure: continue home meds including inhalers and 2L of O2 CAD: Status post stent, continue statin/beta-bartolo A-fib: Continue home metoprolol and Eliquis. DVT prophylaxis: Eliquis DNR/DNI Updated at bedside I spent a total of 35 minutes coordinating, documenting and providing care for this patient excluding time spent in performance of separately billed services Admission and Anticipated Discharge Date Admission Date: October 31, 2024 Subjective Patient seen and examined Reports pain is well controlled and mostly with activity No new complaints at this time Physical Exam Constitutional: + well hydrated; no acute distress ENMT: external ear and nose normal, oropharynx normal Respiratory: normal respiratory effort, lungs clear to auscultation Cardiovascular: Rate/Rhythm: + irregularly irregular Gastrointestinal (Abdomen): normal bowel sounds, soft, nontender, no hepat osplenomegaly Musculoskeletal: No pedal edema Neurologic: EOMI, +dysarthia/expressive aphasia Results & Data Results & Data Vital Signs (Past 12 Hours) Vital Signs Temp Pulse Resp BP Pulse Ox O2 Del Method O2 Flow Rate 11/02/24 13:37 86 16 95 Nasal Cannula 2 11/02/24 08:45 Nasal Cannula 2 11/02/24 07:51 36.2 C L 90 18 103/69 98 Room Air 11/02/24 07:09 82 18 98 Nasal Cannula 2 Laboratory Results Abnormal lab results 11/02/24 Range/Units 08:00 WBC 11.79 H (4.8-10.8) K/ul RBC 4.52 L (4.70-6.10) M/uL Hgb 10.4 L (14.0-18.0) g/dl Hct 33.8 L (42.0-52.0) % MCV 74.8 L (80.0-100.0) fL MCH 23.0 L (25.0-34.0) pg MCHC 30.8 L (32.0-36.0) g/dL RDW Std Deviation 49.8 H (36.4-46.3) fL RDW Coeff of Lenora 18.6 H (11.5-14.5) % Chloride 108 H (98-107) mmol/L BUN 24 H (6-23) mg/dl (1) Back pain Back pain laterality: midline Back pain location: thoracic back pain Chronicity: acute Qualified Code(s): M54.6 - Pain in thoracic spine (2) Compression fracture of thoracic vertebra Encounter type: initial encounter Thoracic vertebra fracture level: T12 Qualified Code(s): S22.080A - Wedge compression fracture of T11-T12 vertebra, initial encounter for closed fracture
--- NOTE | 2024-11-03 10:33 | Hospitalist Progress Note ---
Date of Service November 03, 2024 Assessment & Plan (1) Back pain: (2) Compression fracture of thoracic vertebra: (3) Ambulatory dysfunction: Plan 74-year-old male with past med history significant for left foot gout, dyslipidemia, paroxysmal atrial fibrillation, history of CAD, history of systolic CHF due to idiopathic cardiomyopathy, history of A-fib, history of aphasia poststroke, CKD stage III, BPH, osteoarthritis, history of laceration of spleen who presents to ED 2/2 persistent to back pain and inability to ambulate. Recently hospitalized 10/24-10/27 2/2 fall and subsequent age related osteoporotic compression fx of T12-L1. He was seen and evaluated by orthospine and prescribed LSO brace. Discharged with scheduled APAP. He did not have any gabapentin at home. After discharge he has been unable to ambulate or get out of bed. Due to pain and immobility he was brought back today to consider rehab. #Ambulatory dysfunction 2/2 prior mechanical fall #Age related osteoporotic compression fx of T12-L1, POA #Low back pain Continue scheduled tylenol, gabapentin 300mg TID a Continue prn Robaxin, scheduled lidocaine patch LSO brace while ambulatory PT/OT eval CM working on placement #Recent PNA: CXR improving Completed Abx On chronic 2L NC per #Elevated trop: Trop 24.7->22.9 Likely demand ischemia No new ischemic changes on EKG #CKD3 Cr 1.3-1.4. Stable May be new baseline #Vitamin D def - Vit d level 17 during last admission Continue Vit D po Recommend repeat in 3 months Other chronic medical conditions: History of CVA/aphasia: Continue home statin. Chronic systolic CHF: EF 55-60% per echo 10/2024, mild LVH, AV sclerosis, mild MR/TR, elevated pulm pressure. Continue with home diuretics. COPD with chronic hypoxic resp failure: continue home meds including inhalers and 2L of O2 CAD: Status post stent, continue statin/beta-bartolo A-fib: Continue home metoprolol and Eliquis. DVT prophylaxis: Eliquis DNR/DNI Updated at bedside I spent a total of 35 minutes coordinating, documenting and providing care for this patient excluding time spent in performance of separately billed services Admission and Anticipated Discharge Date Admission Date: October 31, 2024 Subjective Patient seen and examined Low back pain is well controlled No new complaints at this time Physical Exam Constitutional: + well hydrated; no acute distress ENMT: external ear and nose normal, oropharynx normal Respiratory: normal respiratory effort, lungs clear to auscultation Cardiovascular: Rate/Rhythm: + irregularly irregular Gastrointestinal (Abdomen): normal bowel sounds, soft, nontender, no hepatosplenomegaly Musculoskeletal: No pedal edema Neurologic: +dysarthria/expressive dysphasia Results & Data Results & Data Vital Signs (Past 12 Hours) Vital Signs Temp Pulse Resp BP Pulse Ox O2 Del Method O2 Flow Rate 11/03/24 08:34 Nasal Cannula 2 11/03/24 07:58 36.6 C 91 H 18 96/68 L 93 Room Air 11/03/24 07:19 86 18 98 Nasal Cannula 2 11/03/24 00:43 55 L 18 99 Nasal Cannula 2 11/02/24 22:46 36.7 C 97 H 20 108/79 92 Nasal Cannula 3 (1) Back pain Back pain laterality: midline Back pain location: thoracic back pain Chronicity: acute Qualified Code(s): M54.6 - Pain in thoracic spine (2) Compression fracture of thoracic vertebra Encounter type: initial encounter Thoracic vertebra fracture level: T12 Qualified Code(s): S22.080A - Wedge compression fracture of T11-T12 vertebra, initial encounter for closed fracture
[2024-11-03] MEDS: EMPAGLIFLOZIN 25 MG TAB PO SCH (14:40)
--- NOTE | 2024-11-04 10:26 | Hospitalist Progress Note ---
Date of Service November 04, 2024 Assessment & Plan (1) Back pain: (2) Compression fracture of thoracic vertebra: (3) Ambulatory dysfunction: Plan 74-year-old male with past med history significant for left foot gout, dyslipidemia, paroxysmal atrial fibrillation, history of CAD, history of systolic CHF due to idiopathic cardiomyopathy, history of A-fib, history of aphasia poststroke, CKD stage III, BPH, osteoarthritis, history of laceration of spleen who presents to ED 2/2 persistent to back pain and inability to ambulate. Recently hospitalized 10/24-10/27 2/2 fall and subsequent age related osteoporotic compression fx of T12-L1. He was seen and evaluated by orthospine and prescribed LSO brace. Discharged with scheduled APAP. He did not have any gabapentin at home. After discharge he has been unable to ambulate or get out of bed. Due to pain and immobility he was brought back today to consider rehab. #Ambulatory dysfunction 2/2 prior mechanical fall #Age related osteoporotic compression fx of T12-L1, POA #Low back pain Continue scheduled tylenol, gabapentin 300mg TID Continue prn Robaxin, scheduled lidocaine patch LSO brace while ambulatory PT/OT eval CM working on placement #Recent PNA: CXR noted improvement Completed Abx On chronic 2L NC per #Elevated trop: Trop 24.7->22.9 Likely demand ischemia No new ischemic changes on EKG #CKD3 Cr 1.3-1.4. Stable May be new baseline #Vitamin D def - Vit d level 17 during last admission Continue Vit D po Recommend repeat in 3 months Other chronic medical conditions: History of CVA/aphasia: Continue home statin. Chronic systolic CHF: EF 55-60% per echo 10/2024, mild LVH, AV sclerosis, mild MR/TR, elevated pulm pressure. Continue with home diuretics. COPD with chronic hypoxic resp failure: continue home meds including inhalers and 2L of O2 CAD: Status post stent, continue statin/beta-bartolo A-fib: Continue home metoprolol and Eliquis. DVT prophylaxis: Eliquis DNR/DNI I spent a total of 35 minutes coordinating, documenting and providing care for this patient excluding time spent in performance of separately billed services Admission and Anticipated Discharge Date Admission Date: October 31, 2024 Subjective Patient seen and examined No new complaints today Physical Exam Constitutional: + well hydrated; no acute distress ENMT: external ear and nose normal, oropharynx normal Respiratory: normal respiratory effort, lungs clear to auscultation Cardiovascular: Rate/Rhythm: + irregularly irregular Gastrointestinal (Abdomen): normal bowel sounds, soft, nontender, no hepatosplenomegaly Musculoskeletal: Trace pedal edema Neurologic: +dysarthria/expressive dysphasia Results & Data Results & Data Vital Signs (Past 12 Hours) Vital Signs Temp Pulse Pulse Resp BP Pulse Ox O2 Del Method 11/04/24 08:16 36.6 C 66 18 98/72 L 96 Nasal Cannula 11/04/24 08:03 84 18 96 Nasal Cannula 11/04/24 07:04 36.5 C 68 18 95/65 L 98 Nasal Cannula 11/04/24 01:05 72 16 98 Nasal Cannula 11/03/24 22:28 36.8 C 82 18 95/61 L 98 Nasal Cannula O2 Flow Rate 11/04/24 08:16 4 11/04/24 08:03 4 11/04/24 07:04 4 11/04/24 01:05 4 11/03/24 22:28 3 (1) Back pain Back pain laterality: midline Back pain location: thoracic back pain Chronicity: acute Qualified Code(s): M54.6 - Pain in thoracic spine (2) Compression fracture of thoracic vertebra Encounter type: initial encounter Thoracic vertebra fracture level: T12 Qualified Code(s): S22.080A - Wedge compression fracture of T11-T12 vertebra, initial encounter for closed fracture
[2024-11-04] MEDS: SODIUM CHLORIDE 0.9% 250 ML IV ONE (23:42)
--- NOTE | 2024-11-05 10:58 | Hospitalist Progress Note ---
Date of Service November 05, 2024 Assessment & Plan (1) Back pain: (2) Compression fracture of thoracic vertebra: (3) Ambulatory dysfunction: Plan 74-year-old male with past med history significant for left foot gout, dyslipidemia, paroxysmal atrial fibrillation, history of CAD, history of systolic CHF with recovered EF, history of A-fib, history of aphasia poststroke, CKD stage III, BPH, osteoarthritis, history of laceration of spleen who presents to ED 2/2 persistent to back pain and inability to ambulate. Recently hospitalized 10/24-10/27 2/2 fall and subsequent age related osteoporotic compression fx of T12-L1. He was seen and evaluated by orthospine and prescribed LSO brace. Discharged with scheduled APAP. He did not have any gabapentin at home. After discharge he has been unable to ambulate or get out of bed. Due to pain and immobility he was brought back today to consider rehab. #Ambulatory dysfunction 2/2 prior mechanical fall #Age related osteoporotic compression fx of T12-L1, POA #Low back pain Continue scheduled tylenol, gabapentin 300mg TID Continue prn Robaxin, scheduled lidocaine patch LSO brace while ambulatory PT/OT yamileth CM working on placement #Orthostatic hypotension #Chronic systolic CHF, now recovered: #CAD: #A-fib Start midodrine and monitor Echo 10/2024: EF 55-60% , mild LVH, AV sclerosis, mild MR/TR, elevated pulm pressure. Status post stent, continue statin/beta-bartolo Continue home metoprolol and Eliquis. #Recent PNA: CXR noted improvement Completed Abx On chronic 2L NC per #Elevated trop: Trop 24.7->22.9 Likely demand ischemia No new ischemic changes on EKG #CKD3 Cr 1.3-1.4. Stable May be new baseline #Vitamin D def - Vit d level 17 during last admission Continue Vit D po Recommend repeat in 3 months Other chronic medical conditions: History of CVA/aphasia: Continue home statin. COPD with chronic hypoxic resp failure: continue home meds including inhalers and 2L of O2 DVT prophylaxis: Eliquis DNR/DNI I spent a total of 50 minutes coordinating, documenting and providing care for this patient excluding time spent in performance of separately billed services Admission and Anticipated Discharge Date Admission Date: October 31, 2024 Physical Exam Constitutional: + well hydrated; no acute distress ENMT: external ear and nose normal, oropharynx normal Respiratory: normal respiratory effort, lungs clear to auscultation Cardiovascular: Rate/Rhythm: + irregularly irregular Gastrointestinal (Abdomen): normal bowel sounds, soft, nontender, no hepatosplenomegaly Musculoskeletal: Trace pedal edema Neurologic: +dysarthria/expressive dysphasia Results & Data Results & Data Vital Signs (Past 12 Hours) Vital Signs Temp Pulse Resp BP Pulse Ox O2 Del Method O2 Flow Rate 11/05/24 08:02 36.3 C L 83 18 109/67 11/05/24 07:48 88 18 96 Nasal Cannula 3 11/05/24 05:41 91 H 18 97 Nasal Cannula 4 11/05/24 02:01 83 18 96 Nasal Cannula 4 11/04/24 23:57 97 H 20 96 Nasal Cannula 4 11/04/24 23:08 36.8 C 99 H 20 93/55 L 93 Nasal Cannula 3 (1) Back pain Back pain laterality: midline Back pain location: thoracic back pain Chronicity: acute Qualified Code(s): M54.6 - Pain in thoracic spine (2) Compression fracture of thoracic vertebra Encounter type: initial encounter Thoracic vertebra fracture level: T12 Qualified Code(s): S22.080A - Wedge compression fracture of T11-T12 vertebra, initial encounter for closed fracture
[2024-11-05] MEDS: MIDODRINE HCL 2.5 MG TAB PO SCH (17:50)
[2024-11-05] MEDS ORDERED: MIDODRINE HCL 2.5 MG TAB PO SCH (21:00)
[2024-11-06] MEDS ORDERED: MIDODRINE HCL 2.5 MG TAB PO SCH (06:00)
--- NOTE | 2024-11-06 11:22 | Hospitalist Progress Note ---
Date of Service November 06, 2024 Assessment & Plan (1) Back pain: (2) Compression fracture of thoracic vertebra: (3) Ambulatory dysfunction: Plan 74-year-old male with past med history significant for left foot gout, dyslipidemia, paroxysmal atrial fibrillation, history of CAD, history of systolic CHF with recovered EF, history of A-fib, history of aphasia poststroke, CKD stage III, BPH, osteoarthritis, history of laceration of spleen who presents to ED 2/2 persistent to back pain and inability to ambulate. Recently hospitalized 10/24-10/27 2/2 fall and subsequent age related osteoporotic compression fx of T12-L1. He was seen and evaluated by orthospine and prescribed LSO brace. Discharged with scheduled APAP. He did not have any gabapentin at home. After discharge he has been unable to ambulate or get out of bed. Due to pain and immobility he was brought back today to consider rehab. #Ambulatory dysfunction 2/2 prior mechanical fall #Age related osteoporotic compression fx of T12-L1, POA #Low back pain Continue scheduled tylenol, gabapentin 300mg TID Continue prn Robaxin, scheduled lidocaine patch LSO brace while ambulatory PT/OT yamileth CM working on placement #Orthostatic hypotension #Chronic systolic CHF, now recovered: #CAD: #A-fib Echo 10/2024: EF 55-60% , mild LVH, AV sclerosis, mild MR/TR, elevated pulm pressure. Status post stent, continue statin/beta-bartolo Continue midodrine 5mg TID and monitor today Continue home metoprolol and Eliquis. #Recent PNA: CXR noted improvement Completed Abx On chronic 2L NC per #Elevated trop: Trop 24.7->22.9 Likely demand ischemia No new ischemic changes on EKG #CKD3 Cr 1.3-1.4. Stable May be new baseline #Vitamin D def - Vit d level 17 during last admission Continue Vit D po Recommend repeat in 3 months Other chronic medical conditions: History of CVA/aphasia: Continue home statin. COPD with chronic hypoxic resp failure: continue home meds including inhalers and 2L of O2 DVT prophylaxis: Dean DNR/DNI I spent a total of 35 minutes coordinating, documenting and providing care for this patient excluding time spent in performance of separately billed services Admission and Anticipated Discharge Date Admission Date: October 31, 2024 Subjective Patient seen and examined at bedside Patient has expressive dysphasia but able to answer "yes" or "no" to simple questions No new complaints Have orthostatic dizziness and orthostatic hypotension. Started on midodrine yesterday reported this is chronic and contributes to his fall Physical Exam Constitutional: + well hydrated; no acute distress ENMT: external ear and nose normal, oropharynx normal Respiratory: normal respiratory effort, lungs clear to auscultation Cardiovascular: Rate/Rhythm: + irregularly irregular Gastrointestinal (Abdomen): normal bowel sounds, soft, nontender, no hep atosplenomegaly Musculoskeletal: Trace pedal edema Neurologic: +expressive dysphasia, dysarthria. Follo ws simple commands Results & Data Results & Data Vital Signs (Past 12 Hours) Vital Signs Temp Pulse Resp BP Pulse Ox O2 Del Method O2 Flow Rate 11/06/24 07:43 36.3 C L 66 18 87/58 L 94 Nasal Cannula 11/06/24 07:37 Nasal Cannula 3 11/06/24 07:34 95 H 18 100 Nasal Cannula 2 11/06/24 00:23 101 H 15 98 Room Air 3 FiO2 11/06/24 07:43 2 11/06/24 07:37 11/06/24 07:34 11/06/24 00:23 (1) Back pain Back pain laterality: midline Back pain location: thoracic back pain Chronicity: acute Qualified Code(s): M54.6 - Pain in thoracic spine (2) Compression fracture of thoracic vertebra Encounter type: initial encounter Thoracic vertebra fracture level: T12 Qualified Code(s): S22.080A - Wedge compression fracture of T11-T12 vertebra, initial encounter for closed fracture
[2024-11-06] MEDS: MIDODRINE HCL 2.5 MG TAB PO SCH (12:02)
[2024-11-07 07:15] LABS: Hematocrit (blood only) 31.5 % (42.0-52.0); Hemoglobin 9.9 g/dl (14.0-18.0); Mean Corpuscular Hemoglobin 23.4 pg (25.0-34.0); Mean Corpuscular Hgb Conc 31.4 g/dL (32.0-36.0); Mean Corpuscular Volume 74.5 fL (80.0-100.0); Mean Platelet Volume 9.5 fL (9.4-12.4); Platelet Count 383 K/uL (130-400); RDW Coefficient of Variation 18.1 % (11.5-14.5); Red Blood Count 4.23 M/uL (4.70-6.10)
[2024-11-07 07:23] VITALS: TEMP 97.3
[2024-11-07 07:35] VITALS: PULSE 85; RESP 22; O2SAT 98
[2024-11-07 07:46] LABS: BUN Creatinine Ratio 16.1 (10-20); Calcium 8.9 mg/dl (8.6-10.3); Creatinine Clr Calc Pharmacy 50.3 ml/min; Potassium 4.2 mmol/L (3.5-5.1)
--- NOTE | 2024-11-07 11:09 | Discharge Summary ---
Date of Service November 07, 2024 Admission HPI Per Admitting Provider 74-year-old male with past med history significant for left foot gout, dyslipidemia, paroxysmal atrial fibrillation, history of CAD, history of systolic CHF due to idiopathic cardiomyopathy, history of A-fib, history of aphasia poststroke, CKD stage III, BPH, osteoarthritis, history of laceration of spleen who presents to ED 2/2 persistent to back pain and inability to ambulate. Of significance he was recently hospitalized 10/24-10/27 2/2 low back pain due to fall with current pathologic fx of T12 and L1 vertebra. He was also found to have possible PNA and tx with antibiotics. He was discharged on oral doxy and cefdinir. He completed the doxy and has one more dose of cefdinir. Daughter and are at bedside and help assist history. They report he has not gotten out of bed since discharge; therefore he hasn't worn his brace. He states its too painful. He hasn't ate/drank much. He has been taking his pills and using urinal. He has had 2 bowel movements. Daughter feels he needs rehab and he hasn't seen outpt PT yet. In ED pt was mildly hypotensive. He received IVF and SBP was in 120s. He was on 2L of O2 which is his baseline. Lab work was mostly unrevealing. CXR showed a residual LLL PNA. He was started on APAP, lidocaine patch and muscle relaxer. He also got some fluids. Daughter states he has a chronic cough with COPD. Feels it is unchanged. There has been no reports of fevers at home. He denies any increasing SOB. He reports back pain is middle/lower back. It does not radiate. He is not having any bowel or bladder incont. Sx are similar to when he was discharged. While he was inpt ht was getting gabapentin. He did not have this at home to continue. There was a miscommunication on his med list on admission as it was listed on there from a previous neck surgery. Admission Exam Per Admitting Provider Constitutional: WD/WN, limited bed mobility, vitals as above, NAD, lying in bed, pleasant, conversing easily +aphasia which is chronic Head: Normocephalic, Atraumatic Eyes: PERRL, conjunctivae normal, anicteric sclerae ENMT: external ear and nose normal, oropharynx normal Neck: trachea midline, no thyromegaly normal visual inspection Respiratory: normal respiratory effort, lungs clear to auscultation, no wheeze, rales, rhonchi. Normal insp/exp effort, no accessory muscle use on 2L of O2 via NC Cardiovascular: RRR, no murmur, no edema Vessels: no JVD or carotid bruit Chest: normal inspection of chest Abdomen: normal bowel sounds, soft, nontender, no hepatosplenomegaly Musculoskeletal: no cyanosis or clubbing, thickened nails, arom x 4 Skin: no rashes, warm and dry normal turgor Neurologic: no face palsy, + dysarthria CN's II-XI intact bilaterally and moves all extremities Psychiatric: A+Ox3, euthymic affect Principal Diagnosis Ambulatory dysfunction Compression fracture of T12 and L1 Orthostatic hypotension Discharge Exam Constitutional + well hydrated; no acute distress Sitting in chair with TLSO brace ENMT external ear and nose normal, oropharynx normal Respiratory normal respiratory effort, lungs clear to auscultation Cardiovascular Rate/Rhythm: + irregularly irregular Gastrointestinal (Abdomen) normal bowel sounds, soft, nontender, no hepatosplenomegaly Musculoskeletal +pedal edema Neurologic +expressive dysphasia, dysarthria. Follows simple commands Discharge Data Allergies Allergy/AdvReac Type Severity Reaction Status Date / Time No Known Allergies Allergy Verified 10/31/24 17:42 Consultations 10/31/24 19:02 ED Decision to Admit Stat Hospital Course (1) Back pain: (2) Compression fracture of thoracic vertebra: (3) Ambulatory dysfunction: Plan 74-year-old male with past med history significant for left foot gout, dyslipidemia, paroxysmal atrial fibrillation, history of CAD, history of systolic CHF with recovered EF, history of A-fib, history of aphasia poststroke, CKD stage III, BPH, osteoarthritis, history of laceration of spleen who presents to ED 2/2 persistent to back pain and inability to ambulate. Recently hospitalized 10/24-10/27 2/2 fall and subsequent age related osteoporotic compression fx of T12-L1. He was seen and evaluated by orthospine and prescribed LSO brace. Discharged with scheduled APAP. He did not have any gabapentin at home. After discharge he has been unable to ambulate or get out of bed. Due to pain and immobility he was brought back today to consider rehab. #Ambulatory dysfunction 2/2 prior mechanical fall #Age related osteoporotic compression fx of T12-L1, POA #Low back pain Continue scheduled tylenol, gabapentin 300mg TID Pain currently controlled LSO brace while ambulatory Patient and agreed to rehab #Orthostatic hypotension #Chronic systolic CHF, now recovered: #CAD: #A-fib Echo 10/2024: EF 55-60% , mild LVH, AV sclerosis, mild MR/TR, elevated pulm pressure. Status post stent, continue statin/beta-bartolo Continue home metoprolol and Eliquis. Patient was started on midodrine 5mg TID #Recent PNA: CXR noted improvement Completed Abx On chronic 2L NC per #Elevated trop: Trop 24.7->22.9 Likely demand ischemia No new ischemic changes on EKG #CKD3 Cr 1.3-1.4. Stable May be new baseline #Vitamin D def - Vit d level 17 during last admission Continue Vit D po Recommend repeat in 3 months Total Time Total Time Spent Total Time Spent (In Minutes): 35 Total Time Includes: Examination of the Patient, Discharge Planning and Medication Reconciliation Discharge Plan Discharge Items Patient Disposition: Transfer Inpatient Rehab Fac Reason For Visit: AMBULATORY DYSFUNCTION, BACK PAIN Discharge Diagnosis: Ambulatory dysfunction Compression fracture of T12 and L1 Orthostatic hypotension Activity: As commented below Activity Comment: Per Physical therapy. Continue to use brace with activity Non-emergency contact: Primary Care Provider Call non-emergency contact if: you have any medication questions Follow-up/Referrals: Chelo Trotter MD [Primary Care Provider] - Diet: Heart Healthy and Low Sodium (2gm) Addtl Attending Provider Instructions: Mr Romero You were hospitalized and managed for the above listed diagnoses. You were started on midodrine for low blood pressure on standing Please ensure you get up slowly in stages as we discussed Please ensure follow up with your Primary Doctor It was a pleasure taking care of you Pending Studies at Discharge: No Stand-Alone Forms: My [facility] Skilled Items Patient informed of condition?: Yes DNR: Yes Discharge Level of Care: Acute rehab Communicable Disease: No Discharge Prognosis: Stable Lines: None Urinary Catheter: No Medications and DC Order Prescriptions: New lidocaine 5 % Adhesive Patch,Medicated 1 patch transdermal QAM Qty: 15 0RF gabapentin 300 mg Capsule 300 mg PO TID Qty: 90 0RF midodrine 5 mg tablet 5 mg PO TID Qty: 90 0RF Rx Instructions: do not give last dose of day after 6PM or within 4 hrs of bedtime Continued fluticasone propionate 50 mcg/actuation [place],Suspension 2 spray INTRANASAL DAILY PRN (Reason: Congestion) multivitamin Tablet 1 tab PO DAILY Qty: 30 0RF atorvastatin 40 mg Tablet 40 mg PO DAILY Qty: 30 0RF acetaminophen [Athenol] 325 mg tablet 650 mg PO TID Qty: 60 0RF polyethylene glycol 3350 [Miralax] 17 gram Powder In Packet 17 g PO DAILY PRN (Reason: laxative effect) Qty: 30 0RF fexofenadine 180 mg Tablet 180 mg PO DAILY PRN (Reason: Allergic Symptoms) Qty: 30 0RF spironolactone 25 mg tablet 25 mg PO DAILY Qty: 30 0RF tamsulosin 0.4 mg Capsule 0.4 mg PO DAILY Qty: 30 0RF docusate sodium 100 mg Capsule 100 mg PO BID PRN (Reason: constipation) Qty: 30 0RF allopurinol 300 mg Tablet 300 mg PO DAILY Qty: 30 0RF furosemide 20 mg tablet 20 mg PO SUTUTHSA Qty: 30 0RF Rx Instructions: 40mg po daily on Wed, Wed and Wednesday and 20mg po daily all other days furosemide 20 mg tablet 40 mg PO WEFR Qty: 30 0RF metoprolol succinate 25 mg tablet extended release 24 hr 25 mg PO DAILY Qty: 30 0RF albuterol sulfate 90 mcg/actuation HFA aerosol inhaler 2 puff INHALATION Q4H PRN (Reason: sob) Qty: 6.7 0RF fluoxetine 20 mg capsule 40 mg PO DAILY Qty: 30 0RF finasteride 5 mg tablet 5 mg PO DAILY Qty: 30 0RF ipratropium bromide 0.02 % Solution 0.5 mg inhalation TID 7 Days Qty: 52.5 0RF Rx Instructions: May also use every 4 hours as needed for shortness of breath or wheezing cholecalciferol (vitamin D3) 25 mcg (1,000 unit) Capsule 25 mcg PO QAM Qty: 30 0RF tiotropium bromide 2.5 mcg/actuation mist 2 puff INHALATION DAILY Qty: 4 0RF Eliquis 5 mg tablet 5 mg PO BID Qty: 60 0RF fluticasone furoate-vilanterol [Breo Ellipta] 100-25 mcg/dose Blister With Device 1 ea inhalation DAILY 30 Days Qty: 60 0RF Changed levalbuterol HCl 1.25 mg/0.5 mL Solution For Nebulization 1.25 mg inhalation TID PRN (Reason: shortness of breath or wheezing) Qty: 30 0RF Rx Instructions: May also use every 4 hours as needed for shortness of breath or wheezing Discharge Orders: Discharge Order (Routine); Ordered 11/07/24 Ordered By: Connie Pandey Admission Data Admit Date/Time: 10/31/24 17:49 Attending Provider: Connie Pandey I. Admit Provider: Chanelle Barton Primary Care Provider: Chelo Trotter Other Providers: Chanelle Barton; [id number],[facility]; [facility] Other Interventions: Discharge Summary Assessment (RN) Last Done: 11/07/24 11:22
[2024-11-07 11:23] VITALS: BP 104/72
== END 2024-11-07 12:13 | DRG 543 ==
LOC: ED 14:22 → 3N 17:49 → SUATTDRO 17:49 → 3N 20:44
DX: J96.11 Chronic respiratory failure with hypoxia; N18.30 Chronic kidney disease, stage 3 unspecified; I25.10 Atherosclerotic heart disease of native coronary artery without angina pectoris; I24.89 Other forms of acute ischemic heart disease; I95.1 Orthostatic hypotension; Z79.899 Other long term (current) drug therapy; Z79.01 Long term (current) use of anticoagulants; M19.90 Unspecified osteoarthritis, unspecified site; E78.5 Hyperlipidemia, unspecified; Z99.81 Dependence on supplemental oxygen; I08.1 Rheumatic disorders of both mitral and tricuspid valves; I48.0 Paroxysmal atrial fibrillation; M80.08XA Age-related osteoporosis with current pathological fracture, vertebra(e), initial encounter for fracture; I50.22 Chronic systolic (congestive) heart failure; E55.9 Vitamin D deficiency, unspecified; R26.2 Difficulty in walking, not elsewhere classified; J44.0 Chronic obstructive pulmonary disease with (acute) lower respiratory infection; N40.0 Benign prostatic hyperplasia without lower urinary tract symptoms; W19.XXXA Unspecified fall, initial encounter; I42.9 Cardiomyopathy, unspecified; I69.320 Aphasia following cerebral infarction